=== PATIENT | male | born 1930 | race American Indian/Alaskan Native ===

== ENCOUNTER 2016-12-12 06:22 | Day surgery (SDC) | payer MEDICARE, OTHER ==
[2016-12-07 13:45] VITALS: BMI 24.0
[2016-12-12] MEDS ORDERED: cefTRIAXone IV 1 gm in Dextros 50 ML IVPB ONE (08:00)
[2016-12-12] MEDS ORDERED: Gentamicin 80 mg in 0.9% NS 0 MG/0 ML BAG IVPB ONE (08:00)
[2016-12-12] MEDS ORDERED: Lactated Ringer's 500 ML IV ONE ×2 (08:03→09:30)
[2016-12-12] MEDS ORDERED: Propofol 10 mg/ml Inj (20 ML) ONE (08:04)
[2016-12-12] MEDS ORDERED: Midazolam 2 MG/2 ML VIAL ONE (08:04)
[2016-12-12] MEDS ORDERED: Iohexol 240 200 ML IJ ONE (08:17)
[2016-12-12] MEDS ORDERED: HYDROmorphone 0.5 mg/0.5 ml ISec IVP PRN (08:52)
--- NOTE | 2016-12-12 09:16 | PCM.SURG1 ---
Surgeon's Initial Post Op Note - Surgeon's Notes Surgeon: al enriquez Gas Engine Mechanic: none Type of Anesthesia: IV Sedation Pre-Operative Diagnosis: incontinence Operative Findings: bladder tumor. neurogeninc baldder. bph Post-Operative Diagnosis: same Operation Performed: cgm. cysto. bladder bx's and fulg Specimen/Specimens Removed: urien. bladder bx's Estimated Blood Loss: EBL {In ML}: 0 Blood Products Given: N/A Post-Op Condition: Good Date of Surgery/Procedure: 12/12/16 Time of Surgery/Procedure: 09:00
[2016-12-12 15:37] VITALS: BP 149/56; PULSE 61; RESP 15; TEMP 97.4; O2SAT 98
--- NOTE | 2016-12-13 10:33 | RAD ---
PROCEDURE: HISTORY: COMPARISON: None TECHNIQUE: Total fluoroscopic time utilized during the procedure: 8.7 seconds. Total dose 86.1 mGy cm squared FINDINGS: Submitted images from the current procedure: 6 Please refer to the physician's notes performing the procedure. Findings show a heavily trabeculated bladder - Kong tree morphology IMPRESSION: Less than 1 hour fluoroscopic time utilized during performance of the procedure
--- NOTE | 2016-12-15 06:19 | OP ---
PROCEDURE DATE: 12/12/2016 PREOPERATIVE DIAGNOSIS: Urinary incontinence. POSTOPERATIVE DIAGNOSES: Urinary incontinence. Benign prostatic hypertrophy. Neurogenic bladder. Bladder cancer. PROCEDURE: Attempted cystometrogram. Cystogram. Cystoscopy. Bladder biopsy and fulguration. SURGEON: Dr. Jenny Schulte. DESCRIPTION OF PROCEDURE: The patient was in supine position. Genitalia was prepped and draped in sterile fashion. A 16-Mosotho Hill catheter was inserted per urethra. The residual within bladder was 150 mL. The urine was sent back for urologic examination. The attempted cystometrogram was performed. However, the cystometry unit was malfunctioning. The cystometrogram cannot be performed. The patient then had a cystogram. Iodinated contrast was instilled via the Hill catheter. The cystogram was performed under fluoroscopic control. The findings were trabeculated bladder with a x-mas tree formation. That is there was tenting of the dome of the bladder toward a narrow tip from a wide base. The post-drain films and oblique views were obtained as well. The patient was then placed in lithotomy position. Genitalia were prepped and draped in sterile fashion. Anesthesia was applied by the anesthesiologist. A 22-Mosotho cystoscope sheath was introduced under direct vision. The urethra, prostate and bladder were inspected with 30-degree and 70-degree lenses. FINDINGS: There was no stricture of the anterior urethra, but there was evidence of trilobar prostatic hypertrophy. There was marked bladder trabeculation with cellule formation. There were multiple areas of erythema which was flat and slightly granular. Biopsy of one of these areas was performed with cold-cup biopsy forceps. Fulguration was performed with ball electrodes and electrocautery. This site was located in the left anterior lateral wall. Additionally, there was a papillary lesion which appeared to be a bladder tumor located along a trabeculation band. This area was biopsied and removed with cold-cup biopsy forceps. Fulguration was performed with ball electrode and electrocautery for hemostasis as well as *------* control. The bladder was reinspected with 17-Mosotho confirming the above findings. The prostatic urethra was occlusive and 3 cm in length. There were no stones within the bladder. The ureteral orifices were not identified with certainty. The cystoscope and sheath were removed. Hill catheter was inserted. Bladder drainage was clear. Rectal examination was performed. Prostate was supple and smooth without fixation, induration, or nodularity. The patient tolerated the procedure without complication. Jenny Schulte MD
== END 2016-12-12 15:52 | disposition home or self-care (01) ==
LOC: C.SDS 06:22
PROVIDERS: ATTEND Urology
DX: C67.4 Malignant neoplasm of posterior wall of bladder (principal); N40.1 Benign prostatic hyperplasia with lower urinary tract symptoms; N31.9 Neuromuscular dysfunction of bladder, unspecified; R32 Unspecified urinary incontinence
CPT/HCPCS: 52204; 76000; 82948; 87086; 88104; 88305; J0696; J7120; Q9966

== ENCOUNTER 2017-03-13 06:00 | Day surgery (SDC) | payer MEDICARE, OTHER ==
[2016-12-07 13:45] VITALS: BMI 24.0
[2017-03-13] MEDS ORDERED: Lidocaine 2% Jelly (Uro-Jet) ONE (07:31)
[2017-03-13 07:34] LABS: INR 1.4
[2017-03-13] MEDS ORDERED: Propofol 10 mg/ml Inj (20 ML) ONE (07:54)
[2017-03-13] MEDS ORDERED: Lactated Ringer's 500 ML IV ONE ×2 (08:00)
[2017-03-13] MEDS: cefTRIAXone IV 1 gm in Dextros 50 ML IVPB ONE ×2 (08:01→08:35)
[2017-03-13] MEDS: Iohexol 240 (50 ml) ONE ×2 (08:09→08:45)
[2017-03-13] MEDS ORDERED: ePHEDrine 50 mg/ml Inj ONE (08:44)
[2017-03-13] MEDS ORDERED: HYDROmorphone 0.5 mg/0.5 ml ISec IVP PRN (09:17)
--- NOTE | 2017-03-13 09:20 | PCM.SURG1 ---
Surgeon's Initial Post Op Note - Surgeon's Notes Surgeon: Melvi Schulte Robotype Operator: none Type of Anesthesia: Moderate Sedation{RN} Pre-Operative Diagnosis: hx of bladder tumor, bph, incontinence Operative Findings: same, urethral stricture, abnormal bladder mucosa Post-Operative Diagnosis: same Operation Performed: cystoscopy, urethral dilation, bilat rtg pyelogram. bladder b'sx and fulg. TUIP Specimen/Specimens Removed: urine, bladder bx Estimated Blood Loss: EBL {In ML}: 0 Blood Products Given: N/A Post-Op Condition: Good Date of Surgery/Procedure: 03/13/17 Time of Surgery/Procedure: 09:15
[2017-03-13 10:26] VITALS: O2SAT 99
[2017-03-13 12:21] VITALS: BP 134/70; PULSE 59; RESP 18; TEMP 97.8
--- NOTE | 2017-03-14 15:47 | RAD ---
PROCEDURE: HISTORY: COMPARISON: TECHNIQUE: Total fluoroscopic time utilized during the procedure: 12.4 seconds. Total dose 0.91186 mGy cm squared FINDINGS: Submitted images from the current procedure: 11 Please refer to the physician's notes performing the procedure. IMPRESSION: Less than 1 hour fluoroscopic time utilized during performance of the procedure
--- NOTE | 2017-03-17 03:32 | OP ---
UROLOGY OPERATIVE REPORT PREOPERATIVE DIAGNOSES: History of bladder tumor. Incomplete bladder emptying. Urinary incontinence. POSTOPERATIVE DIAGNOSES: History of bladder tumor. Incomplete bladder emptying. Urinary incontinence. Urethral stricture. Chronic retention. Prostatic enlargement. Bladder tumor. PROCEDURES: Cystoscopy. Urethral dilation. Bilateral retrograde pyelogram. Bladder biopsy and fulguration. Transurethral incision of prostate (TUIP). PROCEDURE FOLLOWS: The patient was placed in the lithotomy position. Genitalia prepped and draped sterilely. Anesthesia was applied by the anesthesiologist. Perioperative antibiotics were administered. Procedure was performed under video endoscopic control as well as under fluoroscopic control. PROCEDURE FOLLOWS. A 22-Albanian cystoscope sheath was introduced under direct vision. There was a bulbous urethral stricture. The stricture was dilated by pass of the cystoscope sheath over a ureteral catheter which was inserted through the cystoscope sheath, through the urethral stricture and into the bladder. Thereafter, the bladder was inspected with 30 degree and 70 degree lenses. FINDINGS: There was prostatic hypertrophy. Prostatic urethra was approximately 3 cm length and occlusive. There was marked bladder trabeculation with cellule formation. There was no bladder stone. There were areas of abnormal bladder mucosa which were reddened and slightly raised and had early papillary formation. The ureteral orifices were identified bilaterally. Occlusive tip retrograde ureteral pyelograms were performed. The retrograde pyelogram demonstrated no evidence of obstruction or filling defect within the ureters or collecting systems. The area of abnormal bladder mucosa was biopsied using cold-cup biopsy forceps. Fulguration was performed with ball electrode and electrocautery. Hemostasis was complete. The cystoscope was removed. A 24-Albanian resectoscope was introduced under direct vision. Incision of the prostate was performed using the Tiny electrode. Incision was performed in the 5 o'clock and 7 o' clock position from the bladder neck to the prostatic urethra, proximal to the verumontanum. Hemostasis was achieved using electrocautery. There was no bleeding noted. The resectoscope was then removed. A Councill tip catheter was inserted over ureteral catheter which was inserted into the bladder as a guide. Bladder drainage was clear. Cystogram was performed. Iodinated contrast dye was instilled via the Hill catheter. The cystogram confirmed the presence of catheter within the bladder. Rectal examination was performed. There was no abnormal pelvic mass fixation or induration. Prostate was benign and enlarged and supple and symmetric. Prostate was approximately 20 to 25 g in size. The patient tolerated the procedure without complication. Jenny Schulte MD cc: Jenny Schulte MD
== END 2017-03-13 12:12 | disposition home or self-care (01) ==
LOC: C.SDS 06:00
PROVIDERS: ATTEND Urology
DX: C67.4 Malignant neoplasm of posterior wall of bladder (principal); N35.9 Urethral stricture, unspecified; N40.1 Benign prostatic hyperplasia with lower urinary tract symptoms; N39.498 Other specified urinary incontinence; R33.8 Other retention of urine; E11.9 Type 2 diabetes mellitus without complications; I48.91 Unspecified atrial fibrillation; Z79.01 Long term (current) use of anticoagulants
CPT/HCPCS: 36415; 52204; 52450; 76000; 82948; 85610; 87086; 88104; 88305; C1758; J0696; J7120; Q9966

== ENCOUNTER 2017-05-25 15:57 | Emergency (ER) | payer MEDICARE, OTHER ==
[2017-05-25 16:09] VITALS: BMI 24.5
--- NOTE | 2017-05-25 17:16 | C.PDOC ---
History Of Present Illness 87 yr old male with PMHx of dementia, HTN and chronic renal disease presents to the ER accompanied by for evaluation of increasing confusion over the last several weeks. states the patient will carry on conversations and there is no one present in the room. reports patent is not as focused as he use to be. Patient denies visual or auditory hallucinations. Denies fever, chills, chest pain, SOB, nausea, vomiting or headache. Time Seen by Provider: 05/25/17 16:40 Chief Complaint (Nursing): Altered Mental Status History Per: Patient, Family () History/Exam Limitations: None Onset/Duration Of Symptoms: Persistent Past Medical History Reviewed: Historical Data, Nursing Documentation, Vital Signs Vital Signs: Last Vital Signs Temp 97.8 F 05/25/17 16:01 Pulse 78 05/25/17 18:15 Resp 16 05/25/17 18:15 BP 176/88 H 05/25/17 18:15 Pulse Ox 98 05/25/17 20:02 - Medical History PMH: Anemia, Arthritis, Cardia Arrhythmia (atrial fib), CHF, HTN, Hypercholesterolemia, Peripheral Edema (sometimes not at present), Chronic Kidney Disease (renal insufficiency), Sleep Apnea (no c pap) Surgical History: CABG ((2)), Coronary Stent (X2) Family History: States: No Known Family Hx - Social History Hx Alcohol Use: No Hx Substance Use: No - Immunization History Hx Tetanus Toxoid Vaccination: No Hx Influenza Vaccination: No Hx Pneumococcal Vaccination: No Review Of Systems Except As Marked, All Systems Reviewed And Found Negative. Constitutional: Negative for: Fever, Chills Cardiovascular: Negative for: Chest Pain Respiratory: Negative for: Shortness of Breath Gastrointestinal: Negative for: Nausea, Vomiting Neurological: Positive for: Confusion. Negative for: Headache Physical Exam - Physical Exam Appears: Non-toxic, No Acute Distress, Other (flat affect) Skin: Warm, Dry Head: Atraumatic, Normacephalic Eye(s): bilateral: Normal Inspection, PERRL, EOMI Oral Mucosa: Moist Throat: Normal, No Erythema, No Exudate, No Drooling Neck: Normal, Normal ROM, Supple Cardiovascular: Rhythm Regular, Rhythm Irregular Respiratory: Normal Breath Sounds, No Rales, No Rhonchi, No Stridor, No Wheezing Gastrointestinal/Abdominal: Normal Exam, Soft, No Tenderness, No Guarding Extremity: Normal ROM, No Swelling Neurological/Psych: Other (Patient is alert and active, knows his address, date and year. ) ED Course And Treatment - Laboratory Results Result Diagrams: 05/25/17 18:15 05/25/17 18:15 ECG: Interpreted By Me, Viewed By Me ECG Rhythm: Atrial Fibrillation Rate From EC (BPM) O2 Sat by Pulse Oximetry: 98 (RA) Pulse Ox Interpretation: Normal - Other Rad CXR X-Ray: Viewed By Me, Read By Radiologist Interpretation: HISTORY: AMS. COMPARISON: Chest x-ray performed 12/07/16. TECHNIQUE: Chest, one view. FINDINGS: LUNGS: No focal consolidation. Please note that chest x-ray has limited sensitivity for the detection of pulmonary masses. PLEURA: No significant pleural effusion identified. No definite pneumothorax . CARDIOVASCULAR: Median sternotomy wires. Heart size appears within normal limits. OSSEOUS STRUCTURES: Degenerative changes. VISUALIZED UPPER ABDOMEN: Elevation of the left hemidiaphragm. OTHER FINDINGS : None. IMPRESSION: No focal consolidation, significant pleural effusion, or definite pneumothorax identified. - CT Scan/US CT - Head Other Rad Studies (CT/US): Read By Radiologist, Radiology Report Reviewed CT/US Interpretation: PROCEDURE: CT HEAD WITHOUT CONTRAST. HISTORY: AMS. COMPARISON: None available. TECHNIQUE: Axial computed tomography images were obtained through the head/brain without intravenous contrast. Radiation dose: Total exam DLP = 862.66 mGy-cm. This CT exam was performed using one or more of the following dose reduction techniques: Automated exposure control, adjustment of the mA and/or kV according to patient size, and/or use of iterative reconstruction technique. FINDINGS: HEMORRHAGE: No intracranial hemorrhage. BRAIN: Diffuse atrophy with prominence of the ventricles and sulci noted. No mass effect or edema. Intracranial atherosclerosis. Scattered white matter hypodensities, which are nonspecific, but often seen with chronic microvascular ischemic disease. Left frontal encephalomalacia. Please note that MRI with diffusion imaging is more sensitive in the detection of acute ischemic event. VENTRICLES: No hydrocephalus. CALVARIUM: Unremarkable. PARANASAL SINUSES: Unremarkable as visualized. No significant inflammatory changes. MASTOID AIR CELLS: Unremarkable as visualized. No inflammatory changes. OTHER FINDINGS: None. IMPRESSION: Encephalomalacia, left frontal lobe. Nonspecific white matter changes. Generalized atrophy. Please note that MRI with diffusion imaging is more sensitive in the detection of acute ischemic event. Medical Decision Making Medical Decision Making: IMPRESSION: Dementia subacute PLAN: * CT - Head * CXR * EKG * CBC * CMP * Urinalysis NOTE: AMS work up. Current mental status is not acute onset. Discussed finding of CT with patient about atrophy brain. Patient is stable to be discharged home. Disposition - Disposition Referrals: [facility] [Outside] Disposition: HOME/ ROUTINE Disposition Time: 19:56 Condition: GOOD Prescriptions: Gabapentin [Neurontin] 300 mg PO BID #20 cap Instructions: Sciatica (ED), Dementia (ED) Forms: Shawarmanji (Kinyarwanda) - Clinical Impression Clinical Impression: Sciatic leg pain, Dementia - Scribe Statement The provider has reviewed the documentation as recorded by the Lali Hernandez Provider Attestation: All medical record entries made by the Sandritaibsixto were at my direction and personally dictated by me. I have reviewed the chart and agree that the record accurately reflects my personal performance of the history, physical exam, medical decision making, and the department course for this patient. I have also personally directed, reviewed, and agree with the discharge instructions and disposition.
--- NOTE | 2017-05-25 18:04 | CT ---
PROCEDURE: CT HEAD WITHOUT CONTRAST. HISTORY: AMS COMPARISON: None available. TECHNIQUE: Axial computed tomography images were obtained through the head/brain without intravenous contrast. Radiation dose: Total exam DLP = 862.66 mGy-cm. This CT exam was performed using one or more of the following dose reduction techniques: Automated exposure control, adjustment of the mA and/or kV according to patient size, and/or use of iterative reconstruction technique. FINDINGS: HEMORRHAGE: No intracranial hemorrhage. BRAIN: Diffuse atrophy with prominence of the ventricles and sulci noted. No mass effect or edema. Intracranial atherosclerosis. Scattered white matter hypodensities, which are nonspecific, but often seen with chronic microvascular ischemic disease. Left frontal encephalomalacia. Please note that MRI with diffusion imaging is more sensitive in the detection of acute ischemic event. VENTRICLES: No hydrocephalus. CALVARIUM: Unremarkable. PARANASAL SINUSES: Unremarkable as visualized. No significant inflammatory changes. MASTOID AIR CELLS: Unremarkable as visualized. No inflammatory changes. OTHER FINDINGS: None. IMPRESSION: Encephalomalacia, left frontal lobe. Nonspecific white matter changes. Generalized atrophy. Please note that MRI with diffusion imaging is more sensitive in the detection of acute ischemic event.
--- NOTE | 2017-05-25 18:05 | RAD ---
HISTORY: AMS COMPARISON: Chest x-ray performed 12/07/16 TECHNIQUE: Chest, one view. FINDINGS: LUNGS: No focal consolidation. Please note that chest x-ray has limited sensitivity for the detection of pulmonary masses. PLEURA: No significant pleural effusion identified. No definite pneumothorax . CARDIOVASCULAR: Median sternotomy wires. Heart size appears within normal limits. OSSEOUS STRUCTURES: Degenerative changes. VISUALIZED UPPER ABDOMEN: Elevation of the left hemidiaphragm. OTHER FINDINGS: None. IMPRESSION: No focal consolidation, significant pleural effusion, or definite pneumothorax identified.
[2017-05-25 18:25] LABS: BASO # 0.1 K/uL (0.0-0.2); BASO % 0.7 % (0.0-2.0); EOS # 0.2 K/uL (0.0-0.7); EOS % 2.1 % (0.0-4.0); LYMPH # 1.6 K/uL (1.0-4.3); LYMPH % 22.6 % (20.0-40.0); MEAN CELL VOLUME 92.5 fL (80.0-94.0); MEAN CORPUSCULAR HEMOGLOBIN 30.1 pg (27.0-31.0); MEAN CORPUSCULAR HGB CONC 32.6 g/dL (33.0-37.0); MEAN PLATELET VOLUME 7.7 fL (7.2-11.7); MONO # 0.8 K/uL (0.0-0.8); MONO % 10.5 % (0.0-10.0); NEUT # 4.6 K/uL (1.8-7.0); NEUT % 64.1 % (50.0-75.0); RBC 4.64 Mil/uL (4.40-5.90); RED CELL DISTRIBUTION WIDTH 13.8 % (11.5-14.5); WHITE BLOOD COUNT 7.2 K/uL (4.8-10.8)
[2017-05-25 18:33] LABS: CALCIUM 8.5 mg/dl (8.6-10.4)
[2017-05-25 19:58] VITALS: PULSE 78
[2017-05-25] MEDS ORDERED: Tramadol 25 mg PO STA (23:36)
[2017-05-26 01:14] VITALS: BP 132/78; RESP 20; TEMP 98.1; O2SAT 97
== END 2017-05-26 01:00 | disposition home or self-care (01) ==
LOC: C.ER 15:57
DX: F03.90 Unspecified dementia, unspecified severity, without behavioral disturbance, psychotic disturbance, mood disturbance, and anxiety (principal); M79.606 Pain in leg, unspecified; E78.00 Pure hypercholesterolemia, unspecified; I10 Essential (primary) hypertension; I48.91 Unspecified atrial fibrillation

== ENCOUNTER 2017-06-06 23:48 | Inpatient (IN) | payer MEDICARE ==
[2017-06-06 23:48] VITALS: BMI 24.5
[2017-06-07] MEDS ORDERED: Sodium Chloride 0.9% 500 ML IV ONE ×2 (00:22→00:24)
[2017-06-07] MEDS ORDERED: Sodium Chloride 0.9% 1,000 ML IV ONE (00:24)
[2017-06-07] MEDS ORDERED: Sodium Chloride 0.9% 1,000 ML ONE (00:30)
--- NOTE | 2017-06-07 00:56 | C.PDOC ---
History Of Present Illness 87 year old male with a Hx of diabetes brought in the ER by family member for elevated blood sugar. Family reports patient fell and landed on his right hip and back area approximately 1 week ago. Denies fever, chills, weakness or numbness. Chief Complaint (Nursing): High Blood Sugar History Per: Family History/Exam Limitations: no limitations Onset/Duration Of Symptoms: Hrs Current Symptoms Are (Timing): Still Present Treatment Prior To Provider Evaluation: None Recent travel outside of the [place]: No Additional History Per: Family Past Medical History Reviewed: Historical Data, Nursing Documentation, Vital Signs Vital Signs: Last Vital Signs Temp 98.2 F 06/10/17 15:00 Pulse 99 H 06/10/17 16:13 Resp 20 06/10/17 15:00 BP 104/54 L 06/10/17 15:00 Pulse Ox 96 06/10/17 16:46 - Medical History PMH: Anemia, Arthritis, Cardia Arrhythmia (atrial fib), CHF, HTN, Hypercholesterolemia, Peripheral Edema (sometimes not at present), Chronic Kidney Disease (renal insufficiency), Sleep Apnea Surgical History: CABG ((2)), Coronary Stent (X2) Family History: States: Unknown Family Hx - Social History Hx Alcohol Use: No Hx Substance Use: No - Immunization History Hx Tetanus Toxoid Vaccination: Yes Hx Influenza Vaccination: Yes Hx Pneumococcal Vaccination: No Review Of Systems Constitutional: Negative for: Fever, Chills Cardiovascular: Negative for: Chest Pain, Palpitations Respiratory: Negative for: Cough, Shortness of Breath Gastrointestinal: Negative for: Nausea, Vomiting, Abdominal Pain Musculoskeletal: Positive for: Back Pain, Leg Pain Neurological: Negative for: Weakness, Numbness Physical Exam - Physical Exam Appears: Non-toxic, No Acute Distress Skin: Warm, Dry Head: Atraumatic, Normacephalic Eye(s): bilateral: Normal Inspection Oral Mucosa: Dry Neck: Normal, Supple Chest: Symmetrical, Other (Abrasion to left area) Cardiovascular: Rhythm Regular Respiratory: Normal Breath Sounds, No Rales, No Rhonchi, No Wheezing Gastrointestinal/Abdominal: Soft, No Tenderness Back: No CVA Tenderness, No Paraspinal Tenderness, Other (Abrasion to left buttock area) Extremity: Tenderness (right hip), Other (limited movement of right lower extremity) Neurological/Psych: Oriented x3, Normal Speech, Normal Motor, Normal Sensation ED Course And Treatment - Laboratory Results Result Diagrams: 06/10/17 06:21 06/10/17 06:21 ECG: Interpreted By Me, Viewed By Me ECG Rhythm: Atrial Fibrillation ECG Interpretation: No Acute Changes, Abnormal Interpretation Of ECG: atrial fibrillation, controlled rate Rate From EC O2 Sat by Pulse Oximetry: 96 (Room air) Pulse Ox Interpretation: Normal Progress Note: CT hip, CT pelvis, EKG, blood work, CXR, and urinalysis ordered. IV fluids and toradol administered. Disposition Discussed With Dr.: Cameron Jones Doctor Will See Patient In The: Hospital Counseled Patient/Family Regarding: Studies Performed - Disposition Disposition: HOSPITALIZED Disposition Time: 03:00 Condition: STABLE - POA Present On Arrival: None - Clinical Impression Clinical Impression: Hyperglycemia, Diabetic ketosis, Dehydration, Renal insufficiency - Scribe Statement The provider has reviewed the documentation as recorded by the Scribe Lauri Reagan All medical record entries made by the Scribe were at my direction and personally dictated by me. I have reviewed the chart and agree that the record accurately reflects my personal performance of the history, physical exam, medical decision making, and the department course for this patient. I have also personally directed, reviewed, and agree with the discharge instructions and disposition.
[2017-06-07 01:00] LABS: BASO # 0.1 K/uL (0.0-0.2); BASO % 0.4 % (0.0-2.0); EOS # 0.1 K/uL (0.0-0.7); EOS % 0.6 % (0.0-4.0); HEMOGLOBIN 14.4 g/dL (12.0-18.0); LYMPH # 1.1 K/uL (1.0-4.3); LYMPH % 8.3 % (20.0-40.0); MEAN CELL VOLUME 93.8 fL (80.0-94.0); MEAN CORPUSCULAR HEMOGLOBIN 30.8 pg (27.0-31.0); MEAN CORPUSCULAR HGB CONC 32.8 g/dL (33.0-37.0); MEAN PLATELET VOLUME 9.1 fL (7.2-11.7); MONO # 1.1 K/uL (0.0-0.8); MONO % 8.5 % (0.0-10.0); NEUT # 10.5 K/uL (1.8-7.0); NEUT % 82.2 % (50.0-75.0); PLATELET COUNT 259 K/uL (130-400); RBC 4.67 Mil/uL (4.40-5.90); RED CELL DISTRIBUTION WIDTH 13.6 % (11.5-14.5); WHITE BLOOD COUNT 12.8 K/uL (4.8-10.8)
[2017-06-07 01:48] LABS: ALB/GLOB RATIO 0.8 (1.0-2.1); ALBUMIN 3.5 g/dL (3.5-5.0); ALT/SGPT 64 U/L (21-72); AST/SGOT 59 U/L (17-59); BLOOD UREA NITROGEN 78 mg/dL (9-20); CALCIUM 9.2 mg/dl (8.6-10.4); GFR AFRICAN-AMERICAN 58; GFR NON-AFRICAN AMERICAN 48
[2017-06-07] MEDS ORDERED: (Novolin R) Insulin Human Regular 100 units/ml vial IV ONE (02:11)
[2017-06-07] MEDS ORDERED: Sodium Chloride 0.45% 500ml 1,000 ML IV ONE (02:14)
[2017-06-07] MEDS ORDERED: (Novolin R) Insulin Human Regular 100 units/ml vial ONE ×2 (02:18→03:06)
--- NOTE | 2017-06-07 02:25 | CT ---
EXAM: CT Pelvis Without Intravenous Contrast CLINICAL HISTORY: 87 years old, male; Pain; Hip pain; Right hip; Additional info: Injury /pain TECHNIQUE: Axial computed tomography images of the pelvis without intravenous contrast. All CT scans at this facility use one or more dose reduction techniques, viz.: automated exposure control; ma/kV adjustment per patient size (including targeted exams where dose is matched to indication; i.e. head); or iterative reconstruction technique. 3-D and MIP reconstruction images are submitted. 1105 images are submitted.Sagittal , axial and coronal MPR reformatted images are submitted in soft tissue and bone windows. COMPARISON: CR - HIP W/WO PELVIS 2-3 VIEWS RT 2015-05-23 12:46 FINDINGS: Bowel: Rectosigmoid distention with stool. No mucosal thickening. Appendix: Normal appendix. Intraperitoneal space: Unremarkable. No free air. No significant fluid collection. Bladder: Bladder distention measuring 14.7 cm. Correlation with patient's voiding status is recommended. Reproductive: Prostate gland is seen. Bones/joints: Degenerative changes are noted within the spine. There is vacuum disc disease at L4-L5 level. There is bulky bridging osteophyte at L3-L4 level. No acute fracture. No dislocation. Soft tissues: Unremarkable. Vasculature: The aorta demonstrates calcified plaque and is mildly ectatic but normal in caliber. No lower abdominal aortic aneurysm. Lymph nodes: Unremarkable. No enlarged lymph nodes. Other findings: There is chronic pelvic deformity. Correlation with patient's ambulatory status is recommended. IMPRESSION: 1. Bladder distention measuring 14.7 cm. Correlation with patient's voiding status is recommended. 2.There is no evidence of acute fracture.
[2017-06-07] MEDS ORDERED: Lidocaine 2% Jelly (Uro-Jet) ONE (02:34)
[2017-06-07 02:35] LABS: BANDS 1 % (0-2); EOSINOPHIL 1 % (0-4); LYMPHOCYTE 7 % (20-40); MONOCYTE 9 % (0-10); NEUTROPHIL 82 % (50-75); PLATELET ESTIMATE NORMAL (NORMAL); TOTAL CELLS COUNTED 100
[2017-06-07 02:50] LABS: ABG ALLEN TEST POS; ARTERIAL BLOOD GAS HCO3 21.3 mmol/L (21-28); ARTERIAL BLOOD GAS HEMOGLOBIN 12.3 g/dL (11.7-17.4); ARTERIAL BLOOD GAS O2 SAT 97.7 % (95-98); ARTERIAL BLOOD GAS PCO2 36 mm/Hg (35-45); ARTERIAL BLOOD GAS PH 7.36 (7.35-7.45); ARTERIAL BLOOD GAS PO2 95 mm/Hg (80-100); ARTERIAL BLOOD GAS TCO2 21.4 mmol/L (22-28)
[2017-06-07 02:51] LABS: URINE BACTERIA RARE (<OCC); URINE BILIRUBIN NEGATIVE (NEGATIVE); URINE BLOOD NEGATIVE (NEGATIVE); URINE CLARITY Clear (Clear); URINE COLOR Yellow (YELLOW); URINE GLUCOSE (UA) 3+ mg/dL (Normal); URINE LEUKOCYTE ESTERASE NEG Leu/uL (Negative); URINE NITRATE NEGATIVE (NEGATIVE); URINE PROTEIN NEGATIVE (NEGATIVE); URINE UROBILINOGEN NORMAL mg/dL (0.2-1.0)
[2017-06-07] MEDS ORDERED: (Novolin R) Insulin Human Regular 100 units/ml vial SC ONE (03:06)
[2017-06-07] MEDS: Sodium Chloride 0.9% 1,000 ML IV SCH ×2 (03:26→16:35)
[2017-06-07] MEDS: (Novolin R) Insulin Human Regular 100 units/ml vial SC SCH ×5 (04:12→22:04)
[2017-06-07 05:07] LABS: BASO % 0.3 % (0.0-2.0); EOS # 0.1 K/uL (0.0-0.7); EOS % 0.7 % (0.0-4.0); HEMOGLOBIN 13.2 g/dL (12.0-18.0); LYMPH # 1.2 K/uL (1.0-4.3); LYMPH % 8.4 % (20.0-40.0); MEAN CELL VOLUME 93.3 fL (80.0-94.0); MEAN CORPUSCULAR HEMOGLOBIN 30.7 pg (27.0-31.0); MEAN PLATELET VOLUME 8.8 fL (7.2-11.7); MONO # 1.4 K/uL (0.0-0.8); MONO % 9.9 % (0.0-10.0); NEUT # 11.5 K/uL (1.8-7.0); NEUT % 80.7 % (50.0-75.0); PLATELET COUNT 236 K/uL (130-400); RBC 4.28 Mil/uL (4.40-5.90); RED CELL DISTRIBUTION WIDTH 14.1 % (11.5-14.5); WHITE BLOOD COUNT 14.3 K/uL (4.8-10.8)
[2017-06-07 05:14] LABS: INR 6.9
[2017-06-07 05:22] LABS: ALB/GLOB RATIO 0.8 (1.0-2.1); ALT/SGPT 55 U/L (21-72); AST/SGOT 49 U/L (17-59); BLOOD UREA NITROGEN 76 mg/dL (9-20); CALCIUM 8.5 mg/dl (8.6-10.4); GFR AFRICAN-AMERICAN 58; GFR NON-AFRICAN AMERICAN 48
[2017-06-07 05:25] LABS: PROTHROMBIN TIME 83.7 SECONDS (9.7-12.2)
[2017-06-07 05:43] LABS: LYMPHOCYTE 7 % (20-40); MONOCYTE 6 % (0-10); NEUTROPHIL 87 % (50-75); PLATELET ESTIMATE NORMAL (NORMAL); TOTAL CELLS COUNTED 100
[2017-06-07] MEDS: (Novolog Mix 70/30) Insulin Aspart/Insulin Aspar 100 units/ml SC SCH ×2 (09:28→18:49)
[2017-06-07] MEDS: Metoprolol Succinate 50 mg XL Tab PO SCH (09:30)
[2017-06-07] MEDS: Multiple Vitamins Tab PO SCH (09:30)
--- NOTE | 2017-06-07 09:37 | RAD ---
PROCEDURE: CHEST RADIOGRAPH, 1 VIEW HISTORY: SOB COMPARISON: Chest radiograph dated 05/25/2017. FINDINGS: LUNGS: Stable chronic prominence of the bilateral interstitial markings. No focal consolidation. PLEURA: No pneumothorax or pleural fluid seen. CARDIOVASCULAR: Prior sternotomy with sternal wires surgical clips redemonstrated. Atherosclerotic aortic calcifications. Cardiomediastinal silhouette unchanged. OSSEOUS STRUCTURES: Unchanged. VISUALIZED UPPER ABDOMEN: Normal. OTHER FINDINGS: None. IMPRESSION: Stable chronic prominence of the bilateral interstitial markings. No focal consolidation or pleural effusion.
[2017-06-07] MEDS ORDERED: Home Med 1 UNIT (Silodosin [Rapaflo] 8 MG) PO SCH (10:00)
[2017-06-07] MEDS: Cefepime IV 1 gm in Dextrose 1 GM/50 ML BAG IVPB SCH (17:49)
--- NOTE | 2017-06-07 19:29 | CP.PCM.HP ---
Past Patient History - Infectious Disease Hx of Infectious Diseases: None - Past Medical History & Family History Past Medical History?: Yes - Past Social History Smoking Status: Never Smoked - CARDIAC Hx Cardia Arrhythmia: Yes (atrial fib) Hx Congestive Heart Failure: Yes Hx Hypercholesterolemia: Yes Hx Hypertension: Yes Hx Peripheral Edema: Yes (sometimes not at present) - PULMONARY Hx Sleep Apnea: Yes - HEENT Hx HEENT Problems: Yes Hx Cataracts: Yes - RENAL Hx Chronic Kidney Disease: Yes (renal insufficiency) - ENDOCRINE/METABOLIC Hx Endocrine Disorders: Yes Hx Diabetes Mellitus Type 2: Yes - HEMATOLOGICAL/ONCOLOGICAL Hx Anemia: Yes - INTEGUMENTARY Hx Dermatological Problems: No - MUSCULOSKELETAL/RHEUMATOLOGICAL Hx Arthritis: Yes Hx Falls: Yes - GASTROINTESTINAL Hx Gastrointestinal Disorders: Yes Hx Constipation: Yes - GENITOURINARY/GYNECOLOGICAL Hx Genitourinary Disorders: Yes Hx Bladder Cancer: Yes Hx Incontinence: Yes Hx Prostate Problems: Yes - PSYCHIATRIC Hx Substance Use: No - SURGICAL HISTORY Hx Coronary Artery Bypass Graft: Yes ((2)) Hx Coronary Stent: Yes (X2) - ANESTHESIA Hx Anesthesia: Yes Hx Anesthesia Reactions: No Hx Malignant Hyperthermia: No Meds Allergies/Adverse Reactions: Allergies Allergy/AdvReac Type Severity Reaction Status Date / Time No Known Allergies Allergy Verified 06/07/17 00:18 Physical Exam - Constitutional Appears: Well - Head Exam Head Exam: ATRAUMATIC, NORMAL INSPECTION, NORMOCEPHALIC - Eye Exam Eye Exam: EOMI, Normal appearance, PERRL Pupil Exam: NORMAL ACCOMODATION, PERRL - ENT Exam ENT Exam: Mucous Membranes Moist, Normal Exam - Neck Exam Neck exam: Positive for: Normal Inspection - Respiratory Exam Respiratory Exam: Decreased Breath Sounds - Cardiovascular Exam Cardiovascular Exam: REGULAR RHYTHM, +S1, +S2 - GI/Abdominal Exam GI & Abdominal Exam: Diminished Bowel Sounds, Soft - Rectal Exam Rectal Exam: Deferred Results - Vital Signs Recent Vital Signs: Last Vital Signs Temp 98.7 F 06/07/17 16:00 Pulse 98 H 06/07/17 16:11 Resp 20 06/07/17 16:00 BP 109/62 06/07/17 16:00 Pulse Ox 97 06/07/17 16:00 - Labs Result Diagrams: 06/07/17 05:04 06/07/17 05:04 Labs: Laboratory Results - last 24 hr 06/07/17 06/07/17 06/07/17 00:21 00:50 00:50 WBC 12.8 H D RBC 4.67 Hgb 14.4 Hct 43.8 MCV 93.8 MCH 30.8 MCHC 32.8 L RDW 13.6 Plt Count 259 MPV 9.1 Neut % (Auto) 82.2 H Lymph % (Auto) 8.3 L [place] % (Auto) 8.5 Eos % (Auto) 0.6 Baso % (Auto) 0.4 Neut # 10.5 H Lymph # 1.1 [place] # 1.1 H Eos # 0.1 Baso # 0.1 Neutrophils % (Manual) 82 H Band Neutrophils % 1 Lymphocytes % (Manual) 7 L Monocytes % (Manual) 9 Eosinophils % (Manual) 1 Platelet Estimate Normal PT INR Puncture Site pCO2 pO2 HCO3 ABG pH ABG Total CO2 ABG O2 Saturation ABG Base Excess ABG Hemoglobin ABG Carboxyhemoglobin POC ABG HHb (Measured) ABG Methemoglobin [place] Test A-a O2 Difference Respiratory Index Hgb O2 Saturation Liter Flow FiO2 Sodium 139 Potassium 5.8 H Chloride 108 H Carbon Dioxide 22 Anion Gap 15 BUN 78 H Creatinine 1.4 Est GFR ( Amer) 58 Est GFR (Non-Af Amer) 48 POC Glucose (mg/dL) Random Glucose 446 H* D Calcium 9.2 Total Bilirubin 0.7 AST 59 D ALT 64 Alkaline Phosphatase 142 H D Total Creatine Kinase 1189 H Total Protein 7.7 Albumin 3.5 Globulin 4.2 H Albumin/Globulin Ratio 0.8 L Urine Color Yellow Urine Clarity Clear Urine pH 5.0 Ur Specific [place] 1.021 Urine Protein Negative Urine Glucose (UA) 3+ H Urine Ketones Negative Urine Blood Negative Urine Nitrate Negative Urine Bilirubin Negative Urine Urobilinogen Normal Ur Leukocyte Esterase Neg Urine WBC (Auto) 2 Urine RBC (Auto) 3 Urine Bacteria Rare Hyaline Casts 6-10 H Serum Ketones Small 06/07/17 06/07/17 06/07/17 02:37 03:00 04:08 WBC RBC Hgb Hct MCV MCH MCHC RDW Plt Count MPV Neut % (Auto) Lymph % (Auto) [place] % (Auto) Eos % (Auto) Baso % (Auto) Neut # Lymph # [place] # Eos # Baso # Neutrophils % (Manual) Band Neutrophils % Lymphocytes % (Manual) Monocytes % (Manual) Eosinophils % (Manual) Platelet Estimate PT INR Puncture Site Rr pCO2 36 pO2 95 HCO3 21.3 ABG pH 7.36 ABG Total CO2 21.4 L ABG O2 Saturation 97.7 ABG Base Excess -4.6 L ABG Hemoglobin 12.3 ABG Carboxyhemoglobin 1.5 POC ABG HHb (Measured) 2.2 ABG Methemoglobin 1.4 [place] Test Pos A-a O2 Difference 10.0 Respiratory Index 0.1 Hgb O2 Saturation 94.9 L Liter Flow 0 FiO2 21.0 Sodium Potassium Chloride Carbon Dioxide Anion Gap BUN Creatinine Est GFR ( Amer) Est GFR (Non-Af Amer) POC Glucose (mg/dL) 331 H 270 H Random Glucose Calcium Total Bilirubin AST ALT Alkaline Phosphatase Total Creatine Kinase Total Protein Albumin Globulin Albumin/Globulin Ratio Urine Color Urine Clarity Urine pH Ur Specific [place] Urine Protein Urine Glucose (UA) Urine Ketones Urine Blood Urine Nitrate Urine Bilirubin Urine Urobilinogen Ur Leukocyte Esterase Urine WBC (Auto) Urine RBC (Auto) Urine Bacteria Hyaline Casts Serum Ketones 06/07/17 06/07/17 06/07/17 05:04 05:04 05:04 WBC 14.3 H RBC 4.28 L Hgb 13.2 Hct 39.9 MCV 93.3 MCH 30.7 MCHC 33.0 RDW 14.1 Plt Count 236 MPV 8.8 Neut % (Auto) 80.7 H Lymph % (Auto) 8.4 L [place] % (Auto) 9.9 Eos % (Auto) 0.7 Baso % (Auto) 0.3 Neut # 11.5 H Lymph # 1.2 [place] # 1.4 H Eos # 0.1 Baso # 0.0 Neutrophils % (Manual) 87 H Band Neutrophils % Lymphocytes % (Manual) 7 L Monocytes % (Manual) 6 Eosinophils % (Manual) Platelet Estimate Normal PT 83.7 H* INR 6.9 Puncture Site pCO2 pO2 HCO3 ABG pH ABG Total CO2 ABG O2 Saturation ABG Base Excess ABG Hemoglobin ABG Carboxyhemoglobin POC ABG HHb (Measured) ABG Methemoglobin [place] Test A-a O2 Difference Respiratory Index Hgb O2 Saturation Liter Flow FiO2 Sodium 140 Potassium 4.6 Chloride 111 H Carbon Dioxide 20 L Anion Gap 14 BUN 76 H Creatinine 1.4 Est GFR ( Amer) 58 Est GFR (Non-Af Amer) 48 POC Glucose (mg/dL) Random Glucose 270 H Calcium 8.5 L Total Bilirubin 0.5 AST 49 ALT 55 Alkaline Phosphatase 110 Total Creatine Kinase Total Protein 6.7 Albumin 3.0 L Globulin 3.7 Albumin/Globulin Ratio 0.8 L Urine Color Urine Clarity Urine pH Ur Specific [place] Urine Protein Urine Glucose (UA) Urine Ketones Urine Blood Urine Nitrate Urine Bilirubin Urine Urobilinogen Ur Leukocyte Esterase Urine WBC (Auto) Urine RBC (Auto) Urine Bacteria Hyaline Casts Serum Ketones Negative 06/07/17 06/07/17 06/07/17 08:15 11:04 16:41 WBC RBC Hgb Hct MCV MCH MCHC RDW Plt Count MPV Neut % (Auto) Lymph % (Auto) [place] % (Auto) Eos % (Auto) Baso % (Auto) Neut # Lymph # [place] # Eos # Baso # Neutrophils % (Manual) Band Neutrophils % Lymphocytes % (Manual) Monocytes % (Manual) Eosinophils % (Manual) Platelet Estimate PT INR Puncture Site pCO2 pO2 HCO3 ABG pH ABG Total CO2 ABG O2 Saturation ABG Base Excess ABG Hemoglobin ABG Carboxyhemoglobin POC ABG HHb (Measured) ABG Methemoglobin [place] Test A-a O2 Difference Respiratory Index Hgb O2 Saturation Liter Flow FiO2 Sodium Potassium Chloride Carbon Dioxide Anion Gap BUN Creatinine Est GFR ( Amer) Est GFR (Non-Af Amer) POC Glucose (mg/dL) 189 H 194 H 136 H Random Glucose Calcium Total Bilirubin AST ALT Alkaline Phosphatase Total Creatine Kinase Total Protein Albumin Globulin Albumin/Globulin Ratio Urine Color Urine Clarity Urine pH Ur Specific [place] Urine Protein Urine Glucose (UA) Urine Ketones Urine Blood Urine Nitrate Urine Bilirubin Urine Urobilinogen Ur Leukocyte Esterase Urine WBC (Auto) Urine RBC (Auto) Urine Bacteria Hyaline Casts Serum Ketones
[2017-06-08] MEDS: (Novolin R) Insulin Human Regular 100 units/ml vial SC SCH ×7 (00:07→21:15)
[2017-06-08] MEDS: Sodium Chloride 0.9% 1,000 ML IV SCH ×2 (02:46→21:41)
--- NOTE | 2017-06-08 03:24 | CP.PCM.PCO ---
Physician Communication Note - Physician Communication Note Physician Communication Note: Runs of Vtach - patient asymptomatic, vitals stable. Will notify Primary -
[2017-06-08] MEDS: Cefepime IV 1 gm in Dextrose 1 GM/50 ML BAG IVPB SCH ×2 (04:13→17:56)
[2017-06-08 06:44] LABS: HEMOGLOBIN 12.2 g/dL (12.0-18.0); MEAN CELL VOLUME 92.7 fL (80.0-94.0); RBC 3.98 Mil/uL (4.40-5.90)
[2017-06-08 06:45] LABS: BASO % 0.2 % (0.0-2.0); EOS # 0.2 K/uL (0.0-0.7); EOS % 1.5 % (0.0-4.0); LYMPH # 1.5 K/uL (1.0-4.3); LYMPH % 9.6 % (20.0-40.0); MEAN CORPUSCULAR HEMOGLOBIN 30.7 pg (27.0-31.0); MEAN CORPUSCULAR HGB CONC 33.1 g/dL (33.0-37.0); MEAN PLATELET VOLUME 8.6 fL (7.2-11.7); MONO % 6.4 % (0.0-10.0); NEUT # 13.1 K/uL (1.8-7.0); NEUT % 82.3 % (50.0-75.0); PLATELET COUNT 231 K/uL (130-400); RED CELL DISTRIBUTION WIDTH 13.9 % (11.5-14.5)
[2017-06-08 06:58] LABS: CALCIUM 8.1 mg/dl (8.6-10.4)
[2017-06-08 08:36] LABS: PROTHROMBIN TIME 99.6 SECONDS (9.7-12.2)
[2017-06-08 08:50] LABS: MAGNESIUM 2.4 mg/dL (1.6-2.3)
[2017-06-08] MEDS: Multiple Vitamins Tab PO SCH (10:53)
[2017-06-08] MEDS: Metoprolol Succinate 50 mg XL Tab PO SCH (10:53)
[2017-06-08] MEDS: (Novolog Mix 70/30) Insulin Aspart/Insulin Aspar 100 units/ml SC SCH ×2 (10:53→17:55)
[2017-06-08 11:19] LABS: ANISOCYTOSIS SLIGHT; EOSINOPHIL 4 % (0-4); LYMPHOCYTE 8 % (20-40); MONOCYTE 7 % (0-10); NEUTROPHIL 81 % (50-75); PLATELET ESTIMATE NORMAL (NORMAL); TOTAL CELLS COUNTED 100
[2017-06-08 11:20] LABS: HYPOCHROMIC SLIGHT; LARGE PLATELETS PRESENT; POLYCHROMIC SLIGHT; TOXIC GRANULATION PRESENT
--- NOTE | 2017-06-08 11:23 | CP.PCM.PN ---
Subjective - Date & Time of Evaluation Date of Evaluation: 06/08/17 Time of Evaluation: 11:23 - Subjective Subjective: PGY2 progress note for Dr. Jones 87 year old male with past medical history of bladder cancer, DM, a fib and dementia presented to hospital for elevated blood sugars in 300s. Pt is A&ox1 so history is obtained through chart. Per ED note, pt experienced fall on right hip at home about [address] of pelvis done in ED showed no fracture. CT did show distended bladder measuring 14.7 cm. After reviewing records, it is noted that pt underwent cystogram with retrograde pyelogram in with bladder biopsy. 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 Overnight, pt had 1 episode of vtach. Currently pt denies having any CP, SOB, abd pain, N/V/D/C. Objective - Vital Signs/Intake and Output Vital Signs (last 24 hours): Temp Pulse Resp BP Pulse Ox 97.8 F 98 H 18 146/77 97 06/08/17 08:35 06/08/17 10:56 06/08/17 10:56 06/08/17 10:56 06/08/17 10:56 Intake and Output: 06/08/17 06/08/17 06:59 18:59 Intake Total 720 Output Total 900 Balance -180 - Medications Medications: Current Medications Cyanocobalamin (Vitamin B12 1000 Mcg Tab) 1,000 mcg PO DAILY [facility] Last Admin: 06/08/17 10:53 Dose: 1,000 mcg Finasteride (Proscar) 5 mg PO DAILY [facility] Last Admin: 06/08/17 10:53 Dose: 5 mg Furosemide (Lasix) 40 mg PO MWF [facility] Last Admin: 06/07/17 09:31 Dose: 40 mg Sodium Chloride (Sodium Chloride 0.9%) 1,000 mls @ 75 mls/hr IV .[id number] [facility] Last Admin: 06/08/17 02:46 Dose: 75 mls/hr Cefepime HCl (Maxipime Iv 1 Gm Premix) 1 gm in 50 mls @ 100 mls/hr IVPB Q12H [facility] Last Admin: 06/08/17 04:13 Dose: 100 mls/hr Insulin Aspart (Novolog Mix 70/30 (70/30 Units/Ml)) 14 units SC BID [facility] Last Admin: 06/08/17 10:53 Dose: 14 units Insulin Human Regular (Novolin R) 0 unit SC Q4 [facility] PRN Reason: Protocol Last Admin: 06/08/17 08:32 Dose: Not Given Isosorbide Mononitrate (Imdur Er) 30 mg PO DAILY [facility] Last Admin: 06/08/17 10:53 Dose: 30 mg Losartan Potassium (Cozaar) 25 mg PO DAILY [facility] Last Admin: 06/08/17 10:53 Dose: 25 mg Metoprolol Succinate (Toprol Xl) 50 mg PO DAILY [facility] Last Admin: 06/08/17 10:53 Dose: 50 mg Multivitamins (Hexavitamin) 1 tab PO DAILY [facility] Last Admin: 06/08/17 10:53 Dose: 1 tab Rosuvastatin Calcium (Crestor) 5 mg PO HS [facility] Last Admin: 06/07/17 21:10 Dose: 5 mg Tamsulosin HCl (Flomax) 0.4 mg PO DAILY [facility] Last Admin: 06/08/17 10:53 Dose: 0.4 mg - Labs Labs: 06/08/17 06:30 06/08/17 06:30 PT 99.6 SECONDS (9.7-12.2) H* D 06/08/17 06:30 INR 8.0 D 06/08/17 06:30 - Constitutional Appears: Non-toxic, No Acute Distress - Head Exam Head Exam: ATRAUMATIC - ENT Exam ENT Exam: Mucous Membranes Moist - Respiratory Exam Respiratory Exam: Clear to Ausculation Bilateral. absent: Accessory Muscle Use , Rales, Rhonchi, Wheezes, Respiratory Distress - Cardiovascular Exam Cardiovascular Exam: REGULAR RHYTHM, +S1, +S2. absent: Gallop, Rubs, Murmur - GI/Abdominal Exam GI & Abdominal Exam: Soft, Normal Bowel Sounds. absent: Distended, Firm, Guarding, Rigid, Tenderness, Organomegaly - Extremities Exam Extremities Exam: absent: Pedal Edema, Tenderness - Neurological Exam Neurological Exam: Alert, Awake. absent: Oriented x3 - Psychiatric Exam Psychiatric exam: Normal Affect, Normal Mood - Skin Skin Exam: Dry, Intact, Normal Color, Warm Assessment and Plan - Assessment and Plan (Free Text) Assessment: Diabetes Pt was admitted with suspicion for DKA. ABG done showed pH of 7.36. Serum and ruine ketones were negative. Pts blood sugar on admission was 331 and bicarb was 22 Will check HgbA1c and lipid panel Endo, Dr. Oquendo is consulted Currently on Novolog 14 units SC BID Continue Crestor and Cozaar CHF echo done today, results pending Currently on Imdur, Toprol XL 50 mg PO QD, and lasixs 40 mg po MWF Currently on NS at 75 cc Cardiology is ocnsulted Bladder cancer CT on admission showed distended bladder Hill in place draining light yellow urine Continue Flomax and finesteride Will consider consulting nephrology, Dr. Locke Urine culture ordered Cardiac arrhythmia Episode of vtach overnight Cardiology consulted echo pending Mg 2.4 Phos 2.8 A fib Pt is on coumadin at home. Pt noted to have INR of 6.9 on admission. Today INR is 8.0 Coumadin will be on hold. Will consider giving pt dose of vitamin K 2 mg for reversal Ulcer stage IV wound care ordered Wound culture ordered Currently on cefepime Prophylaxis Prevalon boots and SCDs Protonix Oral AC on hold All managements and orders per Dr. Jones
--- NOTE | 2017-06-08 12:14 | CP.PCM.PN ---
Subjective - Date & Time of Evaluation Date of Evaluation: 06/08/17 Time of Evaluation: 14:00 - Subjective Subjective: clinically same Objective - Vital Signs/Intake and Output Vital Signs (last 24 hours): Temp Pulse Resp BP Pulse Ox 97.8 F 98 H 18 146/77 97 06/08/17 08:35 06/08/17 10:56 06/08/17 10:56 06/08/17 10:56 06/08/17 10:56 Intake and Output: 06/08/17 06/08/17 06:59 18:59 Intake Total 720 Output Total 900 Balance -180 - Medications Medications: Current Medications Cyanocobalamin (Vitamin B12 1000 Mcg Tab) 1,000 mcg PO DAILY [facility] Last Admin: 06/08/17 10:53 Dose: 1,000 mcg Finasteride (Proscar) 5 mg PO DAILY [facility] Last Admin: 06/08/17 10:53 Dose: 5 mg Furosemide (Lasix) 40 mg PO MWF [facility] Last Admin: 06/07/17 09:31 Dose: 40 mg Sodium Chloride (Sodium Chloride 0.9%) 1,000 mls @ 75 mls/hr IV .[id number] [facility] Last Admin: 06/08/17 02:46 Dose: 75 mls/hr Cefepime HCl (Maxipime Iv 1 Gm Premix) 1 gm in 50 mls @ 100 mls/hr IVPB Q12H [facility] Last Admin: 06/08/17 04:13 Dose: 100 mls/hr Insulin Aspart (Novolog Mix 70/30 (70/30 Units/Ml)) 14 units SC BID [facility] Last Admin: 06/08/17 10:53 Dose: 14 units Insulin Human Regular (Novolin R) 0 unit SC Q4 [facility] PRN Reason: Protocol Last Admin: 06/08/17 08:32 Dose: Not Given Isosorbide Mononitrate (Imdur Er) 30 mg PO DAILY [facility] Last Admin: 06/08/17 10:53 Dose: 30 mg Losartan Potassium (Cozaar) 25 mg PO DAILY [facility] Last Admin: 06/08/17 10:53 Dose: 25 mg Metoprolol Succinate (Toprol Xl) 50 mg PO DAILY [facility] Last Admin: 06/08/17 10:53 Dose: 50 mg Multivitamins (Hexavitamin) 1 tab PO DAILY [facility] Last Admin: 06/08/17 10:53 Dose: 1 tab Pantoprazole Sodium (Protonix Ec Tab) 40 mg PO DAILY [facility] Rosuvastatin Calcium (Crestor) 5 mg PO HS [facility] Last Admin: 06/07/17 21:10 Dose: 5 mg Tamsulosin HCl (Flomax) 0.4 mg PO DAILY [facility] Last Admin: 06/08/17 10:53 Dose: 0.4 mg - Labs Labs: 06/08/17 06:30 06/08/17 06:30 PT 99.6 SECONDS (9.7-12.2) H* D 06/08/17 06:30 INR 8.0 D 06/08/17 06:30 - Constitutional Appears: Well - Head Exam Head Exam: ATRAUMATIC, NORMAL INSPECTION, NORMOCEPHALIC - Eye Exam Eye Exam: EOMI, Normal appearance, PERRL Pupil Exam: NORMAL ACCOMODATION, PERRL - ENT Exam ENT Exam: Mucous Membranes Moist, Normal Exam - Neck Exam Neck Exam: Full ROM, Normal Inspection. absent: Lymphadenopathy - Respiratory Exam Respiratory Exam: Decreased Breath Sounds - Cardiovascular Exam Cardiovascular Exam: REGULAR RHYTHM, +S1, +S2 - GI/Abdominal Exam GI & Abdominal Exam: Soft, Diminished Bowel Sounds - Rectal Exam Rectal Exam: Deferred
--- NOTE | 2017-06-08 12:43 | CARD ---
APPROVED REPORT EKG Measurement Heart [id number] <Conclusion> Atrial fibrillation Nonspecific ST and T wave abnormality Abnormal ECG
--- NOTE | 2017-06-08 12:47 | CP.PCM.CON ---
History of Present Illness - History of Present Illness History of Present Illness: I was asked to evaluate patient by Dr Jones. Surieint is a 87 year old male with PMH HTN, atrial fibrillation, reported CAD who presents with hyperglycemia. The patient wsa brought in by family. he is a poor historian. 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 He has not received coumadin. He has sacral decubitus. reported ventricular tachycardia. Review of Systems - Review of Systems Systems not reviewed;Unavailable: Dementia Past Patient History - Infectious Disease Hx of Infectious Diseases: None - Past Medical History & Family History Past Medical History?: Yes - Past Social History Smoking Status: Never Smoked - CARDIAC Hx Cardia Arrhythmia: Yes (atrial fib) Hx Congestive Heart Failure: Yes Hx Hypercholesterolemia: Yes Hx Hypertension: Yes Hx Peripheral Edema: Yes (sometimes not at present) - PULMONARY Hx Sleep Apnea: Yes - HEENT Hx HEENT Problems: Yes Hx Cataracts: Yes - RENAL Hx Chronic Kidney Disease: Yes (renal insufficiency) - ENDOCRINE/METABOLIC Hx Endocrine Disorders: Yes Hx Diabetes Mellitus Type 2: Yes - HEMATOLOGICAL/ONCOLOGICAL Hx Anemia: Yes - INTEGUMENTARY Hx Dermatological Problems: No - MUSCULOSKELETAL/RHEUMATOLOGICAL Hx Arthritis: Yes Hx Falls: Yes - GASTROINTESTINAL Hx Gastrointestinal Disorders: Yes Hx Constipation: Yes - GENITOURINARY/GYNECOLOGICAL Hx Genitourinary Disorders: Yes Hx Bladder Cancer: Yes Hx Incontinence: Yes Hx Prostate Problems: Yes - PSYCHIATRIC Hx Substance Use: No - SURGICAL HISTORY Hx Coronary Artery Bypass Graft: Yes ((2)) Hx Coronary Stent: Yes (X2) - ANESTHESIA Hx Anesthesia: Yes Hx Anesthesia Reactions: No Hx Malignant Hyperthermia: No Meds Allergies/Adverse Reactions: Allergies Allergy/AdvReac Type Severity Reaction Status Date / Time No Known Allergies Allergy Verified 06/07/17 00:18 - Medications Medications: Current Medications Cyanocobalamin (Vitamin B12 1000 Mcg Tab) 1,000 mcg PO DAILY [facility] Last Admin: 06/08/17 10:53 Dose: 1,000 mcg Finasteride (Proscar) 5 mg PO DAILY [facility] Last Admin: 06/08/17 10:53 Dose: 5 mg Furosemide (Lasix) 40 mg PO MWF [facility] Last Admin: 06/07/17 09:31 Dose: 40 mg Sodium Chloride (Sodium Chloride 0.9%) 1,000 mls @ 75 mls/hr IV .[id number] [facility] Last Admin: 06/08/17 02:46 Dose: 75 mls/hr Cefepime HCl (Maxipime Iv 1 Gm Premix) 1 gm in 50 mls @ 100 mls/hr IVPB Q12H [facility] Last Admin: 06/08/17 04:13 Dose: 100 mls/hr Insulin Aspart (Novolog Mix 70/30 (70/30 Units/Ml)) 14 units SC BID [facility] Last Admin: 06/08/17 10:53 Dose: 14 units Insulin Human Regular (Novolin R) 0 unit SC Q4 [facility] PRN Reason: Protocol Last Admin: 06/08/17 12:27 Dose: 4 unit Isosorbide Mononitrate (Imdur Er) 30 mg PO DAILY [facility] Last Admin: 06/08/17 10:53 Dose: 30 mg Losartan Potassium (Cozaar) 25 mg PO DAILY [facility] Last Admin: 06/08/17 10:53 Dose: 25 mg Metoprolol Succinate (Toprol Xl) 50 mg PO DAILY [facility] Last Admin: 06/08/17 10:53 Dose: 50 mg Multivitamins (Hexavitamin) 1 tab PO DAILY [facility] Last Admin: 06/08/17 10:53 Dose: 1 tab Pantoprazole Sodium (Protonix Ec Tab) 40 mg PO DAILY [facility] Rosuvastatin Calcium (Crestor) 5 mg PO HS [facility] Last Admin: 06/07/17 21:10 Dose: 5 mg Tamsulosin HCl (Flomax) 0.4 mg PO DAILY [facility] Last Admin: 06/08/17 10:53 Dose: 0.4 mg Physical Exam - Constitutional Appears: Non-toxic - Head Exam Head Exam: NORMAL INSPECTION - Eye Exam Eye Exam: Normal appearance - ENT Exam ENT Exam: Mucous Membranes Dry - Neck Exam Neck exam: Positive for: Full Rom. Negative for: Lymphadenopathy - Respiratory Exam Respiratory Exam: NORMAL BREATHING PATTERN - Cardiovascular Exam Cardiovascular Exam: Irregular Rhythm - GI/Abdominal Exam GI & Abdominal Exam: Normal Bowel Sounds - Rectal Exam Rectal Exam: Deferred - Extremities Exam Extremities exam: Positive for: pedal pulses present. Negative for: pedal edema - Back Exam Back exam: absent: tenderness - Neurological Exam Neurological exam: Alert - Psychiatric Exam Psychiatric exam: Normal Mood - Skin Additional comments: decubitus ulcer, clear borders Results - Vital Signs Recent Vital Signs: Last Vital Signs Temp 97.8 F 06/08/17 08:35 Pulse 98 H 06/08/17 10:56 Resp 18 06/08/17 10:56 BP 146/77 06/08/17 10:56 Pulse Ox 97 06/08/17 10:56 - Labs Result Diagrams: 06/08/17 06:30 06/08/17 06:30 Labs: Laboratory Results - last 24 hr 06/07/17 06/07/17 06/07/17 07:53 16:41 20:56 WBC RBC Hgb Hct MCV MCH MCHC RDW Plt Count MPV Neut % (Auto) Lymph % (Auto) [place] % (Auto) Eos % (Auto) Baso % (Auto) Neut # Lymph # [place] # Eos # Baso # Neutrophils % (Manual) Lymphocytes % (Manual) Monocytes % (Manual) Eosinophils % (Manual) Toxic Granulation Platelet Estimate Large Platelets Polychromasia Hypochromasia (manual) Anisocytosis (manual) Macrocytosis (manual) PT INR Sodium Potassium Chloride Carbon Dioxide Anion Gap BUN Creatinine Est GFR ( Amer) Est GFR (Non-Af Amer) POC Glucose (mg/dL) 136 H 199 H Random Glucose Calcium Phosphorus Magnesium Myoglobin 1130 H 06/08/17 06/08/17 06/08/17 02:07 04:12 06:22 WBC RBC Hgb Hct MCV MCH MCHC RDW Plt Count MPV Neut % (Auto) Lymph % (Auto) [place] % (Auto) Eos % (Auto) Baso % (Auto) Neut # Lymph # [place] # Eos # Baso # Neutrophils % (Manual) Lymphocytes % (Manual) Monocytes % (Manual) Eosinophils % (Manual) Toxic Granulation Platelet Estimate Large Platelets Polychromasia Hypochromasia (manual) Anisocytosis (manual) Macrocytosis (manual) PT INR Sodium Potassium Chloride Carbon Dioxide Anion Gap BUN Creatinine Est GFR ( Amer) Est GFR (Non-Af Amer) POC Glucose (mg/dL) 232 H 227 H 236 H Random Glucose Calcium Phosphorus Magnesium Myoglobin 06/08/17 06/08/17 06/08/17 06:30 06:30 06:30 WBC 16.0 H RBC 3.98 L Hgb 12.2 Hct 36.9 MCV 92.7 MCH 30.7 MCHC 33.1 RDW 13.9 Plt Count 231 MPV 8.6 Neut % (Auto) 82.3 H Lymph % (Auto) 9.6 L [place] % (Auto) 6.4 Eos % (Auto) 1.5 Baso % (Auto) 0.2 Neut # 13.1 H Lymph # 1.5 [place] # 1.0 H Eos # 0.2 Baso # 0.0 Neutrophils % (Manual) 81 H Lymphocytes % (Manual) 8 L Monocytes % (Manual) 7 Eosinophils % (Manual) 4 Toxic Granulation Present Platelet Estimate Normal Large Platelets Present Polychromasia Slight Hypochromasia (manual) Slight Anisocytosis (manual) Slight Macrocytosis (manual) Slight PT 99.6 H* D INR 8.0 D Sodium 141 Potassium 4.3 Chloride 114 H Carbon Dioxide 22 Anion Gap 9 L BUN 58 H Creatinine 1.4 Est GFR ( Amer) 58 Est GFR (Non-Af Amer) 48 POC Glucose (mg/dL) Random Glucose 263 H Calcium 8.1 L Phosphorus 2.8 Magnesium 2.4 H Myoglobin 06/08/17 11:41 WBC RBC Hgb Hct MCV MCH MCHC RDW Plt Count MPV Neut % (Auto) Lymph % (Auto) [place] % (Auto) Eos % (Auto) Baso % (Auto) Neut # Lymph # [place] # Eos # Baso # Neutrophils % (Manual) Lymphocytes % (Manual) Monocytes % (Manual) Eosinophils % (Manual) Toxic Granulation Platelet Estimate Large Platelets Polychromasia Hypochromasia (manual) Anisocytosis (manual) Macrocytosis (manual) PT INR Sodium Potassium Chloride Carbon Dioxide Anion Gap BUN Creatinine Est GFR ( Amer) Est GFR (Non-Af Amer) POC Glucose (mg/dL) 247 H Random Glucose Calcium Phosphorus Magnesium Myoglobin - EKG Data EKG Interpreted by: Myself Assessment & Plan (1) Atrial fibrillation Assessment and Plan: patient has chronic atrial fibrillation. aberrancy noted on monitor. I reviewed the echocardiogram. Systolic function appears preserved. mild valvular calcification noted. mitrla regurgitation noted. recommend continued medical therapy. blood pressure control. hold anticoagulation given coagulopathy Status: Acute
--- NOTE | 2017-06-08 13:28 | PCM.URO ---
Urology Progress Note - Objective Lab Studies: Reviewed (bladder cancer will check records and make recommendations thanks for the gu consult) Lab Results Last 24 Hours: Laboratory Results - last 24 hr 06/07/17 06/07/17 06/07/17 07:53 16:41 20:56 WBC RBC Hgb Hct MCV MCH MCHC RDW Plt Count MPV Neut % (Auto) Lymph % (Auto) [place] % (Auto) Eos % (Auto) Baso % (Auto) Neut # Lymph # [place] # Eos # Baso # Neutrophils % (Manual) Lymphocytes % (Manual) Monocytes % (Manual) Eosinophils % (Manual) Toxic Granulation Platelet Estimate Large Platelets Polychromasia Hypochromasia (manual) Anisocytosis (manual) Macrocytosis (manual) PT INR Sodium Potassium Chloride Carbon Dioxide Anion Gap BUN Creatinine Est GFR ( Amer) Est GFR (Non-Af Amer) POC Glucose (mg/dL) 136 H 199 H Random Glucose Hemoglobin A1c Calcium Phosphorus Magnesium Myoglobin 1130 H Triglycerides Cholesterol HDL Cholesterol 06/08/17 06/08/17 06/08/17 02:07 04:12 06:22 WBC RBC Hgb Hct MCV MCH MCHC RDW Plt Count MPV Neut % (Auto) Lymph % (Auto) [place] % (Auto) Eos % (Auto) Baso % (Auto) Neut # Lymph # [place] # Eos # Baso # Neutrophils % (Manual) Lymphocytes % (Manual) Monocytes % (Manual) Eosinophils % (Manual) Toxic Granulation Platelet Estimate Large Platelets Polychromasia Hypochromasia (manual) Anisocytosis (manual) Macrocytosis (manual) PT INR Sodium Potassium Chloride Carbon Dioxide Anion Gap BUN Creatinine Est GFR ( Amer) Est GFR (Non-Af Amer) POC Glucose (mg/dL) 232 H 227 H 236 H Random Glucose Hemoglobin A1c Calcium Phosphorus Magnesium Myoglobin Triglycerides Cholesterol HDL Cholesterol 06/08/17 06/08/17 06/08/17 06:30 06:30 06:30 WBC 16.0 H RBC 3.98 L Hgb 12.2 Hct 36.9 MCV 92.7 MCH 30.7 MCHC 33.1 RDW 13.9 Plt Count 231 MPV 8.6 Neut % (Auto) 82.3 H Lymph % (Auto) 9.6 L [place] % (Auto) 6.4 Eos % (Auto) 1.5 Baso % (Auto) 0.2 Neut # 13.1 H Lymph # 1.5 [place] # 1.0 H Eos # 0.2 Baso # 0.0 Neutrophils % (Manual) 81 H Lymphocytes % (Manual) 8 L Monocytes % (Manual) 7 Eosinophils % (Manual) 4 Toxic Granulation Present Platelet Estimate Normal Large Platelets Present Polychromasia Slight Hypochromasia (manual) Slight Anisocytosis (manual) Slight Macrocytosis (manual) Slight PT 99.6 H* D INR 8.0 D Sodium 141 Potassium 4.3 Chloride 114 H Carbon Dioxide 22 Anion Gap 9 L BUN 58 H Creatinine 1.4 Est GFR ( Amer) 58 Est GFR (Non-Af Amer) 48 POC Glucose (mg/dL) Random Glucose 263 H Hemoglobin A1c Calcium 8.1 L Phosphorus 2.8 Magnesium 2.4 H Myoglobin Triglycerides 54 Cholesterol 110 HDL Cholesterol 19 L 06/08/17 06/08/17 11:41 13:04 WBC RBC Hgb Hct MCV MCH MCHC RDW Plt Count MPV Neut % (Auto) Lymph % (Auto) [place] % (Auto) Eos % (Auto) Baso % (Auto) Neut # Lymph # [place] # Eos # Baso # Neutrophils % (Manual) Lymphocytes % (Manual) Monocytes % (Manual) Eosinophils % (Manual) Toxic Granulation Platelet Estimate Large Platelets Polychromasia Hypochromasia (manual) Anisocytosis (manual) Macrocytosis (manual) PT INR Sodium Potassium Chloride Carbon Dioxide Anion Gap BUN Creatinine Est GFR ( Amer) Est GFR (Non-Af Amer) POC Glucose (mg/dL) 247 H Random Glucose Hemoglobin A1c 9.9 H Calcium Phosphorus Magnesium Myoglobin Triglycerides Cholesterol HDL Cholesterol Intake & Output: Intake & Output 06/07/17 06/08/17 06/08/17 18:59 06:59 18:59 Intake Total 720 Output Total 900 Balance -180 Weight 154 lb 0.6 oz Intake: Intake, IV Amount 600 Left Forearm 600 Oral 120 Output: Urine 900 Urethral (Hill) 900 Other: # Bowel Movements 0 Vital Signs: Vital Signs - 24 hr 06/07/17 06/07/17 06/07/17 14:00 16:00 16:11 Temperature 98.7 F Pulse Rate 84 98 H Pulse Rate [ 85 Apical] Respiratory 20 Rate Blood Pressure 109/62 O2 Sat by Pulse 97 Oximetry 06/07/17 06/08/17 06/08/17 23:35 00:15 03:12 Temperature 98.1 F Pulse Rate 102 H 98 H 87 Pulse Rate [ Apical] Respiratory 20 Rate Blood Pressure 108/65 O2 Sat by Pulse 100 Oximetry 06/08/17 06/08/17 06/08/17 03:18 04:00 04:21 Temperature 98.7 F 98.8 F Pulse Rate 101 H 88 88 Pulse Rate [ Apical] Respiratory 20 20 Rate Blood Pressure 114/75 O2 Sat by Pulse 94 L 98 Oximetry 06/08/17 06/08/17 06/08/17 08:35 09:06 10:56 Temperature 97.8 F Pulse Rate 81 81 98 H Pulse Rate [ Apical] Respiratory 20 18 Rate Blood Pressure 100/54 L 146/77 O2 Sat by Pulse 98 97 Oximetry
[2017-06-09] MEDS: Cefepime IV 1 gm in Dextrose 1 GM/50 ML BAG IVPB SCH ×2 (04:00→17:50)
--- NOTE | 2017-06-09 05:08 | CON ---
DATE: ENDOCRINOLOGY CONSULTATION LOCATION: Room 656. HISTORY OF PRESENT ILLNESS: This is an 87-year-old male with known history of type 2 insulin-requiring diabetes, presenting here with generalized body weakness and dehydration, and is now being referred for diabetic evaluation because of supervening hyperglycemic acceleration and metabolic acidosis. PAST MEDICAL HISTORY: As mentioned above. History of type 2 insulin-requiring diabetes, currently on a combination of Novolin 70/30 given as 8 units twice a day with Amaryl given as 4 mg b.i.d.; history of hypertension, cardiovascular disease and dyslipidemia; history of coronary artery disease with underlying cardiac tachyarrhythmias, currently on oral anticoagulation therapy; history of diabetic retinopathy, polyneuropathy and nephropathy with peripheral vasculopathy. FAMILY HISTORY: Positive for diabetes and hypertension. SOCIAL HISTORY: Patient has a supportive family. No known substance use. REVIEW OF SYSTEMS: Has been noted by the family to have increasing generalized body weakness with progressive bouts of dizziness, lightheadedness and increasing hypersomnolence and lethargy. No chest pains or palpitations, but has had a progressive shortness of breath especially in exertion. His oral intake has been variable with nausea, dyspepsia and vague upper abdominal pains, has been noted to have also increasing bouts of polyuria and urinary incontinence. He also has habitual constipation. PHYSICAL EXAMINATION: GENERAL: This is an average built male, in no apparent distress. VITAL SIGNS: Blood pressure of 160/90, pulse of 100 beats per minute and regular; temperature 99; respirations 20. Height is 5 feet 8 inches, weight is 154 pounds. HEENT: Head is normocephalic. Eyes anicteric with pink conjunctivae. Funduscopy not possible at this time. Ears, nose, and throat otherwise normal. NECK: Supple. Thyroid gland is normal in size. No carotid bruits or any cervical adenopathy. CARDIOPULMONARY: Adynamic precordium. S1 and S2 is rapid and regular. LUNGS: Shows scattered rhonchi. ABDOMEN: Flat, soft with positive bowel sounds. EXTREMITIES: No peripheral edema. Pulses are +2 bilaterally. LABORATORY DATA: Chemistries today showed BUN of 58, sodium 141, potassium 4.3, chloride 114, CO2 22, glucose 263 and creatinine 1.4. His glucose levels have ranged from 236 to 247 mm/dL. His A1c is 9.9%. ASSESSMENT: This is an 87-year-old male with uncontrolled and decompensated type 2 insulin-requiring diabetes who is presenting here with hyperglycemic state and ketosis with dehydration and prerenal azotemia as noted. He is also has diabetic microvascular complications of retinopathy, polyneuropathy, and nephropathy with diabetic macrovascular complications of coronary artery disease and peripheral arterial disease and vasculopathy. PLAN OF MANAGEMENT: As discussed with the staff, we will modify his current remixed insulin regimen and increase and titrate his Novolin 70/30 to 24 units a.c. breakfast and 18 units a.c. dinner to start today. We will modify the coverage scale to obviate hypoglycemia and detailed orders have been given. We will obtain serial chemistry and supplement accordingly as needed. We will follow and advise accordingly. Sharon Oquendo MD
[2017-06-09] MEDS: (Novolin R) Insulin Human Regular 100 units/ml vial SC SCH ×4 (07:31→21:27)
[2017-06-09] MEDS: (Novolog Mix 70/30) Insulin Aspart/Insulin Aspar 100 units/ml SC SCH ×2 (07:43→18:14)
[2017-06-09 07:56] LABS: BASO % 0.2 % (0.0-2.0); EOS # 0.4 K/uL (0.0-0.7); EOS % 2.9 % (0.0-4.0); HEMOGLOBIN 11.5 g/dL (12.0-18.0); LYMPH # 1.2 K/uL (1.0-4.3); LYMPH % 9.1 % (20.0-40.0); MEAN CELL VOLUME 92.6 fL (80.0-94.0); MEAN CORPUSCULAR HEMOGLOBIN 31.7 pg (27.0-31.0); MEAN CORPUSCULAR HGB CONC 34.2 g/dL (33.0-37.0); MEAN PLATELET VOLUME 8.9 fL (7.2-11.7); MONO # 0.8 K/uL (0.0-0.8); MONO % 6.3 % (0.0-10.0); NEUT # 10.7 K/uL (1.8-7.0); NEUT % 81.5 % (50.0-75.0); PLATELET COUNT 193 K/uL (130-400); RBC 3.64 Mil/uL (4.40-5.90); RED CELL DISTRIBUTION WIDTH 13.8 % (11.5-14.5); WHITE BLOOD COUNT 13.2 K/uL (4.8-10.8)
--- NOTE | 2017-06-09 08:14 | CP.PCM.PN ---
Subjective - Date & Time of Evaluation Date of Evaluation: 06/09/17 Time of Evaluation: 08:00 - Subjective Subjective: no new complaints. comfortable Objective - Vital Signs/Intake and Output Vital Signs (last 24 hours): Temp Pulse Resp BP Pulse Ox 98.1 F 83 20 111/64 96 06/08/17 23:30 06/08/17 23:30 06/08/17 23:30 06/08/17 23:30 06/08/17 23:30 Intake and Output: 06/09/17 06/09/17 06:59 18:59 Intake Total 1470 Output Total 900 Balance 570 - Medications Medications: Current Medications Cyanocobalamin (Vitamin B12 1000 Mcg Tab) 1,000 mcg PO DAILY [facility] Last Admin: 06/08/17 10:53 Dose: 1,000 mcg Finasteride (Proscar) 5 mg PO DAILY [facility] Last Admin: 06/08/17 10:53 Dose: 5 mg Furosemide (Lasix) 40 mg PO MWF [facility] Last Admin: 06/07/17 09:31 Dose: 40 mg Glimepiride (Amaryl) 4 mg PO ACBD [facility] Last Admin: 06/09/17 07:43 Dose: 4 mg Sodium Chloride (Sodium Chloride 0.9%) 1,000 mls @ 75 mls/hr IV .[id number] [facility] Last Admin: 06/08/17 21:41 Dose: 75 mls/hr Cefepime HCl (Maxipime Iv 1 Gm Premix) 1 gm in 50 mls @ 100 mls/hr IVPB Q12H [facility] Last Admin: 06/09/17 04:00 Dose: 100 mls/hr Insulin Aspart (Novolog Mix 70/30 (70/30 Units/Ml)) 18 units SC ACD [facility] Last Admin: 06/08/17 17:55 Dose: 18 units Insulin Aspart (Novolog Mix 70/30 (70/30 Units/Ml)) 24 units SC ACB [facility] Last Admin: 06/09/17 07:43 Dose: 24 units Insulin Human Regular (Novolin R) 0 unit SC ACHS [facility] PRN Reason: Protocol Last Admin: 06/09/17 07:31 Dose: Not Given Isosorbide Mononitrate (Imdur Er) 30 mg PO DAILY [facility] Last Admin: 06/08/17 10:53 Dose: 30 mg Losartan Potassium (Cozaar) 25 mg PO DAILY [facility] Last Admin: 06/08/17 10:53 Dose: 25 mg Metoprolol Succinate (Toprol Xl) 50 mg PO DAILY [facility] Last Admin: 06/08/17 10:53 Dose: 50 mg Multivitamins (Hexavitamin) 1 tab PO DAILY [facility] Last Admin: 06/08/17 10:53 Dose: 1 tab Pantoprazole Sodium (Protonix Ec Tab) 40 mg PO DAILY [facility] Rosuvastatin Calcium (Crestor) 5 mg PO HS [facility] Last Admin: 06/08/17 21:40 Dose: 5 mg Tamsulosin HCl (Flomax) 0.4 mg PO DAILY [facility] Last Admin: 06/08/17 10:53 Dose: 0.4 mg - Labs Labs: 06/09/17 07:24 06/08/17 06:30 PT 99.6 SECONDS (9.7-12.2) H* D 06/08/17 06:30 INR 8.0 D 06/08/17 06:30 - Constitutional Appears: Non-toxic - Head Exam Head Exam: NORMAL INSPECTION - Eye Exam Eye Exam: Normal appearance - ENT Exam ENT Exam: Mucous Membranes Moist - Neck Exam Neck Exam: Full ROM - Respiratory Exam Respiratory Exam: NORMAL BREATHING PATTERN - Cardiovascular Exam Cardiovascular Exam: Irregular Rhythm - GI/Abdominal Exam GI & Abdominal Exam: Normal Bowel Sounds - Rectal Exam Rectal Exam: Deferred - Extremities Exam Extremities Exam: absent: Pedal Edema - Back Exam Back Exam: NORMAL INSPECTION - Neurological Exam Neurological Exam: Alert - Psychiatric Exam Psychiatric exam: Normal Affect - Skin Skin Exam: Normal Color Assessment and Plan (1) Atrial fibrillation Assessment & Plan: rate controlled. normal LV function. follow up coags Status: Acute
[2017-06-09 08:17] LABS: ALB/GLOB RATIO 0.8 (1.0-2.1); ALBUMIN 2.3 g/dL (3.5-5.0); ALT/SGPT 95 U/L (21-72); AST/SGOT 117 U/L (17-59); BLOOD UREA NITROGEN 36 mg/dL (9-20); CALCIUM 8.1 mg/dl (8.6-10.4); GFR AFRICAN-AMERICAN > 60; GFR NON-AFRICAN AMERICAN > 60; HDL CHOLESTEROL 15 mg/dL (30-70); MAGNESIUM 2.1 mg/dL (1.6-2.3)
[2017-06-09 08:24] LABS: LDL CHOLESTEROL 55 mg/dL (0-129)
[2017-06-09] MEDS: Pantoprazole 40 mg EC Tab PO SCH (09:27)
[2017-06-09] MEDS: Multiple Vitamins Tab PO SCH (09:27)
[2017-06-09] MEDS: Metoprolol Succinate 50 mg XL Tab PO SCH (09:29)
[2017-06-09] MEDS: Sodium Chloride 0.9% 1,000 ML IV SCH (09:31)
--- NOTE | 2017-06-09 09:51 | CARD ---
APPROVED REPORT EXAM: Two-dimensional and M-mode echocardiogram with Doppler and color Doppler. Other Information Quality : GoodRhythm : INDICATION Cardiac Disease: CAD Congestive Heart Failure V-TACH Surgery/Intervention CABG: RISK FACTORS Hypertension Hyperlipidemia Diabetes 2D DIMENSIONS IVSd1.3 (0.7-1.1cm)LVDd2.5 (3.9-5.9cm) PWd1.3 (0.7-1.1cm)LVDs1.7 (2.5-4.0cm) FS (%) 30.5 %LVEF (%)60.3 (>50%) M-Mode DIMENSIONS Left Atrium (MM)3.81 (2.5-4.0cm)Aortic Root3.70 (2.2-3.7cm) Aortic Cusp Exc.2.04 (1.5-2.0cm) Mitral Valve MV E Hgwwrtmq80.7cm/sE/A ratio0.0 TDI E/Lateral E'0.0E/Medial E'0.0 Tricuspid Valve TR Peak [id number]/sTR Peak Gr.[id number] LEFT VENTRICLE The left ventricle is normal size. There is mild concentric left ventricular hypertrophy. Left ventricle systolic function is normal. The Ejection Fraction is 60-65%. There is mild hypokinesis in the basal inferoseptal wall. The left ventricular diastolic function is normal. No left ventricle thrombus noted on this study. RIGHT VENTRICLE The right ventricle is normal size. The right ventricular systolic function is normal. ATRIA The left atrium size is normal. The right atrium size is normal. AORTIC VALVE The aortic valve is mildly to moderately sclerotic. The aortic valve is trileaflet. No aortic regurgitation is present. There is no aortic valvular stenosis. There is no aortic valvular vegetation. MITRAL VALVE Mitral annular calcification is mild to moderate. There is no evidence of mitral valve prolapse. There is no mitral valve stenosis. Mitral regurgitation is mild to moderate. TRICUSPID VALVE The tricuspid valve is normal in structure. There is mild to moderate tricuspid regurgitation. Right ventricular systolic pressure is estimated at 30-40 mmHg. There is no pulmonary hypertension. There is no tricuspid valve prolapse or vegetation. PULMONIC VALVE The pulmonic valve is not well visualized. There is no pulmonic valvular regurgitation. GREAT VESSELS The aortic root is mildly enlarged. The ascending aorta is normal in size. The IVC is normal in size and collapses >50% with inspiration. PERICARDIAL EFFUSION There is no pericardial effusion. There is no pleural effusion. <Conclusion> There is mild concentric left ventricular hypertrophy. Left ventricle systolic function is normal. The Ejection Fraction is 60-65%. There is mild hypokinesis in the basal inferoseptal wall. The left ventricular diastolic function is normal. The right ventricle is normal size. The right ventricular systolic function is normal. The left and right atrium size is normal. Mitral regurgitation is mild to moderate. There is mild to moderate tricuspid regurgitation.
[2017-06-09 12:55] LABS: INR 3.5; PROTHROMBIN TIME 42.4 SECONDS (9.7-12.2)
[2017-06-09 13:06] LABS: ANISOCYTOSIS SLIGHT; BANDS 1 % (0-2); EOSINOPHIL 1 % (0-4); LARGE PLATELETS PRESENT; LYMPHOCYTE 6 % (20-40); MONOCYTE 3 % (0-10); MYELOCYTE 1 % (0-0); NEUTROPHIL 88 % (50-75); PLATELET ESTIMATE NORMAL (NORMAL); TOTAL CELLS COUNTED 100
[2017-06-09 13:07] LABS: TOXIC GRANULATION PRESENT
[2017-06-09 13:16] LABS: HEPATITIS B SURFACE AG Negative (NEGATIVE)
[2017-06-09 13:22] LABS: HEPATITIS A IGM NEGATIVE (NEGATIVE); HEPATITIS B CORE AB NEGATIVE (NEGATIVE)
[2017-06-09 13:34] LABS: HEPATITIS C ANTIBODY NEGATIVE (NEGATIVE)
--- NOTE | 2017-06-09 16:53 | CP.PCM.PN ---
Subjective - Date & Time of Evaluation Date of Evaluation: 06/09/17 Time of Evaluation: 16:51 - Subjective Subjective: PGY2 progress note for Dr. Jones Pt seen and examined at bedside. No acute events overnight. Pt is resting comfortably turned to right side to off-load left side. Pt is answering questions but ROS difficult to obtain due to dementia. Objective - Vital Signs/Intake and Output Vital Signs (last 24 hours): Temp Pulse Resp BP Pulse Ox 99.1 F 87 20 96/61 L 98 06/09/17 08:22 06/09/17 08:22 06/09/17 08:22 06/09/17 09:28 06/09/17 08:22 Intake and Output: 06/09/17 06/09/17 06:59 18:59 Intake Total 1470 Output Total 900 Balance 570 - Medications Medications: Current Medications Cyanocobalamin (Vitamin B12 1000 Mcg Tab) 1,000 mcg PO DAILY [facility] Last Admin: 06/09/17 09:27 Dose: 1,000 mcg Finasteride (Proscar) 5 mg PO DAILY [facility] Last Admin: 06/09/17 09:30 Dose: 5 mg Furosemide (Lasix) 40 mg PO MWF [facility] Last Admin: 06/09/17 09:28 Dose: Not Given Glimepiride (Amaryl) 4 mg PO ACBD [facility] Last Admin: 06/09/17 08:14 Dose: Not Given Sodium Chloride (Sodium Chloride 0.9%) 1,000 mls @ 75 mls/hr IV .[id number] [facility] Last Admin: 06/09/17 09:31 Dose: 75 mls/hr Cefepime HCl (Maxipime Iv 1 Gm Premix) 1 gm in 50 mls @ 100 mls/hr IVPB Q12H [facility] Last Admin: 06/09/17 04:00 Dose: 100 mls/hr Insulin Aspart (Novolog Mix 70/30 (70/30 Units/Ml)) 18 units SC ACD [facility] Last Admin: 06/08/17 17:55 Dose: 18 units Insulin Aspart (Novolog Mix 70/30 (70/30 Units/Ml)) 24 units SC ACB [facility] Last Admin: 06/09/17 07:43 Dose: 24 units Insulin Human Regular (Novolin R) 0 unit SC ACHS [facility] PRN Reason: Protocol Last Admin: 06/09/17 11:20 Dose: Not Given Isosorbide Mononitrate (Imdur Er) 30 mg PO DAILY [facility] Last Admin: 06/09/17 09:27 Dose: 30 mg Losartan Potassium (Cozaar) 25 mg PO DAILY [facility] Last Admin: 06/09/17 09:28 Dose: Not Given Metoprolol Succinate (Toprol Xl) 50 mg PO DAILY [facility] Last Admin: 06/09/17 09:29 Dose: Not Given Multivitamins (Hexavitamin) 1 tab PO DAILY [facility] Last Admin: 06/09/17 09:27 Dose: 1 tab Pantoprazole Sodium (Protonix Ec Tab) 40 mg PO DAILY [facility] Last Admin: 06/09/17 09:27 Dose: 40 mg Rosuvastatin Calcium (Crestor) 5 mg PO HS [facility] Last Admin: 06/08/17 21:40 Dose: 5 mg Tamsulosin HCl (Flomax) 0.4 mg PO DAILY [facility] Last Admin: 06/09/17 09:27 Dose: 0.4 mg - Labs Labs: 06/09/17 07:24 06/09/17 07:24 PT 42.4 SECONDS (9.7-12.2) H* D 06/09/17 12:22 INR 3.5 D 06/09/17 12:22 - Constitutional Appears: Non-toxic, No Acute Distress - Head Exam Head Exam: ATRAUMATIC - ENT Exam ENT Exam: Mucous Membranes Moist - Respiratory Exam Respiratory Exam: Clear to Ausculation Bilateral. absent: Rales, Rhonchi, Wheezes - Cardiovascular Exam Cardiovascular Exam: REGULAR RHYTHM, +S1, +S2. absent: Gallop, Rubs, Murmur - GI/Abdominal Exam GI & Abdominal Exam: Soft, Normal Bowel Sounds. absent: Distended, Firm, Guarding, Rigid, Tenderness, Organomegaly - Extremities Exam Extremities Exam: Pedal Edema, Tenderness (B.L) - Neurological Exam Neurological Exam: Awake. absent: Alert, Oriented x3 - Psychiatric Exam Psychiatric exam: absent: Normal Affect, Normal Mood - Skin Skin Exam: Dry, Intact, Normal Color, Warm Assessment and Plan - Assessment and Plan (Free Text) Assessment: Diabetes Hgb A1c is 9.9 Lipid panel is normal Endo, dr. wiseman is consulted. Pt placed on Novolin 70/30 24 units at breakfast and 18 units at dinner Continue Crestor and Cozaar CHF echo done today. Per cardio, preserved LV function. Cardio recommends continuing medical treatment Currently on Imdur, Toprol XL 50 mg PO QD, and lasixs 40 mg po MWF Currently on NS at 75 cc. will check a pro BNP Bladder cancer CT on admission showed distended bladder Hill in place draining light yellow urine Continue Flomax and finesteride Urology is consulted. Recs pending will repeat urinalysis and urine culture Cardiac arrhythmia Likely due to aberrancy Cardiology consulted Mg 2.4 Phos 2.8 A fib Pt given vitamin K yesterday due supratherapeutic INR of 8 INR today is 3.5 Will restart coumadin tomorrow evening Ulcer stage IV wound care ordered Wound culture ordered Currently on cefepime Prophylaxis Prevalon boots and SCDs Protonix Oral AC on hold All managements and orders per Dr. Jones
[2017-06-09 20:42] LABS: SQUAMOUS EPITHIAL < 1 /hpf (0-5); URINE BACTERIA FEW (<OCC); URINE BILIRUBIN NEGATIVE (NEGATIVE); URINE BLOOD 2+ (NEGATIVE); URINE CLARITY Clear (Clear); URINE COLOR Yellow (YELLOW); URINE GLUCOSE (UA) 1+ mg/dL (Normal); URINE LEUKOCYTE ESTERASE TRACE Leu/uL (Negative); URINE NITRATE NEGATIVE (NEGATIVE); URINE PROTEIN 1+ mg/dL (NEGATIVE); URINE UROBILINOGEN NORMAL mg/dL (0.2-1.0)
--- NOTE | 2017-06-09 21:59 | CP.PCM.PN ---
Subjective - Date & Time of Evaluation Date of Evaluation: 06/09/17 Time of Evaluation: 10:00 - Subjective Subjective: clinically same Objective - Vital Signs/Intake and Output Vital Signs (last 24 hours): Temp Pulse Resp BP Pulse Ox 97.3 F L 98 H 20 116/51 L 98 06/09/17 17:06 06/09/17 17:06 06/09/17 17:06 06/09/17 17:06 06/09/17 17:06 - Medications Medications: Current Medications Cyanocobalamin (Vitamin B12 1000 Mcg Tab) 1,000 mcg PO DAILY [facility] Last Admin: 06/09/17 09:27 Dose: 1,000 mcg Finasteride (Proscar) 5 mg PO DAILY [facility] Last Admin: 06/09/17 09:30 Dose: 5 mg Furosemide (Lasix) 40 mg PO MWF [facility] Last Admin: 06/09/17 09:28 Dose: Not Given Glimepiride (Amaryl) 4 mg PO ACBD [facility] Last Admin: 06/09/17 17:50 Dose: 4 mg Sodium Chloride (Sodium Chloride 0.9%) 1,000 mls @ 75 mls/hr IV .[id number] [facility] Last Admin: 06/09/17 09:31 Dose: 75 mls/hr Cefepime HCl (Maxipime Iv 1 Gm Premix) 1 gm in 50 mls @ 100 mls/hr IVPB Q12H [facility] Last Admin: 06/09/17 17:50 Dose: 100 mls/hr Insulin Aspart (Novolog Mix 70/30 (70/30 Units/Ml)) 18 units SC ACD [facility] Last Admin: 06/09/17 18:14 Dose: Not Given Insulin Aspart (Novolog Mix 70/30 (70/30 Units/Ml)) 24 units SC ACB [facility] Last Admin: 06/09/17 07:43 Dose: 24 units Insulin Human Regular (Novolin R) 0 unit SC ACHS [facility] PRN Reason: Protocol Last Admin: 06/09/17 21:27 Dose: Not Given Isosorbide Mononitrate (Imdur Er) 30 mg PO DAILY [facility] Last Admin: 06/09/17 09:27 Dose: 30 mg Losartan Potassium (Cozaar) 25 mg PO DAILY [facility] Last Admin: 06/09/17 09:28 Dose: Not Given Metoprolol Succinate (Toprol Xl) 50 mg PO DAILY [facility] Last Admin: 06/09/17 09:29 Dose: Not Given Multivitamins (Hexavitamin) 1 tab PO DAILY [facility] Last Admin: 06/09/17 09:27 Dose: 1 tab Pantoprazole Sodium (Protonix Ec Tab) 40 mg PO DAILY [facility] Last Admin: 06/09/17 09:27 Dose: 40 mg Rosuvastatin Calcium (Crestor) 5 mg PO HS [facility] Last Admin: 06/09/17 21:48 Dose: 5 mg Tamsulosin HCl (Flomax) 0.4 mg PO DAILY [facility] Last Admin: 06/09/17 09:27 Dose: 0.4 mg Warfarin Sodium (Coumadin) 2 mg PO 1800 [facility] Stop: 06/10/17 18:01 - Labs Labs: 06/09/17 07:24 06/09/17 07:24 PT 42.4 SECONDS (9.7-12.2) H* D 06/09/17 12:22 INR 3.5 D 06/09/17 12:22
--- NOTE | 2017-06-10 00:21 | PN ---
DATE: ENDOCRINOLOGY FOLLOWUP NOTE LOCATION: Room #656. SUBJECTIVE: This is an 87-year-old male with recent uncontrolled type-2 insulin-requiring diabetes, now being followed closely for metabolic management. His glycemic levels are fluctuating, but much improved at this time, and the latest glucose levels have ranged from 134 to 138 mg/dL today as noted. It was 227 at bedtime last night. The latest chemistry shows a BUN of 36, sodium 140, potassium 4.0, chloride 116, CO2 21, glucose 146, and creatinine 1.1. His TSH level is 0.81 with a normal lipid panel as noted. ASSESSMENT AND PLAN: So at this time, we will continue the same pre-mixed insulin regimen to allow for dose equilibration and keep him on Novolin 70/30 given as 24 units before breakfast and 18 units before dinner as ordered. We will continue the low-dose correction scale using regular insulin as ordered. We will obtain serial chemistries and supplement accordingly as needed. We will follow with you. Sharon Oquendo MD
[2017-06-10] MEDS: Cefepime IV 1 gm in Dextrose 1 GM/50 ML BAG IVPB SCH ×2 (03:27→17:58)
[2017-06-10 06:28] LABS: BASO # 0.1 K/uL (0.0-0.2); BASO % 0.6 % (0.0-2.0); EOS # 0.4 K/uL (0.0-0.7); EOS % 3.8 % (0.0-4.0); HEMOGLOBIN 11.1 g/dL (12.0-18.0); LYMPH # 0.8 K/uL (1.0-4.3); MEAN CELL VOLUME 92.5 fL (80.0-94.0); MEAN CORPUSCULAR HEMOGLOBIN 31.3 pg (27.0-31.0); MEAN CORPUSCULAR HGB CONC 33.8 g/dL (33.0-37.0); MEAN PLATELET VOLUME 8.8 fL (7.2-11.7); MONO # 0.6 K/uL (0.0-0.8); MONO % 5.2 % (0.0-10.0); NEUT # 8.9 K/uL (1.8-7.0); NEUT % 83.4 % (50.0-75.0); PLATELET COUNT 197 K/uL (130-400); RBC 3.55 Mil/uL (4.40-5.90); RED CELL DISTRIBUTION WIDTH 13.9 % (11.5-14.5); WHITE BLOOD COUNT 10.7 K/uL (4.8-10.8)
[2017-06-10 06:34] LABS: INR 3.8
[2017-06-10 06:49] LABS: ALB/GLOB RATIO 0.7 (1.0-2.1); ALBUMIN 2.3 g/dL (3.5-5.0); ALT/SGPT 114 U/L (21-72); AST/SGOT 114 U/L (17-59); BLOOD UREA NITROGEN 27 mg/dL (9-20); CALCIUM 7.9 mg/dl (8.6-10.4); GFR AFRICAN-AMERICAN > 60; GFR NON-AFRICAN AMERICAN > 60
[2017-06-10 06:51] LABS: B-TYPE NATRIURETIC PEPTIDE 2020 pg/mL (0-900)
[2017-06-10] MEDS: (Novolin R) Insulin Human Regular 100 units/ml vial SC SCH ×4 (07:33→21:24)
[2017-06-10] MEDS: (Novolog Mix 70/30) Insulin Aspart/Insulin Aspar 100 units/ml SC SCH (07:38)
[2017-06-10 09:18] LABS: BANDS 2 % (0-2); EOSINOPHIL 1 % (0-4); LYMPHOCYTE 7 % (20-40); MONOCYTE 5 % (0-10); NEUTROPHIL 85 % (50-75); TOTAL CELLS COUNTED 100
[2017-06-10 09:19] LABS: ANISOCYTOSIS SLIGHT; PLATELET ESTIMATE NORMAL (NORMAL); TOXIC GRANULATION PRESENT
[2017-06-10 09:20] LABS: HYPOCHROMIC SLIGHT; LARGE PLATELETS PRESENT; POLYCHROMIC SLIGHT
[2017-06-10] MEDS: Multiple Vitamins Tab PO SCH (09:38)
[2017-06-10] MEDS: Metoprolol Succinate 50 mg XL Tab PO SCH (09:39)
[2017-06-10] MEDS: Pantoprazole 40 mg EC Tab PO SCH (09:39)
--- NOTE | 2017-06-10 13:24 | PN ---
DATE: ENDOCRINOLOGY FOLLOWUP NOTE LOCATION: Room 656 This is an 87-year-old male with recent uncontrolled type 2 insulin requiring diabetes, now being followed closely for metabolic management. His glycemic levels are fluctuating, but much improved at this time and the latest glucose levels have ranged from 173 to 221 and 244 mg/dL. His latest chemistry showed a BUN of 27, sodium 139, potassium 4.1, chloride 113, CO2 18, glucose 234 and creatinine His proBNP is 2020. So at this time, we will modify once again his premixed insulin regimen with Novolin 70/30, given at 30 units a.c. breakfast and 24 units a.c. dinner as ordered. We will titrate incrementally as indicated to optimize metabolic control. We will obtain serum chemistries and supplement accordingly as needed. We will continue also the IV hydration to optimize his lost fluids and electrolytes as needed. We will follow. Sharon Oquendo MD
[2017-06-10] MEDS ORDERED: (Novolog Mix 70/30) Insulin Aspart/Insulin Aspar 100 units/ml SC SCH (16:30)
[2017-06-11] MEDS: Cefepime IV 1 gm in Dextrose 1 GM/50 ML BAG IVPB SCH ×2 (03:25→18:01)
[2017-06-11] MEDS: (Novolin R) Insulin Human Regular 100 units/ml vial SC SCH ×4 (07:20→22:35)
[2017-06-11 07:57] LABS: INR 4.4
[2017-06-11 07:59] LABS: BASO % 0.1 % (0.0-2.0); EOS # 0.3 K/uL (0.0-0.7); EOS % 2.9 % (0.0-4.0); HEMOGLOBIN 11.1 g/dL (12.0-18.0); LYMPH # 1.2 K/uL (1.0-4.3); LYMPH % 13.3 % (20.0-40.0); MEAN CORPUSCULAR HGB CONC 33.7 g/dL (33.0-37.0); MEAN PLATELET VOLUME 8.8 fL (7.2-11.7); MONO # 0.8 K/uL (0.0-0.8); MONO % 9.4 % (0.0-10.0); NEUT # 6.5 K/uL (1.8-7.0); NEUT % 74.3 % (50.0-75.0); RBC 3.57 Mil/uL (4.40-5.90); RED CELL DISTRIBUTION WIDTH 13.7 % (11.5-14.5); WHITE BLOOD COUNT 8.8 K/uL (4.8-10.8)
[2017-06-11] MEDS: (Novolog Mix 70/30) Insulin Aspart/Insulin Aspar 100 units/ml SC SCH (08:09)
[2017-06-11 08:26] LABS: ALB/GLOB RATIO 0.7 (1.0-2.1); ALBUMIN 2.4 g/dL (3.5-5.0); ALT/SGPT 205 U/L (21-72); AST/SGOT 278 U/L (17-59); BILIRUBIN,DIRECT 0.3 mg/dL (0.0-0.4); BLOOD UREA NITROGEN 22 mg/dL (9-20); CALCIUM 7.8 mg/dl (8.6-10.4); GFR AFRICAN-AMERICAN > 60; GFR NON-AFRICAN AMERICAN 57
[2017-06-11 08:28] LABS: PROTHROMBIN TIME 51.9 SECONDS (9.7-12.2)
[2017-06-11] MEDS: Multiple Vitamins Tab PO SCH (09:59)
[2017-06-11] MEDS: Pantoprazole 40 mg EC Tab PO SCH (09:59)
[2017-06-11] MEDS: Metoprolol Succinate 50 mg XL Tab PO SCH (09:59)
--- NOTE | 2017-06-11 12:38 | PCM.RRT ---
BUSINESS WRITER Nurses Assessment - Situation Date: 06/11/17 Time BUSINESS WRITER was called: 12:35 BUSINESS WRITER Responder Arrival Time:: 12:28 BUSINESS WRITER Location:: Med/Surg Room Number: 656A BUSINESS WRITER Reason for Call: Hypotension BUSINESS WRITER Called By: RN - IV IV Inserted during BUSINESS WRITER?: Yes IV Fluids Initiated During BUSINESS WRITER?: 500cc bolus NS. IV infiltrated, new line put in right New IV Insertion Tolerance: Excellent (2) - Respiratory BUSINESS WRITER Delivery Method: Nasal Cannula @L/min Oxygen Flow Rate: 2 Received Nebulizer Treatments: No Was the Patient Ventilated with Bag/Mask 100% O2?: No Secretions Suctioned?: No Was the Patient Intubated?: No Was the Patient Placed on a Ventilator?: No - Medication Medications Administered During BUSINESS WRITER: NS 500cc bolus - Diagnostic Test Ordered EKG: No Chest X-Ray: Yes CT Scan: No CPR started during BUSINESS WRITER?: No - Beecher Coma Scale Coma Scale Eye Opening: Spontaneous Coma Scale Motor: Obeys Commands Movement Coma Scale Verbal: Oriented Coma Scale Total: 15 - Sepsis Screen Part 1 Sepsis Screen Part 1: Hypotensive - Time BUSINESS WRITER Ended Time BUSINESS WRITER Ended: 12:58 - Recommendations 5) BUSINESS WRITER Level of Care Recommendations: Remain in current setting Notifications: Attending Physician I.Reason for BUSINESS WRITER - A) Acute Change in Patient: (Select all that apply): Acute change in SBP below (<80) Subjective: BUSINESS WRITER called at 1232 for hypotension. RN reports BP 65/36. NS bolus 500c ordered. Pt received 3 blood pressure meds: Toprol XL, Losartan, and Imdur ALL given at 10AM. Pt placed in Trendelenburg. IV was found infiltrated so new IV started. BP done manually at bedside: 88/58 on repeat. Pt with baseline dementia. He denies pain, dizzyness, SOB. After fluid bolus completed, manual BP 110/78. - Neurological Status (Select all that apply): Alert, Responsive, Verbal, Confused. absent: Oriented , Disoriented - Respiratory Oxygen Delivery Method: Nasal Cannula @L/min (2) - Constitutional Appears: Confused, Chronically Ill - Head Head Exam: ATRAUMATIC, NORMAL INSPECTION - Eyes Eye Exam: EOMI, Normal appearance. absent: Scleral icterus - Respiratory Exam Respiratory Exam: Clear to Ausculation Bilateral, NORMAL BREATHING PATTERN. absent: Rales - Cardiovascular Exam Cardiovascular Exam: REGULAR RHYTHM, +S1, +S2. absent: Tachycardia - GI/Abdominal Exam GI & Abdominal Exam: Soft, Normal Bowel Sounds. absent: Tenderness - Neurological Exam Neurological Exam: Alert, Awake. absent: Oriented x3 - Extremities Exam Extremities Exam: Normal Inspection Plan - Assessment of Findings&Treatment Plan Hypotensive episode Etiology: ALL BP meds scheduled at once Will space out BP meds tomorrow Toprol XL 10AM, Losartan 2pm, Imdur 6pm NS 500cc bolus given Dr. Jones attending made aware
--- NOTE | 2017-06-11 14:25 | CP.PCM.PN ---
Subjective - Date & Time of Evaluation Date of Evaluation: 06/11/17 Time of Evaluation: 14:10 - Subjective Subjective: events noted. patient had an episode of hypotnesion. is at the bedside Objective - Vital Signs/Intake and Output Vital Signs (last 24 hours): Temp Pulse Resp BP Pulse Ox 98.3 F 92 H 18 124/72 98 06/11/17 09:08 06/11/17 07:56 06/11/17 07:56 06/11/17 07:56 06/11/17 07:56 Intake and Output: 06/11/17 06/11/17 06:59 18:59 Output Total 950 Balance -950 - Medications Medications: Current Medications Acetaminophen (Tylenol 325mg Tab) 650 mg PO Q8 PRN PRN Reason: Pain, Mild (1-3) Last Admin: 06/11/17 08:08 Dose: 650 mg Cyanocobalamin (Vitamin B12 1000 Mcg Tab) 1,000 mcg PO DAILY [facility] Last Admin: 06/11/17 09:59 Dose: 1,000 mcg Finasteride (Proscar) 5 mg PO DAILY [facility] Last Admin: 06/11/17 09:59 Dose: 5 mg Furosemide (Lasix) 40 mg PO MWF [facility] Last Admin: 06/09/17 09:28 Dose: Not Given Glimepiride (Amaryl) 4 mg PO ACBD [facility] Last Admin: 06/11/17 08:08 Dose: 4 mg Cefepime HCl (Maxipime Iv 1 Gm Premix) 1 gm in 50 mls @ 100 mls/hr IVPB Q12H [facility] Last Admin: 06/11/17 03:25 Dose: 100 mls/hr Insulin Aspart (Novolog Mix 70/30 (70/30 Units/Ml)) 30 units SC ACB [facility] Last Admin: 06/11/17 08:09 Dose: 30 units Insulin Aspart (Novolog Mix 70/30 (70/30 Units/Ml)) 28 units SC ACD [facility] Insulin Human Regular (Novolin R) 0 unit SC ACHS [facility] PRN Reason: Protocol Last Admin: 06/11/17 12:02 Dose: Not Given Isosorbide Mononitrate (Imdur Er) 30 mg PO DAILY [facility] Last Admin: 06/11/17 09:59 Dose: 30 mg Losartan Potassium (Cozaar) 25 mg PO DAILY [facility] Last Admin: 06/11/17 09:59 Dose: 25 mg Metoprolol Succinate (Toprol Xl) 50 mg PO DAILY [facility] Last Admin: 06/11/17 09:59 Dose: 50 mg Multivitamins (Hexavitamin) 1 tab PO DAILY [facility] Last Admin: 06/11/17 09:59 Dose: 1 tab Pantoprazole Sodium (Protonix Ec Tab) 40 mg PO DAILY [facility] Last Admin: 06/11/17 09:59 Dose: 40 mg Tamsulosin HCl (Flomax) 0.4 mg PO DAILY [facility] Last Admin: 06/11/17 09:59 Dose: 0.4 mg Warfarin Sodium (Coumadin) 2 mg PO 1800 [facility] - Labs Labs: 06/11/17 07:45 06/11/17 07:45 PT 51.9 SECONDS (9.7-12.2) H* D 06/11/17 07:45 INR 4.4 06/11/17 07:45 - Constitutional Appears: Non-toxic - Head Exam Head Exam: NORMAL INSPECTION - Eye Exam Eye Exam: Normal appearance - ENT Exam ENT Exam: Mucous Membranes Moist - Neck Exam Neck Exam: Full ROM - Respiratory Exam Respiratory Exam: Decreased Breath Sounds - Cardiovascular Exam Cardiovascular Exam: Irregular Rhythm - GI/Abdominal Exam GI & Abdominal Exam: Normal Bowel Sounds - Rectal Exam Rectal Exam: Deferred - Extremities Exam Extremities Exam: absent: Pedal Edema - Back Exam Back Exam: NORMAL INSPECTION - Neurological Exam Neurological Exam: Alert - Psychiatric Exam Psychiatric exam: Normal Affect - Skin Skin Exam: Normal Color Assessment and Plan (1) Atrial fibrillation Assessment & Plan: rate controlled. Status: Acute (2) Hypotension Assessment & Plan: likley due to medications and dehydration. will monitor Status: Acute
[2017-06-11] MEDS ORDERED: (Novolog Mix 70/30) Insulin Aspart/Insulin Aspar 100 units/ml SC SCH (16:30)
--- NOTE | 2017-06-11 16:53 | RAD ---
Chest x-ray single frontal view History: Shortness of breath. Hypertension. Comparison: 06/07/2017 Findings: Mild venous congestion. Right hilar prominence. Status post median sternotomy. Coronary calcifications. Cardiomegaly. Degenerative changes in the spine and shoulders. Impression: Mild venous congestion. Right hilar prominence. Status post median sternotomy. Coronary calcifications. Cardiomegaly.
--- NOTE | 2017-06-11 18:01 | CP.PCM.PN ---
Subjective - Date & Time of Evaluation Date of Evaluation: 06/11/17 Time of Evaluation: 11:20 - Subjective Subjective: clinically same Objective - Vital Signs/Intake and Output Vital Signs (last 24 hours): Temp Pulse Resp BP Pulse Ox 97.1 F L 92 H 20 109/63 100 06/11/17 15:00 06/11/17 15:00 06/11/17 15:00 06/11/17 15:00 06/11/17 15:00 Intake and Output: 06/11/17 06/11/17 06:59 18:59 Output Total 950 Balance -950 - Medications Medications: Current Medications Acetaminophen (Tylenol 325mg Tab) 650 mg PO Q8 PRN PRN Reason: Pain, Mild (1-3) Last Admin: 06/11/17 08:08 Dose: 650 mg Cyanocobalamin (Vitamin B12 1000 Mcg Tab) 1,000 mcg PO DAILY [facility] Last Admin: 06/11/17 09:59 Dose: 1,000 mcg Finasteride (Proscar) 5 mg PO DAILY [facility] Last Admin: 06/11/17 09:59 Dose: 5 mg Furosemide (Lasix) 40 mg PO MWF [facility] Last Admin: 06/09/17 09:28 Dose: Not Given Glimepiride (Amaryl) 4 mg PO ACBD [facility] Last Admin: 06/11/17 08:08 Dose: 4 mg Cefepime HCl (Maxipime Iv 1 Gm Premix) 1 gm in 50 mls @ 100 mls/hr IVPB Q12H [facility] Last Admin: 06/11/17 03:25 Dose: 100 mls/hr Insulin Aspart (Novolog Mix 70/30 (70/30 Units/Ml)) 30 units SC ACB [facility] Last Admin: 06/11/17 08:09 Dose: 30 units Insulin Aspart (Novolog Mix 70/30 (70/30 Units/Ml)) 28 units SC ACD [facility] Insulin Human Regular (Novolin R) 0 unit SC ACHS [facility] PRN Reason: Protocol Last Admin: 06/11/17 17:10 Dose: Not Given Isosorbide Mononitrate (Imdur Er) 30 mg PO Q24H [facility] Losartan Potassium (Cozaar) 25 mg PO Q24H [facility] Metoprolol Succinate (Toprol Xl) 50 mg PO Q24H [facility] Multivitamins (Hexavitamin) 1 tab PO DAILY [facility] Last Admin: 06/11/17 09:59 Dose: 1 tab Pantoprazole Sodium (Protonix Ec Tab) 40 mg PO DAILY [facility] Last Admin: 06/11/17 09:59 Dose: 40 mg Tamsulosin HCl (Flomax) 0.4 mg PO DAILY [facility] Last Admin: 06/11/17 09:59 Dose: 0.4 mg Warfarin Sodium (Coumadin) 2 mg PO 1800 [facility] - Labs Labs: 06/11/17 07:45 06/11/17 07:45 PT 51.9 SECONDS (9.7-12.2) H* D 06/11/17 07:45 INR 4.4 06/11/17 07:45 - Constitutional Appears: Well - Head Exam Head Exam: ATRAUMATIC, NORMAL INSPECTION, NORMOCEPHALIC - Eye Exam Eye Exam: EOMI, Normal appearance, PERRL Pupil Exam: NORMAL ACCOMODATION, PERRL - ENT Exam ENT Exam: Mucous Membranes Moist, Normal Exam - Neck Exam Neck Exam: Full ROM, Normal Inspection. absent: Lymphadenopathy - Respiratory Exam Respiratory Exam: Decreased Breath Sounds - Cardiovascular Exam Cardiovascular Exam: REGULAR RHYTHM, +S1, +S2 - GI/Abdominal Exam GI & Abdominal Exam: Soft, Diminished Bowel Sounds - Rectal Exam Rectal Exam: Deferred
--- NOTE | 2017-06-11 20:17 | PN ---
DATE: LOCATION: Room 656. SUBJECTIVE: This is an 87-year-old male with recent uncontrolled type 2 insulin-requiring diabetes, now being followed closely for metabolic management. His glycemic levels are fluctuating, but improved and the latest glucose levels have ranged from 130 to 241 and 274 mg/dL. The latest chemistry showed a BUN of 22, sodium 134, potassium 4.1, chloride 108, CO2 of 21, glucose 124, and creatinine 1.2. So, at this time we will continue the same premixed insulin regimen as given with NovoLog 70/30 given as 24 units before breakfast and 18 units before dinner as ordered. We will continue the low-dose correction scale using regular insulin as given. We will titrate incrementally as indicated to optimize metabolic control. We will follow and advise accordingly. Sharon Oquendo MD
[2017-06-11] MEDS ORDERED: Dextrose 50% VIAL Inj (50 ml) IV ONE ×2 (21:40→22:36)
[2017-06-12] MEDS: Cefepime IV 1 gm in Dextrose 1 GM/50 ML BAG IVPB SCH ×2 (04:19→17:49)
[2017-06-12] MEDS: (Novolin R) Insulin Human Regular 100 units/ml vial SC SCH ×3 (07:09→17:19)
[2017-06-12] MEDS: (Novolog Mix 70/30) Insulin Aspart/Insulin Aspar 100 units/ml SC SCH (07:10)
[2017-06-12 07:54] LABS: PROTHROMBIN TIME 47.4 SECONDS (9.7-12.2)
[2017-06-12 07:59] LABS: BASO % 0.1 % (0.0-2.0); EOS # 0.1 K/uL (0.0-0.7); EOS % 1.5 % (0.0-4.0); HEMOGLOBIN 10.4 g/dL (12.0-18.0); LYMPH % 13.5 % (20.0-40.0); MEAN CELL VOLUME 92.2 fL (80.0-94.0); MEAN CORPUSCULAR HGB CONC 33.6 g/dL (33.0-37.0); MEAN PLATELET VOLUME 8.8 fL (7.2-11.7); MONO # 0.4 K/uL (0.0-0.8); MONO % 5.7 % (0.0-10.0); NEUT # 5.8 K/uL (1.8-7.0); NEUT % 79.2 % (50.0-75.0); NRBC % 0.1 % (0.0-2.0); RBC 3.34 Mil/uL (4.40-5.90); RED CELL DISTRIBUTION WIDTH 13.7 % (11.5-14.5); WHITE BLOOD COUNT 7.3 K/uL (4.8-10.8)
--- NOTE | 2017-06-12 08:17 | CP.PCM.PN ---
Subjective - Date & Time of Evaluation Date of Evaluation: 06/12/17 Time of Evaluation: 08:10 - Subjective Subjective: patient appears comfortable. Objective - Vital Signs/Intake and Output Vital Signs (last 24 hours): Temp Pulse Resp BP Pulse Ox 97.9 F 84 20 91/42 L 99 06/12/17 04:00 06/12/17 04:00 06/12/17 04:00 06/12/17 04:00 06/12/17 04:00 Intake and Output: 06/12/17 06/12/17 06:59 18:59 Intake Total 790 Output Total 1030 Balance -240 - Medications Medications: Current Medications Acetaminophen (Tylenol 325mg Tab) 650 mg PO Q8 PRN PRN Reason: Pain, Mild (1-3) Last Admin: 06/11/17 08:08 Dose: 650 mg Cyanocobalamin (Vitamin B12 1000 Mcg Tab) 1,000 mcg PO DAILY [facility] Last Admin: 06/11/17 09:59 Dose: 1,000 mcg Finasteride (Proscar) 5 mg PO DAILY [facility] Last Admin: 06/11/17 09:59 Dose: 5 mg Furosemide (Lasix) 40 mg PO MWF [facility] Last Admin: 06/09/17 09:28 Dose: Not Given Glimepiride (Amaryl) 4 mg PO ACBD [facility] Last Admin: 06/12/17 07:10 Dose: Not Given Cefepime HCl (Maxipime Iv 1 Gm Premix) 1 gm in 50 mls @ 100 mls/hr IVPB Q12H [facility] Last Admin: 06/12/17 04:19 Dose: 100 mls/hr Dextrose (Dextrose 5% In Water 1000 Ml) 1,000 mls @ 50 mls/hr IV .Q20H [facility] PRN Reason: Protocol Stop: 06/12/17 18:49 Insulin Aspart (Novolog Mix 70/30 (70/30 Units/Ml)) 30 units SC ACB [facility] Last Admin: 06/12/17 07:10 Dose: Not Given Insulin Aspart (Novolog Mix 70/30 (70/30 Units/Ml)) 28 units SC ACD [facility] Last Admin: 06/11/17 18:05 Dose: 28 units Insulin Human Regular (Novolin R) 0 unit SC ACHS [facility] PRN Reason: Protocol Last Admin: 06/12/17 07:09 Dose: Not Given Isosorbide Mononitrate (Imdur Er) 30 mg PO Q24H [facility] Losartan Potassium (Cozaar) 25 mg PO Q24H [facility] Metoprolol Succinate (Toprol Xl) 50 mg PO Q24H [facility] Multivitamins (Hexavitamin) 1 tab PO DAILY [facility] Last Admin: 06/11/17 09:59 Dose: 1 tab Pantoprazole Sodium (Protonix Ec Tab) 40 mg PO DAILY [facility] Last Admin: 06/11/17 09:59 Dose: 40 mg Tamsulosin HCl (Flomax) 0.4 mg PO DAILY [facility] Last Admin: 06/11/17 09:59 Dose: 0.4 mg Warfarin Sodium (Coumadin) 2 mg PO 1800 [facility] - Labs Labs: 06/12/17 07:35 06/11/17 07:45 PT 47.4 SECONDS (9.7-12.2) H* 06/12/17 07:35 INR 4.0 06/12/17 07:35 - Constitutional Appears: Non-toxic - Head Exam Head Exam: NORMAL INSPECTION - Eye Exam Eye Exam: Normal appearance - ENT Exam ENT Exam: Mucous Membranes Moist - Neck Exam Neck Exam: Full ROM - Respiratory Exam Respiratory Exam: NORMAL BREATHING PATTERN - Cardiovascular Exam Cardiovascular Exam: REGULAR RHYTHM - GI/Abdominal Exam GI & Abdominal Exam: Normal Bowel Sounds - Rectal Exam Rectal Exam: Deferred - Extremities Exam Extremities Exam: absent: Pedal Edema - Back Exam Back Exam: NORMAL INSPECTION - Neurological Exam Neurological Exam: Motor Sensory Deficit - Psychiatric Exam Psychiatric exam: Normal Affect - Skin Skin Exam: Normal Color Assessment and Plan (1) Atrial fibrillation Assessment & Plan: rate controlled. INR elevated Status: Acute (2) Hypotension Assessment & Plan: likely medication related. will follow Status: Acute
[2017-06-12 09:15] LABS: ALB/GLOB RATIO 0.8 (1.0-2.1); ALBUMIN 2.2 g/dL (3.5-5.0); ALT/SGPT 746 U/L (21-72); BLOOD UREA NITROGEN 24 mg/dL (9-20); CALCIUM 7.1 mg/dl (8.6-10.4); GFR AFRICAN-AMERICAN > 60; GFR NON-AFRICAN AMERICAN 57
[2017-06-12 09:30] LABS: AST/SGOT 1345 U/L (17-59)
[2017-06-12] MEDS ORDERED: Metoprolol Succinate 50 mg XL Tab PO SCH (10:00)
[2017-06-12] MEDS: Pantoprazole 40 mg EC Tab PO SCH (10:11)
[2017-06-12] MEDS: Multiple Vitamins Tab PO SCH ×2 (10:11→10:32)
--- NOTE | 2017-06-12 11:04 | CP.PCM.PN ---
Subjective - Date & Time of Evaluation Date of Evaluation: 06/12/17 Time of Evaluation: 11:10 - Subjective Subjective: PGY 2 Medicine Note- Dr. Jones's service Patient seen and examined in no apparent acute distress. Per nursing, patient had one vomiting spell as well as darkened urine. Patient's was available bedside. She states that her was coughing quite a bit the day prior while she was feeding him. Patient states that he vomited once today while he was eating. Patient is unsure of his bowel movements at the moment. Patient denies subjective fevers or chills, abdominal pain, chest pain, palpitations or shortness of breath at this time. Objective - Vital Signs/Intake and Output Vital Signs (last 24 hours): Temp Pulse Resp BP Pulse Ox 98.9 F 88 20 100/50 L 99 06/12/17 07:00 06/12/17 07:00 06/12/17 07:00 06/12/17 08:41 06/12/17 07:00 Intake and Output: 06/12/17 06/12/17 06:59 18:59 Intake Total 790 Output Total 1030 Balance -240 - Medications Medications: Current Medications Acetaminophen (Tylenol 325mg Tab) 650 mg PO Q8 PRN PRN Reason: Pain, Mild (1-3) Last Admin: 06/11/17 08:08 Dose: 650 mg Cyanocobalamin (Vitamin B12 1000 Mcg Tab) 1,000 mcg PO DAILY [facility] Last Admin: 06/12/17 10:33 Dose: Not Given Finasteride (Proscar) 5 mg PO DAILY [facility] Last Admin: 06/12/17 10:33 Dose: Not Given Furosemide (Lasix) 40 mg PO MWF [facility] Last Admin: 06/12/17 08:41 Dose: Not Given Glimepiride (Amaryl) 4 mg PO ACBD [facility] Last Admin: 06/12/17 07:10 Dose: Not Given Cefepime HCl (Maxipime Iv 1 Gm Premix) 1 gm in 50 mls @ 100 mls/hr IVPB Q12H [facility] Last Admin: 06/12/17 04:19 Dose: 100 mls/hr Dextrose (Dextrose 5% In Water 1000 Ml) 1,000 mls @ 50 mls/hr IV .Q20H [facility] PRN Reason: Protocol Stop: 06/12/17 18:49 Insulin Aspart (Novolog Mix 70/30 (70/30 Units/Ml)) 30 units SC ACB [facility] Last Admin: 06/12/17 07:10 Dose: Not Given Insulin Aspart (Novolog Mix 70/30 (70/30 Units/Ml)) 28 units SC ACD [facility] Last Admin: 06/11/17 18:05 Dose: 28 units Insulin Human Regular (Novolin R) 0 unit SC ACHS [facility] PRN Reason: Protocol Last Admin: 06/12/17 07:09 Dose: Not Given Isosorbide Mononitrate (Imdur Er) 30 mg PO Q24H [facility] Losartan Potassium (Cozaar) 25 mg PO Q24H [facility] Metoprolol Succinate (Toprol Xl) 50 mg PO Q24H [facility] Multivitamins (Hexavitamin) 1 tab PO DAILY [facility] Last Admin: 06/12/17 10:32 Dose: Not Given Ondansetron HCl (Zofran Inj) 4 mg IVP Q6 PRN PRN Reason: Nausea/Vomiting Last Admin: 06/12/17 10:30 Dose: 4 mg Pantoprazole Sodium (Protonix Ec Tab) 40 mg PO DAILY [facility] Last Admin: 06/12/17 10:11 Dose: 40 mg Tamsulosin HCl (Flomax) 0.4 mg PO DAILY [facility] Last Admin: 06/12/17 10:33 Dose: Not Given Warfarin Sodium (Coumadin) 2 mg PO 1800 [facility] - Labs Labs: 06/12/17 07:35 06/12/17 07:35 PT 47.4 SECONDS (9.7-12.2) H* 06/12/17 07:35 INR 4.0 06/12/17 07:35 - Constitutional Appears: Non-toxic, No Acute Distress - Head Exam Head Exam: ATRAUMATIC, NORMAL INSPECTION - Eye Exam Eye Exam: EOMI, Normal appearance - ENT Exam ENT Exam: Mucous Membranes Moist - Neck Exam Neck Exam: Full ROM - Respiratory Exam Respiratory Exam: NORMAL BREATHING PATTERN - Cardiovascular Exam Cardiovascular Exam: +S1, +S2 - GI/Abdominal Exam GI & Abdominal Exam: Soft, Normal Bowel Sounds. absent: Tenderness - Extremities Exam Extremities Exam: Full ROM - Back Exam Back Exam: Full ROM - Neurological Exam Neurological Exam: Alert, Awake, Oriented x3 - Psychiatric Exam Psychiatric exam: Normal Affect, Normal Mood - Skin Skin Exam: Dry, Normal Color, Warm Assessment and Plan - Assessment and Plan (Free Text) Assessment: Rule out Aspiration Pneumonia Patient had coughing fits per on 06/11/17 06/12/16 CXR had no active disease Continue to monitor Afebrile, no leukocytosis Transaminitis Discontinue Tylenol at this time Review medications. Hold any other hepato-toxic meds at this time Diabetes Hgb A1c is 9.9 Lipid panel is normal Dr. Jere Figueroa consulted. Pt placed on Novolin 70/30 24 units at breakfast and 18 units at dinner. Hold if blood sugars are low. Continue Crestor and Cozaar CHF Per Cardio, preserved LV function. Cardio recommends continuing medical treatment. Echo results Currently on Imdur, Toprol XL 50 mg PO QD, and lasixs 40 mg po MWF Currently on D5 at 50 cc/hr Pro BNP [address] on admission showed distended bladder Hill in place draining light yellow urine Continue Flomax and finesteride Urology is consulted. Recs pending Repeat urinalysis and urine culture - Negative Cardiac arrhythmia Likely due to aberrancy Cardiology consulted Mg 2.4 Phos 2.8 A fib Pt given vitamin K yesterday due supratherapeutic INR of 8 INR today is 3.5 Will restart coumadin tomorrow evening Ulcer stage IV Wound care on board Wound culture ordered Currently on cefepime Prophylaxis Prevalon boots and SCDs Protonix Oral AC on hold Discussed with attending. All managements and orders per Dr. Jones
[2017-06-12 11:36] LABS: SQUAMOUS EPITHIAL 3 /hpf (0-5); URINE BILIRUBIN NEGATIVE (NEGATIVE); URINE BLOOD 3+ (NEGATIVE); URINE CLARITY Turbid (Clear); URINE COLOR Amber (YELLOW); URINE GLUCOSE (UA) NORMAL (Normal); URINE LEUKOCYTE ESTERASE 2+ Leu/uL (Negative); URINE NITRATE NEGATIVE (NEGATIVE); URINE PROTEIN 2+ mg/dL (NEGATIVE)
--- NOTE | 2017-06-12 14:07 | RAD ---
HISTORY: rule out pneumonia COMPARISON: Comparison 06/11/2017. FINDINGS: LUNGS: No active pulmonary disease. PLEURA: No significant pleural effusion identified, no pneumothorax apparent. CARDIOVASCULAR: Heart size within range of normal. . Coronary artery calcifications are present. OSSEOUS STRUCTURES: No significant abnormalities. VISUALIZED UPPER ABDOMEN: Normal. OTHER FINDINGS: None. IMPRESSION: No active disease.
[2017-06-12] MEDS ORDERED: (Novolog Mix 70/30) Insulin Aspart/Insulin Aspar 100 units/ml SC SCH (16:30)
[2017-06-12] MEDS ORDERED: Dextrose 50% SYRINGE Inj (50 ml) ONE (16:38)
[2017-06-12] MEDS ORDERED: Dextrose 50% SYRINGE Inj (50 ml) IV STA (16:49)
[2017-06-12] MEDS: Dextrose 5%/0.45% NS 1,000 ML IV SCH (17:49)
--- NOTE | 2017-06-12 19:51 | CP.PCM.PN ---
Subjective - Date & Time of Evaluation Date of Evaluation: 06/12/17 Time of Evaluation: 10:00 - Subjective Subjective: clinically same Objective - Vital Signs/Intake and Output Vital Signs (last 24 hours): Temp Pulse Resp BP Pulse Ox 98 F 105 H 20 99/59 L 98 06/12/17 16:00 06/12/17 16:00 06/12/17 16:00 06/12/17 16:00 06/12/17 16:00 - Medications Medications: Current Medications Cyanocobalamin (Vitamin B12 1000 Mcg Tab) 1,000 mcg PO DAILY [facility] Last Admin: 06/12/17 10:33 Dose: Not Given Finasteride (Proscar) 5 mg PO DAILY [facility] Last Admin: 06/12/17 10:33 Dose: Not Given Furosemide (Lasix) 40 mg PO MWF [facility] Last Admin: 06/12/17 08:41 Dose: Not Given Glimepiride (Amaryl) 4 mg PO ACBD [facility] Last Admin: 06/12/17 17:19 Dose: Not Given Dextrose/Sodium Chloride (Dextrose 5%/0.45% Ns 1000 Ml) 1,000 mls @ 100 mls/hr IV .Q10H [facility] Last Admin: 06/12/17 17:49 Dose: 100 mls/hr Insulin Aspart (Novolog Mix 70/30 (70/30 Units/Ml)) 20 units SC ACD [facility] Last Admin: 06/12/17 17:20 Dose: Not Given Insulin Aspart (Novolog Mix 70/30 (70/30 Units/Ml)) 24 units SC ACB [facility] Insulin Human Regular (Novolin R) 0 unit SC ACHS [facility] PRN Reason: Protocol Last Admin: 06/12/17 17:19 Dose: Not Given Isosorbide Mononitrate (Imdur Er) 30 mg PO Q24H [facility] Losartan Potassium (Cozaar) 25 mg PO Q24H [facility] Metoprolol Succinate (Toprol Xl) 50 mg PO Q24H [facility] Multivitamins (Hexavitamin) 1 tab PO DAILY [facility] Last Admin: 06/12/17 10:32 Dose: Not Given Ondansetron HCl (Zofran Inj) 4 mg IVP Q6 PRN PRN Reason: Nausea/Vomiting Last Admin: 06/12/17 10:30 Dose: 4 mg Pantoprazole Sodium (Protonix Ec Tab) 40 mg PO DAILY [facility] Last Admin: 06/12/17 10:11 Dose: 40 mg Tamsulosin HCl (Flomax) 0.4 mg PO DAILY [facility] Last Admin: 06/12/17 10:33 Dose: Not Given Warfarin Sodium (Coumadin) 2 mg PO 1800 [facility] - Labs Labs: 06/12/17 07:35 06/12/17 07:35 PT 47.4 SECONDS (9.7-12.2) H* 06/12/17 07:35 INR 4.0 06/12/17 07:35 - Constitutional Appears: Well - Head Exam Head Exam: ATRAUMATIC, NORMAL INSPECTION, NORMOCEPHALIC - Eye Exam Eye Exam: EOMI, Normal appearance, PERRL Pupil Exam: NORMAL ACCOMODATION, PERRL - ENT Exam ENT Exam: Mucous Membranes Moist, Normal Exam - Neck Exam Neck Exam: Full ROM, Normal Inspection. absent: Lymphadenopathy - Respiratory Exam Respiratory Exam: Decreased Breath Sounds - Cardiovascular Exam Cardiovascular Exam: REGULAR RHYTHM, +S1, +S2 - GI/Abdominal Exam GI & Abdominal Exam: Soft, Diminished Bowel Sounds - Rectal Exam Rectal Exam: Deferred
[2017-06-13] MEDS: (Novolin R) Insulin Human Regular 100 units/ml vial SC SCH ×5 (00:25→21:19)
[2017-06-13] MEDS ORDERED: Dextrose 50% SYRINGE Inj (50 ml) IV ONE (02:55)
[2017-06-13] MEDS: Dextrose 5%/0.45% NS 1,000 ML IV SCH (06:43)
[2017-06-13 07:02] LABS: BASO % 0.3 % (0.0-2.0); EOS # 0.2 K/uL (0.0-0.7); HEMOGLOBIN 10.4 g/dL (12.0-18.0); LYMPH # 1.2 K/uL (1.0-4.3); LYMPH % 15.1 % (20.0-40.0); MEAN CELL VOLUME 91.2 fL (80.0-94.0); MEAN CORPUSCULAR HGB CONC 33.9 g/dL (33.0-37.0); MEAN PLATELET VOLUME 8.6 fL (7.2-11.7); MONO # 0.5 K/uL (0.0-0.8); MONO % 6.8 % (0.0-10.0); NEUT # 5.8 K/uL (1.8-7.0); NEUT % 75.8 % (50.0-75.0); RBC 3.34 Mil/uL (4.40-5.90); WHITE BLOOD COUNT 7.7 K/uL (4.8-10.8)
[2017-06-13 07:04] LABS: ALB/GLOB RATIO 0.7 (1.0-2.1); ALT/SGPT 598 U/L (21-72); BLOOD UREA NITROGEN 21 mg/dL (9-20); GFR AFRICAN-AMERICAN > 60; GFR NON-AFRICAN AMERICAN 52
[2017-06-13 07:13] LABS: INR 3.6
[2017-06-13] MEDS ORDERED: (Novolog Mix 70/30) Insulin Aspart/Insulin Aspar 100 units/ml SC SCH ×3 (07:30→16:30)
[2017-06-13] MEDS ORDERED: Glucagon Recombinant 1 mg Inj IM PRN (07:40)
[2017-06-13] MEDS ORDERED: Dextrose 50% SYRINGE Inj (50 ml) IV PRN (07:40)
[2017-06-13 07:57] LABS: AST/SGOT 942 U/L (17-59)
--- NOTE | 2017-06-13 08:22 | CP.PCM.PN ---
Subjective - Date & Time of Evaluation Date of Evaluation: 06/13/17 Time of Evaluation: 07:35 - Subjective Subjective: PGY 2 Medicine Note- Dr. Jones's service Patient seen and examined in no apparent acute distress. Per nurse, patient had an elevated temperature. Patient tolerating a diet. Patient denied specific complaints. He denies chest pain, abdominal pain, nausea, vomiting, diarrhea or constipation at this time. Objective - Vital Signs/Intake and Output Vital Signs (last 24 hours): Temp Pulse Resp BP Pulse Ox 101.6 F H 100 H 18 124/63 98 06/13/17 07:30 06/13/17 07:30 06/13/17 07:30 06/13/17 07:30 06/13/17 07:30 Intake and Output: 06/13/17 06/13/17 06:59 18:59 Intake Total 890 Output Total 1000 600 Balance -110 -600 - Medications Medications: Current Medications Cyanocobalamin (Vitamin B12 1000 Mcg Tab) 1,000 mcg PO DAILY [facility] Last Admin: 06/12/17 10:33 Dose: Not Given Dextrose (Dextrose 50% Inj) 0 ml IV STAT PRN; Protocol PRN Reason: Hypoglycemia Protocol Dextrose (Glutose 15) 15 gm PO ONCE PRN; Protocol PRN Reason: Hypoglycemia Protocol Finasteride (Proscar) 5 mg PO DAILY [facility] Last Admin: 06/12/17 10:33 Dose: Not Given Furosemide (Lasix) 40 mg PO MWF [facility] Last Admin: 06/12/17 08:41 Dose: Not Given Glimepiride (Amaryl) 4 mg PO ACBD [facility] Last Admin: 06/13/17 07:40 Dose: Not Given Glucagon (Glucagen Diagnostic Kit) 1 mg IM STAT PRN; Protocol PRN Reason: Hypoglycemia Protocol Dextrose/Sodium Chloride (Dextrose 5%/0.45% Ns 1000 Ml) 1,000 mls @ 100 mls/hr IV .Q10H [facility] Last Admin: 06/13/17 06:43 Dose: 100 mls/hr Dextrose (Dextrose 5% In Water 1000 Ml) 1,000 mls @ 0 mls/hr IV .Q0M PRN; Protocol; Per Protocol PRN Reason: Hypoglycemia Protocol Ibuprofen (Motrin Tab) 400 mg PO Q6H PRN PRN Reason: Fever >100.4 F Last Admin: 06/13/17 08:00 Dose: 400 mg Insulin Aspart (Novolog Mix 70/30 (70/30 Units/Ml)) 16 units SC ACB [facility] Last Admin: 06/13/17 07:38 Dose: Not Given Insulin Aspart (Novolog Mix 70/30 (70/30 Units/Ml)) 14 units SC ACD [facility] Insulin Human Regular (Novolin R) 0 unit SC ACHS [facility] PRN Reason: Protocol Last Admin: 06/13/17 07:38 Dose: Not Given Isosorbide Mononitrate (Imdur Er) 30 mg PO Q24H [facility] Losartan Potassium (Cozaar) 25 mg PO Q24H [facility] Metoprolol Succinate (Toprol Xl) 50 mg PO Q24H [facility] Multivitamins (Hexavitamin) 1 tab PO DAILY [facility] Last Admin: 06/12/17 10:32 Dose: Not Given Ondansetron HCl (Zofran Inj) 4 mg IVP Q6 PRN PRN Reason: Nausea/Vomiting Last Admin: 06/12/17 10:30 Dose: 4 mg Pantoprazole Sodium (Protonix Ec Tab) 40 mg PO DAILY [facility] Last Admin: 06/12/17 10:11 Dose: 40 mg Tamsulosin HCl (Flomax) 0.4 mg PO DAILY [facility] Last Admin: 06/12/17 10:33 Dose: Not Given Warfarin Sodium (Coumadin) 2 mg PO 1800 [facility] - Labs Labs: 06/13/17 06:40 06/13/17 06:40 PT 42.0 SECONDS (9.7-12.2) H* D 06/13/17 06:40 INR 3.6 06/13/17 06:40 - Constitutional Appears: Non-toxic, No Acute Distress - Head Exam Head Exam: ATRAUMATIC, NORMAL INSPECTION - Eye Exam Eye Exam: EOMI, Normal appearance - ENT Exam ENT Exam: Mucous Membranes Moist - Neck Exam Neck Exam: Full ROM - Respiratory Exam Respiratory Exam: NORMAL BREATHING PATTERN. absent: Wheezes - Cardiovascular Exam Cardiovascular Exam: +S1, +S2 - GI/Abdominal Exam GI & Abdominal Exam: Soft, Normal Bowel Sounds. absent: Guarding, Tenderness - Extremities Exam Extremities Exam: Normal Capillary Refill - Neurological Exam Neurological Exam: Alert, Awake - Psychiatric Exam Psychiatric exam: Flat Affect - Skin Skin Exam: Dry, Warm Assessment and Plan - Assessment and Plan (Free Text) Assessment: Fever 101.6 high- Responded to Motrin. Now WNL F/U UA, UC, CXR, Blood Cultures F/U AM labs Motrin for Fever Do not give Tylenol due to elevated LFTs Transaminitis Discontinue Tylenol at this time Review medications. Hold any other hepato-toxic meds at this time Diabetes Hgb A1c is 9.9 Lipid panel is normal Dr. Jere Figueroa consulted. Pt placed on Novolin 70/30 24 units at breakfast and 18 units at dinner. Hold if blood sugars are low. Continue Crestor and Cozaar CHF Per Cardio, preserved LV function. Cardio recommends continuing medical treatment. Echo results Currently on Imdur, Toprol XL 50 mg PO QD, and lasixs 40 mg po MWF Currently on D5 at 50 cc/hr Pro BNP [address] on admission showed distended bladder Hill in place draining light yellow urine Continue Flomax and finesteride Urology is consulted. Recs pending Repeat urinalysis and urine culture - Negative Cardiac arrhythmia Likely due to aberrancy Cardiology consulted Mg 2.4 Phos 2.8 A fib INR today is 3.6. Goal range 2-3. Hold Coumadin and reasses levels tomorrow. Ulcer stage IV Wound care on board Wound culture ordered Currently on cefepime Prophylaxis Prevalon boots and SCDs Protonix Oral AC on hold Discussed with attending. All managements and orders per Dr. Jones
[2017-06-13] MEDS: Multiple Vitamins Tab PO SCH (09:11)
[2017-06-13] MEDS: Pantoprazole 40 mg EC Tab PO SCH (09:11)
--- NOTE | 2017-06-13 09:21 | PN ---
DATE: ENDOCRINOLOGY FOLLOWUP NOTE LOCATION: Room 656. This is an 87-year-old male with recent uncontrolled type 2 insulin-requiring diabetes, now being followed closely for metabolic management. His glycemic levels are fluctuating, but improved, and the latest glucose levels have ranged from 71 to 174 mg/dL. The levels actually dipped at dinner time down to 38 mg/dL because of reported intractable vomiting episodes pretty much all day with very nil and suboptimal meal portions as noted. His latest chemistry showed BUN of 24, sodium 130, potassium 3.8, chloride 105, CO2 of 20, glucose 103, and creatinine 1.2. The bedtime glucose now is 74 mg/dL as ordered. At this time, we will lower for now his premixed insulin regimen with Novolin 70/30 given as 16 units subcu, a.c. breakfast as ordered. We will also lower the premixed insulin regimen given at dinner time with Novolin 70/30 given as 14 units a.c. dinner as ordered. We will titrate incrementally as indicated to optimize metabolic control. We will continue the low-dose correction scale using regular insulin as ordered. We will obtain serial chemistries and supplement accordingly as needed. We will follow and advise accordingly. Sharon Oquendo MD
--- NOTE | 2017-06-13 13:20 | RAD ---
HISTORY: rule out obstruction COMPARISON: No prior. FINDINGS: BOWEL: Moderate gas distention throughout the colon without gross obstruction suggested. Mild stool retention. Small bowel not distended No free air. BONES: [place] lumbar spondylosis. L4-5 and L5-S1 facet hypertrophic arthrosis. Bilateral hip arthrosis OTHER FINDINGS: Calcific atherosclerosis IMPRESSION: Nonspecific bowel gas pattern. No bowel obstruction suggested Calcific atherosclerosis. Bilateral hip arthrosis
[2017-06-13] MEDS: Piperacillin/Tazobact 3.375 GM in Sodium Chloride 100 ML IVPB SCH ×2 (14:08→21:18)
[2017-06-13] MEDS: Azithromycin 500 MG in Sodium Chloride 0.9% 250 ML IVPB SCH (14:40)
--- NOTE | 2017-06-13 17:12 | CP.PCM.PN ---
Subjective - Date & Time of Evaluation Date of Evaluation: 06/13/17 Time of Evaluation: 12:00 - Subjective Subjective: clinically same Objective - Vital Signs/Intake and Output Vital Signs (last 24 hours): Temp Pulse Resp BP Pulse Ox 97.7 F 85 18 91/55 L 95 06/13/17 15:00 06/13/17 15:00 06/13/17 15:00 06/13/17 15:00 06/13/17 15:00 Intake and Output: 06/13/17 06/13/17 06:59 18:59 Intake Total 890 Output Total 1000 1050 Balance -110 -1050 - Medications Medications: Current Medications Cyanocobalamin (Vitamin B12 1000 Mcg Tab) 1,000 mcg PO DAILY [facility] Last Admin: 06/13/17 09:11 Dose: 1,000 mcg Dextrose (Dextrose 50% Inj) 0 ml IV STAT PRN; Protocol PRN Reason: Hypoglycemia Protocol Dextrose (Glutose 15) 15 gm PO ONCE PRN; Protocol PRN Reason: Hypoglycemia Protocol Finasteride (Proscar) 5 mg PO DAILY [facility] Last Admin: 06/13/17 09:11 Dose: 5 mg Furosemide (Lasix) 40 mg PO MWF [facility] Last Admin: 06/12/17 08:41 Dose: Not Given Glimepiride (Amaryl) 4 mg PO ACBD [facility] Last Admin: 06/13/17 07:40 Dose: Not Given Glucagon (Glucagen Diagnostic Kit) 1 mg IM STAT PRN; Protocol PRN Reason: Hypoglycemia Protocol Dextrose/Sodium Chloride (Dextrose 5%/0.45% Ns 1000 Ml) 1,000 mls @ 100 mls/hr IV .Q10H [facility] Last Admin: 06/13/17 06:43 Dose: 100 mls/hr Dextrose (Dextrose 5% In Water 1000 Ml) 1,000 mls @ 0 mls/hr IV .Q0M PRN; Protocol; Per Protocol PRN Reason: Hypoglycemia Protocol Piperacillin Sod/Tazobactam (Sod 3.375 gm/ Sodium Chloride) 100 mls @ 200 mls/ hr IVPB Q8H [facility] Last Admin: 06/13/17 14:08 Dose: 200 mls/hr Azithromycin 500 mg/ Sodium (Chloride) 250 mls @ 167 mls/hr IVPB Q24H [facility] Last Admin: 06/13/17 14:40 Dose: 167 mls/hr Ibuprofen (Motrin Tab) 400 mg PO Q6H PRN PRN Reason: Fever >100.4 F Last Admin: 06/13/17 08:00 Dose: 400 mg Insulin Aspart (Novolog Mix 70/30 (70/30 Units/Ml)) 30 units SC ACB [facility] Insulin Aspart (Novolog Mix 70/30 (70/30 Units/Ml)) 24 units SC ACD [facility] Insulin Human Regular (Novolin R) 0 unit SC ACHS [facility] PRN Reason: Protocol Last Admin: 06/13/17 12:50 Dose: 4 unit Isosorbide Mononitrate (Imdur Er) 30 mg PO Q24H [facility] Losartan Potassium (Cozaar) 25 mg PO Q24H [facility] Metoprolol Succinate (Toprol Xl) 50 mg PO Q24H [facility] Multivitamins (Hexavitamin) 1 tab PO DAILY [facility] Last Admin: 06/13/17 09:11 Dose: 1 tab Ondansetron HCl (Zofran Inj) 4 mg IVP Q6 PRN PRN Reason: Nausea/Vomiting Last Admin: 06/12/17 10:30 Dose: 4 mg Pantoprazole Sodium (Protonix Ec Tab) 40 mg PO DAILY [facility] Last Admin: 06/13/17 09:11 Dose: 40 mg Tamsulosin HCl (Flomax) 0.4 mg PO DAILY [facility] Last Admin: 06/13/17 09:11 Dose: 0.4 mg Warfarin Sodium (Coumadin) 2 mg PO 1800 [facility] - Labs Labs: 06/13/17 06:40 06/13/17 06:40 PT 42.0 SECONDS (9.7-12.2) H* D 06/13/17 06:40 INR 3.6 06/13/17 06:40 - Constitutional Appears: Well - Head Exam Head Exam: ATRAUMATIC, NORMAL INSPECTION, NORMOCEPHALIC - Eye Exam Eye Exam: EOMI, Normal appearance, PERRL Pupil Exam: NORMAL ACCOMODATION, PERRL - ENT Exam ENT Exam: Mucous Membranes Moist, Normal Exam - Neck Exam Neck Exam: Full ROM, Normal Inspection. absent: Lymphadenopathy - Respiratory Exam Respiratory Exam: Decreased Breath Sounds - Cardiovascular Exam Cardiovascular Exam: REGULAR RHYTHM, +S1, +S2 - GI/Abdominal Exam GI & Abdominal Exam: Soft, Diminished Bowel Sounds - Rectal Exam Rectal Exam: Deferred
[2017-06-13] MEDS: (Novolog Mix 70/30) Insulin Aspart/Insulin Aspar 100 units/ml SC SCH (18:21)
--- NOTE | 2017-06-13 21:13 | CP.PCM.PN ---
Objective - Vital Signs/Intake and Output Vital Signs (last 24 hours): Temp Pulse Resp BP Pulse Ox 97.7 F 83 18 91/55 L 95 06/13/17 15:00 06/13/17 16:00 06/13/17 15:00 06/13/17 15:00 06/13/17 15:00 Intake and Output: 06/13/17 06/14/17 18:59 06:59 Output Total 1600 Balance -1600 - Medications Medications: Current Medications Cyanocobalamin (Vitamin B12 1000 Mcg Tab) 1,000 mcg PO DAILY [facility] Last Admin: 06/13/17 09:11 Dose: 1,000 mcg Dextrose (Dextrose 50% Inj) 0 ml IV STAT PRN; Protocol PRN Reason: Hypoglycemia Protocol Dextrose (Glutose 15) 15 gm PO ONCE PRN; Protocol PRN Reason: Hypoglycemia Protocol Finasteride (Proscar) 5 mg PO DAILY [facility] Last Admin: 06/13/17 09:11 Dose: 5 mg Furosemide (Lasix) 40 mg PO MWF [facility] Last Admin: 06/12/17 08:41 Dose: Not Given Glimepiride (Amaryl) 4 mg PO ACBD [facility] Last Admin: 06/13/17 18:21 Dose: 4 mg Glucagon (Glucagen Diagnostic Kit) 1 mg IM STAT PRN; Protocol PRN Reason: Hypoglycemia Protocol Dextrose/Sodium Chloride (Dextrose 5%/0.45% Ns 1000 Ml) 1,000 mls @ 100 mls/hr IV .Q10H [facility] Last Admin: 06/13/17 06:43 Dose: 100 mls/hr Dextrose (Dextrose 5% In Water 1000 Ml) 1,000 mls @ 0 mls/hr IV .Q0M PRN; Protocol; Per Protocol PRN Reason: Hypoglycemia Protocol Piperacillin Sod/Tazobactam (Sod 3.375 gm/ Sodium Chloride) 100 mls @ 200 mls/ hr IVPB Q8H [facility] Last Admin: 06/13/17 14:08 Dose: 200 mls/hr Azithromycin 500 mg/ Sodium (Chloride) 250 mls @ 167 mls/hr IVPB Q24H [facility] Last Admin: 06/13/17 14:40 Dose: 167 mls/hr Ibuprofen (Motrin Tab) 400 mg PO Q6H PRN PRN Reason: Fever >100.4 F Last Admin: 06/13/17 08:00 Dose: 400 mg Insulin Aspart (Novolog Mix 70/30 (70/30 Units/Ml)) 30 units SC ACB [facility] Insulin Aspart (Novolog Mix 70/30 (70/30 Units/Ml)) 24 units SC ACD [facility] Last Admin: 06/13/17 18:21 Dose: 24 units Insulin Human Regular (Novolin R) 0 unit SC ACHS [facility] PRN Reason: Protocol Last Admin: 06/13/17 18:22 Dose: 4 unit Isosorbide Mononitrate (Imdur Er) 30 mg PO Q24H [facility] Losartan Potassium (Cozaar) 25 mg PO Q24H [facility] Metoprolol Succinate (Toprol Xl) 50 mg PO Q24H [facility] Multivitamins (Hexavitamin) 1 tab PO DAILY [facility] Last Admin: 06/13/17 09:11 Dose: 1 tab Ondansetron HCl (Zofran Inj) 4 mg IVP Q6 PRN PRN Reason: Nausea/Vomiting Last Admin: 06/12/17 10:30 Dose: 4 mg Pantoprazole Sodium (Protonix Ec Tab) 40 mg PO DAILY [facility] Last Admin: 06/13/17 09:11 Dose: 40 mg Tamsulosin HCl (Flomax) 0.4 mg PO DAILY [facility] Last Admin: 06/13/17 09:11 Dose: 0.4 mg Warfarin Sodium (Coumadin) 2 mg PO 1800 [facility] - Labs Labs: 06/13/17 06:40 06/13/17 06:40 PT 42.0 SECONDS (9.7-12.2) H* D 06/13/17 06:40 INR 3.6 06/13/17 06:40
--- NOTE | 2017-06-14 00:06 | PN ---
DATE: ENDOCRINOLOGY FOLLOWUP NOTE LOCATION: Room 656. SUBJECTIVE: This is an 87-year-old male with recent uncontrolled type-2 insulin-requiring diabetes, now being followed closely for metabolic management. His glycemic levels are fluctuating now as noted overnight as his oral intake has improved accordingly as per the nursing staff today. No further vomiting and dyspepsia noted, otherwise. His glucose levels have ranged from 224 to 335 and 387 mg/dL. OBJECTIVE: His latest chemistry showed BUN of 21, sodium 127, potassium 4.1, chloride 102, CO2 of 20, glucose 210, and creatinine 1.3. ASSESSMENT AND PLAN: So at this time, we will modify once again his premixed insulin regimen to optimize metabolic control. We will increase the NovoLog 70/30 to 30 units before breakfast and 24 units before dinner to start today. We will titrate incrementally as indicated to optimize metabolic control. We will obtain serial chemistries and supplement accordingly as needed. We will follow. Sharon Oquendo MD
[2017-06-14] MEDS: Piperacillin/Tazobact 3.375 GM in Sodium Chloride 100 ML IVPB SCH (05:09)
[2017-06-14] MEDS ORDERED: (Novolog Mix 70/30) Insulin Aspart/Insulin Aspar 100 units/ml SC SCH (07:30)
[2017-06-14] MEDS: (Novolin R) Insulin Human Regular 100 units/ml vial SC SCH ×4 (07:30→22:00)
[2017-06-14 07:55] LABS: GFR AFRICAN-AMERICAN > 60; GFR NON-AFRICAN AMERICAN 52
[2017-06-14 07:58] LABS: ALB/GLOB RATIO 0.7 (1.0-2.1); ALBUMIN 2.1 g/dL (3.5-5.0); ALT/SGPT 724 U/L (21-72); BLOOD UREA NITROGEN 22 mg/dL (9-20); CALCIUM 7.2 mg/dl (8.6-10.4)
[2017-06-14 08:11] LABS: BASO % 0.3 % (0.0-2.0); EOS # 0.4 K/uL (0.0-0.7); EOS % 6.2 % (0.0-4.0); HEMOGLOBIN 10.6 g/dL (12.0-18.0); LYMPH # 1.1 K/uL (1.0-4.3); LYMPH % 18.1 % (20.0-40.0); MEAN CORPUSCULAR HEMOGLOBIN 31.6 pg (27.0-31.0); MEAN CORPUSCULAR HGB CONC 34.7 g/dL (33.0-37.0); MEAN PLATELET VOLUME 8.2 fL (7.2-11.7); MONO # 0.5 K/uL (0.0-0.8); MONO % 7.5 % (0.0-10.0); NEUT # 4.1 K/uL (1.8-7.0); NEUT % 67.9 % (50.0-75.0); RBC 3.36 Mil/uL (4.40-5.90); RED CELL DISTRIBUTION WIDTH 13.7 % (11.5-14.5); WHITE BLOOD COUNT 6.1 K/uL (4.8-10.8)
[2017-06-14 08:14] LABS: AST/SGOT 971 U/L (17-59)
[2017-06-14 08:31] LABS: INR 3.4
[2017-06-14 08:33] LABS: PROTHROMBIN TIME 40.4 SECONDS (9.7-12.2)
[2017-06-14] MEDS: Multiple Vitamins Tab PO SCH (09:48)
[2017-06-14] MEDS: Pantoprazole 40 mg EC Tab PO SCH (09:48)
[2017-06-14] MEDS: Dextrose 5%/0.45% NS 1,000 ML IV SCH ×2 (09:49→22:57)
--- NOTE | 2017-06-14 13:39 | PN ---
DATE: ENDOCRINOLOGY FOLLOWUP NOTE LOCATION: Room 656. SUBJECTIVE: This is an 87-year-old male with recent uncontrolled type 2 insulin-requiring diabetes, now being followed closely for metabolic management. His glycemic levels are fluctuating depending on the variability of his oral intake as noted by the nursing staff. His glucose levels are ranging from 311 to 331 mg/dL overnight as noted. The latest chemistry showed a BUN of 21, sodium 127, potassium 4.1, chloride 102, CO2 of 20, glucose 210 and creatinine 1.3. So at this time we will modify once again his premixed insulin regimen and increase the NovoLog 70/30 to 30 units before breakfast and 24 units before dinner to start today. We will titrate incrementally as indicated to optimize metabolic control. We will also continue the low-dose correction scale using NovoLog insulin as given. We will continue also the oral hypoglycemic therapy with Amaryl given as 4 mg b.i.d. before meals as ordered. We will titrate incrementally as indicated to optimize metabolic control. We will follow. Sharon Oquendo MD
[2017-06-14] MEDS ORDERED: Piperacill/Tazo 3.375gm in Dex 3.375 GM/50 ML BAG IVPB SCH (14:00)
[2017-06-14] MEDS: Azithromycin 500 MG in Sodium Chloride 0.9% 250 ML IVPB SCH (14:11)
--- NOTE | 2017-06-14 14:43 | CP.PCM.PN ---
Subjective - Date & Time of Evaluation Date of Evaluation: 06/14/17 Time of Evaluation: 14:29 - Subjective Subjective: PGY [address] Jones Pt seen and examined at bedside. No acute events overnight. Pt is awake and answering questions. Denies having any CP, SOB, abd pain, N/V/D/C, F/C. patient states he does not have an appetite today. Objective - Vital Signs/Intake and Output Vital Signs (last 24 hours): Temp Pulse Resp BP Pulse Ox 98.0 F 99 H 18 124/74 100 06/14/17 08:11 06/14/17 12:03 06/14/17 08:11 06/14/17 09:48 06/14/17 08:11 Intake and Output: 06/14/17 06/14/17 06:59 18:59 Intake Total 1090 Output Total 1150 Balance -60 - Medications Medications: Current Medications Cyanocobalamin (Vitamin B12 1000 Mcg Tab) 1,000 mcg PO DAILY [facility] Last Admin: 06/14/17 09:48 Dose: 1,000 mcg Dextrose (Dextrose 50% Inj) 0 ml IV STAT PRN; Protocol PRN Reason: Hypoglycemia Protocol Dextrose (Glutose 15) 15 gm PO ONCE PRN; Protocol PRN Reason: Hypoglycemia Protocol Finasteride (Proscar) 5 mg PO DAILY [facility] Last Admin: 06/14/17 10:44 Dose: 5 mg Furosemide (Lasix) 40 mg PO MWF [facility] Last Admin: 06/14/17 09:48 Dose: 40 mg Glimepiride (Amaryl) 4 mg PO ACBD [facility] Last Admin: 06/14/17 07:43 Dose: 4 mg Glucagon (Glucagen Diagnostic Kit) 1 mg IM STAT PRN; Protocol PRN Reason: Hypoglycemia Protocol Dextrose/Sodium Chloride (Dextrose 5%/0.45% Ns 1000 Ml) 1,000 mls @ 100 mls/hr IV .Q10H [facility] Last Admin: 06/14/17 09:49 Dose: 100 mls/hr Dextrose (Dextrose 5% In Water 1000 Ml) 1,000 mls @ 0 mls/hr IV .Q0M PRN; Protocol; Per Protocol PRN Reason: Hypoglycemia Protocol Azithromycin 500 mg/ Sodium (Chloride) 250 mls @ 167 mls/hr IVPB Q24H [facility] Last Admin: 06/14/17 14:11 Dose: 167 mls/hr Piperacillin Sod/Tazobactam Sod (Zosyn 3.375 Gm Iv Premix) 3.375 gm in 50 mls @ 200 mls/hr IVPB Q8H [facility] Last Admin: 06/14/17 13:14 Dose: 200 mls/hr Ibuprofen (Motrin Tab) 400 mg PO Q6H PRN PRN Reason: Fever >100.4 F Last Admin: 06/13/17 08:00 Dose: 400 mg Insulin Aspart (Novolog Mix 70/30 (70/30 Units/Ml)) 30 units SC ACB [facility] Last Admin: 06/14/17 07:42 Dose: 30 units Insulin Aspart (Novolog Mix 70/30 (70/30 Units/Ml)) 24 units SC ACD [facility] Last Admin: 06/13/17 18:21 Dose: 24 units Insulin Human Regular (Novolin R) 0 unit SC ACHS [facility] PRN Reason: Protocol Last Admin: 06/14/17 11:36 Dose: Not Given Isosorbide Mononitrate (Imdur Er) 30 mg PO Q24H [facility] Losartan Potassium (Cozaar) 25 mg PO Q24H [facility] Metoprolol Succinate (Toprol Xl) 50 mg PO Q24H [facility] Multivitamins (Hexavitamin) 1 tab PO DAILY [facility] Last Admin: 06/14/17 09:48 Dose: 1 tab Ondansetron HCl (Zofran Inj) 4 mg IVP Q6 PRN PRN Reason: Nausea/Vomiting Last Admin: 06/12/17 10:30 Dose: 4 mg Pantoprazole Sodium (Protonix Ec Tab) 40 mg PO DAILY [facility] Last Admin: 06/14/17 09:48 Dose: 40 mg Tamsulosin HCl (Flomax) 0.4 mg PO DAILY [facility] Last Admin: 06/14/17 09:48 Dose: 0.4 mg Warfarin Sodium (Coumadin) 2 mg PO 1800 [facility] - Labs Labs: 06/14/17 07:24 06/14/17 07:24 PT 40.4 SECONDS (9.7-12.2) H* 06/14/17 08:06 INR 3.4 06/14/17 08:06 - Constitutional Appears: Non-toxic, No Acute Distress - Head Exam Head Exam: ATRAUMATIC - ENT Exam ENT Exam: Mucous Membranes Moist - Respiratory Exam Respiratory Exam: Clear to Ausculation Bilateral. absent: Accessory Muscle Use , Rhonchi, Wheezes, Respiratory Distress - Cardiovascular Exam Cardiovascular Exam: REGULAR RHYTHM, +S1, +S2 - GI/Abdominal Exam GI & Abdominal Exam: Soft, Normal Bowel Sounds. absent: Distended, Firm, Guarding, Rigid, Tenderness, Organomegaly - Extremities Exam Extremities Exam: absent: Pedal Edema, Tenderness - Neurological Exam Neurological Exam: Alert, Awake. absent: Oriented x3 - Psychiatric Exam Psychiatric exam: Normal Affect, Normal Mood - Skin Skin Exam: absent: Intact, Normal Color, Warm Additional comments: Ulcer present on left buttock Assessment and Plan - Assessment and Plan (Free Text) Assessment: Fever Resolved. Patient afebrile overnight Repeat blood and urine cultures pending. Motrin for Fever Do not give Tylenol due to elevated LFTs Transaminitis Will hold tylenol and protonix and crestor Hepatitis panel is negative GI, Dr. Wilson is consulted Review medications. Hold any other hepato-toxic meds at this time Will reach out to ID about switching pt to different Abx to prevent hepatotoxicity Diabetes Hgb A1c is 9.9 Lipid panel is normal Endo, Dr. Oquendo consulted. Pt placed on Novolin 70/30 30 units at breakfast and 24 units at dinner. Hold if blood sugars are low. continue Cozaar. Crestor on hold CHF Per Cardio, preserved LV function. Cardio recommends continuing medical treatment. Echo shows LV EF of 60%, mild hypokenesis in basal inferoseptal wall, mild MR and TR Currently on Imdur, Toprol XL 50 mg PO QD, and lasixs 40 mg po MWF Currently on D5 at 50 cc/hr Pro BNP [address] on admission showed distended bladder Hill in place draining light yellow urine Continue Flomax and finesteride Urology is consulted. Recs pending Repeat urinalysis negative Urine culture pending Cardiac arrhythmia resolved A fib INR today is 3.6. Goal range 2-3. Hold Coumadin and reasses levels tomorrow. Ulcer stage IV Wound care on board Wound culture ordered Continue Abx Prophylaxis Prevalon boots and SCDs Protonix Oral AC on hold Discussed with attending. All managements and orders per Dr. Jones
--- NOTE | 2017-06-14 15:49 | CP.PCM.CON ---
<Nieves Boyce - Last Filed: 06/14/17 15:59> History of Present Illness - History of Present Illness History of Present Illness: GI Fellow PGY4 Consult Note This is a 87 year old male with past medical history of bladder cancer, DM, A fib on coumadin and dementia presented to hospital for elevated blood sugars in 300s. Pt underwent cystogram with retrograde pyelogram in 02/2017 with bladder biopsy. 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 GI consulted for elevated LFTs over the past few days. Pt denies any hx of liver disease including hepatitis. Per pt's at bedside pt was a heavy drinker when he was younger and last drink was 50yrs ago. No prior EGD or colonoscopy. Pt denies any abdominal pain, tolerating diet with no nausea or vomiting. Pt does confirm low BP a few days ago which is unusual for him as he takes medication for HTN. Pt had a car lot attendant called on 06/11/17 for hypotension and was treated with fluids and decreasing cardiac meds. ROS: A 12pt ROS was negative except as above. PmHx: As stated in HPI PsHx: CABG, cystogram and bladder biopsy FHx: denies any of liver disease SHx: prior alcohol use, no tobacco or drugs Past Patient History - Infectious Disease Hx of Infectious Diseases: None - Past Medical History & Family History Past Medical History?: Yes - Past Social History Smoking Status: Never Smoked - CARDIAC Hx Cardia Arrhythmia: Yes (atrial fib) Hx Congestive Heart Failure: Yes Hx Hypercholesterolemia: Yes Hx Hypertension: Yes Hx Peripheral Edema: Yes (sometimes not at present) - PULMONARY Hx Sleep Apnea: Yes - HEENT Hx HEENT Problems: Yes Hx Cataracts: Yes - RENAL Hx Chronic Kidney Disease: Yes (renal insufficiency) - ENDOCRINE/METABOLIC Hx Diabetes Mellitus Type 2: Yes - HEMATOLOGICAL/ONCOLOGICAL Hx Anemia: Yes - INTEGUMENTARY Hx Dermatological Problems: No - MUSCULOSKELETAL/RHEUMATOLOGICAL Hx Arthritis: Yes - GASTROINTESTINAL Hx Gastrointestinal Disorders: Yes Hx Constipation: Yes - GENITOURINARY/GYNECOLOGICAL Hx Genitourinary Disorders: Yes Hx Bladder Cancer: Yes Hx Incontinence: Yes Hx Prostate Problems: Yes - PSYCHIATRIC Hx Substance Use: No - SURGICAL HISTORY Hx Coronary Artery Bypass Graft: Yes ((2)) Hx Coronary Stent: Yes (X2) - ANESTHESIA Hx Anesthesia: Yes Hx Anesthesia Reactions: No Hx Malignant Hyperthermia: No Meds Allergies/Adverse Reactions: Allergies Allergy/AdvReac Type Severity Reaction Status Date / Time No Known Allergies Allergy Verified 06/07/17 00:18 - Medications Medications: Current Medications Cyanocobalamin (Vitamin B12 1000 Mcg Tab) 1,000 mcg PO DAILY [facility] Last Admin: 06/14/17 09:48 Dose: 1,000 mcg Dextrose (Dextrose 50% Inj) 0 ml IV STAT PRN; Protocol PRN Reason: Hypoglycemia Protocol Dextrose (Glutose 15) 15 gm PO ONCE PRN; Protocol PRN Reason: Hypoglycemia Protocol Finasteride (Proscar) 5 mg PO DAILY [facility] Last Admin: 06/14/17 10:44 Dose: 5 mg Furosemide (Lasix) 40 mg PO MWF [facility] Last Admin: 06/14/17 09:48 Dose: 40 mg Glimepiride (Amaryl) 4 mg PO ACBD [facility] Last Admin: 06/14/17 07:43 Dose: 4 mg Glucagon (Glucagen Diagnostic Kit) 1 mg IM STAT PRN; Protocol PRN Reason: Hypoglycemia Protocol Dextrose/Sodium Chloride (Dextrose 5%/0.45% Ns 1000 Ml) 1,000 mls @ 100 mls/hr IV .Q10H [facility] Last Admin: 06/14/17 09:49 Dose: 100 mls/hr Dextrose (Dextrose 5% In Water 1000 Ml) 1,000 mls @ 0 mls/hr IV .Q0M PRN; Protocol; Per Protocol PRN Reason: Hypoglycemia Protocol Azithromycin 500 mg/ Sodium (Chloride) 250 mls @ 167 mls/hr IVPB Q24H [facility] Last Admin: 06/14/17 14:11 Dose: 167 mls/hr Piperacillin Sod/Tazobactam Sod (Zosyn 3.375 Gm Iv Premix) 3.375 gm in 50 mls @ 200 mls/hr IVPB Q8H [facility] Last Admin: 06/14/17 13:14 Dose: 200 mls/hr Ibuprofen (Motrin Tab) 400 mg PO Q6H PRN PRN Reason: Fever >100.4 F Last Admin: 06/13/17 08:00 Dose: 400 mg Insulin Aspart (Novolog Mix 70/30 (70/30 Units/Ml)) 30 units SC ACB [facility] Last Admin: 06/14/17 07:42 Dose: 30 units Insulin Aspart (Novolog Mix 70/30 (70/30 Units/Ml)) 24 units SC ACD [facility] Last Admin: 06/13/17 18:21 Dose: 24 units Insulin Human Regular (Novolin R) 0 unit SC ACHS JOSE PRN Reason: Protocol Last Admin: 06/14/17 11:36 Dose: Not Given Isosorbide Mononitrate (Imdur Er) 30 mg PO Q24H [facility] Losartan Potassium (Cozaar) 25 mg PO Q24H [facility] Metoprolol Succinate (Toprol Xl) 50 mg PO Q24H [facility] Multivitamins (Hexavitamin) 1 tab PO DAILY [facility] Last Admin: 06/14/17 09:48 Dose: 1 tab Ondansetron HCl (Zofran Inj) 4 mg IVP Q6 PRN PRN Reason: Nausea/Vomiting Last Admin: 06/12/17 10:30 Dose: 4 mg Pantoprazole Sodium (Protonix Ec Tab) 40 mg PO DAILY [facility] Last Admin: 06/14/17 09:48 Dose: 40 mg Tamsulosin HCl (Flomax) 0.4 mg PO DAILY [facility] Last Admin: 06/14/17 09:48 Dose: 0.4 mg Warfarin Sodium (Coumadin) 2 mg PO 1800 [facility] Physical Exam - Constitutional Appears: Non-toxic, No Acute Distress - Head Exam Head Exam: ATRAUMATIC, NORMAL INSPECTION, NORMOCEPHALIC - Eye Exam Eye Exam: EOMI, Normal appearance - ENT Exam ENT Exam: Mucous Membranes Moist - Respiratory Exam Respiratory Exam: Decreased Breath Sounds, NORMAL BREATHING PATTERN - Cardiovascular Exam Cardiovascular Exam: Irregular Rhythm - GI/Abdominal Exam GI & Abdominal Exam: Distended, Normal Bowel Sounds, Soft. absent: Guarding, Organomegaly, Rebound, Tenderness - Rectal Exam Rectal Exam: Deferred - Extremities Exam Extremities exam: Positive for: normal inspection - Neurological Exam Neurological exam: Alert - Psychiatric Exam Psychiatric exam: Normal Affect, Normal Mood - Skin Skin Exam: Dry, Intact, Normal Color, Warm Results - Vital Signs Recent Vital Signs: Last Vital Signs Temp 98.0 F 06/14/17 08:11 Pulse 99 H 06/14/17 12:03 Resp 18 06/14/17 08:11 BP 124/74 06/14/17 09:48 Pulse Ox 100 06/14/17 08:11 - Labs Result Diagrams: 06/14/17 07:24 06/14/17 07:24 Labs: Laboratory Results - last 24 hr 06/13/17 06/13/17 06/14/17 16:08 21:06 02:04 WBC RBC Hgb Hct MCV MCH MCHC RDW Plt Count MPV Neut % (Auto) Lymph % (Auto) [place] % (Auto) Eos % (Auto) Baso % (Auto) Neut # (Auto) Lymph # (Auto) [place] # (Auto) Eos # (Auto) Baso # (Auto) PT INR Sodium Potassium Chloride Carbon Dioxide Anion Gap BUN Creatinine Est GFR ( Amer) Est GFR (Non-Af Amer) POC Glucose (mg/dL) 331 H 311 H 201 H Random Glucose Calcium Phosphorus Magnesium Total Bilirubin AST ALT Alkaline Phosphatase Total Protein Albumin Globulin Albumin/Globulin Ratio 06/14/17 06/14/17 06/14/17 06:20 07:24 07:24 WBC 6.1 RBC 3.36 L Hgb 10.6 L Hct 30.6 L MCV 91.0 MCH 31.6 H MCHC 34.7 RDW 13.7 Plt Count 217 MPV 8.2 Neut % (Auto) 67.9 Lymph % (Auto) 18.1 L [place] % (Auto) 7.5 Eos % (Auto) 6.2 H Baso % (Auto) 0.3 Neut # (Auto) 4.1 Lymph # (Auto) 1.1 [place] # (Auto) 0.5 Eos # (Auto) 0.4 Baso # (Auto) 0.0 PT INR Sodium 130 L Potassium 4.0 Chloride 102 Carbon Dioxide 23 Anion Gap 9 L BUN 22 H Creatinine 1.3 Est GFR ( Amer) > 60 Est GFR (Non-Af Amer) 52 POC Glucose (mg/dL) 147 H Random Glucose 141 H Calcium 7.2 L Phosphorus 2.3 L Magnesium 2.0 Total Bilirubin 0.8 AST 971 H ALT 724 H D Alkaline Phosphatase 229 H Total Protein 4.9 L Albumin 2.1 L Globulin 2.9 Albumin/Globulin Ratio 0.7 L 06/14/17 06/14/17 08:06 11:01 WBC RBC Hgb Hct MCV MCH MCHC RDW Plt Count MPV Neut % (Auto) Lymph % (Auto) [place] % (Auto) Eos % (Auto) Baso % (Auto) Neut # (Auto) Lymph # (Auto) [place] # (Auto) Eos # (Auto) Baso # (Auto) PT 40.4 H* INR 3.4 Sodium Potassium Chloride Carbon Dioxide Anion Gap BUN Creatinine Est GFR ( Amer) Est GFR (Non-Af Amer) POC Glucose (mg/dL) 127 H Random Glucose Calcium Phosphorus Magnesium Total Bilirubin AST ALT Alkaline Phosphatase Total Protein Albumin Globulin Albumin/Globulin Ratio Assessment & Plan - Assessment and Plan (Free Text) Assessment: This is a 87yM initially admitted s/p fall and elevated BG. 1. Elevated LFTs likely secondary to shock liver/ischemic hepatopathy 2. Afib on OAC 3. Hx of CAD 4. Sacral Ulcers Plan: -Continue supportive care and avoid hepatotoxic agents/medications -Pt with elevated LFTs following sudden drop in BP on 06/11/17 leading to ischemic hepatopathy and pt also has atherosclerotic disease leading to further hypoperfusion, continue to monitor and trend -Will order abdominal US to evaluate portal vein and liver parenchyma -Hepatitis panel negative, will order autoimmune work up for completion, prior hx of alcohol abuse -Will continue to follow closely <Kwame Wilson - Last Filed: 06/14/17 20:48> Meds - Medications Medications: Current Medications Cyanocobalamin (Vitamin B12 1000 Mcg Tab) 1,000 mcg PO DAILY [facility] Last Admin: 06/14/17 09:48 Dose: 1,000 mcg Dextrose (Dextrose 50% Inj) 0 ml IV STAT PRN; Protocol PRN Reason: Hypoglycemia Protocol Dextrose (Glutose 15) 15 gm PO ONCE PRN; Protocol PRN Reason: Hypoglycemia Protocol Finasteride (Proscar) 5 mg PO DAILY [facility] Last Admin: 06/14/17 10:44 Dose: 5 mg Furosemide (Lasix) 40 mg PO MWF [facility] Last Admin: 06/14/17 09:48 Dose: 40 mg Glimepiride (Amaryl) 4 mg PO ACBD [facility] Last Admin: 06/14/17 18:29 Dose: 4 mg Glucagon (Glucagen Diagnostic Kit) 1 mg IM STAT PRN; Protocol PRN Reason: Hypoglycemia Protocol Dextrose/Sodium Chloride (Dextrose 5%/0.45% Ns 1000 Ml) 1,000 mls @ 100 mls/hr IV .Q10H [facility] Last Admin: 06/14/17 09:49 Dose: 100 mls/hr Dextrose (Dextrose 5% In Water 1000 Ml) 1,000 mls @ 0 mls/hr IV .Q0M PRN; Protocol; Per Protocol PRN Reason: Hypoglycemia Protocol Cefepime HCl (Maxipime Iv 1 Gm Premix) 1 gm in 50 mls @ 100 mls/hr IVPB Q12H [facility] Ibuprofen (Motrin Tab) 400 mg PO Q6H PRN PRN Reason: Fever >100.4 F Last Admin: 06/13/17 08:00 Dose: 400 mg Insulin Aspart (Novolog Mix 70/30 (70/30 Units/Ml)) 30 units SC ACB [facility] Last Admin: 06/14/17 07:42 Dose: 30 units Insulin Aspart (Novolog Mix 70/30 (70/30 Units/Ml)) 24 units SC ACD [facility] Last Admin: 06/14/17 16:46 Dose: Not Given Insulin Human Regular (Novolin R) 0 unit SC ACHS [facility] PRN Reason: Protocol Last Admin: 06/14/17 16:46 Dose: Not Given Isosorbide Mononitrate (Imdur Er) 30 mg PO Q24H [facility] Losartan Potassium (Cozaar) 25 mg PO Q24H [facility] Metoprolol Succinate (Toprol Xl) 50 mg PO Q24H [facility] Multivitamins (Hexavitamin) 1 tab PO DAILY [facility] Last Admin: 06/14/17 09:48 Dose: 1 tab Ondansetron HCl (Zofran Inj) 4 mg IVP Q6 PRN PRN Reason: Nausea/Vomiting Last Admin: 06/12/17 10:30 Dose: 4 mg Pantoprazole Sodium (Protonix Ec Tab) 40 mg PO DAILY [facility] Last Admin: 06/14/17 09:48 Dose: 40 mg Tamsulosin HCl (Flomax) 0.4 mg PO DAILY [facility] Last Admin: 06/14/17 09:48 Dose: 0.4 mg Warfarin Sodium (Coumadin) 2 mg PO 1800 [facility] Results - Vital Signs Recent Vital Signs: Last Vital Signs Temp 99.8 F H 06/14/17 15:00 Pulse 75 06/14/17 15:00 Resp 20 06/14/17 15:00 BP 97/62 L 06/14/17 15:00 Pulse Ox 98 06/14/17 15:00 - Labs Result Diagrams: 06/14/17 07:24 06/14/17 07:24 Labs: Laboratory Results - last 24 hr 06/13/17 06/14/17 06/14/17 21:06 02:04 06:20 WBC RBC Hgb Hct MCV MCH MCHC RDW Plt Count MPV Neut % (Auto) Lymph % (Auto) [place] % (Auto) Eos % (Auto) Baso % (Auto) Neut # (Auto) Lymph # (Auto) [place] # (Auto) Eos # (Auto) Baso # (Auto) PT INR Sodium Potassium Chloride Carbon Dioxide Anion Gap BUN Creatinine Est GFR ( Amer) Est GFR (Non-Af Amer) POC Glucose (mg/dL) 311 H 201 H 147 H Random Glucose Calcium Phosphorus Magnesium Total Bilirubin AST ALT Alkaline Phosphatase Total Protein Albumin Globulin Albumin/Globulin Ratio 06/14/17 06/14/17 06/14/17 07:24 07:24 08:06 WBC 6.1 RBC 3.36 L Hgb 10.6 L Hct 30.6 L MCV 91.0 MCH 31.6 H MCHC 34.7 RDW 13.7 Plt Count 217 MPV 8.2 Neut % (Auto) 67.9 Lymph % (Auto) 18.1 L [place] % (Auto) 7.5 Eos % (Auto) 6.2 H Baso % (Auto) 0.3 Neut # (Auto) 4.1 Lymph # (Auto) 1.1 [place] # (Auto) 0.5 Eos # (Auto) 0.4 Baso # (Auto) 0.0 PT 40.4 H* INR 3.4 Sodium 130 L Potassium 4.0 Chloride 102 Carbon Dioxide 23 Anion Gap 9 L BUN 22 H Creatinine 1.3 Est GFR ( Amer) > 60 Est GFR (Non-Af Amer) 52 POC Glucose (mg/dL) Random Glucose 141 H Calcium 7.2 L Phosphorus 2.3 L Magnesium 2.0 Total Bilirubin 0.8 AST 971 H ALT 724 H D Alkaline Phosphatase 229 H Total Protein 4.9 L Albumin 2.1 L Globulin 2.9 Albumin/Globulin Ratio 0.7 L 06/14/17 06/14/17 11:01 16:22 WBC RBC Hgb Hct MCV MCH MCHC RDW Plt Count MPV Neut % (Auto) Lymph % (Auto) [place] % (Auto) Eos % (Auto) Baso % (Auto) Neut # (Auto) Lymph # (Auto) [place] # (Auto) Eos # (Auto) Baso # (Auto) PT INR Sodium Potassium Chloride Carbon Dioxide Anion Gap BUN Creatinine Est GFR ( Amer) Est GFR (Non-Af Amer) POC Glucose (mg/dL) 127 H 80 Random Glucose Calcium Phosphorus Magnesium Total Bilirubin AST ALT Alkaline Phosphatase Total Protein Albumin Globulin Albumin/Globulin Ratio Attending/Attestation - Attestation I have personally seen and examined this patient.: Yes I have fully participated in the care of the patient.: Yes I have reviewed all pertinent clinical information: Yes Notes (Text): 06/14/17 20:45 87 year old male with h/o CAD s/p CABG, bladder cancer, DM, Afib, Dementia, we are consulted for elevated LFTs. 1. Elevated lfts 2. Shock liver Plan: -likely shock liver due to hypotension -eval for chronic liver disease (viral/autoimmune) -supportive measures, maintain bp in normal range, gentle hydration -recommend eval of liver parenchyma and vasculature with US abdomen -trend daily lfts
[2017-06-14] MEDS: (Novolog Mix 70/30) Insulin Aspart/Insulin Aspar 100 units/ml SC SCH (16:46)
--- NOTE | 2017-06-14 18:39 | CP.PCM.PN ---
Subjective - Date & Time of Evaluation Date of Evaluation: 06/14/17 Time of Evaluation: 11:40 - Subjective Subjective: clinically same Objective - Vital Signs/Intake and Output Vital Signs (last 24 hours): Temp Pulse Resp BP Pulse Ox 99.8 F H 75 20 97/62 L 98 06/14/17 15:00 06/14/17 15:00 06/14/17 15:00 06/14/17 15:00 06/14/17 15:00 Intake and Output: 06/14/17 06/14/17 06:59 18:59 Intake Total 1090 Output Total 1150 775 Balance -60 -775 - Medications Medications: Current Medications Cyanocobalamin (Vitamin B12 1000 Mcg Tab) 1,000 mcg PO DAILY [facility] Last Admin: 06/14/17 09:48 Dose: 1,000 mcg Dextrose (Dextrose 50% Inj) 0 ml IV STAT PRN; Protocol PRN Reason: Hypoglycemia Protocol Dextrose (Glutose 15) 15 gm PO ONCE PRN; Protocol PRN Reason: Hypoglycemia Protocol Finasteride (Proscar) 5 mg PO DAILY [facility] Last Admin: 06/14/17 10:44 Dose: 5 mg Furosemide (Lasix) 40 mg PO MWF [facility] Last Admin: 06/14/17 09:48 Dose: 40 mg Glimepiride (Amaryl) 4 mg PO ACBD [facility] Last Admin: 06/14/17 18:29 Dose: 4 mg Glucagon (Glucagen Diagnostic Kit) 1 mg IM STAT PRN; Protocol PRN Reason: Hypoglycemia Protocol Dextrose/Sodium Chloride (Dextrose 5%/0.45% Ns 1000 Ml) 1,000 mls @ 100 mls/hr IV .Q10H [facility] Last Admin: 06/14/17 09:49 Dose: 100 mls/hr Dextrose (Dextrose 5% In Water 1000 Ml) 1,000 mls @ 0 mls/hr IV .Q0M PRN; Protocol; Per Protocol PRN Reason: Hypoglycemia Protocol Azithromycin 500 mg/ Sodium (Chloride) 250 mls @ 167 mls/hr IVPB Q24H [facility] Last Admin: 06/14/17 14:11 Dose: 167 mls/hr Piperacillin Sod/Tazobactam Sod (Zosyn 3.375 Gm Iv Premix) 3.375 gm in 50 mls @ 200 mls/hr IVPB Q8H [facility] Last Admin: 06/14/17 13:14 Dose: 200 mls/hr Ibuprofen (Motrin Tab) 400 mg PO Q6H PRN PRN Reason: Fever >100.4 F Last Admin: 06/13/17 08:00 Dose: 400 mg Insulin Aspart (Novolog Mix 70/30 (70/30 Units/Ml)) 30 units SC ACB [facility] Last Admin: 06/14/17 07:42 Dose: 30 units Insulin Aspart (Novolog Mix 70/30 (70/30 Units/Ml)) 24 units SC ACD [facility] Last Admin: 06/14/17 16:46 Dose: Not Given Insulin Human Regular (Novolin R) 0 unit SC ACHS JOSE PRN Reason: Protocol Last Admin: 06/14/17 16:46 Dose: Not Given Isosorbide Mononitrate (Imdur Er) 30 mg PO Q24H [facility] Losartan Potassium (Cozaar) 25 mg PO Q24H [facility] Metoprolol Succinate (Toprol Xl) 50 mg PO Q24H [facility] Multivitamins (Hexavitamin) 1 tab PO DAILY [facility] Last Admin: 06/14/17 09:48 Dose: 1 tab Ondansetron HCl (Zofran Inj) 4 mg IVP Q6 PRN PRN Reason: Nausea/Vomiting Last Admin: 06/12/17 10:30 Dose: 4 mg Pantoprazole Sodium (Protonix Ec Tab) 40 mg PO DAILY [facility] Last Admin: 06/14/17 09:48 Dose: 40 mg Tamsulosin HCl (Flomax) 0.4 mg PO DAILY [facility] Last Admin: 06/14/17 09:48 Dose: 0.4 mg Warfarin Sodium (Coumadin) 2 mg PO 1800 [facility] - Labs Labs: 06/14/17 07:24 06/14/17 07:24 PT 40.4 SECONDS (9.7-12.2) H* 06/14/17 08:06 INR 3.4 06/14/17 08:06 - Constitutional Appears: Well - Head Exam Head Exam: ATRAUMATIC, NORMAL INSPECTION, NORMOCEPHALIC - Eye Exam Eye Exam: EOMI, Normal appearance, PERRL Pupil Exam: NORMAL ACCOMODATION, PERRL - ENT Exam ENT Exam: Mucous Membranes Moist, Normal Exam - Neck Exam Neck Exam: Full ROM, Normal Inspection. absent: Lymphadenopathy - Respiratory Exam Respiratory Exam: Decreased Breath Sounds - Cardiovascular Exam Cardiovascular Exam: REGULAR RHYTHM, +S1, +S2 - GI/Abdominal Exam GI & Abdominal Exam: Soft, Diminished Bowel Sounds - Rectal Exam Rectal Exam: Deferred
--- NOTE | 2017-06-14 19:20 | CP.PCM.CON ---
History of Present Illness - History of Present Illness History of Present Illness: 87 year old male with a Hx of diabetes brought in the ER by family member for elevated blood sugar. Family reports patient fell and landed on his right hip and back area approximately 1 week ago. Denies fever, chills, weakness or numbness. was being treated for UTI, skin wounds Recenly LFT's elevated antibiotics on hold pt afeb no cough or sob - Medical History PMH: Anemia, Arthritis, Cardia Arrhythmia (atrial fib), CHF, HTN, Hypercholesterolemia, Peripheral Edema (sometimes not at present), Chronic Kidney Disease (renal insufficiency), Sleep Apnea Surgical History: CABG ((2)), Coronary Stent (X2) Family History: States: Unknown Family Hx Review of Systems - Review of Systems Systems not reviewed;Unavailable: Altered Mental Status - Constitutional Constitutional: As Per HPI - EENT Eyes: absent: As Per HPI, Blind Spots, Blurred Vision, Change in Vision, Decreased Night Vision, Diplopia, Discharge, Dry Eye, Exophthalmos, Floaters, Irritation, Itchy Eyes, Loss of Peripheral Vision, Pain, Photophobia, Requires Corrective Lenses, Sees Flashes, Spots in Vision, Tunnel Vision, Other Visual Disturbances, Loss of Vision, Other Ears: absent: As Per HPI, Decreased Hearing, Ear Discharge, Ear Pain, Tinnitus, Abnormal Hearing, Disequilibrium, Dizziness, Other Nose/Mouth/Throat: absent: As Per HPI, Epistaxis, Nasal Congestion, Nasal Discharge, Nasal Obstruction, Nasal Trauma, Nose Pain, Post Nasal Drip, Sinus Pain, Sinus Pressure, Bleeding Gums, Change in Voice, Dental Pain, Dry Mouth, Dysphagia, Halitosis, Hoarsness, Lip Swelling, Mouth Lesions, Mouth Pain, Odynophagia, Sore Throat, Throat Swelling, Tongue Swelling, Facial Pain, Neck Pain, Neck Mass, Other - Cardiovascular Cardiovascular: absent: As Per HPI, Acrocyanosis, Chest Pain, Chest Pain at Rest , Chest Pain with Activity, Claudication, Diaphoresis, Dyspnea, Dyspnea on Exertion, Edema, Irregular Heart Rhythm, Pain Radiating to Arm/Neck/Jaw, Leg Edema, Leg Ulcers, Lightheadedness, Orthopnea, Palpitations, Paroxysmal Nocturnal Dyspnea, Pedal Edema, Radiating Pain, Rapid Heart Rate, Slow Heart Rate, Syncope, Other - Respiratory Respiratory: absent: As Per HPI, Cough, Dyspnea, Hemoptysis, Dyspnea on Exertion , Wheezing, Snoring, Stridor, Pain on Inspiration, Chest Congestion, Excessive Mucous Production, Change in Mucous Color, Pain with Coughing, Other - Gastrointestinal Gastrointestinal: absent: As Per HPI, Abdominal Pain, Belching, Bloating, Change in Bowel Habits, Change in Stool Character, Coffee Ground Emesis, Constipation, Cramping, Diarrhea, Dyspepsia, Dysphagia, Early Satiety, Excessive Flatus, Fecal Incontinence, Heartburn, Hematemesis, Hematochezia, Loose Stools, Melena, Nausea, Odynophagia, Temesmus, Vomiting, Other - Genitourinary Genitourinary: absent: As Per HPI, Change in Urinary Stream, Difficulty Urinating, Dysuria, Flank Pain, Hematuria, Pyuria, Nocturia, Urinary Incontinence, Urinary Frequency, Urinary Hesitance, Urinary Urgency, Voiding Freq/Small Amts, Freq UTI, Hx Renal/Bladder Calculi, Hx /Renal Surgery, Bladder Distension, Other - Musculoskeletal Musculoskeletal: absent: As Per HPI, Abnormal Gait, Arthralgias, Atrophy, Back Pain, Deformity, Joint Swelling, Limited Range of Motion, Loss of Height, Muscle Cramps, Muscle Weakness, Myalgias, Neck Pain, Numbness, Radiating Pain into Limb, Stiffness, Tingling, Other - Integumentary Integumentary: absent: As Per HPI, Acne, Alopecia, Bleeding Lesions, Change in Hair, Change in Nails, Change in Pigmentation, Changing Lesions, Dry Skin, Erythema, Furuncle, Hirsutism, Lesions, New Lesions, Non-Healing Lesions, Photosensitivity, Pruritus, Rash, Skin Pain, Skin Ulcer, Sores, Striae, Swelling , Unusual Bruising, Wounds, Jaundice, Other - Neurological Neurological: absent: As Per HPI, Abnormal Gait, Abnormal Hearing, Abnormal Movements, Abnormal Speech, Behavioral Changes, Burning Sensations, Confusion, Convulsions, Disequilibrium, Dizziness, Numbness, Focal Weakness, Frequent Falls , Headaches, Lack of Coordination, Loss of Vision, Memory Loss, Paresthesias, Radicular Pain, Restless Legs, Sensory Deficit, Syncope, Tingling, Tremor, Vertigo, Weakness, Other Visual Disturbances, Other - Psychiatric Psychiatric: absent: As Per HPI, Abnormal Sleep Pattern, Anhedonia, Anxiety, Auditory Hallucinations, Behavioral Changes, Change in Appetite, Change in Libido, Confusion, Depression, Difficulty Concentrating, Hallucinations, Homicidal Ideation, Hopelessness, Irritability, Memory Loss, Mood Swings, Panic Attacks, Paranoia, Suicidal Ideation, Visual Hallucinations, Tactile Hallucinations, Other - Endocrine Endocrine: absent: As Per HPI, Change in Body Appearance, Change in Libido, Cold Intolorance, Deepening of Voice, Excessive Sweating, Fatigue, Flushing, Heat Intolorance, Increase in Ring/Shoe/Hat Size, Palpitations, Polydipsia, Polyphagia, Polyuria, Other - Hematologic/Lymphatic Hematologic: absent: As Per HPI, Easy Bleeding, Easy Bruising, Lymphadenopathy, Other Past Patient History - Infectious Disease Hx of Infectious Diseases: None - Past Medical History & Family History Past Medical History?: Yes - Past Social History Smoking Status: Never Smoked - CARDIAC Hx Cardia Arrhythmia: Yes (atrial fib) Hx Congestive Heart Failure: Yes Hx Hypercholesterolemia: Yes Hx Hypertension: Yes Hx Peripheral Edema: Yes (sometimes not at present) - PULMONARY Hx Sleep Apnea: Yes - HEENT Hx HEENT Problems: Yes Hx Cataracts: Yes - RENAL Hx Chronic Kidney Disease: Yes (renal insufficiency) - ENDOCRINE/METABOLIC Hx Diabetes Mellitus Type 2: Yes - HEMATOLOGICAL/ONCOLOGICAL Hx Anemia: Yes - INTEGUMENTARY Hx Dermatological Problems: No - MUSCULOSKELETAL/RHEUMATOLOGICAL Hx Arthritis: Yes - GASTROINTESTINAL Hx Gastrointestinal Disorders: Yes Hx Constipation: Yes - GENITOURINARY/GYNECOLOGICAL Hx Genitourinary Disorders: Yes Hx Bladder Cancer: Yes Hx Incontinence: Yes Hx Prostate Problems: Yes - PSYCHIATRIC Hx Substance Use: No - SURGICAL HISTORY Hx Coronary Artery Bypass Graft: Yes ((2)) Hx Coronary Stent: Yes (X2) - ANESTHESIA Hx Anesthesia: Yes Hx Anesthesia Reactions: No Hx Malignant Hyperthermia: No Meds Allergies/Adverse Reactions: Allergies Allergy/AdvReac Type Severity Reaction Status Date / Time No Known Allergies Allergy Verified 06/07/17 00:18 - Medications Medications: Current Medications Cyanocobalamin (Vitamin B12 1000 Mcg Tab) 1,000 mcg PO DAILY [facility] Last Admin: 06/14/17 09:48 Dose: 1,000 mcg Dextrose (Dextrose 50% Inj) 0 ml IV STAT PRN; Protocol PRN Reason: Hypoglycemia Protocol Dextrose (Glutose 15) 15 gm PO ONCE PRN; Protocol PRN Reason: Hypoglycemia Protocol Finasteride (Proscar) 5 mg PO DAILY [facility] Last Admin: 06/14/17 10:44 Dose: 5 mg Furosemide (Lasix) 40 mg PO MWF [facility] Last Admin: 06/14/17 09:48 Dose: 40 mg Glimepiride (Amaryl) 4 mg PO ACBD [facility] Last Admin: 06/14/17 18:29 Dose: 4 mg Glucagon (Glucagen Diagnostic Kit) 1 mg IM STAT PRN; Protocol PRN Reason: Hypoglycemia Protocol Dextrose/Sodium Chloride (Dextrose 5%/0.45% Ns 1000 Ml) 1,000 mls @ 100 mls/hr IV .Q10H [facility] Last Admin: 06/14/17 09:49 Dose: 100 mls/hr Dextrose (Dextrose 5% In Water 1000 Ml) 1,000 mls @ 0 mls/hr IV .Q0M PRN; Protocol; Per Protocol PRN Reason: Hypoglycemia Protocol Azithromycin 500 mg/ Sodium (Chloride) 250 mls @ 167 mls/hr IVPB Q24H [facility] Last Admin: 06/14/17 14:11 Dose: 167 mls/hr Piperacillin Sod/Tazobactam Sod (Zosyn 3.375 Gm Iv Premix) 3.375 gm in 50 mls @ 200 mls/hr IVPB Q8H [facility] Last Admin: 06/14/17 13:14 Dose: 200 mls/hr Ibuprofen (Motrin Tab) 400 mg PO Q6H PRN PRN Reason: Fever >100.4 F Last Admin: 06/13/17 08:00 Dose: 400 mg Insulin Aspart (Novolog Mix 70/30 (70/30 Units/Ml)) 30 units SC ACB [facility] Last Admin: 06/14/17 07:42 Dose: 30 units Insulin Aspart (Novolog Mix 70/30 (70/30 Units/Ml)) 24 units SC ACD [facility] Last Admin: 06/14/17 16:46 Dose: Not Given Insulin Human Regular (Novolin R) 0 unit SC ACHS [facility] PRN Reason: Protocol Last Admin: 06/14/17 16:46 Dose: Not Given Isosorbide Mononitrate (Imdur Er) 30 mg PO Q24H [facility] Losartan Potassium (Cozaar) 25 mg PO Q24H [facility] Metoprolol Succinate (Toprol Xl) 50 mg PO Q24H [facility] Multivitamins (Hexavitamin) 1 tab PO DAILY [facility] Last Admin: 06/14/17 09:48 Dose: 1 tab Ondansetron HCl (Zofran Inj) 4 mg IVP Q6 PRN PRN Reason: Nausea/Vomiting Last Admin: 06/12/17 10:30 Dose: 4 mg Pantoprazole Sodium (Protonix Ec Tab) 40 mg PO DAILY [facility] Last Admin: 06/14/17 09:48 Dose: 40 mg Tamsulosin HCl (Flomax) 0.4 mg PO DAILY [facility] Last Admin: 06/14/17 09:48 Dose: 0.4 mg Warfarin Sodium (Coumadin) 2 mg PO 1800 [facility] Physical Exam - Constitutional Appears: Confused, Chronically Ill - Head Exam Head Exam: NORMOCEPHALIC - Eye Exam Eye Exam: PERRL. absent: Scleral icterus - ENT Exam ENT Exam: Mucous Membranes Dry, Normal External Ear Exam - Neck Exam Neck exam: Negative for: Lymphadenopathy - Respiratory Exam Respiratory Exam: Decreased Breath Sounds, Rhonchi - Cardiovascular Exam Cardiovascular Exam: REGULAR RHYTHM, +S1, +S2 - GI/Abdominal Exam GI & Abdominal Exam: Diminished Bowel Sounds, Soft. absent: Tenderness - Rectal Exam Rectal Exam: Deferred - Exam Exam: NORMAL INSPECTION - Extremities Exam Extremities exam: Positive for: pedal pulses present. Negative for: calf tenderness, pedal edema, tenderness - Back Exam Back exam: absent: CVA tenderness (L), CVA tenderness (R) - Neurological Exam Neurological exam: Alert, Altered, CN II-XII Intact - Psychiatric Exam Psychiatric exam: Depressed - Skin Skin Exam: Dry, Intact Results - Vital Signs Recent Vital Signs: Last Vital Signs Temp 99.8 F H 06/14/17 15:00 Pulse 75 06/14/17 15:00 Resp 20 06/14/17 15:00 BP 97/62 L 06/14/17 15:00 Pulse Ox 98 06/14/17 15:00 - Labs Result Diagrams: 06/14/17 07:24 06/14/17 07:24 Labs: Laboratory Results - last 24 hr 06/13/17 06/14/17 06/14/17 21:06 02:04 06:20 WBC RBC Hgb Hct MCV MCH MCHC RDW Plt Count MPV Neut % (Auto) Lymph % (Auto) [place] % (Auto) Eos % (Auto) Baso % (Auto) Neut # (Auto) Lymph # (Auto) [place] # (Auto) Eos # (Auto) Baso # (Auto) PT INR Sodium Potassium Chloride Carbon Dioxide Anion Gap BUN Creatinine Est GFR ( Amer) Est GFR (Non-Af Amer) POC Glucose (mg/dL) 311 H 201 H 147 H Random Glucose Calcium Phosphorus Magnesium Total Bilirubin AST ALT Alkaline Phosphatase Total Protein Albumin Globulin Albumin/Globulin Ratio 06/14/17 06/14/17 06/14/17 07:24 07:24 08:06 WBC 6.1 RBC 3.36 L Hgb 10.6 L Hct 30.6 L MCV 91.0 MCH 31.6 H MCHC 34.7 RDW 13.7 Plt Count 217 MPV 8.2 Neut % (Auto) 67.9 Lymph % (Auto) 18.1 L [place] % (Auto) 7.5 Eos % (Auto) 6.2 H Baso % (Auto) 0.3 Neut # (Auto) 4.1 Lymph # (Auto) 1.1 [place] # (Auto) 0.5 Eos # (Auto) 0.4 Baso # (Auto) 0.0 PT 40.4 H* INR 3.4 Sodium 130 L Potassium 4.0 Chloride 102 Carbon Dioxide 23 Anion Gap 9 L BUN 22 H Creatinine 1.3 Est GFR ( Amer) > 60 Est GFR (Non-Af Amer) 52 POC Glucose (mg/dL) Random Glucose 141 H Calcium 7.2 L Phosphorus 2.3 L Magnesium 2.0 Total Bilirubin 0.8 AST 971 H ALT 724 H D Alkaline Phosphatase 229 H Total Protein 4.9 L Albumin 2.1 L Globulin 2.9 Albumin/Globulin Ratio 0.7 L 06/14/17 06/14/17 11:01 16:22 WBC RBC Hgb Hct MCV MCH MCHC RDW Plt Count MPV Neut % (Auto) Lymph % (Auto) [place] % (Auto) Eos % (Auto) Baso % (Auto) Neut # (Auto) Lymph # (Auto) [place] # (Auto) Eos # (Auto) Baso # (Auto) PT INR Sodium Potassium Chloride Carbon Dioxide Anion Gap BUN Creatinine Est GFR ( Amer) Est GFR (Non-Af Amer) POC Glucose (mg/dL) 127 H 80 Random Glucose Calcium Phosphorus Magnesium Total Bilirubin AST ALT Alkaline Phosphatase Total Protein Albumin Globulin Albumin/Globulin Ratio Assessment & Plan (1) Atrial fibrillation Status: Acute (2) Dehydration Status: Acute (3) Diabetic ketosis Status: Acute (4) Hyperglycemia Status: Acute (5) Hypotension Status: Acute (6) Renal insufficiency Status: Acute (7) Dementia Status: Acute (8) Sciatic leg pain Status: Acute - Assessment and Plan (Free Text) Assessment: hold iv antibiotics reculture GI eval LFT's
--- NOTE | 2017-06-14 19:52 | US ---
EXAM: US Abdomen Complete CLINICAL HISTORY: 87 years old, male; Signs and symptoms; Other: Portal vein patency; Additional info: Portal vein patency? TECHNIQUE: Real-time ultrasound of the abdomen (complete) with image documentation. COMPARISON: No relevant prior studies available. FINDINGS: Limitations: Body habitus. Overlying bowel gas. Patient compliance as per technologist. Liver: Fatty infiltration. No mass. No intrahepatic ductal dilatation. Gallbladder: No gallstones. No wall thickening. No pericholecystic fluid. No sonographic Valentine's sign. Common bile duct: No dilatation. No stones. Pancreas: Obscured by overlying bowel gas. Kidneys: Apparent increase in echogenicity. No hydronephrosis. Spleen: Not visualized. Aorta: Unremarkable as visualized. Inferior vena cava: Unremarkable. Free fluid: No significant free fluid. IMPRESSION: 1. Apparent echogenic kidneys may suggest medical renal disease. 2. Hepatic steatosis.
[2017-06-14] MEDS: Cefepime IV 1 gm in Dextrose 1 GM/50 ML BAG IVPB SCH (21:36)
[2017-06-15 06:38] LABS: BASO % 0.2 % (0.0-2.0); EOS # 0.2 K/uL (0.0-0.7); EOS % 3.7 % (0.0-4.0); HEMOGLOBIN 10.4 g/dL (12.0-18.0); LYMPH # 1.4 K/uL (1.0-4.3); LYMPH % 20.6 % (20.0-40.0); MEAN CELL VOLUME 90.3 fL (80.0-94.0); MEAN CORPUSCULAR HEMOGLOBIN 30.6 pg (27.0-31.0); MEAN PLATELET VOLUME 8.2 fL (7.2-11.7); MONO # 0.4 K/uL (0.0-0.8); MONO % 5.7 % (0.0-10.0); NEUT # 4.6 K/uL (1.8-7.0); NEUT % 69.8 % (50.0-75.0); RBC 3.4 Mil/uL (4.40-5.90); RED CELL DISTRIBUTION WIDTH 13.9 % (11.5-14.5); WHITE BLOOD COUNT 6.6 K/uL (4.8-10.8)
[2017-06-15 06:41] LABS: INR 3.5
[2017-06-15 06:50] LABS: ALB/GLOB RATIO 0.7 (1.0-2.1); ALT/SGPT 516 U/L (21-72); AST/SGOT 504 U/L (17-59); BILIRUBIN,DIRECT 0.5 mg/dL (0.0-0.4); BLOOD UREA NITROGEN 18 mg/dL (9-20); GFR AFRICAN-AMERICAN > 60; GFR NON-AFRICAN AMERICAN 52; MAGNESIUM 1.8 mg/dL (1.6-2.3)
[2017-06-15 07:15] LABS: HEPATITIS B SURFACE AG Negative (NEGATIVE)
[2017-06-15 07:21] LABS: HEPATITIS A IGM NEGATIVE (NEGATIVE); HEPATITIS B CORE AB NEGATIVE (NEGATIVE)
[2017-06-15 07:25] LABS: PROTHROMBIN TIME 40.8 SECONDS (9.7-12.2)
[2017-06-15] MEDS ORDERED: (Novolog Mix 70/30) Insulin Aspart/Insulin Aspar 100 units/ml SC SCH ×2 (07:30→16:30)
[2017-06-15 07:32] LABS: HEPATITIS C ANTIBODY NEGATIVE (NEGATIVE)
[2017-06-15] MEDS: (Novolin R) Insulin Human Regular 100 units/ml vial SC SCH ×4 (08:07→21:43)
[2017-06-15] MEDS: Cefepime IV 1 gm in Dextrose 1 GM/50 ML BAG IVPB SCH ×2 (08:33→20:41)
[2017-06-15] MEDS: Dextrose 5%/0.45% NS 1,000 ML IV SCH ×2 (08:34→15:45)
--- NOTE | 2017-06-15 08:50 | CP.PCM.PN ---
<Nieves Boyce - Last Filed: 06/15/17 08:46> Subjective - Date & Time of Evaluation Date of Evaluation: 06/15/17 Time of Evaluation: 06:20 - Subjective Subjective: GI Fellow PGY4 Progress Note Pt seen and evaluated at bedside, pt tolerating diet with no abdominal pain. pt more confused this am. No acute issues overnight. ROS: A 12pt ROS was negative except as above. Objective - Vital Signs/Intake and Output Vital Signs (last 24 hours): Temp Pulse Resp BP Pulse Ox 98.5 F 86 18 111/63 99 06/15/17 07:42 06/15/17 07:42 06/15/17 07:42 06/15/17 07:42 06/15/17 07:42 Intake and Output: 06/15/17 06/15/17 06:59 18:59 Intake Total 250 Output Total 2501 Balance -2251 - Medications Medications: Current Medications Cyanocobalamin (Vitamin B12 1000 Mcg Tab) 1,000 mcg PO DAILY [facility] Last Admin: 06/14/17 09:48 Dose: 1,000 mcg Dextrose (Dextrose 50% Inj) 0 ml IV STAT PRN; Protocol PRN Reason: Hypoglycemia Protocol Dextrose (Glutose 15) 15 gm PO ONCE PRN; Protocol PRN Reason: Hypoglycemia Protocol Finasteride (Proscar) 5 mg PO DAILY [facility] Last Admin: 06/14/17 10:44 Dose: 5 mg Furosemide (Lasix) 40 mg PO MWF [facility] Last Admin: 06/14/17 09:48 Dose: 40 mg Glimepiride (Amaryl) 4 mg PO ACBD [facility] Last Admin: 06/15/17 08:30 Dose: 4 mg Glucagon (Glucagen Diagnostic Kit) 1 mg IM STAT PRN; Protocol PRN Reason: Hypoglycemia Protocol Dextrose/Sodium Chloride (Dextrose 5%/0.45% Ns 1000 Ml) 1,000 mls @ 100 mls/hr IV .Q10H [facility] Last Admin: 06/15/17 08:34 Dose: 100 mls/hr Dextrose (Dextrose 5% In Water 1000 Ml) 1,000 mls @ 0 mls/hr IV .Q0M PRN; Protocol; Per Protocol PRN Reason: Hypoglycemia Protocol Cefepime HCl (Maxipime Iv 1 Gm Premix) 1 gm in 50 mls @ 100 mls/hr IVPB Q12H [facility] Last Admin: 06/15/17 08:33 Dose: 100 mls/hr Ibuprofen (Motrin Tab) 400 mg PO Q6H PRN PRN Reason: Fever >100.4 F Last Admin: 06/13/17 08:00 Dose: 400 mg Insulin Aspart (Novolog Mix 70/30 (70/30 Units/Ml)) 24 units SC ACB [facility] Last Admin: 06/15/17 08:30 Dose: 24 units Insulin Aspart (Novolog Mix 70/30 (70/30 Units/Ml)) 16 units SC ACD [facility] Insulin Human Regular (Novolin R) 0 unit SC ACHS [facility] PRN Reason: Protocol Last Admin: 06/15/17 08:07 Dose: Not Given Isosorbide Mononitrate (Imdur Er) 30 mg PO Q24H [facility] Losartan Potassium (Cozaar) 25 mg PO Q24H [facility] Metoprolol Succinate (Toprol Xl) 50 mg PO Q24H [facility] Multivitamins (Hexavitamin) 1 tab PO DAILY [facility] Last Admin: 06/14/17 09:48 Dose: 1 tab Ondansetron HCl (Zofran Inj) 4 mg IVP Q6 PRN PRN Reason: Nausea/Vomiting Last Admin: 06/12/17 10:30 Dose: 4 mg Pantoprazole Sodium (Protonix Ec Tab) 40 mg PO DAILY [facility] Last Admin: 06/14/17 09:48 Dose: 40 mg Tamsulosin HCl (Flomax) 0.4 mg PO DAILY [facility] Last Admin: 06/14/17 09:48 Dose: 0.4 mg Warfarin Sodium (Coumadin) 2 mg PO 1800 [facility] - Labs Labs: 06/15/17 06:24 06/15/17 06:24 PT 40.8 SECONDS (9.7-12.2) H* 06/15/17 06:24 INR 3.5 06/15/17 06:24 APTT 47 SECONDS (21-34) H 06/15/17 06:24 - Constitutional Appears: Non-toxic, No Acute Distress - Head Exam Head Exam: ATRAUMATIC, NORMAL INSPECTION, NORMOCEPHALIC - Eye Exam Eye Exam: EOMI, Normal appearance Pupil Exam: PERRL - ENT Exam ENT Exam: Mucous Membranes Dry, Normal Exam - Neck Exam Neck Exam: Full ROM, Normal Inspection - Respiratory Exam Respiratory Exam: Decreased Breath Sounds - Cardiovascular Exam Cardiovascular Exam: Irregular Rhythm - GI/Abdominal Exam GI & Abdominal Exam: Soft, Normal Bowel Sounds. absent: Distended, Guarding, Tenderness, Organomegaly - Extremities Exam Extremities Exam: Normal Inspection - Neurological Exam Neurological Exam: Alert, Awake - Psychiatric Exam Psychiatric exam: Normal Affect, Normal Mood - Skin Skin Exam: Dry, Intact, Normal Color, Warm Assessment and Plan - Assessment and Plan (Free Text) Assessment: This is a 87yM initially admitted s/p fall and elevated BG. 1. Elevated LFTs likely secondary to shock liver/ischemic hepatopathy 2. Afib on OAC 3. Hx of CAD 4. Sacral Ulcers Plan: -Continue supportive care and avoid hepatotoxic agents/medications -Pt with elevated LFTs following sudden drop in BP on 06/11/17 leading to ischemic hepatopathy and pt also has atherosclerotic disease leading to further hypoperfusion -LFTs trending down, continue to monitor and trend -Abdominal US with fatty infiltrate and patent portal and hepatic vein -Hepatitis panel negative, autoimmune work up pending -Will continue to follow closely <Bhanu Joyner - Last Filed: 06/15/17 18:22> Objective - Vital Signs/Intake and Output Vital Signs (last 24 hours): Temp Pulse Resp BP Pulse Ox 98.1 F 86 20 115/70 100 06/15/17 15:09 06/15/17 15:09 06/15/17 15:09 06/15/17 15:09 06/15/17 15:09 Intake and Output: 06/15/17 06/15/17 06:59 18:59 Intake Total 250 1230 Output Total 2501 950 Balance -2251 280 - Medications Medications: Current Medications Cyanocobalamin (Vitamin B12 1000 Mcg Tab) 1,000 mcg PO DAILY [facility] Last Admin: 06/15/17 09:35 Dose: 1,000 mcg Dextrose (Dextrose 50% Inj) 0 ml IV STAT PRN; Protocol PRN Reason: Hypoglycemia Protocol Dextrose (Glutose 15) 15 gm PO ONCE PRN; Protocol PRN Reason: Hypoglycemia Protocol Finasteride (Proscar) 5 mg PO DAILY [facility] Last Admin: 06/15/17 09:43 Dose: 5 mg Furosemide (Lasix) 40 mg PO MWF [facility] Last Admin: 06/14/17 09:48 Dose: 40 mg Glimepiride (Amaryl) 4 mg PO ACBD [facility] Last Admin: 06/15/17 16:30 Dose: Not Given Glucagon (Glucagen Diagnostic Kit) 1 mg IM STAT PRN; Protocol PRN Reason: Hypoglycemia Protocol Dextrose/Sodium Chloride (Dextrose 5%/0.45% Ns 1000 Ml) 1,000 mls @ 100 mls/hr IV .Q10H [facility] Last Admin: 06/15/17 15:45 Dose: Not Given Dextrose (Dextrose 5% In Water 1000 Ml) 1,000 mls @ 0 mls/hr IV .Q0M PRN; Protocol; Per Protocol PRN Reason: Hypoglycemia Protocol Cefepime HCl (Maxipime Iv 1 Gm Premix) 1 gm in 50 mls @ 100 mls/hr IVPB Q12H [facility] Last Admin: 06/15/17 08:33 Dose: 100 mls/hr Ibuprofen (Motrin Tab) 400 mg PO Q6H PRN PRN Reason: Fever >100.4 F Last Admin: 06/13/17 08:00 Dose: 400 mg Insulin Aspart (Novolog Mix 70/30 (70/30 Units/Ml)) 16 units SC ACD [facility] Last Admin: 06/15/17 16:30 Dose: Not Given Insulin Aspart (Novolog Mix 70/30 (70/30 Units/Ml)) 26 units SC ACB [facility] Insulin Human Regular (Novolin R) 0 unit SC ACHS [facility] PRN Reason: Protocol Last Admin: 06/15/17 17:13 Dose: Not Given Isosorbide Mononitrate (Imdur Er) 30 mg PO Q24H [facility] Losartan Potassium (Cozaar) 25 mg PO Q24H [facility] Metoprolol Succinate (Toprol Xl) 50 mg PO Q24H [facility] Multivitamins (Hexavitamin) 1 tab PO DAILY [facility] Last Admin: 06/15/17 09:35 Dose: 1 tab Ondansetron HCl (Zofran Inj) 4 mg IVP Q6 PRN PRN Reason: Nausea/Vomiting Last Admin: 06/12/17 10:30 Dose: 4 mg Pantoprazole Sodium (Protonix Ec Tab) 40 mg PO DAILY [facility] Last Admin: 06/14/17 09:48 Dose: 40 mg Tamsulosin HCl (Flomax) 0.4 mg PO DAILY [facility] Last Admin: 06/15/17 09:35 Dose: 0.4 mg Warfarin Sodium (Coumadin) 2 mg PO 1800 [facility] - Labs Labs: 06/15/17 06:24 06/15/17 06:24 PT 40.8 SECONDS (9.7-12.2) H* 06/15/17 06:24 INR 3.5 06/15/17 06:24 APTT 47 SECONDS (21-34) H 06/15/17 06:24 Attending/Attestation - Attestation I have personally seen and examined this patient.: Yes I have fully participated in the care of the patient.: Yes I have reviewed all pertinent clinical information, including history, physical exam and plan: Yes Notes (Text): 06/15/17 18:19 I have seen and examined patient with GI fellow. No acute events overnight, he is seen resting comfortably in bed. He denies abdominal pain, nausea, vomiting , fever/chills. Tolerating PO diet without difficulty. Review of vitals from today are normal. CAD DM Atrial fibrillation s/p fall, hypotension secondary to polypharmacy Transaminitis likely related to ischemia given clinical scenario. Abdominal US reviewed by me showing patent vasculature, no hepatic lesions - Diet as tolerated - LFTs trending down, continue to monitor and avoid hepatotoxic therapies - Awaiting autoimmune panel - Follow up cardiology recommendations - Will continue to monitor patient clinical course
[2017-06-15] MEDS: Multiple Vitamins Tab PO SCH (09:35)
--- NOTE | 2017-06-15 18:43 | CP.PCM.PN ---
Subjective - Date & Time of Evaluation Date of Evaluation: 06/15/17 Time of Evaluation: 18:43 Objective - Vital Signs/Intake and Output Vital Signs (last 24 hours): Temp Pulse Resp BP Pulse Ox 98.1 F 86 20 115/70 100 06/15/17 15:09 06/15/17 15:09 06/15/17 15:09 06/15/17 15:09 06/15/17 15:09 Intake and Output: 06/15/17 06/15/17 06:59 18:59 Intake Total 250 1230 Output Total 2501 950 Balance -2251 280 - Medications Medications: Current Medications Cyanocobalamin (Vitamin B12 1000 Mcg Tab) 1,000 mcg PO DAILY [facility] Last Admin: 06/15/17 09:35 Dose: 1,000 mcg Dextrose (Dextrose 50% Inj) 0 ml IV STAT PRN; Protocol PRN Reason: Hypoglycemia Protocol Dextrose (Glutose 15) 15 gm PO ONCE PRN; Protocol PRN Reason: Hypoglycemia Protocol Finasteride (Proscar) 5 mg PO DAILY [facility] Last Admin: 06/15/17 09:43 Dose: 5 mg Furosemide (Lasix) 40 mg PO MWF [facility] Last Admin: 06/14/17 09:48 Dose: 40 mg Glimepiride (Amaryl) 4 mg PO ACBD [facility] Last Admin: 06/15/17 16:30 Dose: Not Given Glucagon (Glucagen Diagnostic Kit) 1 mg IM STAT PRN; Protocol PRN Reason: Hypoglycemia Protocol Dextrose/Sodium Chloride (Dextrose 5%/0.45% Ns 1000 Ml) 1,000 mls @ 100 mls/hr IV .Q10H [facility] Last Admin: 06/15/17 15:45 Dose: Not Given Dextrose (Dextrose 5% In Water 1000 Ml) 1,000 mls @ 0 mls/hr IV .Q0M PRN; Protocol; Per Protocol PRN Reason: Hypoglycemia Protocol Cefepime HCl (Maxipime Iv 1 Gm Premix) 1 gm in 50 mls @ 100 mls/hr IVPB Q12H [facility] Last Admin: 06/15/17 08:33 Dose: 100 mls/hr Ibuprofen (Motrin Tab) 400 mg PO Q6H PRN PRN Reason: Fever >100.4 F Last Admin: 06/13/17 08:00 Dose: 400 mg Insulin Aspart (Novolog Mix 70/30 (70/30 Units/Ml)) 16 units SC ACD [facility] Last Admin: 06/15/17 16:30 Dose: Not Given Insulin Aspart (Novolog Mix 70/30 (70/30 Units/Ml)) 26 units SC ACB [facility] Insulin Human Regular (Novolin R) 0 unit SC ACHS [facility] PRN Reason: Protocol Last Admin: 06/15/17 17:13 Dose: Not Given Isosorbide Mononitrate (Imdur Er) 30 mg PO Q24H [facility] Losartan Potassium (Cozaar) 25 mg PO Q24H [facility] Metoprolol Succinate (Toprol Xl) 50 mg PO Q24H [facility] Multivitamins (Hexavitamin) 1 tab PO DAILY [facility] Last Admin: 06/15/17 09:35 Dose: 1 tab Ondansetron HCl (Zofran Inj) 4 mg IVP Q6 PRN PRN Reason: Nausea/Vomiting Last Admin: 06/12/17 10:30 Dose: 4 mg Pantoprazole Sodium (Protonix Ec Tab) 40 mg PO DAILY [facility] Last Admin: 06/14/17 09:48 Dose: 40 mg Tamsulosin HCl (Flomax) 0.4 mg PO DAILY [facility] Last Admin: 06/15/17 09:35 Dose: 0.4 mg Warfarin Sodium (Coumadin) 2 mg PO 1800 [facility] - Labs Labs: 06/15/17 06:24 06/15/17 06:24 PT 40.8 SECONDS (9.7-12.2) H* 06/15/17 06:24 INR 3.5 06/15/17 06:24 APTT 47 SECONDS (21-34) H 06/15/17 06:24
--- NOTE | 2017-06-15 19:22 | PN ---
DATE: ENDOCRINOLOGY FOLLOWUP NOTE LOCATION: Room 656. SUBJECTIVE: This is an 87-year-old male with recent uncontrolled type 2 insulin-requiring diabetes, now being followed closely for metabolic management. His oral intake has improved, but still remains variable at this time as noted. His glucose levels have ranged from 281 to 294 mg/dL. It was 77 at bedtime last night. The latest chemistry showed a BUN of 18, sodium 125, potassium 3.7, chloride 97, CO2 of 23, glucose 267, and creatinine 1.3. So, at this time, we will modify his current premixed insulin regimen and lower the NovoLog 70/30 to 16 units a.c. dinner and increase the NovoLog 70/30 to 26 units a.c. breakfast as ordered. We will continue the low-dose correction scale using regular insulin given four times daily before meals as ordered. We will titrate incrementally as indicated to optimize metabolic control. We will follow and advise accordingly. Sharon Oquendo MD
[2017-06-16 06:30] LABS: BASO % 0.1 % (0.0-2.0); EOS # 0.1 K/uL (0.0-0.7); EOS % 1.5 % (0.0-4.0); HEMOGLOBIN 10.2 g/dL (12.0-18.0); LYMPH # 1.2 K/uL (1.0-4.3); LYMPH % 14.9 % (20.0-40.0); MEAN CELL VOLUME 90.6 fL (80.0-94.0); MEAN CORPUSCULAR HEMOGLOBIN 31.3 pg (27.0-31.0); MEAN CORPUSCULAR HGB CONC 34.6 g/dL (33.0-37.0); MEAN PLATELET VOLUME 7.8 fL (7.2-11.7); MONO # 0.5 K/uL (0.0-0.8); MONO % 5.8 % (0.0-10.0); NEUT # 6.1 K/uL (1.8-7.0); NEUT % 77.7 % (50.0-75.0); RBC 3.26 Mil/uL (4.40-5.90); RED CELL DISTRIBUTION WIDTH 13.7 % (11.5-14.5); WHITE BLOOD COUNT 7.9 K/uL (4.8-10.8)
[2017-06-16 06:40] LABS: INR 2.2; PROTHROMBIN TIME 25.2 SECONDS (9.7-12.2)
[2017-06-16 06:47] LABS: ALB/GLOB RATIO 0.7 (1.0-2.1); ALBUMIN 2.1 g/dL (3.5-5.0); ALT/SGPT 424 U/L (21-72); AST/SGOT 329 U/L (17-59); BILIRUBIN,DIRECT 0.5 mg/dL (0.0-0.4); BLOOD UREA NITROGEN 16 mg/dL (9-20); CALCIUM 7.2 mg/dl (8.6-10.4); GFR AFRICAN-AMERICAN > 60; GFR NON-AFRICAN AMERICAN > 60
[2017-06-16] MEDS ORDERED: (Novolog Mix 70/30) Insulin Aspart/Insulin Aspar 100 units/ml SC SCH ×2 (07:30→16:30)
[2017-06-16] MEDS: (Novolin R) Insulin Human Regular 100 units/ml vial SC SCH ×4 (08:54→22:03)
--- NOTE | 2017-06-16 08:57 | CP.PCM.PN ---
<Nieves Boyce - Last Filed: 06/16/17 08:57> Subjective - Date & Time of Evaluation Date of Evaluation: 06/16/17 Time of Evaluation: 06:30 - Subjective Subjective: GI Fellow PGY4 Progress Note Pt seen and evaluated at bedside, pt tolerating diet with no abdominal pain. No acute issues overnight. ROS: A 12pt ROS was negative except as above. Objective - Vital Signs/Intake and Output Vital Signs (last 24 hours): Temp Pulse Resp BP Pulse Ox 97.5 F L 97 H 20 120/62 100 06/16/17 08:12 06/16/17 08:12 06/16/17 08:12 06/16/17 08:12 06/16/17 08:12 Intake and Output: 06/16/17 06/16/17 06:59 18:59 Intake Total 850 Output Total 1900 Balance -1050 - Medications Medications: Current Medications Cyanocobalamin (Vitamin B12 1000 Mcg Tab) 1,000 mcg PO DAILY [facility] Last Admin: 06/15/17 09:35 Dose: 1,000 mcg Dextrose (Dextrose 50% Inj) 0 ml IV STAT PRN; Protocol PRN Reason: Hypoglycemia Protocol Dextrose (Glutose 15) 15 gm PO ONCE PRN; Protocol PRN Reason: Hypoglycemia Protocol Finasteride (Proscar) 5 mg PO DAILY [facility] Last Admin: 06/15/17 09:43 Dose: 5 mg Furosemide (Lasix) 40 mg PO MWF [facility] Last Admin: 06/14/17 09:48 Dose: 40 mg Glimepiride (Amaryl) 4 mg PO ACBD [facility] Last Admin: 06/15/17 16:30 Dose: Not Given Glucagon (Glucagen Diagnostic Kit) 1 mg IM STAT PRN; Protocol PRN Reason: Hypoglycemia Protocol Cefepime HCl (Maxipime Iv 1 Gm Premix) 1 gm in 50 mls @ 100 mls/hr IVPB Q12H [facility] Last Admin: 06/15/17 20:41 Dose: 100 mls/hr Ibuprofen (Motrin Tab) 400 mg PO Q6H PRN PRN Reason: Fever >100.4 F Last Admin: 06/13/17 08:00 Dose: 400 mg Insulin Aspart (Novolog Mix 70/30 (70/30 Units/Ml)) 16 units SC ACD [facility] Last Admin: 06/15/17 16:30 Dose: Not Given Insulin Aspart (Novolog Mix 70/30 (70/30 Units/Ml)) 26 units SC ACB [facility] Insulin Human Regular (Novolin R) 0 unit SC ACHS [facility] PRN Reason: Protocol Last Admin: 06/16/17 08:54 Dose: Not Given Isosorbide Mononitrate (Imdur Er) 30 mg PO Q24H [facility] Losartan Potassium (Cozaar) 25 mg PO Q24H [facility] Metoprolol Succinate (Toprol Xl) 50 mg PO Q24H [facility] Multivitamins (Hexavitamin) 1 tab PO DAILY [facility] Last Admin: 06/15/17 09:35 Dose: 1 tab Ondansetron HCl (Zofran Inj) 4 mg IVP Q6 PRN PRN Reason: Nausea/Vomiting Last Admin: 06/12/17 10:30 Dose: 4 mg Pantoprazole Sodium (Protonix Ec Tab) 40 mg PO DAILY [facility] Last Admin: 06/14/17 09:48 Dose: 40 mg Tamsulosin HCl (Flomax) 0.4 mg PO DAILY [facility] Last Admin: 06/15/17 09:35 Dose: 0.4 mg Warfarin Sodium (Coumadin) 2 mg PO 1800 [facility] - Labs Labs: 06/16/17 06:23 06/16/17 06:23 PT 25.2 SECONDS (9.7-12.2) H D 06/16/17 06:23 INR 2.2 D 06/16/17 06:23 APTT 39 SECONDS (21-34) H D 06/16/17 06:23 - Constitutional Appears: Non-toxic, No Acute Distress - Head Exam Head Exam: NORMAL INSPECTION, NORMOCEPHALIC - Eye Exam Eye Exam: EOMI, Normal appearance Pupil Exam: PERRL - ENT Exam ENT Exam: Mucous Membranes Dry - Neck Exam Neck Exam: Full ROM - Respiratory Exam Respiratory Exam: Decreased Breath Sounds, NORMAL BREATHING PATTERN - Cardiovascular Exam Cardiovascular Exam: Irregular Rhythm - GI/Abdominal Exam GI & Abdominal Exam: Soft, Normal Bowel Sounds. absent: Distended, Tenderness - Extremities Exam Extremities Exam: Normal Inspection - Neurological Exam Neurological Exam: Alert, Awake - Psychiatric Exam Psychiatric exam: Normal Affect, Normal Mood - Skin Skin Exam: Dry, Intact, Normal Color, Warm Assessment and Plan - Assessment and Plan (Free Text) Assessment: This is a 87yM initially admitted s/p fall and elevated BG. 1. Elevated LFTs likely secondary to shock liver/ischemic hepatopathy 2. Afib on OAC 3. Hx of CAD 4. Sacral Ulcers Plan: -Continue supportive care and avoid hepatotoxic agents/medications -Pt with elevated LFTs following sudden drop in BP on 06/11/17 leading to ischemic hepatopathy and pt also has atherosclerotic disease leading to further hypoperfusion -LFTs trending down, continue to monitor and trend -Abdominal US with fatty infiltrate and patent portal and hepatic vein -Hepatitis panel negative, autoimmune work up pending -Please call with nay questions or concerns <Kwame Wilson - Last Filed: 06/17/17 08:51> Objective - Vital Signs/Intake and Output Vital Signs (last 24 hours): Temp Pulse Resp BP Pulse Ox 98.0 F 92 H 18 116/66 100 06/17/17 08:06 06/17/17 08:06 06/17/17 08:06 06/17/17 08:06 06/17/17 08:06 Intake and Output: 06/17/17 06/17/17 06:59 18:59 Intake Total 1500 Output Total 1000 Balance 500 - Medications Medications: Current Medications Cyanocobalamin (Vitamin B12 1000 Mcg Tab) 1,000 mcg PO DAILY [facility] Last Admin: 06/16/17 10:32 Dose: 1,000 mcg Dextrose (Dextrose 50% Inj) 0 ml IV STAT PRN; Protocol PRN Reason: Hypoglycemia Protocol Dextrose (Glutose 15) 15 gm PO ONCE PRN; Protocol PRN Reason: Hypoglycemia Protocol Finasteride (Proscar) 5 mg PO DAILY [facility] Last Admin: 06/16/17 10:29 Dose: 5 mg Furosemide (Lasix) 40 mg PO MWF [facility] Last Admin: 06/16/17 10:31 Dose: 40 mg Glimepiride (Amaryl) 4 mg PO ACBD [facility] Last Admin: 06/17/17 08:15 Dose: 4 mg Glucagon (Glucagen Diagnostic Kit) 1 mg IM STAT PRN; Protocol PRN Reason: Hypoglycemia Protocol Cefepime HCl (Maxipime Iv 1 Gm Premix) 1 gm in 50 mls @ 100 mls/hr IVPB Q12H [facility] Last Admin: 06/17/17 08:18 Dose: 100 mls/hr Ibuprofen (Motrin Tab) 400 mg PO Q6H PRN PRN Reason: Fever >100.4 F Last Admin: 06/13/17 08:00 Dose: 400 mg Insulin Aspart (Novolog Mix 70/30 (70/30 Units/Ml)) 24 units SC ACD [facility] Last Admin: 06/16/17 17:56 Dose: Not Given Insulin Aspart (Novolog Mix 70/30 (70/30 Units/Ml)) 34 units SC ACB [facility] Last Admin: 06/17/17 08:14 Dose: 34 units Insulin Human Regular (Novolin R) 0 unit SC ACHS [facility] PRN Reason: Protocol Last Admin: 06/17/17 08:46 Dose: Not Given Isosorbide Mononitrate (Imdur Er) 30 mg PO Q24H [facility] Losartan Potassium (Cozaar) 25 mg PO Q24H [facility] Metoprolol Succinate (Toprol Xl) 50 mg PO Q24H [facility] Multivitamins (Hexavitamin) 1 tab PO DAILY [facility] Last Admin: 06/16/17 10:31 Dose: 1 tab Ondansetron HCl (Zofran Inj) 4 mg IVP Q6 PRN PRN Reason: Nausea/Vomiting Last Admin: 06/12/17 10:30 Dose: 4 mg Pantoprazole Sodium (Protonix Ec Tab) 40 mg PO DAILY [facility] Last Admin: 06/14/17 09:48 Dose: 40 mg Tamsulosin HCl (Flomax) 0.4 mg PO DAILY [facility] Last Admin: 06/16/17 10:31 Dose: 0.4 mg Warfarin Sodium (Coumadin) 2 mg PO 1800 [facility] - Labs Labs: 06/16/17 06:23 06/16/17 06:23 PT 21.9 SECONDS (9.7-12.2) H 06/17/17 07:54 INR 1.9 06/17/17 07:54 APTT 32 SECONDS (21-34) D 06/17/17 07:54 Attending/Attestation - Attestation I have personally seen and examined this patient.: Yes I have fully participated in the care of the patient.: Yes I have reviewed all pertinent clinical information, including history, physical exam and plan: Yes Notes (Text): 06/16/17 16:00 87 year old male with h/o CAD s/p CABG, bladder cancer, DM, Afib, Dementia, we are consulted for elevated LFTs. 1. Elevated lfts 2. Shock liver 3. Fatty liver Plan: -likely shock liver due to hypotension -US showed fatty liver also -lfts improving -continue supportive measures -will sign off
[2017-06-16] MEDS: Cefepime IV 1 gm in Dextrose 1 GM/50 ML BAG IVPB SCH ×2 (10:00→21:00)
[2017-06-16] MEDS: Multiple Vitamins Tab PO SCH (10:31)
[2017-06-16] MEDS ORDERED: Potassium Chloride 20 mEq/15 ml LIQ UD PO ONE (12:45)
--- NOTE | 2017-06-16 15:37 | CP.PCM.PN ---
Subjective - Date & Time of Evaluation Date of Evaluation: 06/16/17 Time of Evaluation: 15:37 Objective - Vital Signs/Intake and Output Vital Signs (last 24 hours): Temp Pulse Resp BP Pulse Ox 97.5 F L 97 H 20 131/74 100 06/16/17 08:12 06/16/17 08:12 06/16/17 08:12 06/16/17 10:31 06/16/17 08:12 Intake and Output: 06/16/17 06/16/17 06:59 18:59 Intake Total 850 1000 Output Total 1900 725 Balance -1050 275 - Medications Medications: Current Medications Cyanocobalamin (Vitamin B12 1000 Mcg Tab) 1,000 mcg PO DAILY [facility] Last Admin: 06/16/17 10:32 Dose: 1,000 mcg Dextrose (Dextrose 50% Inj) 0 ml IV STAT PRN; Protocol PRN Reason: Hypoglycemia Protocol Dextrose (Glutose 15) 15 gm PO ONCE PRN; Protocol PRN Reason: Hypoglycemia Protocol Finasteride (Proscar) 5 mg PO DAILY [facility] Last Admin: 06/16/17 10:29 Dose: 5 mg Furosemide (Lasix) 40 mg PO MWF [facility] Last Admin: 06/16/17 10:31 Dose: 40 mg Glimepiride (Amaryl) 4 mg PO ACBD [facility] Last Admin: 06/16/17 08:30 Dose: 4 mg Glucagon (Glucagen Diagnostic Kit) 1 mg IM STAT PRN; Protocol PRN Reason: Hypoglycemia Protocol Cefepime HCl (Maxipime Iv 1 Gm Premix) 1 gm in 50 mls @ 100 mls/hr IVPB Q12H [facility] Last Admin: 06/16/17 10:00 Dose: 100 mls/hr Ibuprofen (Motrin Tab) 400 mg PO Q6H PRN PRN Reason: Fever >100.4 F Last Admin: 06/13/17 08:00 Dose: 400 mg Insulin Aspart (Novolog Mix 70/30 (70/30 Units/Ml)) 24 units SC ACD [facility] Insulin Aspart (Novolog Mix 70/30 (70/30 Units/Ml)) 34 units SC ACB [facility] Insulin Human Regular (Novolin R) 0 unit SC ACHS [facility] PRN Reason: Protocol Last Admin: 06/16/17 13:27 Dose: Not Given Isosorbide Mononitrate (Imdur Er) 30 mg PO Q24H [facility] Losartan Potassium (Cozaar) 25 mg PO Q24H [facility] Metoprolol Succinate (Toprol Xl) 50 mg PO Q24H [facility] Multivitamins (Hexavitamin) 1 tab PO DAILY [facility] Last Admin: 06/16/17 10:31 Dose: 1 tab Ondansetron HCl (Zofran Inj) 4 mg IVP Q6 PRN PRN Reason: Nausea/Vomiting Last Admin: 06/12/17 10:30 Dose: 4 mg Pantoprazole Sodium (Protonix Ec Tab) 40 mg PO DAILY [facility] Last Admin: 06/14/17 09:48 Dose: 40 mg Tamsulosin HCl (Flomax) 0.4 mg PO DAILY [facility] Last Admin: 06/16/17 10:31 Dose: 0.4 mg Warfarin Sodium (Coumadin) 2 mg PO 1800 [facility] - Labs Labs: 06/16/17 06:23 06/16/17 06:23 PT 25.2 SECONDS (9.7-12.2) H D 06/16/17 06:23 INR 2.2 D 06/16/17 06:23 APTT 39 SECONDS (21-34) H D 06/16/17 06:23
--- NOTE | 2017-06-16 18:58 | CP.PCM.PN ---
Subjective - Date & Time of Evaluation Date of Evaluation: 06/16/17 Time of Evaluation: 08:00 - Subjective Subjective: afebrile cultures neg thus far iv rx in progress Objective - Vital Signs/Intake and Output Vital Signs (last 24 hours): Temp Pulse Resp BP Pulse Ox 98.2 F 90 20 115/72 100 06/16/17 15:00 06/16/17 15:00 06/16/17 15:00 06/16/17 15:00 06/16/17 15:00 Intake and Output: 06/16/17 06/16/17 06:59 18:59 Intake Total 850 1000 Output Total 1900 725 Balance -1050 275 - Medications Medications: Current Medications Cyanocobalamin (Vitamin B12 1000 Mcg Tab) 1,000 mcg PO DAILY [facility] Last Admin: 06/16/17 10:32 Dose: 1,000 mcg Dextrose (Dextrose 50% Inj) 0 ml IV STAT PRN; Protocol PRN Reason: Hypoglycemia Protocol Dextrose (Glutose 15) 15 gm PO ONCE PRN; Protocol PRN Reason: Hypoglycemia Protocol Finasteride (Proscar) 5 mg PO DAILY [facility] Last Admin: 06/16/17 10:29 Dose: 5 mg Furosemide (Lasix) 40 mg PO MWF [facility] Last Admin: 06/16/17 10:31 Dose: 40 mg Glimepiride (Amaryl) 4 mg PO ACBD [facility] Last Admin: 06/16/17 17:56 Dose: Not Given Glucagon (Glucagen Diagnostic Kit) 1 mg IM STAT PRN; Protocol PRN Reason: Hypoglycemia Protocol Cefepime HCl (Maxipime Iv 1 Gm Premix) 1 gm in 50 mls @ 100 mls/hr IVPB Q12H [facility] Last Admin: 06/16/17 10:00 Dose: 100 mls/hr Ibuprofen (Motrin Tab) 400 mg PO Q6H PRN PRN Reason: Fever >100.4 F Last Admin: 06/13/17 08:00 Dose: 400 mg Insulin Aspart (Novolog Mix 70/30 (70/30 Units/Ml)) 24 units SC ACD [facility] Last Admin: 06/16/17 17:56 Dose: Not Given Insulin Aspart (Novolog Mix 70/30 (70/30 Units/Ml)) 34 units SC ACB [facility] Insulin Human Regular (Novolin R) 0 unit SC ACHS [facility] PRN Reason: Protocol Last Admin: 06/16/17 16:33 Dose: Not Given Isosorbide Mononitrate (Imdur Er) 30 mg PO Q24H [facility] Losartan Potassium (Cozaar) 25 mg PO Q24H [facility] Metoprolol Succinate (Toprol Xl) 50 mg PO Q24H [facility] Multivitamins (Hexavitamin) 1 tab PO DAILY [facility] Last Admin: 06/16/17 10:31 Dose: 1 tab Ondansetron HCl (Zofran Inj) 4 mg IVP Q6 PRN PRN Reason: Nausea/Vomiting Last Admin: 06/12/17 10:30 Dose: 4 mg Pantoprazole Sodium (Protonix Ec Tab) 40 mg PO DAILY [facility] Last Admin: 06/14/17 09:48 Dose: 40 mg Tamsulosin HCl (Flomax) 0.4 mg PO DAILY [facility] Last Admin: 06/16/17 10:31 Dose: 0.4 mg Warfarin Sodium (Coumadin) 2 mg PO 1800 [facility] - Labs Labs: 06/16/17 06:23 06/16/17 06:23 PT 25.2 SECONDS (9.7-12.2) H D 06/16/17 06:23 INR 2.2 D 06/16/17 06:23 APTT 39 SECONDS (21-34) H D 06/16/17 06:23 - Constitutional Appears: Non-toxic, Confused, Chronically Ill - Head Exam Head Exam: NORMOCEPHALIC - Eye Exam Eye Exam: PERRL - ENT Exam ENT Exam: Mucous Membranes Dry - Neck Exam Neck Exam: absent: Lymphadenopathy - Respiratory Exam Respiratory Exam: Decreased Breath Sounds - Cardiovascular Exam Cardiovascular Exam: REGULAR RHYTHM - GI/Abdominal Exam GI & Abdominal Exam: Distended, Soft Assessment and Plan (1) Atrial fibrillation Status: Acute (2) Dehydration Status: Acute (3) Diabetic ketosis Status: Acute (4) Hyperglycemia Status: Acute (5) Hypotension Status: Acute (6) Renal insufficiency Status: Acute (7) Dementia Status: Acute (8) Sciatic leg pain Status: Acute
--- NOTE | 2017-06-16 23:13 | PCM.URO ---
Urology Progress Note - General General: No Complaints, Tolerating Diet - Subjective Abdominal Pain: No Flank Pain: No Nausea: No Vomiting: No Hematuria: No Dsypnea: No Chest Pain: No Fever & Chills: No Other: poor historian, with OMS - Objective Lab Results Last 24 Hours: Laboratory Results - last 24 hr 06/15/17 06/16/17 06/16/17 06:24 02:02 06:17 WBC RBC Hgb Hct MCV MCH MCHC RDW Plt Count MPV Neut % (Auto) Lymph % (Auto) Cobb % (Auto) Eos % (Auto) Baso % (Auto) Neut # (Auto) Lymph # (Auto) Cobb # (Auto) Eos # (Auto) Baso # (Auto) PT INR APTT Sodium Potassium Chloride Carbon Dioxide Anion Gap BUN Creatinine Est GFR ( Amer) Est GFR (Non-Af Amer) POC Glucose (mg/dL) 305 H 289 H Random Glucose Calcium Total Bilirubin Direct Bilirubin AST ALT Alkaline Phosphatase Total Protein Albumin Globulin Albumin/Globulin Ratio Anti-Mitochondrial Ab Negative Anti-Smooth Muscle Ab Negative 06/16/17 06/16/17 06/16/17 06:23 06:23 06:23 WBC 7.9 RBC 3.26 L Hgb 10.2 L Hct 29.6 L MCV 90.6 MCH 31.3 H MCHC 34.6 RDW 13.7 Plt Count 231 MPV 7.8 Neut % (Auto) 77.7 H Lymph % (Auto) 14.9 L Cobb % (Auto) 5.8 Eos % (Auto) 1.5 Baso % (Auto) 0.1 Neut # (Auto) 6.1 Lymph # (Auto) 1.2 Cobb # (Auto) 0.5 Eos # (Auto) 0.1 Baso # (Auto) 0.0 PT 25.2 H D INR 2.2 D APTT 39 H D Sodium 129 L Potassium 3.5 L Chloride 98 Carbon Dioxide 24 Anion Gap 10 BUN 16 Creatinine 1.1 Est GFR ( Amer) > 60 Est GFR (Non-Af Amer) > 60 POC Glucose (mg/dL) Random Glucose 302 H Calcium 7.2 L Total Bilirubin 0.8 Direct Bilirubin 0.5 H AST 329 H D ALT 424 H Alkaline Phosphatase 240 H Total Protein 4.9 L Albumin 2.1 L Globulin 2.8 Albumin/Globulin Ratio 0.7 L Anti-Mitochondrial Ab Anti-Smooth Muscle Ab 06/16/17 06/16/17 06/16/17 11:15 16:05 21:54 WBC RBC Hgb Hct MCV MCH MCHC RDW Plt Count MPV Neut % (Auto) Lymph % (Auto) Cobb % (Auto) Eos % (Auto) Baso % (Auto) Neut # (Auto) Lymph # (Auto) Cobb # (Auto) Eos # (Auto) Baso # (Auto) PT INR APTT Sodium Potassium Chloride Carbon Dioxide Anion Gap BUN Creatinine Est GFR ( Amer) Est GFR (Non-Af Amer) POC Glucose (mg/dL) 336 H 289 H 240 H Random Glucose Calcium Total Bilirubin Direct Bilirubin AST ALT Alkaline Phosphatase Total Protein Albumin Globulin Albumin/Globulin Ratio Anti-Mitochondrial Ab Anti-Smooth Muscle Ab Intake & Output: Intake & Output 06/16/17 06/16/17 06/17/17 06:59 18:59 06:59 Intake Total 850 1000 800 Output Total 4454 164 1273 Balance -1050 275 -200 Weight 159 lb Intake: Intake, IV Amount 850 700 800 Left Forearm 850 700 800 Oral 300 Output: Urine 2933 138 4440 Urethral (Hill) 3960 112 1018 Other: # Bowel Movements 1 1 Vital Signs: Vital Signs - 24 hr 06/15/17 06/16/17 06/16/17 23:20 08:12 10:31 Temperature 98.8 F 97.5 F L Pulse Rate 86 97 H Respiratory 20 20 Rate Blood Pressure 111/66 120/62 131/74 O2 Sat by Pulse 98 100 Oximetry 06/16/17 15:00 Temperature 98.2 F Pulse Rate 90 Respiratory 20 Rate Blood Pressure 115/72 O2 Sat by Pulse 100 Oximetry - Physical Exam Abdominal Exam: Soft, Non-Tender, Non-Distended Back: No CVA Tenderness Genitalia: Without Inflammation - Male Phallus: Normal Testes: Normal: Bilateral - Plan Additional Information: Oriented x1, to person only. Imp: Hx of bladder carcinoma. But other medical problems have priority at present - Date & Time of Note Date: 06/16/17 Time: 07:45
[2017-06-17] MEDS ORDERED: (Novolog Mix 70/30) Insulin Aspart/Insulin Aspar 100 units/ml SC SCH ×2 (07:30→16:30)
[2017-06-17] MEDS: Cefepime IV 1 gm in Dextrose 1 GM/50 ML BAG IVPB SCH ×2 (08:18→20:19)
[2017-06-17 08:19] LABS: INR 1.9; PROTHROMBIN TIME 21.9 SECONDS (9.7-12.2)
[2017-06-17] MEDS: (Novolin R) Insulin Human Regular 100 units/ml vial SC SCH ×4 (08:46→21:16)
[2017-06-17] MEDS: Multiple Vitamins Tab PO SCH (10:00)
[2017-06-17] MEDS ORDERED: Dextrose 50% VIAL Inj (50 ml) IV ONE ×2 (17:02→17:04)
--- NOTE | 2017-06-17 17:46 | CP.PCM.PN ---
Subjective - Date & Time of Evaluation Date of Evaluation: 06/17/17 Time of Evaluation: 17:46 Objective - Vital Signs/Intake and Output Vital Signs (last 24 hours): Temp Pulse Resp BP Pulse Ox 98.1 F 89 18 123/74 100 06/17/17 16:00 06/17/17 16:00 06/17/17 16:00 06/17/17 16:00 06/17/17 16:00 Intake and Output: 06/17/17 06/17/17 06:59 18:59 Intake Total 1500 360 Output Total 1000 825 Balance 500 -465 - Medications Medications: Current Medications Cyanocobalamin (Vitamin B12 1000 Mcg Tab) 1,000 mcg PO DAILY [facility] Last Admin: 06/17/17 10:00 Dose: 1,000 mcg Dextrose (Dextrose 50% Inj) 0 ml IV STAT PRN; Protocol PRN Reason: Hypoglycemia Protocol Last Admin: 06/17/17 17:06 Dose: 50 ml Dextrose (Glutose 15) 15 gm PO ONCE PRN; Protocol PRN Reason: Hypoglycemia Protocol Finasteride (Proscar) 5 mg PO DAILY [facility] Last Admin: 06/17/17 10:08 Dose: 5 mg Furosemide (Lasix) 40 mg PO MWF [facility] Last Admin: 06/16/17 10:31 Dose: 40 mg Glimepiride (Amaryl) 4 mg PO ACBD [facility] Last Admin: 06/17/17 17:11 Dose: Not Given Glucagon (Glucagen Diagnostic Kit) 1 mg IM STAT PRN; Protocol PRN Reason: Hypoglycemia Protocol Cefepime HCl (Maxipime Iv 1 Gm Premix) 1 gm in 50 mls @ 100 mls/hr IVPB Q12H [facility] Last Admin: 06/17/17 08:18 Dose: 100 mls/hr Ibuprofen (Motrin Tab) 400 mg PO Q6H PRN PRN Reason: Fever >100.4 F Last Admin: 06/13/17 08:00 Dose: 400 mg Insulin Aspart (Novolog Mix 70/30 (70/30 Units/Ml)) 40 units SC ACB [facility] Insulin Aspart (Novolog Mix 70/30 (70/30 Units/Ml)) 30 units SC ACD [facility] Last Admin: 06/17/17 17:09 Dose: Not Given Insulin Human Regular (Novolin R) 0 unit SC ACHS [facility] PRN Reason: Protocol Last Admin: 06/17/17 17:10 Dose: Not Given Isosorbide Mononitrate (Imdur Er) 30 mg PO Q24H [facility] Losartan Potassium (Cozaar) 25 mg PO Q24H [facility] Metoprolol Succinate (Toprol Xl) 50 mg PO Q24H [facility] Multivitamins (Hexavitamin) 1 tab PO DAILY [facility] Last Admin: 06/17/17 10:00 Dose: 1 tab Ondansetron HCl (Zofran Inj) 4 mg IVP Q6 PRN PRN Reason: Nausea/Vomiting Last Admin: 06/12/17 10:30 Dose: 4 mg Pantoprazole Sodium (Protonix Ec Tab) 40 mg PO DAILY [facility] Last Admin: 06/14/17 09:48 Dose: 40 mg Tamsulosin HCl (Flomax) 0.4 mg PO DAILY [facility] Last Admin: 06/17/17 10:00 Dose: 0.4 mg Warfarin Sodium (Coumadin) 2 mg PO 1800 [facility] - Labs Labs: 06/16/17 06:23 06/16/17 06:23 PT 21.9 SECONDS (9.7-12.2) H 06/17/17 07:54 INR 1.9 06/17/17 07:54 APTT 32 SECONDS (21-34) D 06/17/17 07:54
[2017-06-17] MEDS: Dextrose 5%/0.45% NS 1,000 ML IV SCH (22:02)
[2017-06-18] MEDS ORDERED: (Novolog Mix 70/30) Insulin Aspart/Insulin Aspar 100 units/ml SC SCH ×4 (07:30→16:30)
[2017-06-18] MEDS: (Novolin R) Insulin Human Regular 100 units/ml vial SC SCH ×4 (07:36→22:42)
[2017-06-18 08:21] LABS: ALB/GLOB RATIO 0.7 (1.0-2.1); ALBUMIN 2.2 g/dL (3.5-5.0); ALT/SGPT 289 U/L (21-72); AST/SGOT 175 U/L (17-59); BLOOD UREA NITROGEN 15 mg/dL (9-20); CALCIUM 7.7 mg/dl (8.6-10.4); GFR AFRICAN-AMERICAN > 60; GFR NON-AFRICAN AMERICAN > 60
[2017-06-18] MEDS: Cefepime IV 1 gm in Dextrose 1 GM/50 ML BAG IVPB SCH ×2 (08:25→20:46)
[2017-06-18] MEDS: Multiple Vitamins Tab PO SCH (11:00)
--- NOTE | 2017-06-18 14:21 | CP.PCM.PN ---
Subjective - Date & Time of Evaluation Date of Evaluation: 06/18/17 Time of Evaluation: 14:21 Objective - Vital Signs/Intake and Output Vital Signs (last 24 hours): Temp Pulse Resp BP Pulse Ox 98.8 F 111 H 20 106/61 97 06/17/17 23:35 06/17/17 23:35 06/17/17 23:35 06/17/17 23:35 06/17/17 23:35 Intake and Output: 06/18/17 06/18/17 06:59 18:59 Output Total 800 Balance -800 - Medications Medications: Current Medications Cyanocobalamin (Vitamin B12 1000 Mcg Tab) 1,000 mcg PO DAILY [facility] Last Admin: 06/18/17 11:00 Dose: 1,000 mcg Dextrose (Dextrose 50% Inj) 0 ml IV STAT PRN; Protocol PRN Reason: Hypoglycemia Protocol Last Admin: 06/17/17 17:06 Dose: 50 ml Dextrose (Glutose 15) 15 gm PO ONCE PRN; Protocol PRN Reason: Hypoglycemia Protocol Finasteride (Proscar) 5 mg PO DAILY [facility] Last Admin: 06/18/17 11:00 Dose: 5 mg Furosemide (Lasix) 40 mg PO MWF [facility] Last Admin: 06/16/17 10:31 Dose: 40 mg Glimepiride (Amaryl) 4 mg PO ACBD [facility] Last Admin: 06/18/17 08:25 Dose: 4 mg Glucagon (Glucagen Diagnostic Kit) 1 mg IM STAT PRN; Protocol PRN Reason: Hypoglycemia Protocol Cefepime HCl (Maxipime Iv 1 Gm Premix) 1 gm in 50 mls @ 100 mls/hr IVPB Q12H [facility] Last Admin: 06/18/17 08:25 Dose: 100 mls/hr Dextrose/Sodium Chloride (Dextrose 5%/0.45% Ns 1000 Ml) 1,000 mls @ 50 mls/hr IV .Q20H [facility] Last Admin: 06/17/17 22:02 Dose: 50 mls/hr Ibuprofen (Motrin Tab) 400 mg PO Q6H PRN PRN Reason: Fever >100.4 F Last Admin: 06/13/17 08:00 Dose: 400 mg Insulin Aspart (Novolog Mix 70/30 (70/30 Units/Ml)) 34 units SC ACB [facility] Insulin Aspart (Novolog Mix 70/30 (70/30 Units/Ml)) 24 units SC ACD [facility] Insulin Human Regular (Novolin R) 0 unit SC ACHS [facility] PRN Reason: Protocol Last Admin: 06/18/17 12:40 Dose: 5 unit Isosorbide Mononitrate (Imdur Er) 30 mg PO Q24H [facility] Losartan Potassium (Cozaar) 25 mg PO Q24H [facility] Metoprolol Succinate (Toprol Xl) 50 mg PO Q24H [facility] Multivitamins (Hexavitamin) 1 tab PO DAILY [facility] Last Admin: 06/18/17 11:00 Dose: 1 tab Ondansetron HCl (Zofran Inj) 4 mg IVP Q6 PRN PRN Reason: Nausea/Vomiting Last Admin: 06/12/17 10:30 Dose: 4 mg Pantoprazole Sodium (Protonix Ec Tab) 40 mg PO DAILY [facility] Last Admin: 06/14/17 09:48 Dose: 40 mg Tamsulosin HCl (Flomax) 0.4 mg PO DAILY [facility] Last Admin: 06/18/17 11:00 Dose: 0.4 mg Warfarin Sodium (Coumadin) 2 mg PO 1800 [facility] - Labs Labs: 06/16/17 06:23 06/18/17 07:23 PT 21.9 SECONDS (9.7-12.2) H 06/17/17 07:54 INR 1.9 06/17/17 07:54 APTT 32 SECONDS (21-34) D 06/17/17 07:54
--- NOTE | 2017-06-18 16:36 | CP.PCM.PN ---
Subjective - Date & Time of Evaluation Date of Evaluation: 06/18/17 Time of Evaluation: 07:00 - Subjective Subjective: afebrile alert family at bedside lft's elevated no fever Objective - Vital Signs/Intake and Output Vital Signs (last 24 hours): Temp Pulse Resp BP Pulse Ox 98.8 F 111 H 20 106/61 97 06/17/17 23:35 06/17/17 23:35 06/17/17 23:35 06/17/17 23:35 06/17/17 23:35 Intake and Output: 06/18/17 06/18/17 06:59 18:59 Intake Total 650 Output Total 800 750 Balance -800 -100 - Medications Medications: Current Medications Cyanocobalamin (Vitamin B12 1000 Mcg Tab) 1,000 mcg PO DAILY [facility] Last Admin: 06/18/17 11:00 Dose: 1,000 mcg Dextrose (Dextrose 50% Inj) 0 ml IV STAT PRN; Protocol PRN Reason: Hypoglycemia Protocol Last Admin: 06/17/17 17:06 Dose: 50 ml Dextrose (Glutose 15) 15 gm PO ONCE PRN; Protocol PRN Reason: Hypoglycemia Protocol Finasteride (Proscar) 5 mg PO DAILY [facility] Last Admin: 06/18/17 11:00 Dose: 5 mg Furosemide (Lasix) 40 mg PO MWF [facility] Last Admin: 06/16/17 10:31 Dose: 40 mg Glimepiride (Amaryl) 4 mg PO ACBD [facility] Last Admin: 06/18/17 08:25 Dose: 4 mg Glucagon (Glucagen Diagnostic Kit) 1 mg IM STAT PRN; Protocol PRN Reason: Hypoglycemia Protocol Cefepime HCl (Maxipime Iv 1 Gm Premix) 1 gm in 50 mls @ 100 mls/hr IVPB Q12H [facility] Last Admin: 06/18/17 08:25 Dose: 100 mls/hr Dextrose/Sodium Chloride (Dextrose 5%/0.45% Ns 1000 Ml) 1,000 mls @ 50 mls/hr IV .Q20H [facility] Last Admin: 06/17/17 22:02 Dose: 50 mls/hr Ibuprofen (Motrin Tab) 400 mg PO Q6H PRN PRN Reason: Fever >100.4 F Last Admin: 06/13/17 08:00 Dose: 400 mg Insulin Aspart (Novolog Mix 70/30 (70/30 Units/Ml)) 34 units SC ACB [facility] Insulin Aspart (Novolog Mix 70/30 (70/30 Units/Ml)) 24 units SC ACD [facility] Insulin Human Regular (Novolin R) 0 unit SC ACHS [facility] PRN Reason: Protocol Last Admin: 06/18/17 12:40 Dose: 5 unit Isosorbide Mononitrate (Imdur Er) 30 mg PO Q24H [facility] Losartan Potassium (Cozaar) 25 mg PO Q24H [facility] Metoprolol Succinate (Toprol Xl) 50 mg PO Q24H [facility] Multivitamins (Hexavitamin) 1 tab PO DAILY [facility] Last Admin: 06/18/17 11:00 Dose: 1 tab Ondansetron HCl (Zofran Inj) 4 mg IVP Q6 PRN PRN Reason: Nausea/Vomiting Last Admin: 06/12/17 10:30 Dose: 4 mg Pantoprazole Sodium (Protonix Ec Tab) 40 mg PO DAILY [facility] Last Admin: 06/14/17 09:48 Dose: 40 mg Tamsulosin HCl (Flomax) 0.4 mg PO DAILY [facility] Last Admin: 06/18/17 11:00 Dose: 0.4 mg Warfarin Sodium (Coumadin) 2 mg PO 1800 [facility] - Labs Labs: 06/16/17 06:23 06/18/17 07:23 PT 21.9 SECONDS (9.7-12.2) H 06/17/17 07:54 INR 1.9 06/17/17 07:54 APTT 32 SECONDS (21-34) D 06/17/17 07:54 - Constitutional Appears: Non-toxic, Chronically Ill - Head Exam Head Exam: NORMOCEPHALIC - ENT Exam ENT Exam: Mucous Membranes Dry - Neck Exam Neck Exam: absent: Lymphadenopathy - Respiratory Exam Respiratory Exam: Decreased Breath Sounds - Cardiovascular Exam Cardiovascular Exam: REGULAR RHYTHM, +S1, +S2 - GI/Abdominal Exam GI & Abdominal Exam: Distended, Soft. absent: Tenderness - Rectal Exam Rectal Exam: Deferred - Exam Exam: NORMAL INSPECTION - Extremities Exam Extremities Exam: absent: Pedal Edema - Back Exam Back Exam: absent: CVA tenderness (L), CVA tenderness (R) Assessment and Plan (1) Atrial fibrillation Status: Acute (2) Dehydration Status: Acute (3) Diabetic ketosis Status: Acute (4) Hyperglycemia Status: Acute (5) Hypotension Status: Acute (6) Renal insufficiency Status: Acute (7) Dementia Status: Acute (8) Sciatic leg pain Status: Acute
[2017-06-18] MEDS: Dextrose 5%/0.45% NS 1,000 ML IV SCH (17:45)
--- NOTE | 2017-06-18 20:33 | PN ---
DATE: ENDOCRINOLOGY FOLLOWUP NOTE LOCATION: Room 656. SUBJECTIVE: This is an 87-year-old male with recent uncontrolled type 2 insulin-requiring diabetes, now being followed closely for metabolic management. His glycemic levels are fluctuating with the variability of his oral intake as per the nursing staff. His glucose levels today have ranged from 166 to 187 and 356 mg/dL. His latest chemistry showed a BUN of 15, sodium 131, potassium 3.7, chloride 97, CO2 of 30, glucose 174, and creatinine 1.0. So at this time, we will modify once again his premixed insulin regimen and increase the NovoLog 70/30 to 34 units a.c. breakfast and 24 units a.c. dinner to start today. We will continue the low-dose correction scale using regular insulin as given. We will also continue the Amaryl given as 4 mg b.i.d. before meals as ordered. We will titrate incrementally as indicated to optimize metabolic control. We will follow with you. Sharon Oquendo MD
[2017-06-19] MEDS ORDERED: (Novolog Mix 70/30) Insulin Aspart/Insulin Aspar 100 units/ml SC SCH ×2 (07:30→16:30)
[2017-06-19] MEDS: (Novolin R) Insulin Human Regular 100 units/ml vial SC SCH ×3 (08:51→17:29)
[2017-06-19] MEDS: Cefepime IV 1 gm in Dextrose 1 GM/50 ML BAG IVPB SCH (08:53)
--- NOTE | 2017-06-19 10:16 | PN ---
DATE: 06/16/2017 ENDOCRINOLOGY FOLLOWUP NOTE LOCATION: Room 656. SUBJECTIVE: This is an 87-year-old male with recent uncontrolled type 2 insulin-requiring diabetes, now being followed closely for metabolic management. His glycemic levels are fluctuating as noted and the glucose levels today have ranged from 289 to 336 mg/dL. His liver transaminases are improving and declining as noted with AST of 329, ALT of 424, and alkaline phosphatase of 240. The latest chemistry showed a BUN of 16, sodium 129, potassium 3.5, chloride 98, CO2 of 24, glucose 302, and creatinine 1.1. So at this time, we will modify once again his premixed insulin regimen and increase the NovoLog 70/30 to 34 units a.c. breakfast and 24 units a.c. dinner to start today. We will continue the low-dose correction scale using NovoLog insulin as given. We will also continue the Amaryl given as 4 mg b.i.d. before meals as ordered. We will obtain serum chemistries and supplement accordingly as needed. We will follow with you. Sharon Oquendo MD
--- NOTE | 2017-06-19 10:18 | PN ---
DATE: 06/17/2017 ENDOCRINOLOGY FOLLOWUP NOTE LOCATION: Room 656. SUBJECTIVE: This is an 87-year-old male with recent uncontrolled type 2 insulin-requiring diabetes, now being followed closely for metabolic management. His glycemic levels are fluctuating but much improved at this time, the glucose values are ranging form 240 to 259 mg/dL. His latest chemistries shows a BUN of 16, sodium 129, potassium 3.5, chloride 98, CO2 24, glucose 302, and creatinine 1.1. So at this time, we will modify once again the premixed insulin regimen with NovoLog 70/30 given as 40 units a.c. breakfast and 30 units a.c. dinner to start today. We will titrate incrementally as indicated to optimize metabolic control. We will obtain serial chemistries and supplement accordingly as needed. We will also continue the same low-dose correction scale using NovoLog insulin as given. We will titrate incrementally as indicated to optimize metabolic control. We will follow with you. Sharon Oquendo MD
[2017-06-19] MEDS: Multiple Vitamins Tab PO SCH ×2 (10:41→12:32)
--- NOTE | 2017-06-19 15:46 | CP.PCM.PN ---
Subjective - Date & Time of Evaluation Date of Evaluation: 06/19/17 Time of Evaluation: 15:46 - Subjective Subjective: PT SEEN WITH DR. ESPARZA DURING ROUNDS. CLEARED BY CONSULTS AND CLEARED BY DR. ESPARZA FOR D/C TO [facility]. DISCUSSED WITH DR. HERBERT AND HIS RECOMMENDATIONS ARE NOTED BELOW. PT TO BE D/C WITH [facility] IN PL[facility]. PT TO BE FOLLOWED BY DR. David ESPARZA WHILE AT [facility]. SW TO ARRANGE TRANSPORTATION TO [facility]. DISCUSSED PLAN WITH AT BEDSIDE AND SHE IS IN AGREEMENT. NO FURTHER ORDERS. -PLACE UNDER THE SERVICE OF DR. David ESPARZA WHILE AT [facility]----CALL UPON ARRIVAL TO [facility] FOR ADMITTING ORDERS AND WITH BED ASSIGNMENT. -FOLLOW UP WITH DR. MANE (GI) OUTPATIENT WITHIN 10-14 DAYS. -FOLLOW UP WITH DR. LEGGETT (ENDOCRINOLOGY) OUTPATIENT WITHIN 10-14 DAYS. -PER DR. HERBERT (ID), CONTINUE THE FOLLOWING: CEFEPIME 1 GM IV Q 12 HOURS ( START MORNING OF 06/20/17 AND LAST DOSE TO BE GIVEN ON 06/21/17 DURING THE EVENING; NEEDS ONLY 2 MORE FULL DAYS OF ANTIBIOTIC) FOR A TOTAL OF 14 DAYS WORTH OF CEFEPIME. -PER DR. HERBERT (ID): REPEAT URINALYSIS AND URINE CULTURE ON 06/22/17; WEEKLY SERUM LFT (NOTIFY DR. David ESPARZA OF RESULTS); CONSULT AT [facility] (DR. David ESPARZA AWARE). -[facility] CARE PER FACILITY PROTOCOL. -PHYSICAL THERAPY TOLERATED. -FOR FURTHER ORDERS AND CONCERNS, CONTACT DR. David ESPARZA. Objective - Vital Signs/Intake and Output Vital Signs (last 24 hours): Temp Pulse Resp BP Pulse Ox 98.8 F 66 18 100/59 L 100 06/19/17 08:15 06/19/17 08:15 06/19/17 08:15 06/19/17 12:30 06/19/17 08:15 Intake and Output: 06/19/17 06/19/17 06:59 18:59 Intake Total 1170 Output Total 950 Balance 220 - Medications Medications: Current Medications Cyanocobalamin (Vitamin B12 1000 Mcg Tab) 1,000 mcg PO DAILY [facility] Last Admin: 06/19/17 12:32 Dose: 1,000 mcg Dextrose (Dextrose 50% Inj) 0 ml IV STAT PRN; Protocol PRN Reason: Hypoglycemia Protocol Last Admin: 06/17/17 17:06 Dose: 50 ml Dextrose (Glutose 15) 15 gm PO ONCE PRN; Protocol PRN Reason: Hypoglycemia Protocol Finasteride (Proscar) 5 mg PO DAILY [facility] Last Admin: 06/19/17 10:42 Dose: Not Given Furosemide (Lasix) 40 mg PO MWF [facility] Last Admin: 06/19/17 12:30 Dose: 40 mg Glimepiride (Amaryl) 4 mg PO ACBD [facility] Last Admin: 06/19/17 08:30 Dose: Not Given Glucagon (Glucagen Diagnostic Kit) 1 mg IM STAT PRN; Protocol PRN Reason: Hypoglycemia Protocol Cefepime HCl (Maxipime Iv 1 Gm Premix) 1 gm in 50 mls @ 100 mls/hr IVPB Q12H [facility] Last Admin: 06/19/17 08:53 Dose: 100 mls/hr Dextrose/Sodium Chloride (Dextrose 5%/0.45% Ns 1000 Ml) 1,000 mls @ 50 mls/hr IV .Q20H [facility] Last Admin: 06/18/17 17:45 Dose: Not Given Ibuprofen (Motrin Tab) 400 mg PO Q6H PRN PRN Reason: Fever >100.4 F Last Admin: 06/13/17 08:00 Dose: 400 mg Insulin Aspart (Novolog Mix 70/30 (70/30 Units/Ml)) 36 units SC ACB [facility] Insulin Aspart (Novolog Mix 70/30 (70/30 Units/Ml)) 26 units SC ACD [facility] Insulin Human Regular (Novolin R) 0 unit SC ACHS [facility] PRN Reason: Protocol Last Admin: 06/19/17 11:53 Dose: Not Given Isosorbide Mononitrate (Imdur Er) 30 mg PO Q24H [facility] Losartan Potassium (Cozaar) 25 mg PO Q24H [facility] Metoprolol Succinate (Toprol Xl) 50 mg PO Q24H [facility] Multivitamins (Hexavitamin) 1 tab PO DAILY [facility] Last Admin: 06/19/17 12:32 Dose: 1 tab Ondansetron HCl (Zofran Inj) 4 mg IVP Q6 PRN PRN Reason: Nausea/Vomiting Last Admin: 06/12/17 10:30 Dose: 4 mg Pantoprazole Sodium (Protonix Ec Tab) 40 mg PO DAILY [facility] Last Admin: 06/14/17 09:48 Dose: 40 mg Tamsulosin HCl (Flomax) 0.4 mg PO DAILY [facility] Last Admin: 06/19/17 12:33 Dose: 0.4 mg Warfarin Sodium (Coumadin) 2 mg PO 1800 [facility] - Labs Labs: 06/16/17 06:23 06/18/17 07:23 PT 21.9 SECONDS (9.7-12.2) H 06/17/17 07:54 INR 1.9 06/17/17 07:54 APTT 32 SECONDS (21-34) D 06/17/17 07:54
[2017-06-19 18:04] VITALS: BP 108/68; PULSE 105; RESP 20; TEMP 98.1; O2SAT 99
--- NOTE | 2017-06-19 19:58 | PN ---
DATE: ENDOCRINOLOGY FOLLOWUP NOTE LOCATION: Room 659. SUBJECTIVE: This is an 87-year-old male with recent uncontrolled type 2 insulin-requiring diabetes, now being followed closely for metabolic management. His glycemic levels are fluctuating but improved, and the glucose values have ranged from 148 to 232 mg/dL. His latest chemistry showed a BUN of 15, sodium 131, potassium 3.7, chloride 97, CO2 of 38, glucose 174, and creatinine 1.0. So, at this time, we will modify once again his premixed insulin regimen and increase the NovoLog 70/30 to 36 units a.c. breakfast and 26 units a.c. dinner to start today. We will titrate incrementally as indicated to optimize metabolic control. We will also continue the Amaryl given as 4 mg b.i.d. as noted. We will obtain serial chemistries and supplement accordingly as needed. We will follow. Sharon Oquendo MD
[2017-06-20] MEDS ORDERED: (Novolog Mix 70/30) Insulin Aspart/Insulin Aspar 100 units/ml SC SCH (07:30)
== END 2017-06-19 18:20 | DRG 637 ==
LOC: C.ER 23:48 → C.9E 06-07 03:01 → C.6T 06-07 07:58
PROVIDERS: ADMIT Internal Medicine Nephrology; ATTEND Internal Medicine Nephrology
DX: E11.10 Type 2 diabetes mellitus with ketoacidosis without coma (principal); L89.154 Pressure ulcer of sacral region, stage 4; K72.00 Acute and subacute hepatic failure without coma; I47.2 Ventricular tachycardia; I13.0 Hypertensive heart and chronic kidney disease with heart failure and stage 1 through stage 4 chronic kidney disease, or unspecified chronic kidney disease; I48.2 Chronic atrial fibrillation; D68.9 Coagulation defect, unspecified; E86.0 Dehydration; I50.9 Heart failure, unspecified; C67.9 Malignant neoplasm of bladder, unspecified; F03.90 Unspecified dementia, unspecified severity, without behavioral disturbance, psychotic disturbance, mood disturbance, and anxiety; E78.00 Pure hypercholesterolemia, unspecified; E78.5 Hyperlipidemia, unspecified; I25.10 Atherosclerotic heart disease of native coronary artery without angina pectoris; E11.22 Type 2 diabetes mellitus with diabetic chronic kidney disease; E11.319 Type 2 diabetes mellitus with unspecified diabetic retinopathy without macular edema; E11.42 Type 2 diabetes mellitus with diabetic polyneuropathy; E11.51 Type 2 diabetes mellitus with diabetic peripheral angiopathy without gangrene; M54.30 Sciatica, unspecified side; N18.9 Chronic kidney disease, unspecified; K76.0 Fatty (change of) liver, not elsewhere classified; R74.0 Nonspecific elevation of levels of transaminase and lactic acid dehydrogenase [LDH]; Z79.01 Long term (current) use of anticoagulants; Z79.4 Long term (current) use of insulin; Z95.1 Presence of aortocoronary bypass graft; Z95.5 Presence of coronary angioplasty implant and graft

== ENCOUNTER 2017-07-07 12:48 | Inpatient (IN) | payer MEDICARE, OTHER ==
[2017-07-07 12:49] VITALS: BMI 24.5
[2017-07-07 14:54] LABS: BASO # 0.1 K/uL (0.0-0.2); BASO % 0.5 % (0.0-2.0); EOS # 0.2 K/uL (0.0-0.7); EOS % 1.7 % (0.0-4.0); LYMPH % 9.1 % (20.0-40.0); MEAN CELL VOLUME 90.5 fL (80.0-94.0); MEAN CORPUSCULAR HEMOGLOBIN 30.3 pg (27.0-31.0); MEAN CORPUSCULAR HGB CONC 33.4 g/dL (33.0-37.0); MONO # 0.8 K/uL (0.0-0.8); NEUT # 8.8 K/uL (1.8-7.0); NEUT % 81.7 % (50.0-75.0); PLATELET COUNT 303 K/uL (130-400); RBC 2.69 Mil/uL (4.40-5.90); RED CELL DISTRIBUTION WIDTH 14.4 % (11.5-14.5); WHITE BLOOD COUNT 10.8 K/uL (4.8-10.8)
[2017-07-07 15:04] LABS: HEMOGLOBIN 8.1 g/dL (12.0-18.0)
[2017-07-07 15:07] LABS: ALB/GLOB RATIO 0.8 (1.0-2.1); ALBUMIN 2.5 g/dL (3.5-5.0); ALT/SGPT 41 U/L (21-72); AST/SGOT 32 U/L (17-59); BLOOD UREA NITROGEN 26 mg/dL (9-20); CALCIUM 7.9 mg/dl (8.6-10.4); GFR AFRICAN-AMERICAN > 60; GFR NON-AFRICAN AMERICAN 57
[2017-07-07] MEDS ORDERED: Sodium Chloride 0.9% 250 ML IV ONE (15:08)
[2017-07-07] MEDS ORDERED: Piperacillin/Tazobact 3.375 gm 100 ML IV STA (15:12)
[2017-07-07] MEDS ORDERED: Vancomycin 1 GM 1 GM/250 ML BAG IV SCH (15:15)
--- NOTE | 2017-07-07 15:17 | C.PDOC ---
History Of Present Illness 87yo male, with history of diabetes, hypertension, decubital ulcers, presents today with complaints of worsening pain and worsening ulcers on his sacrum and bilateral feet. Patient presents from detention, report reviewed which indicates concern for worsening decubiti. Patient denies any fevers or chills. No other complaints. Time Seen by Provider: 07/07/17 13:30 Chief Complaint (Nursing): Lower Extremity Problem/Injury History Per: Patient History/Exam Limitations: no limitations Onset/Duration Of Symptoms: Days Current Symptoms Are (Timing): Still Present Additional History Per: Alf Past Medical History Reviewed: Historical Data, Nursing Documentation, Vital Signs Vital Signs: Last Vital Signs Temp 98.1 F 07/07/17 13:01 Pulse 104 H 07/07/17 13:01 Resp 18 07/07/17 13:01 BP 93/49 L 07/07/17 13:01 Pulse Ox 97 07/07/17 16:27 - Medical History PMH: Anemia, Arthritis, Benign Prostatic Hyperplasia, Cardia Arrhythmia (atrial fib), CHF, Dementia, HTN, Hypercholesterolemia, Peripheral Edema (sometimes not at present), Chronic Kidney Disease (renal insufficiency), Sleep Apnea Surgical History: CABG ((2)), Coronary Stent (X2) Family History: States: Unknown Family Hx - Social History Hx Alcohol Use: No Hx Substance Use: No - Immunization History Hx Tetanus Toxoid Vaccination: Yes Hx Influenza Vaccination: Yes Hx Pneumococcal Vaccination: No Review Of Systems Except As Marked, All Systems Reviewed And Found Negative. Constitutional: Negative for: Fever, Chills Skin: Positive for: Other (decubital ulcer to sacrum, legs) Physical Exam - Physical Exam Appears: Non-toxic Skin: Other (large unstagable decubital ulcer noted to sacrum, unstagable 5-6cm in size decubital ulcer to left hip. wound noted to bilateral heels.) Head: Normacephalic Eye(s): bilateral: Normal Inspection Neck: Supple Chest: Symmetrical Cardiovascular: Rhythm Regular Respiratory: Normal Breath Sounds, No Wheezing Extremity: Normal ROM Neurological/Psych: Oriented x3, Normal Speech, Normal Cognition ED Course And Treatment - Laboratory Results Result Diagrams: 07/07/17 14:51 07/07/17 14:51 ECG: Interpreted By Me, Viewed By Me ECG Rhythm: Atrial Fibrillation ECG Interpretation: No Acute Changes Rate From EC O2 Sat by Pulse Oximetry: 97 (RA) Pulse Ox Interpretation: Normal Medical Decision Making Medical Decision Making: Plan: -- EKG -- Blood culture -- labs -- IV antibiotics Time: 1516 Labs reviewed and case discussed with Dr. Arenas, patient does not meet sepsis criteria. Case discussed with Dr. David Jones and patient to be admitted to Telemetry for gangrene ulcer and decubitus ulcer. Disposition - Disposition Disposition: HOSPITALIZED Disposition Time: 14:30 Condition: STABLE - POA Present On Arrival: None - Clinical Impression Clinical Impression: Decubitus ulcer with gangrene - PA / TOP TILE DECORATOR / Resident Statement MD/DO has reviewed & agrees with the documentation as recorded. - Scribe Statement The provider has reviewed the documentation as recorded by the Scribe (Kourtney Moreno) Provider Attestation: All medical record entries made by the Scribe were at my direction and personally dictated by me. I have reviewed the chart and agree that the record accurately reflects my personal performance of the history, physical exam, medical decision making, and the department course for this patient. I have also personally directed, reviewed, and agree with the discharge instructions and disposition.
[2017-07-07 15:24] LABS: LYMPHOCYTE 7 % (20-40); MONOCYTE 5 % (0-10); NEUTROPHIL 88 % (50-75); PLATELET ESTIMATE NORMAL (NORMAL); TOTAL CELLS COUNTED 100
[2017-07-07 15:25] LABS: HYPOCHROMIC SLIGHT; POLYCHROMIC SLIGHT
[2017-07-07] MEDS ORDERED: Sodium Chloride 0.9% 1,000 ML ONE (16:15)
[2017-07-07] MEDS ORDERED: Vancomycin 1 gm/NS 200 ml 1 GM/200 ML BAG IVPB STA (16:34)
--- NOTE | 2017-07-07 18:57 | CP.PCM.HP ---
Past Patient History - Infectious Disease Hx of Infectious Diseases: None - Past Medical History & Family History Past Medical History?: Yes - Past Social History Smoking Status: Never Smoked - CARDIAC Hx Cardia Arrhythmia: Yes (atrial fib) Hx Congestive Heart Failure: Yes Hx Hypercholesterolemia: Yes Hx Hypertension: Yes Hx Peripheral Edema: Yes (sometimes not at present) - PULMONARY Hx Sleep Apnea: Yes - NEUROLOGICAL Hx Dementia: Yes - HEENT Hx HEENT Problems: Yes Hx Cataracts: Yes - RENAL Hx Chronic Kidney Disease: Yes (renal insufficiency) - ENDOCRINE/METABOLIC Hx Diabetes Mellitus Type 2: Yes - HEMATOLOGICAL/ONCOLOGICAL Hx Anemia: Yes - INTEGUMENTARY Hx Dermatological Problems: No - MUSCULOSKELETAL/RHEUMATOLOGICAL Hx Arthritis: Yes - GASTROINTESTINAL Hx Gastrointestinal Disorders: Yes Hx Constipation: Yes - GENITOURINARY/GYNECOLOGICAL Hx Genitourinary Disorders: Yes Hx Bladder Cancer: Yes Hx Incontinence: Yes Hx Prostate Problems: Yes - PSYCHIATRIC Hx Substance Use: No - SURGICAL HISTORY Hx Coronary Artery Bypass Graft: Yes ((2)) Hx Coronary Stent: Yes (X2) - ANESTHESIA Hx Anesthesia: Yes Hx Anesthesia Reactions: No Hx Malignant Hyperthermia: No Meds Allergies/Adverse Reactions: Allergies Allergy/AdvReac Type Severity Reaction Status Date / Time No Known Allergies Allergy Verified 07/07/17 14:02 Physical Exam - Constitutional Appears: Well - Head Exam Head Exam: ATRAUMATIC, NORMAL INSPECTION, NORMOCEPHALIC - Eye Exam Eye Exam: EOMI, Normal appearance, PERRL Pupil Exam: NORMAL ACCOMODATION, PERRL - ENT Exam ENT Exam: Mucous Membranes Moist, Normal Exam - Neck Exam Neck exam: Positive for: Normal Inspection - Respiratory Exam Respiratory Exam: Decreased Breath Sounds - Cardiovascular Exam Cardiovascular Exam: REGULAR RHYTHM, +S1, +S2 - GI/Abdominal Exam GI & Abdominal Exam: Diminished Bowel Sounds, Soft - Rectal Exam Rectal Exam: Deferred Results - Vital Signs Recent Vital Signs: Last Vital Signs Temp 98.1 F 07/07/17 13:01 Pulse 104 H 07/07/17 13:01 Resp 18 07/07/17 13:01 BP 93/49 L 07/07/17 13:01 Pulse Ox 97 07/07/17 17:00 - Labs Result Diagrams: 07/07/17 14:51 07/07/17 14:51 Labs: Laboratory Results - last 24 hr 07/07/17 07/07/17 07/07/17 13:07 14:51 14:51 WBC 10.8 RBC 2.69 L Hgb 8.1 L D Hct 24.3 L MCV 90.5 MCH 30.3 MCHC 33.4 RDW 14.4 Plt Count 303 MPV 7.0 L Neut % (Auto) 81.7 H Lymph % (Auto) 9.1 L Oliver % (Auto) 7.0 Eos % (Auto) 1.7 Baso % (Auto) 0.5 Neut # (Auto) 8.8 H Lymph # (Auto) 1.0 Oliver # (Auto) 0.8 Eos # (Auto) 0.2 Baso # (Auto) 0.1 Neutrophils % (Manual) 88 H Lymphocytes % (Manual) 7 L Monocytes % (Manual) 5 Platelet Estimate Normal Polychromasia Slight Hypochromasia (manual) Slight Sodium 130 L Potassium 4.0 Chloride 96 L Carbon Dioxide 26 Anion Gap 13 BUN 26 H Creatinine 1.2 Est GFR ( Amer) > 60 Est GFR (Non-Af Amer) 57 POC Glucose (mg/dL) 305 H Random Glucose 313 H Calcium 7.9 L Total Bilirubin 0.7 AST 32 ALT 41 Alkaline Phosphatase 119 Total Protein 5.7 L Albumin 2.5 L Globulin 3.2 Albumin/Globulin Ratio 0.8 L
[2017-07-07] MEDS: HYDROmorphone 1 mg/ml ISec IVP PRN (22:58)
[2017-07-07] MEDS ORDERED: HYDROmorphone 1 mg/ml ISec ONE (22:58)
[2017-07-08] MEDS ORDERED: Piperacillin/Tazobact 3.375 gm 100 ML IVPB ONE (00:21)
[2017-07-08] MEDS: Piperacillin/Tazobact 3.375 GM in Sodium Chloride 0.9% 100 ML IVPB SCH ×3 (00:29→18:29)
[2017-07-08] MEDS ORDERED: (Novolog) Insulin Aspart, Recombinant 100 u/ml 10 ml vial ONE ×2 (08:48→12:20)
[2017-07-08] MEDS: (Novolog) Insulin Aspart, Recombinant 100 u/ml 10 ml vial SC SCH ×4 (08:49→22:24)
--- NOTE | 2017-07-08 09:20 | CP.PCM.CON ---
History of Present Illness - History of Present Illness History of Present Illness: Vascular Surgery- Dr. Tsai 87M pmhx significant for bladder Ca, DM, A-fib on Coumadin, dementia presents to [facility] ED w/ worsening pain bilateral lower extremities. Vacular surgery was consulted for assessment of PVD. Patient is a pleasantly demented individual. Air boots currently on w/ dressing C/D/I around b/L lower extremities. Denies F/ C CP/SOB N/V/D changes in vision PMH: bladder ca, DM, AFIB, dementia, CAD PSH: CABG, cystogram ALL: NKDA SocialHx: denies tobacco, etoh, recreational drug use Review of Systems - Review of Systems All systems: reviewed and no additional remarkable complaints except - Constitutional Constitutional: As Per HPI Past Patient History - Infectious Disease Hx of Infectious Diseases: None - Past Medical History & Family History Past Medical History?: Yes - Past Social History Smoking Status: Never Smoked - CARDIAC Hx Cardia Arrhythmia: Yes (atrial fib) Hx Congestive Heart Failure: Yes Hx Hypercholesterolemia: Yes Hx Hypertension: Yes Hx Peripheral Edema: Yes (sometimes not at present) - PULMONARY Hx Sleep Apnea: Yes - NEUROLOGICAL Hx Dementia: Yes - HEENT Hx HEENT Problems: Yes Hx Cataracts: Yes - RENAL Hx Chronic Kidney Disease: Yes (renal insufficiency) - ENDOCRINE/METABOLIC Hx Diabetes Mellitus Type 2: Yes - HEMATOLOGICAL/ONCOLOGICAL Hx Anemia: Yes - INTEGUMENTARY Hx Dermatological Problems: No - MUSCULOSKELETAL/RHEUMATOLOGICAL Hx Arthritis: Yes - GASTROINTESTINAL Hx Gastrointestinal Disorders: Yes Hx Constipation: Yes - GENITOURINARY/GYNECOLOGICAL Hx Genitourinary Disorders: Yes Hx Bladder Cancer: Yes Hx Incontinence: Yes Hx Prostate Problems: Yes - PSYCHIATRIC Hx Substance Use: No - SURGICAL HISTORY Hx Coronary Artery Bypass Graft: Yes ((2)) Hx Coronary Stent: Yes (X2) - ANESTHESIA Hx Anesthesia: Yes Hx Anesthesia Reactions: No Hx Malignant Hyperthermia: No Meds Allergies/Adverse Reactions: Allergies Allergy/AdvReac Type Severity Reaction Status Date / Time No Known Allergies Allergy Verified 07/07/17 14:02 - Medications Medications: Current Medications Finasteride (Proscar) 5 mg PO DAILY [facility] Furosemide (Lasix) 40 mg PO MWF [facility] Home Med (Cyanocobalamin [Vitamin B12]) 500 mcg PO DAILY [facility] Home Med (Silodosin [Rapaflo]) 8 mg PO DAILY [facility] Hydromorphone HCl (Dilaudid) 1 mg IVP Q6H PRN PRN Reason: Pain, moderate (4-7) Last Admin: 07/07/17 22:58 Dose: 1 mg Piperacillin Sod/Tazobactam (Sod 3.375 gm/ Sodium Chloride) 100 mls @ 100 mls/ hr IVPB Q8H [facility] Last Admin: 07/08/17 08:17 Dose: 100 mls/hr Vancomycin HCl 1 gm/ Sodium (Chloride) 250 mls @ 166.7 mls/hr IVPB Q24H [facility] Vancomycin/Sodium Chloride (Vancomycin 1 Gm/Ns 200 Ml) 1 gm in 200 mls @ 133 mls/hr IVPB Q24H [facility] Stop: 07/13/17 18:01 Insulin Aspart (Novolog) 0 unit SC ACHS [facility] PRN Reason: Protocol Last Admin: 07/08/17 08:49 Dose: 2 unit Isosorbide Mononitrate (Imdur Er) 30 mg PO DAILY [facility] Multivitamins (Hexavitamin) 1 tab PO DAILY [facility] Pantoprazole Sodium (Protonix Ec Tab) 40 mg PO DAILY [facility] Physical Exam - Constitutional Appears: Non-toxic, No Acute Distress - Head Exam Head Exam: ATRAUMATIC - Eye Exam Eye Exam: EOMI. absent: Scleral icterus - ENT Exam ENT Exam: Mucous Membranes Moist - Respiratory Exam Respiratory Exam: NORMAL BREATHING PATTERN. absent: Accessory Muscle Use, Respiratory Distress - Cardiovascular Exam Cardiovascular Exam: +S1, +S2. absent: Bradycardia, Tachycardia - GI/Abdominal Exam GI & Abdominal Exam: Soft. absent: Firm, Guarding, Rigid, Tenderness - Extremities Exam Additional comments: [place] Left popliteal non-palpable R popliteal, b/l DP & PT so skin breakdown, discoloration and hyperpigmentation Left medial malleolus and right lateral maleolus. - Back Exam Back exam: absent: CVA tenderness (L), CVA tenderness (R) Results - Vital Signs Recent Vital Signs: Last Vital Signs Temp 97.8 F 07/08/17 08:43 Pulse 87 07/08/17 08:43 Resp 18 07/08/17 08:43 BP 115/61 07/08/17 08:43 Pulse Ox 100 07/08/17 08:43 - Labs Result Diagrams: 07/07/17 14:51 07/07/17 14:51 Labs: Laboratory Results - last 24 hr 07/07/17 07/07/17 07/07/17 13:07 14:51 14:51 WBC 10.8 RBC 2.69 L Hgb 8.1 L D Hct 24.3 L MCV 90.5 MCH 30.3 MCHC 33.4 RDW 14.4 Plt Count 303 MPV 7.0 L Neut % (Auto) 81.7 H Lymph % (Auto) 9.1 L Hand % (Auto) 7.0 Eos % (Auto) 1.7 Baso % (Auto) 0.5 Neut # (Auto) 8.8 H Lymph # (Auto) 1.0 Hand # (Auto) 0.8 Eos # (Auto) 0.2 Baso # (Auto) 0.1 Neutrophils % (Manual) 88 H Lymphocytes % (Manual) 7 L Monocytes % (Manual) 5 Platelet Estimate Normal Polychromasia Slight Hypochromasia (manual) Slight Sodium 130 L Potassium 4.0 Chloride 96 L Carbon Dioxide 26 Anion Gap 13 BUN 26 H Creatinine 1.2 Est GFR ( Amer) > 60 Est GFR (Non-Af Amer) 57 POC Glucose (mg/dL) 305 H Random Glucose 313 H Calcium 7.9 L Total Bilirubin 0.7 AST 32 ALT 41 Alkaline Phosphatase 119 Total Protein 5.7 L Albumin 2.5 L Globulin 3.2 Albumin/Globulin Ratio 0.8 L 07/08/17 08:42 WBC RBC Hgb Hct MCV MCH MCHC RDW Plt Count MPV Neut % (Auto) Lymph % (Auto) Hand % (Auto) Eos % (Auto) Baso % (Auto) Neut # (Auto) Lymph # (Auto) Hand # (Auto) Eos # (Auto) Baso # (Auto) Neutrophils % (Manual) Lymphocytes % (Manual) Monocytes % (Manual) Platelet Estimate Polychromasia Hypochromasia (manual) Sodium Potassium Chloride Carbon Dioxide Anion Gap BUN Creatinine Est GFR ( Amer) Est GFR (Non-Af Amer) POC Glucose (mg/dL) 248 H Random Glucose Calcium Total Bilirubin AST ALT Alkaline Phosphatase Total Protein Albumin Globulin Albumin/Globulin Ratio Assessment & Plan - Assessment and Plan (Free Text) Assessment: 87M assessment for peripheral vascular disease Plan: - f/u PVR and dopplers - depending on results plan for CTA - local wound care - multipodus boots - await further testing and imaging prior to further intervention - further recs per Dr. Tsai surgical attending PGY1
[2017-07-08] MEDS ORDERED: Home Med 1 UNIT (Silodosin [Rapaflo] 8 MG) PO SCH (10:00)
[2017-07-08] MEDS ORDERED: CYANOCOBALAMIN 500 MCG PO SCH (10:00)
[2017-07-08] MEDS: Multiple Vitamins Tab PO SCH (10:09)
[2017-07-08] MEDS: Pantoprazole 40 mg EC Tab PO SCH (10:09)
[2017-07-08] MEDS: Enoxaparin 80 mg Syringe SC SCH ×2 (10:09→19:36)
[2017-07-08] MEDS ORDERED: Enoxaparin 80 mg Syringe ONE (10:10)
--- NOTE | 2017-07-08 13:53 | CP.PCM.CON ---
History of Present Illness - History of Present Illness History of Present Illness: INFECTIOUS DISEASE CONSULT; HPI; 87yo male, with history of diabetes, hypertension,bl[place] Ca,Dementia, decubital ulcers, admitted with complaints of worsening pain and worsening ulcers on his sacrum and bilateral feet. Patient presents from [facility], report reviewed which indicates concern for worsening decubiti. Patient denies any fevers or chills. No other complaints. PMH: bladder ca, DM, AFIB, dementia, CAD,arthritis,dementia, HTN. PSH: CABG,coronary stent, cystogram ALL: NKDA SocialHx: denies tobacco, etoh, recreational drug use - Social History Hx Alcohol Use: No Hx Substance Use: No - Immunization History Hx Tetanus Toxoid Vaccination: Yes Hx Influenza Vaccination: Yes Hx Pneumococcal Vaccination: No Review Of Systems Except As Marked, All Systems Reviewed And Found Negative. Constitutional: Negative for: Fever, Chills Skin: Positive for: Other (decubital ulcer to sacrum, legs) Past Patient History - Infectious Disease Hx of Infectious Diseases: None - Past Medical History & Family History Past Medical History?: Yes - Past Social History Smoking Status: Never Smoked - CARDIAC Hx Cardia Arrhythmia: Yes (atrial fib) Hx Congestive Heart Failure: Yes Hx Hypercholesterolemia: Yes Hx Hypertension: Yes Hx Peripheral Edema: Yes (sometimes not at present) - PULMONARY Hx Sleep Apnea: Yes - NEUROLOGICAL Hx Dementia: Yes - HEENT Hx HEENT Problems: Yes Hx Cataracts: Yes - RENAL Hx Chronic Kidney Disease: Yes (renal insufficiency) - ENDOCRINE/METABOLIC Hx Diabetes Mellitus Type 2: Yes - HEMATOLOGICAL/ONCOLOGICAL Hx Anemia: Yes - INTEGUMENTARY Hx Dermatological Problems: No - MUSCULOSKELETAL/RHEUMATOLOGICAL Hx Arthritis: Yes - GASTROINTESTINAL Hx Gastrointestinal Disorders: Yes Hx Constipation: Yes - GENITOURINARY/GYNECOLOGICAL Hx Genitourinary Disorders: Yes Hx Bladder Cancer: Yes Hx Incontinence: Yes Hx Prostate Problems: Yes - PSYCHIATRIC Hx Substance Use: No - SURGICAL HISTORY Hx Coronary Artery Bypass Graft: Yes ((2)) Hx Coronary Stent: Yes (X2) - ANESTHESIA Hx Anesthesia: Yes Hx Anesthesia Reactions: No Hx Malignant Hyperthermia: No Meds Allergies/Adverse Reactions: Allergies Allergy/AdvReac Type Severity Reaction Status Date / Time No Known Allergies Allergy Verified 07/07/17 14:02 - Medications Medications: Current Medications Cyanocobalamin (Vitamin B12 1000 Mcg Tab) 1,000 mcg PO DAILY [facility] Enoxaparin Sodium (Lovenox) 70 mg SC BID [facility] Last Admin: 07/08/17 10:09 Dose: 70 mg Finasteride (Proscar) 5 mg PO DAILY [facility] Last Admin: 07/08/17 10:09 Dose: 5 mg Furosemide (Lasix) 40 mg PO MWF [facility] Home Med (Silodosin [Rapaflo]) 8 mg PO DAILY [facility] Hydromorphone HCl (Dilaudid) 1 mg IVP Q6H PRN PRN Reason: Pain, moderate (4-7) Last Admin: 07/07/17 22:58 Dose: 1 mg Piperacillin Sod/Tazobactam (Sod 3.375 gm/ Sodium Chloride) 100 mls @ 100 mls/ hr IVPB Q8H [facility] Last Admin: 07/08/17 08:17 Dose: 100 mls/hr Vancomycin HCl 1 gm/ Sodium (Chloride) 250 mls @ 166.7 mls/hr IVPB Q24H [facility] Vancomycin/Sodium Chloride (Vancomycin 1 Gm/Ns 200 Ml) 1 gm in 200 mls @ 133 mls/hr IVPB Q24H [facility] Stop: 07/13/17 18:01 Insulin Aspart (Novolog) 0 unit SC ACHS [facility] PRN Reason: Protocol Last Admin: 07/08/17 12:20 Dose: 1 unit Isosorbide Mononitrate (Imdur Er) 30 mg PO DAILY [facility] Last Admin: 07/08/17 10:09 Dose: 30 mg Multivitamins (Hexavitamin) 1 tab PO DAILY [facility] Last Admin: 07/08/17 10:09 Dose: 1 tab Pantoprazole Sodium (Protonix Ec Tab) 40 mg PO DAILY [facility] Last Admin: 07/08/17 10:09 Dose: 40 mg Physical Exam - Constitutional Appears: No Acute Distress - Head Exam Head Exam: NORMAL INSPECTION - Eye Exam Eye Exam: EOMI, PERRL - ENT Exam ENT Exam: Normal Oropharynx - Neck Exam Neck exam: Positive for: Normal Inspection - Respiratory Exam Respiratory Exam: Decreased Breath Sounds - Cardiovascular Exam Cardiovascular Exam: Irregular Rhythm, +S1, +S2 - GI/Abdominal Exam GI & Abdominal Exam: Normal Bowel Sounds, Soft - Extremities Exam Extremities exam: Positive for: pedal edema. Negative for: calf tenderness Additional comments: large unstagable decubital ulcer noted to sacrum, unstagable 5-6cm in size decubital ulcer to left hip. wound noted to bilateral heels. B/L MEDIAL MALLEOLUS DISCOLARATION+VE PEDAL PULSES WEAK Results - Vital Signs Recent Vital Signs: Last Vital Signs Temp 97.9 F 07/08/17 12:21 Pulse 97 H 07/08/17 12:21 Resp 18 07/08/17 12:21 BP 97/56 L 07/08/17 12:21 Pulse Ox 100 07/08/17 12:21 - Labs Result Diagrams: 07/08/17 14:31 07/07/17 14:51 Labs: Laboratory Results - last 24 hr 07/07/17 07/07/17 07/07/17 13:07 14:51 14:51 WBC 10.8 RBC 2.69 L Hgb 8.1 L D Hct 24.3 L MCV 90.5 MCH 30.3 MCHC 33.4 RDW 14.4 Plt Count 303 MPV 7.0 L Neut % (Auto) 81.7 H Lymph % (Auto) 9.1 L Brooks % (Auto) 7.0 Eos % (Auto) 1.7 Baso % (Auto) 0.5 Neut # (Auto) 8.8 H Lymph # (Auto) 1.0 Brooks # (Auto) 0.8 Eos # (Auto) 0.2 Baso # (Auto) 0.1 Neutrophils % (Manual) 88 H Lymphocytes % (Manual) 7 L Monocytes % (Manual) 5 Platelet Estimate Normal Polychromasia Slight Hypochromasia (manual) Slight Sodium 130 L Potassium 4.0 Chloride 96 L Carbon Dioxide 26 Anion Gap 13 BUN 26 H Creatinine 1.2 Est GFR ( Amer) > 60 Est GFR (Non-Af Amer) 57 POC Glucose (mg/dL) 305 H Random Glucose 313 H Calcium 7.9 L Total Bilirubin 0.7 AST 32 ALT 41 Alkaline Phosphatase 119 Total Protein 5.7 L Albumin 2.5 L Globulin 3.2 Albumin/Globulin Ratio 0.8 L 07/08/17 07/08/17 08:42 12:05 WBC RBC Hgb Hct MCV MCH MCHC RDW Plt Count MPV Neut % (Auto) Lymph % (Auto) Brooks % (Auto) Eos % (Auto) Baso % (Auto) Neut # (Auto) Lymph # (Auto) Brooks # (Auto) Eos # (Auto) Baso # (Auto) Neutrophils % (Manual) Lymphocytes % (Manual) Monocytes % (Manual) Platelet Estimate Polychromasia Hypochromasia (manual) Sodium Potassium Chloride Carbon Dioxide Anion Gap BUN Creatinine Est GFR ( Amer) Est GFR (Non-Af Amer) POC Glucose (mg/dL) 248 H 189 H Random Glucose Calcium Total Bilirubin AST ALT Alkaline Phosphatase Total Protein Albumin Globulin Albumin/Globulin Ratio Assessment & Plan (1) Decubitus ulcer with gangrene Assessment and Plan: PANCULTURES ESR CRP WOUND CULTURES CONTINUE IV ABX ORDERED. DC IV ZOSYN 3.375MG IV Q 8HRLY 07/07/17. START IV PRIMAXIN 500MG IVPB Q 8HRLY 07/08/17 INCREASE IV VANCOMYCIN 1GM IV Q 12HRLY 07/07/17 F/U VANCO TROUGH PRIOR TO 4TH DOSE AND KEEP BETWEEN 10-20MG/L. LWC, PER CONSULTANTS . WILL FOLLOW WITH YOU AND MAKE RECOMMENDATION NECESSARY. Status: Acute (2) Diabetes Status: Acute (3) Atrial fibrillation Status: Acute (4) Dementia Status: Acute (5) PVD (peripheral vascular disease) Assessment and Plan: PT FOR VASCULAR EVALUATION Status: Acute
[2017-07-08 14:36] LABS: BASO # 0.1 K/uL (0.0-0.2); BASO % 0.7 % (0.0-2.0); EOS # 0.3 K/uL (0.0-0.7); EOS % 2.8 % (0.0-4.0); HEMOGLOBIN 8.5 g/dL (12.0-18.0); LYMPH # 1.1 K/uL (1.0-4.3); LYMPH % 10.2 % (20.0-40.0); MEAN CELL VOLUME 91.3 fL (80.0-94.0); MEAN CORPUSCULAR HEMOGLOBIN 31.1 pg (27.0-31.0); MEAN CORPUSCULAR HGB CONC 34.1 g/dL (33.0-37.0); MEAN PLATELET VOLUME 7.4 fL (7.2-11.7); MONO # 0.7 K/uL (0.0-0.8); MONO % 6.6 % (0.0-10.0); NEUT # 8.4 K/uL (1.8-7.0); NEUT % 79.7 % (50.0-75.0); RBC 2.74 Mil/uL (4.40-5.90); RED CELL DISTRIBUTION WIDTH 14.4 % (11.5-14.5); WHITE BLOOD COUNT 10.6 K/uL (4.8-10.8)
[2017-07-08] MEDS ORDERED: Iodixanol 320 mg/ml 150 ml Bottle IV ONE (15:39)
[2017-07-08] MEDS: HYDROmorphone 1 mg/ml ISec IVP PRN (15:51)
[2017-07-08] MEDS ORDERED: HYDROmorphone 0.5 mg/0.5 ml ISec ONE (15:55)
[2017-07-08] MEDS: Vancomycin 1 gm/NS 200 ml 1 GM/200 ML BAG IVPB SCH (16:53)
--- NOTE | 2017-07-08 16:55 | CP.PCM.PN ---
Subjective - Date & Time of Evaluation Date of Evaluation: 07/08/17 Time of Evaluation: 14:00 - Subjective Subjective: clinically same Objective - Vital Signs/Intake and Output Vital Signs (last 24 hours): Temp Pulse Resp BP Pulse Ox 97.9 F 93 H 18 106/48 L 100 07/08/17 12:21 07/08/17 15:50 07/08/17 15:50 07/08/17 15:50 07/08/17 15:50 - Medications Medications: Current Medications Cyanocobalamin (Vitamin B12 1000 Mcg Tab) 1,000 mcg PO DAILY [facility] Last Admin: 07/08/17 14:02 Dose: Not Given Enoxaparin Sodium (Lovenox) 70 mg SC BID [facility] Last Admin: 07/08/17 10:09 Dose: 70 mg Finasteride (Proscar) 5 mg PO DAILY [facility] Last Admin: 07/08/17 10:09 Dose: 5 mg Furosemide (Lasix) 40 mg PO MWF [facility] Home Med (Silodosin [Rapaflo]) 8 mg PO DAILY [facility] Hydromorphone HCl (Dilaudid) 1 mg IVP Q6H PRN PRN Reason: Pain, moderate (4-7) Last Admin: 07/08/17 15:51 Dose: 0.5 mg Piperacillin Sod/Tazobactam (Sod 3.375 gm/ Sodium Chloride) 100 mls @ 100 mls/ hr IVPB Q8H [facility] Last Admin: 07/08/17 08:17 Dose: 100 mls/hr Vancomycin HCl 1 gm/ Sodium (Chloride) 250 mls @ 166.7 mls/hr IVPB Q24H [facility] Vancomycin/Sodium Chloride (Vancomycin 1 Gm/Ns 200 Ml) 1 gm in 200 mls @ 166.6 mls/hr IVPB Q12H [facility] Stop: 07/13/17 15:01 Last Admin: 07/08/17 16:53 Dose: 166.6 mls/hr Insulin Aspart (Novolog) 0 unit SC ACHS [facility] PRN Reason: Protocol Last Admin: 07/08/17 12:20 Dose: 1 unit Isosorbide Mononitrate (Imdur Er) 30 mg PO DAILY [facility] Last Admin: 07/08/17 10:09 Dose: 30 mg Multivitamins (Hexavitamin) 1 tab PO DAILY [facility] Last Admin: 07/08/17 10:09 Dose: 1 tab Pantoprazole Sodium (Protonix Ec Tab) 40 mg PO DAILY [facility] Last Admin: 07/08/17 10:09 Dose: 40 mg - Labs Labs: 07/08/17 14:31 07/07/17 14:51 - Constitutional Appears: Well - Head Exam Head Exam: ATRAUMATIC, NORMAL INSPECTION, NORMOCEPHALIC - Eye Exam Eye Exam: EOMI, Normal appearance, PERRL Pupil Exam: NORMAL ACCOMODATION, PERRL - ENT Exam ENT Exam: Mucous Membranes Moist, Normal Exam - Neck Exam Neck Exam: Full ROM, Normal Inspection. absent: Lymphadenopathy - Respiratory Exam Respiratory Exam: Decreased Breath Sounds - Cardiovascular Exam Cardiovascular Exam: REGULAR RHYTHM, +S1, +S2 - GI/Abdominal Exam GI & Abdominal Exam: Soft, Diminished Bowel Sounds - Rectal Exam Rectal Exam: Deferred
[2017-07-08] MEDS ORDERED: Vancomycin 1 gm/NS 200 ml 1 GM/200 ML BAG IVPB SCH (18:00)
[2017-07-08] MEDS ORDERED: Sodium Chloride 0.9% 500 ML IV ONE (18:51)
--- NOTE | 2017-07-08 19:05 | CT ---
EXAM: CT Angiography Abdomen and Pelvis With Runoff to the Lower Extremities With Intravenous Contrast EXAM DATE/TIME: Exam ordered 07/08/2017 2:10 PM CLINICAL HISTORY: 87 years old, male; Condition or disease; Peripheral vascular disease; Additional info: Pvd TECHNIQUE: Axial computed tomographic angiography images of the abdomen, pelvis and lower extremities with intravenous contrast using CT angiography protocol. All CT scans at this facility use one or more dose reduction techniques, viz.: automated exposure control; ma/kV adjustment per patient size (including targeted exams where dose is matched to indication; i.e. head); or iterative reconstruction technique. 3D and MIP reconstructed images were created and reviewed. Coronal and sagittal reformatted images were created and reviewed. CONTRAST: 150 mL of visipaque 320 administered intravenously. COMPARISON: US - ABDOMEN COMPLETE DUPLEX 2017-06-14 17:40 FINDINGS: Lower thorax: No acute findings. VASCULATURE: There is moderately advanced arterial sclerosis diffusely. Aorta: No acute findings. No abdominal aortic aneurysm. No dissection. Celiac trunk and mesenteric arteries: No acute findings. No occlusion or significant stenosis. Renal arteries: There are 2 renal arteries in the right kidney. No occlusion or significant stenosis. 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 .No occlusion or significant stenosis. Right femoral/popliteal arteries: There is occlusion of the right superficial femoral artery just beyond the origin. There is reconstitution mid thigh via collaterals. There is long segment stenosis of the distal superficial femoral artery with occlusion of the right popliteal above the knee. Right calf/foot arteries: There is a threadlike reconstitution of the tibioperoneal trunk. The posterior tibial artery reconstitutes below the tibioperoneal trunk as a threadlike vessel and crosses the ankle..There is reconstitution of the anterior tibial artery in the lower leg. 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 .No occlusion or significant stenosis. Left femoral/popliteal arteries: There is occlusion of the left superficial femoral artery just beyond its origin. There is reconstitution of the mid superficial femoral artery via collaterals. There is a long segment high-grade stenosis of the distal superficial femoral artery and popliteal artery. The popliteal artery occludes. Left calf/foot arteries: There is occlusion of the trifurcation vessels. Multiple collaterals are noted within the lower leg. There appears to be reconstitution of the left anterior tibial artery and posterior tibial artery above the ankle. There is intermittent reconstitution of the peroneal artery which terminates above the ankle. ABDOMEN: Liver: There is a 1.9 cm nodular area of enhancement noted in the anterior superior segment of the right lobe the liver . Gallbladder and bile ducts: Unremarkable. No calcified stones. No ductal dilation. Pancreas: Unremarkable. No ductal dilation. No mass. Spleen: Unremarkable. No splenomegaly. Adrenals: Unremarkable. No mass. Kidneys and ureters: Unremarkable. No hydronephrosis. No solid mass. Stomach and bowel: There is a large amount of stool in the colon. No mucosal thickening. Appendix: No findings to suggest acute appendicitis. PELVIS: Bladder: There is a Hill catheter present within the bladder. There is noted within the bladder. Reproductive: Unremarkable as visualized. ABDOMEN, PELVIS and LOWER EXTREMITIES: Intraperitoneal space: Unremarkable. No significant fluid collection. No free air. Bones/joints: No acute fracture. No dislocation. Degenerative changes noted of the lumbar spine. Soft tissues: There is edema of the lower legs bilaterally. There is a soft tissue ulcer with gas overlying the left greater trochanter. The ulcer/abscess measures 8 x 3.9 by 7 cm. Lymph nodes: Unremarkable. No enlarged lymph nodes. IMPRESSION: 1. Occlusion of the right superficial femoral artery just beyond its origin with reconstitution mid thigh. 2. Occlusion of the right popliteal artery 3. Threadlike reconstitution of the tibioperoneal trunk. The posterior tibial artery continues as a threadlike vessel cross the ankle. The anterior tibial artery reconstitutes just above the ankle by collaterals 4. Occlusion of the left superficial femoral artery just beyond its origin with reconstitution mid thigh 5. Occlusion of the left popliteal artery and trifurcation vessels 6. Reconstitution of left anterior tibial and posterior tibial artery just above the ankle. 7. Soft tissue ulcer/abscess overlying the left greater trochanter 8. 1.9 cm nodular area of enhancement in the anterosuperior segment right lobe liver. This could be a pseudo-lesion related to the early arterial phase of the contrast injection. Vascular neoplasm is another possibility.
[2017-07-08] MEDS: Dextrose 5%/0.45% NS 1,000 ML IV SCH (20:19)
[2017-07-09] MEDS: Vancomycin 1 gm/NS 200 ml 1 GM/200 ML BAG IVPB SCH ×2 (04:40→14:42)
[2017-07-09] MEDS: (Novolog) Insulin Aspart, Recombinant 100 u/ml 10 ml vial SC SCH ×5 (08:21→21:29)
[2017-07-09] MEDS: HYDROmorphone 0.5 mg/0.5 ml ISec IVP PRN (11:15)
[2017-07-09] MEDS: Multiple Vitamins Tab PO SCH ×2 (11:20→13:18)
[2017-07-09] MEDS: Enoxaparin 80 mg Syringe SC SCH ×2 (11:20→18:02)
[2017-07-09] MEDS: Pantoprazole 40 mg EC Tab PO SCH ×2 (11:21→13:18)
--- NOTE | 2017-07-09 12:39 | CP.PCM.PN ---
Subjective - Date & Time of Evaluation Date of Evaluation: 07/09/17 Time of Evaluation: 07:00 - Subjective Subjective: Vascular surgery progress note for Dr. Tracy Sesay, PGY-1 Pt S & E at bedside. Pt reports no pain of bilateral LE, some pain in sacral area. No acute events overnight. Objective - Vital Signs/Intake and Output Vital Signs (last 24 hours): Temp Pulse Resp BP Pulse Ox 97.3 F L 99 H 20 113/51 L 99 07/08/17 23:00 07/09/17 08:00 07/08/17 23:00 07/08/17 23:00 07/08/17 23:00 Intake and Output: 07/09/17 07/09/17 06:59 18:59 Intake Total 900 Output Total 350 Balance 550 - Medications Medications: Current Medications Cyanocobalamin (Vitamin B12 1000 Mcg Tab) 1,000 mcg PO DAILY [facility] Last Admin: 07/09/17 11:21 Dose: Not Given Enoxaparin Sodium (Lovenox) 70 mg SC BID [facility] Last Admin: 07/09/17 11:20 Dose: Not Given Finasteride (Proscar) 5 mg PO DAILY [facility] Last Admin: 07/09/17 11:21 Dose: Not Given Furosemide (Lasix) 40 mg PO MWF [facility] Home Med (Silodosin [Rapaflo]) 8 mg PO DAILY [facility] Hydromorphone HCl (Dilaudid) 1 mg IVP Q6H PRN PRN Reason: Pain, moderate (4-7) Last Admin: 07/09/17 11:15 Dose: 1 mg Vancomycin/Sodium Chloride (Vancomycin 1 Gm/Ns 200 Ml) 1 gm in 200 mls @ 166.6 mls/hr IVPB Q12H [facility] Stop: 07/13/17 15:01 Last Admin: 07/09/17 04:40 Dose: 166.6 mls/hr Dextrose/Sodium Chloride (Dextrose 5%/0.45% Ns 1000 Ml) 1,000 mls @ 60 mls/hr IV .[id number] [facility] Last Admin: 07/08/17 20:19 Dose: 60 mls/hr Imipenem/Cilastatin Sodium 500 (mg/ Sodium Chloride) 100 mls @ 100 mls/hr IVPB Q8H [facility] Last Admin: 07/09/17 05:34 Dose: 100 mls/hr Insulin Aspart (Novolog) 0 unit SC ACHS [facility] PRN Reason: Protocol Last Admin: 07/09/17 08:30 Dose: Not Given Isosorbide Mononitrate (Imdur Er) 30 mg PO DAILY [facility] Last Admin: 07/08/17 10:09 Dose: 30 mg Multivitamins (Hexavitamin) 1 tab PO DAILY [facility] Last Admin: 07/09/17 11:20 Dose: Not Given Pantoprazole Sodium (Protonix Ec Tab) 40 mg PO DAILY [facility] Last Admin: 07/09/17 11:21 Dose: Not Given - Labs Labs: 07/08/17 14:31 07/07/17 14:51 - Constitutional Appears: Non-toxic, No Acute Distress, Cachectic - Head Exam Head Exam: ATRAUMATIC, NORMAL INSPECTION, NORMOCEPHALIC - Eye Exam Eye Exam: EOMI, Normal appearance - ENT Exam ENT Exam: Mucous Membranes Moist, Normal Exam - Neck Exam Neck Exam: Full ROM, Normal Inspection - Respiratory Exam Respiratory Exam: NORMAL BREATHING PATTERN - Cardiovascular Exam Cardiovascular Exam: REGULAR RHYTHM, +S1, +S2 - GI/Abdominal Exam GI & Abdominal Exam: Soft. absent: Tenderness - Extremities Exam Extremities Exam: absent: Normal Inspection (bilateral feet w/dressings in place - clean/dry/intact. ) - Neurological Exam Neurological Exam: Alert, Awake, CN II-XII Intact - Psychiatric Exam Psychiatric exam: Normal Affect, Normal Mood - Skin Skin Exam: Dry, Normal Color, Warm. absent: Intact Assessment and Plan - Assessment and Plan (Free Text) Assessment: 87M w/non healing wounds of feet Plan: CTA w/occlusion of bilatral SFA and popliteals PVR and dopplers report pending Local wound care Multipodus boots Further recs pending imaging results/attending evamador Will DW attending Shama, PGY-1
[2017-07-09] MEDS: Megestrol Acetate 40 mg/ml Cup PO SCH (14:51)
--- NOTE | 2017-07-09 14:57 | CP.PCM.PN ---
Subjective - Date & Time of Evaluation Date of Evaluation: 07/09/17 Time of Evaluation: 14:57 - Subjective Subjective: cta reviewed not a candidate for surgery amputation likely safest course Objective - Vital Signs/Intake and Output Vital Signs (last 24 hours): Temp Pulse Resp BP Pulse Ox 97.3 F L 99 H 20 113/51 L 99 07/08/17 23:00 07/09/17 08:00 07/08/17 23:00 07/08/17 23:00 07/08/17 23:00 Intake and Output: 07/09/17 07/09/17 06:59 18:59 Intake Total 900 Output Total 350 Balance 550 - Medications Medications: Current Medications Alprazolam (Xanax) 0.25 mg PO HS PRN PRN Reason: Agitation Stop: 07/16/17 14:35 Cyanocobalamin (Vitamin B12 1000 Mcg Tab) 1,000 mcg PO DAILY [facility] Last Admin: 07/09/17 13:19 Dose: 1,000 mcg Enoxaparin Sodium (Lovenox) 70 mg SC BID [facility] Last Admin: 07/09/17 11:20 Dose: Not Given Finasteride (Proscar) 5 mg PO DAILY [facility] Last Admin: 07/09/17 13:19 Dose: 5 mg Furosemide (Lasix) 40 mg PO MWF [facility] Home Med (Silodosin [Rapaflo]) 8 mg PO DAILY [facility] Hydromorphone HCl (Dilaudid) 1 mg IVP Q6H PRN PRN Reason: Pain, moderate (4-7) Last Admin: 07/09/17 11:15 Dose: 1 mg Vancomycin/Sodium Chloride (Vancomycin 1 Gm/Ns 200 Ml) 1 gm in 200 mls @ 166.6 mls/hr IVPB Q12H [facility] Stop: 07/13/17 15:01 Last Admin: 07/09/17 14:42 Dose: 166.6 mls/hr Dextrose/Sodium Chloride (Dextrose 5%/0.45% Ns 1000 Ml) 1,000 mls @ 60 mls/hr IV .[id number] [facility] Last Admin: 07/08/17 20:19 Dose: 60 mls/hr Imipenem/Cilastatin Sodium 500 (mg/ Sodium Chloride) 100 mls @ 100 mls/hr IVPB Q8H [facility] Last Admin: 07/09/17 13:40 Dose: 100 mls/hr Insulin Aspart (Novolog) 0 unit SC ACHS [facility] PRN Reason: Protocol Last Admin: 07/09/17 13:09 Dose: 4 unit Isosorbide Mononitrate (Imdur Er) 30 mg PO DAILY [facility] Last Admin: 07/08/17 10:09 Dose: 30 mg Megestrol Acetate (Megace) 400 mg PO DAILY [facility] Last Admin: 07/09/17 14:51 Dose: 400 mg Multivitamins (Hexavitamin) 1 tab PO DAILY [facility] Last Admin: 07/09/17 13:18 Dose: 1 tab Pantoprazole Sodium (Protonix Ec Tab) 40 mg PO DAILY [facility] Last Admin: 07/09/17 13:18 Dose: 40 mg - Labs Labs: 07/08/17 14:31 07/07/17 14:51
--- NOTE | 2017-07-09 16:26 | CP.PCM.PN ---
Subjective - Date & Time of Evaluation Date of Evaluation: 07/09/17 Time of Evaluation: 15:00 - Subjective Subjective: clinically same Objective - Vital Signs/Intake and Output Vital Signs (last 24 hours): Temp Pulse Resp BP Pulse Ox 97.3 F L 99 H 20 113/51 L 99 07/08/17 23:00 07/09/17 08:00 07/08/17 23:00 07/08/17 23:00 07/08/17 23:00 Intake and Output: 07/09/17 07/09/17 06:59 18:59 Intake Total 900 Output Total 350 Balance 550 - Medications Medications: Current Medications Alprazolam (Xanax) 0.25 mg PO HS PRN PRN Reason: Agitation Stop: 07/16/17 14:35 Cyanocobalamin (Vitamin B12 1000 Mcg Tab) 1,000 mcg PO DAILY [facility] Last Admin: 07/09/17 13:19 Dose: 1,000 mcg Enoxaparin Sodium (Lovenox) 70 mg SC BID [facility] Last Admin: 07/09/17 11:20 Dose: Not Given Finasteride (Proscar) 5 mg PO DAILY [facility] Last Admin: 07/09/17 13:19 Dose: 5 mg Furosemide (Lasix) 40 mg PO MWF [facility] Home Med (Silodosin [Rapaflo]) 8 mg PO DAILY [facility] Hydromorphone HCl (Dilaudid) 1 mg IVP Q6H PRN PRN Reason: Pain, moderate (4-7) Last Admin: 07/09/17 11:15 Dose: 1 mg Vancomycin/Sodium Chloride (Vancomycin 1 Gm/Ns 200 Ml) 1 gm in 200 mls @ 166.6 mls/hr IVPB Q12H [facility] Stop: 07/13/17 15:01 Last Admin: 07/09/17 14:42 Dose: 166.6 mls/hr Dextrose/Sodium Chloride (Dextrose 5%/0.45% Ns 1000 Ml) 1,000 mls @ 60 mls/hr IV .[id number] [facility] Last Admin: 07/08/17 20:19 Dose: 60 mls/hr Imipenem/Cilastatin Sodium 500 (mg/ Sodium Chloride) 100 mls @ 100 mls/hr IVPB Q8H [facility] Last Admin: 07/09/17 13:40 Dose: 100 mls/hr Insulin Aspart (Novolog) 0 unit SC ACHS [facility] PRN Reason: Protocol Last Admin: 07/09/17 13:09 Dose: 4 unit Isosorbide Mononitrate (Imdur Er) 30 mg PO DAILY [facility] Last Admin: 07/08/17 10:09 Dose: 30 mg Megestrol Acetate (Megace) 400 mg PO DAILY [facility] Last Admin: 07/09/17 14:51 Dose: 400 mg Multivitamins (Hexavitamin) 1 tab PO DAILY [facility] Last Admin: 07/09/17 13:18 Dose: 1 tab Pantoprazole Sodium (Protonix Ec Tab) 40 mg PO DAILY [facility] Last Admin: 07/09/17 13:18 Dose: 40 mg - Labs Labs: 07/08/17 14:31 07/07/17 14:51
[2017-07-09] MEDS: Dextrose 5%/0.45% NS 1,000 ML IV SCH (21:28)
--- NOTE | 2017-07-09 23:54 | CARD ---
APPROVED REPORT EKG Measurement Heart [id number] <Conclusion> atrial fibrillation Nonspecific T wave abnormality Abnormal ECG
[2017-07-10] MEDS: Vancomycin 1 gm/NS 200 ml 1 GM/200 ML BAG IVPB SCH ×2 (02:04→15:42)
[2017-07-10] MEDS: HYDROmorphone 0.5 mg/0.5 ml ISec IVP PRN (03:21)
[2017-07-10] MEDS: Dextrose 5%/0.45% NS 1,000 ML IV SCH ×2 (06:03→21:34)
[2017-07-10] MEDS: (Novolog) Insulin Aspart, Recombinant 100 u/ml 10 ml vial SC SCH ×4 (08:45→21:33)
[2017-07-10] MEDS: Pantoprazole 40 mg EC Tab PO SCH (09:26)
[2017-07-10] MEDS: Megestrol Acetate 40 mg/ml Cup PO SCH (09:26)
[2017-07-10] MEDS: Multiple Vitamins Tab PO SCH (09:26)
[2017-07-10] MEDS: Enoxaparin 120 mg Syringe SC SCH ×2 (09:27→22:20)
--- NOTE | 2017-07-10 11:59 | VASCLAB ---
PROCEDURE: Lower Extremity Venous Duplex Exam. HISTORY: gangrene, ulcer lower extremity pain PRIORS: None. TECHNIQUE: Bilateral common femoral, femoral, popliteal and posterior tibial, peroneal and great saphenous veins were evaluated. Flow was assessed with color Doppler, compressibility, assessment of phasic flow and augmentation response. Report prepared by MEDINA Chu, RVT FINDINGS: RIGHT: 1. Common Femoral Vein: 1.1. Compressibility - Fully compressible: Thrombus - None : Flow - Phasic: Augmentation -Normal: Reflux - None. 2. Femoral Vein: 2.1. Compressibility - Fully compressible: Thrombus - None : Flow - Phasic: Augmentation -Normal: Reflux - None. 3. Popliteal Vein: 3.1. Compressibility - Fully compressible: Thrombus - None : Flow - Phasic: Augmentation -Normal: Reflux - None. 4. Posterior Tibial Vein: 4.1. Compressibility - Fully compressible: Thrombus - None: Flow - Phasic: Augmentation -Normal: Reflux - None. 5. Peroneal Vein: 5.1. Compressibility - Fully compressible: Thrombus - None: Flow - Phasic: Augmentation -Normal: Reflux - None. 6. Great Saphenous Vein: 6.1. Compressibility - Fully compressible: Thrombus - None: Flow - Phasic: Augmentation - Normal: Reflux - None. LEFT: 1. Common Femoral Vein: 1.1. Compressibility - Incompressible: Thrombus - Acute: Flow - Absent : Augmentation -None: Reflux - None. 2. Femoral Vein: 2.1. Compressibility - Fully compressible: Thrombus - None: Flow - Phasic: Augmentation -Normal: Reflux - None. 3. Popliteal Vein: 3.1. Compressibility - Incompressible: Thrombus - Acute : Flow - Absent : Augmentation -None: Reflux - None.Other Findings Right: None significant. Left: None significant. IMPRESSION: Right: No evidence of deep or superficial vein thrombosis of the right lower extremity. Normal valve function noted of the right side. Left: Acute Thrombus of the left common femoral and left popliteal vein. An incidental finding of absent of flow in the bilateral superficial femoral artery. This was technically difficult study due to patient limited mobility and pain. Left posterior tibial and peroneal veins were not visualized. Above finding were provided to CROW Cardona at 950am on 07-08-2017.
--- NOTE | 2017-07-10 18:59 | CP.PCM.PN ---
Subjective - Date & Time of Evaluation Date of Evaluation: 07/10/17 Time of Evaluation: 06:50 - Subjective Subjective: Vascular Surgery- Dr. Tsai Patient seen and examined at bedside this AM. No acute events overnight. Pleasantly demented. deneis F/C CP/SOB. b/l LE in air boots. Objective - Vital Signs/Intake and Output Vital Signs (last 24 hours): Temp Pulse Resp BP Pulse Ox 98.3 F 61 20 113/61 98 07/10/17 15:46 07/10/17 15:46 07/10/17 15:46 07/10/17 17:48 07/10/17 15:46 Intake and Output: 07/10/17 07/10/17 06:59 18:59 Intake Total 520 760 Output Total 800 1000 Balance -280 -240 - Medications Medications: Current Medications Alprazolam (Xanax) 0.25 mg PO HS PRN PRN Reason: Agitation Stop: 07/16/17 14:35 Last Admin: 07/09/17 21:28 Dose: 0.25 mg Cyanocobalamin (Vitamin B12 1000 Mcg Tab) 1,000 mcg PO DAILY [facility] Last Admin: 07/10/17 09:26 Dose: 1,000 mcg Enoxaparin Sodium (Lovenox) 110 mg SC Q12 [facility] Last Admin: 07/10/17 09:27 Dose: 110 mg Finasteride (Proscar) 5 mg PO DAILY [facility] Last Admin: 07/10/17 09:26 Dose: 5 mg Furosemide (Lasix) 40 mg PO MWF [facility] Last Admin: 07/10/17 09:26 Dose: 40 mg Hydromorphone HCl (Dilaudid) 1 mg IVP Q6H PRN PRN Reason: Pain, moderate (4-7) Last Admin: 07/10/17 03:21 Dose: 1 mg Dextrose/Sodium Chloride (Dextrose 5%/0.45% Ns 1000 Ml) 1,000 mls @ 60 mls/hr IV .[id number] [facility] Last Admin: 07/10/17 06:03 Dose: Not Given Imipenem/Cilastatin Sodium 500 (mg/ Sodium Chloride) 100 mls @ 100 mls/hr IVPB Q8H [facility] Last Admin: 07/10/17 13:13 Dose: 100 mls/hr Vancomycin/Sodium Chloride (Vancomycin 1 Gm/Ns 200 Ml) 1 gm in 200 mls @ 166.6 mls/hr IVPB DAILY [facility] Stop: 07/16/17 10:01 Insulin Aspart (Novolog) 0 unit SC ACHS [facility] PRN Reason: Protocol Last Admin: 07/10/17 17:47 Dose: 2 unit Isosorbide Mononitrate (Imdur Er) 30 mg PO DAILY [facility] Last Admin: 07/08/17 10:09 Dose: 30 mg Megestrol Acetate (Megace) 400 mg PO DAILY [facility] Last Admin: 07/10/17 09:26 Dose: 400 mg Metoprolol Tartrate (Lopressor) 25 mg PO BID [facility] Last Admin: 07/10/17 17:48 Dose: 25 mg Multivitamins (Hexavitamin) 1 tab PO DAILY [facility] Last Admin: 07/10/17 09:26 Dose: 1 tab Pantoprazole Sodium (Protonix Ec Tab) 40 mg PO DAILY [facility] Last Admin: 07/10/17 09:26 Dose: 40 mg Tamsulosin HCl (Flomax) 0.4 mg PO DAILY [facility] Last Admin: 07/10/17 15:23 Dose: 0.4 mg - Labs Labs: 07/08/17 14:31 07/07/17 14:51 - Constitutional Appears: Non-toxic, No Acute Distress - Head Exam Head Exam: ATRAUMATIC - Eye Exam Eye Exam: EOMI. absent: Scleral icterus - ENT Exam ENT Exam: Mucous Membranes Moist - Respiratory Exam Respiratory Exam: NORMAL BREATHING PATTERN. absent: Accessory Muscle Use, Respiratory Distress - Cardiovascular Exam Cardiovascular Exam: +S1, +S2. absent: Bradycardia, Tachycardia - GI/Abdominal Exam GI & Abdominal Exam: Soft. absent: Distended, Firm, Guarding, Rigid, Tenderness - Extremities Exam Extremities Exam: Calf Tenderness, Pedal Edema Additional comments: b/l LE stage 1 - Neurological Exam Neurological Exam: Alert, Awake, Oriented x3 - Skin Skin Exam: Warm Assessment and Plan - Assessment and Plan (Free Text) Assessment: 87M w/ extensive b/l peripheral arterial disease Plan: not a candidate for surgery bypass recommend amputation medical management per primary discussed w/ Dr. Tsai surgical attending PGY1
[2017-07-10 19:12] LABS: BLOOD UREA NITROGEN 10 mg/dL (9-20); CALCIUM 7.7 mg/dl (8.6-10.4); GFR AFRICAN-AMERICAN > 60; GFR NON-AFRICAN AMERICAN > 60; HDL CHOLESTEROL 24 mg/dL (30-70)
--- NOTE | 2017-07-10 19:14 | CP.PCM.PN ---
Subjective - Date & Time of Evaluation Date of Evaluation: 07/10/17 Time of Evaluation: 13:40 - Subjective Subjective: clinically same Objective - Vital Signs/Intake and Output Vital Signs (last 24 hours): Temp Pulse Resp BP Pulse Ox 98.3 F 61 20 113/61 98 07/10/17 15:46 07/10/17 15:46 07/10/17 15:46 07/10/17 17:48 07/10/17 15:46 Intake and Output: 07/10/17 07/11/17 18:59 06:59 Intake Total 760 Output Total 1000 Balance -240 - Medications Medications: Current Medications Alprazolam (Xanax) 0.25 mg PO HS PRN PRN Reason: Agitation Stop: 07/16/17 14:35 Last Admin: 07/09/17 21:28 Dose: 0.25 mg Cyanocobalamin (Vitamin B12 1000 Mcg Tab) 1,000 mcg PO DAILY [facility] Last Admin: 07/10/17 09:26 Dose: 1,000 mcg Enoxaparin Sodium (Lovenox) 110 mg SC Q12 [facility] Last Admin: 07/10/17 09:27 Dose: 110 mg Finasteride (Proscar) 5 mg PO DAILY [facility] Last Admin: 07/10/17 09:26 Dose: 5 mg Furosemide (Lasix) 40 mg PO MWF [facility] Last Admin: 07/10/17 09:26 Dose: 40 mg Hydromorphone HCl (Dilaudid) 1 mg IVP Q6H PRN PRN Reason: Pain, moderate (4-7) Last Admin: 07/10/17 03:21 Dose: 1 mg Dextrose/Sodium Chloride (Dextrose 5%/0.45% Ns 1000 Ml) 1,000 mls @ 60 mls/hr IV .[id number] [facility] Last Admin: 07/10/17 06:03 Dose: Not Given Imipenem/Cilastatin Sodium 500 (mg/ Sodium Chloride) 100 mls @ 100 mls/hr IVPB Q8H [facility] Last Admin: 07/10/17 13:13 Dose: 100 mls/hr Vancomycin/Sodium Chloride (Vancomycin 1 Gm/Ns 200 Ml) 1 gm in 200 mls @ 166.6 mls/hr IVPB DAILY [facility] Stop: 07/16/17 10:01 Insulin Aspart (Novolog) 0 unit SC ACHS [facility] PRN Reason: Protocol Last Admin: 07/10/17 17:47 Dose: 2 unit Isosorbide Mononitrate (Imdur Er) 30 mg PO DAILY [facility] Last Admin: 07/08/17 10:09 Dose: 30 mg Megestrol Acetate (Megace) 400 mg PO DAILY [facility] Last Admin: 07/10/17 09:26 Dose: 400 mg Metoprolol Tartrate (Lopressor) 25 mg PO BID [facility] Last Admin: 07/10/17 17:48 Dose: 25 mg Multivitamins (Hexavitamin) 1 tab PO DAILY [facility] Last Admin: 07/10/17 09:26 Dose: 1 tab Pantoprazole Sodium (Protonix Ec Tab) 40 mg PO DAILY [facility] Last Admin: 07/10/17 09:26 Dose: 40 mg Tamsulosin HCl (Flomax) 0.4 mg PO DAILY [facility] Last Admin: 07/10/17 15:23 Dose: 0.4 mg - Labs Labs: 07/08/17 14:31 07/07/17 14:51 - Constitutional Appears: Well - Head Exam Head Exam: ATRAUMATIC, NORMAL INSPECTION, NORMOCEPHALIC - Eye Exam Eye Exam: EOMI, Normal appearance, PERRL Pupil Exam: NORMAL ACCOMODATION, PERRL - ENT Exam ENT Exam: Mucous Membranes Moist, Normal Exam - Neck Exam Neck Exam: Full ROM, Normal Inspection. absent: Lymphadenopathy - Respiratory Exam Respiratory Exam: Decreased Breath Sounds - Cardiovascular Exam Cardiovascular Exam: REGULAR RHYTHM, +S1, +S2 - GI/Abdominal Exam GI & Abdominal Exam: Soft, Diminished Bowel Sounds - Rectal Exam Rectal Exam: Deferred
[2017-07-10 19:20] LABS: LDL CHOLESTEROL 105 mg/dL (0-129)
--- NOTE | 2017-07-10 23:26 | CP.PCM.PN ---
Subjective - Date & Time of Evaluation Date of Evaluation: 07/10/17 Time of Evaluation: 23:26 - Subjective Subjective: Patient seen and examined at bedside this AM WITH WOUND CARE NURSE AZAR. PT. large unstagable decubital ulcer noted to sacrum, Unstagable 5-6cm in size decubital ulcer to left hip -DEEP INTO TISSUE SPACE. BILATERAL HEEL ULCERS WITH B/L MEDIAL MALLEOLUS DISCOLARATION+VE/ AND DRY GANGRENE LATERAL ASPECT OF FEET PEDAL PULSES WEAK. PATIENT SEEN BY VASCULAR SURGERY. NOT A CANDIDATE FOR EXTENSIVE SURGERY EXCEPT FOR BKA pER VASCULAR SURGEON. lABS REVIEWED vANCO TROUGH 24.4 07/10/17. HOLD vANCO FOR TODAY. RESTART vANCO 1 G EVERY 24 HOURLY IN A.M.07/11/17 CONTINUE iv pRIMAXIN 500 MG EVERY 8 HOURLY.. Objective - Vital Signs/Intake and Output Vital Signs (last 24 hours): Temp Pulse Resp BP Pulse Ox 98.3 F 90 20 92/61 L 99 07/10/17 22:19 07/10/17 22:19 07/10/17 22:19 07/10/17 22:19 07/10/17 22:19 Intake and Output: 07/10/17 07/11/17 18:59 06:59 Intake Total 760 Output Total 1000 Balance -240 - Medications Medications: Current Medications Alprazolam (Xanax) 0.25 mg PO HS PRN PRN Reason: Agitation Stop: 07/16/17 14:35 Last Admin: 07/10/17 21:31 Dose: 0.25 mg Cyanocobalamin (Vitamin B12 1000 Mcg Tab) 1,000 mcg PO DAILY [facility] Last Admin: 07/10/17 09:26 Dose: 1,000 mcg Enoxaparin Sodium (Lovenox) 110 mg SC Q12 [facility] Last Admin: 07/10/17 22:20 Dose: 110 mg Finasteride (Proscar) 5 mg PO DAILY [facility] Last Admin: 07/10/17 09:26 Dose: 5 mg Furosemide (Lasix) 40 mg PO MWF [facility] Last Admin: 07/10/17 09:26 Dose: 40 mg Hydromorphone HCl (Dilaudid) 1 mg IVP Q6H PRN PRN Reason: Pain, moderate (4-7) Last Admin: 07/10/17 03:21 Dose: 1 mg Dextrose/Sodium Chloride (Dextrose 5%/0.45% Ns 1000 Ml) 1,000 mls @ 60 mls/hr IV .[id number] [facility] Last Admin: 07/10/17 21:34 Dose: 60 mls/hr Imipenem/Cilastatin Sodium 500 (mg/ Sodium Chloride) 100 mls @ 100 mls/hr IVPB Q8H [facility] Last Admin: 07/10/17 21:31 Dose: 100 mls/hr Vancomycin/Sodium Chloride (Vancomycin 1 Gm/Ns 200 Ml) 1 gm in 200 mls @ 166.6 mls/hr IVPB DAILY [facility] Stop: 07/16/17 10:01 Insulin Aspart (Novolog) 0 unit SC ACHS [facility] PRN Reason: Protocol Last Admin: 07/10/17 21:33 Dose: Not Given Isosorbide Mononitrate (Imdur Er) 30 mg PO DAILY [facility] Last Admin: 07/08/17 10:09 Dose: 30 mg Megestrol Acetate (Megace) 400 mg PO DAILY [facility] Last Admin: 07/10/17 09:26 Dose: 400 mg Metoprolol Tartrate (Lopressor) 25 mg PO BID [facility] Last Admin: 07/10/17 17:48 Dose: 25 mg Multivitamins (Hexavitamin) 1 tab PO DAILY [facility] Last Admin: 07/10/17 09:26 Dose: 1 tab Pantoprazole Sodium (Protonix Ec Tab) 40 mg PO DAILY [facility] Last Admin: 07/10/17 09:26 Dose: 40 mg Tamsulosin HCl (Flomax) 0.4 mg PO DAILY [facility] Last Admin: 07/10/17 15:23 Dose: 0.4 mg - Labs Labs: 07/08/17 14:31 07/10/17 18:57 - Constitutional Appears: No Acute Distress, Chronically Ill - Head Exam Head Exam: NORMAL INSPECTION - Eye Exam Eye Exam: PERRL - ENT Exam ENT Exam: Normal Oropharynx - Respiratory Exam Respiratory Exam: Clear to Ausculation Bilateral - Cardiovascular Exam Cardiovascular Exam: REGULAR RHYTHM, +S1, +S2 - GI/Abdominal Exam GI & Abdominal Exam: Soft, Normal Bowel Sounds - Extremities Exam Extremities Exam: Pedal Edema. absent: Calf Tenderness, Normal Capillary Refill Additional comments: large unstagable decubital ulcer noted to sacrum, Unstagable 5-6cm in size decubital ulcer to left hip -DEEP INTO TISSUE SPACE. BILATERAL HEEL ULCERS WITH B/L MEDIAL MALLEOLUS DISCOLARATION+VE/ AND DRY GANGRENE LATERAL ASPECT OF FEET PEDAL PULSES WEAK. DELAYED CAPILLARY REFILL. - Neurological Exam Neurological Exam: Awake, Oriented x3 - Psychiatric Exam Psychiatric exam: Normal Affect - Skin Skin Exam: Normal Color, Warm Assessment and Plan (1) Decubitus ulcer with gangrene Assessment & Plan: ON IV PRIMAXIN 500MG IVPB Q 8HRLY 07/08/17 HOLD IV VANCOMYCIN DOSE TODAY. 07/07/17 RESTART iv VANCOMYCIN 1350MG IVPB IN A.M. F/U VANCO TROUGH PRIOR TO 4TH DOSE OF ABOVE AND KEEP BETWEEN 10-20MG/L. LWC. wILL DISCUSS WITH pmd. Status: Acute (2) Diabetes Status: Acute (3) Atrial fibrillation Status: Acute (4) Dementia Status: Acute (5) PVD (peripheral vascular disease) Status: Acute
--- NOTE | 2017-07-11 05:06 | CON ---
DATE: REFERRING PHYSICIAN: Mary Jones MD SUBJECTIVE: An 87-year-old gentleman was brought in from a rehab with multiple decubitus ulcer, gangrenous changes in both the feet. The patient is known to me over the past many years, carries a diagnosis of hypertension, CAD, diabetes, and PAD. He also has history of sleep apnea. PERSONAL HISTORY: Does not smoke, does not drink. ALLERGIES: DENIED. FAMILY HISTORY: He is , lives with his , positive for hypertension. REVIEW OF SYSTEMS: Generalized weakness is noted. No fever, no chills, poor appetite. No visual disturbances, no cough, no hemoptysis, no hematemesis, no melena. Multiple joint arthritis as well as decubitus ulcers developed in the left hip and sacrum, also has gangrenous changes in both the feet. No history of depression. No history of TIAs or CVAs. Frequency is noted of urination. No hematuria. No chest pains. Occasional shortness of breath. He is essentially back to ____. 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 PHYSICAL EXAMINATION: GENERAL: Shows an elderly gentleman. He is chronically sick looking but in no distress. VITAL SIGNS: He is 6 feet, weighs 240 pounds. His blood pressure is 110/70, heart rate of 102, atrial fibrillation on the monitor, respiratory rate of 20, afebrile, temperature is 98.1. HEENT: Head is normocephalic. Eyes, no pallor, no icterus. Mouth, absence of few teeth. No exudate. NECK: Supple. LUNGS: Clear bilaterally HEART: PMI is not localized. S1, S2 are distant and tachycardic. No definite gallops or murmurs could be appreciated. ABDOMEN: Soft and nontender. EXTREMITIES: Gangrenous changes in both feet. Left hip decubiti, has a dressing on. NEUROLOGIC: Awake, alert, oriented x3. No focal sign. LABORATORY DATA: Hemoglobin is 8.5, his BUN is 26, creatinine is 1.2. EKG shows atrial fibrillation. Telemetry shows rapid ventricular rate. MEDICATIONS: Medications were noted, which include Imdur. RECOMMENDATIONS: To add beta-blockers to control the heart rate. There is no evidence of heart failure. We will recheck chem-7 and thyroid profile. The patient has been seen and followed by Dr. Tsai for vascular. The patient is already on Lovenox. We will recheck the renal functions. I thank you kindly and we will follow. Cam Telles MD
[2017-07-11 07:44] LABS: BASO % 0.4 % (0.0-2.0); EOS # 0.2 K/uL (0.0-0.7); EOS % 1.4 % (0.0-4.0); HEMOGLOBIN 8.3 g/dL (12.0-18.0); LYMPH # 1.5 K/uL (1.0-4.3); LYMPH % 13.8 % (20.0-40.0); MEAN CELL VOLUME 89.6 fL (80.0-94.0); MEAN CORPUSCULAR HEMOGLOBIN 30.2 pg (27.0-31.0); MEAN CORPUSCULAR HGB CONC 33.6 g/dL (33.0-37.0); MEAN PLATELET VOLUME 7.5 fL (7.2-11.7); MONO # 0.7 K/uL (0.0-0.8); MONO % 6.7 % (0.0-10.0); NEUT # 8.6 K/uL (1.8-7.0); NEUT % 77.7 % (50.0-75.0); RBC 2.77 Mil/uL (4.40-5.90); RED CELL DISTRIBUTION WIDTH 14.1 % (11.5-14.5); WHITE BLOOD COUNT 11.1 K/uL (4.8-10.8)
[2017-07-11] MEDS: (Novolog) Insulin Aspart, Recombinant 100 u/ml 10 ml vial SC SCH ×4 (08:48→21:24)
[2017-07-11] MEDS: Enoxaparin 120 mg Syringe SC SCH ×2 (08:59→21:59)
[2017-07-11] MEDS: Multiple Vitamins Tab PO SCH (08:59)
[2017-07-11] MEDS: Megestrol Acetate 40 mg/ml Cup PO SCH (08:59)
[2017-07-11] MEDS: Pantoprazole 40 mg EC Tab PO SCH (08:59)
[2017-07-11] MEDS ORDERED: Vancomycin 1 gm/NS 200 ml 1 GM/200 ML BAG IVPB SCH (10:00)
--- NOTE | 2017-07-11 10:23 | CP.PCM.PN ---
Subjective - Date & Time of Evaluation Date of Evaluation: 07/11/17 Time of Evaluation: 06:40 - Subjective Subjective: Vascular surgery progress note for Dr. Tracy Sesay, PGY-1 Pt S & E at bedside. Pt resting comfortably in bed, no complaints. Denies LE pain. Objective - Vital Signs/Intake and Output Vital Signs (last 24 hours): Temp Pulse Resp BP Pulse Ox 98.2 F 108 H 20 115/64 97 07/11/17 08:25 07/11/17 08:25 07/11/17 08:25 07/11/17 08:59 07/11/17 08:25 Intake and Output: 07/11/17 07/11/17 06:59 18:59 Intake Total 520 Output Total 1500 Balance -980 - Medications Medications: Current Medications Alprazolam (Xanax) 0.25 mg PO HS PRN PRN Reason: Agitation Stop: 07/16/17 14:35 Last Admin: 07/10/17 21:31 Dose: 0.25 mg Cyanocobalamin (Vitamin B12 1000 Mcg Tab) 1,000 mcg PO DAILY [facility] Last Admin: 07/11/17 08:59 Dose: 1,000 mcg Enoxaparin Sodium (Lovenox) 110 mg SC Q12 [facility] Last Admin: 07/11/17 08:59 Dose: 110 mg Finasteride (Proscar) 5 mg PO DAILY [facility] Last Admin: 07/11/17 08:59 Dose: 5 mg Furosemide (Lasix) 40 mg PO MWF [facility] Last Admin: 07/10/17 09:26 Dose: 40 mg Hydromorphone HCl (Dilaudid) 1 mg IVP Q6H PRN PRN Reason: Pain, moderate (4-7) Last Admin: 07/10/17 03:21 Dose: 1 mg Dextrose/Sodium Chloride (Dextrose 5%/0.45% Ns 1000 Ml) 1,000 mls @ 60 mls/hr IV .[id number] [facility] Last Admin: 07/10/17 21:34 Dose: 60 mls/hr Imipenem/Cilastatin Sodium 500 (mg/ Sodium Chloride) 100 mls @ 100 mls/hr IVPB Q8H [facility] Last Admin: 07/11/17 05:37 Dose: 100 mls/hr Vancomycin HCl 1.35 gm/ Sodium (Chloride) 500 mls @ 222 mls/hr IVPB Q24H [facility] Insulin Aspart (Novolog) 0 unit SC ACHS [facility] PRN Reason: Protocol Last Admin: 07/11/17 08:48 Dose: 2 unit Isosorbide Mononitrate (Imdur Er) 30 mg PO DAILY [facility] Last Admin: 07/08/17 10:09 Dose: 30 mg Megestrol Acetate (Megace) 400 mg PO DAILY [facility] Last Admin: 07/11/17 08:59 Dose: 400 mg Metoprolol Tartrate (Lopressor) 25 mg PO BID [facility] Last Admin: 07/11/17 08:59 Dose: 25 mg Multivitamins (Hexavitamin) 1 tab PO DAILY [facility] Last Admin: 07/11/17 08:59 Dose: 1 tab Pantoprazole Sodium (Protonix Ec Tab) 40 mg PO DAILY [facility] Last Admin: 07/11/17 08:59 Dose: 40 mg Tamsulosin HCl (Flomax) 0.4 mg PO DAILY [facility] Last Admin: 07/11/17 08:59 Dose: 0.4 mg - Labs Labs: 07/11/17 07:05 07/10/17 18:57 - Constitutional Appears: Non-toxic, No Acute Distress - Head Exam Head Exam: ATRAUMATIC, NORMAL INSPECTION, NORMOCEPHALIC - Eye Exam Eye Exam: EOMI, Normal appearance - ENT Exam ENT Exam: Mucous Membranes Moist, Normal Exam - Neck Exam Neck Exam: Full ROM, Normal Inspection - Respiratory Exam Respiratory Exam: NORMAL BREATHING PATTERN - Cardiovascular Exam Cardiovascular Exam: REGULAR RHYTHM, +S1, +S2 - GI/Abdominal Exam GI & Abdominal Exam: absent: Distended - Extremities Exam Extremities Exam: Normal Inspection (airboots in place) - Neurological Exam Neurological Exam: Alert, Awake. absent: Oriented x3 (pleasantly demented) - Psychiatric Exam Psychiatric exam: Normal Affect, Normal Mood - Skin Skin Exam: Dry, Normal Color, Warm. absent: Intact (superficial skin tears over lower extremities) Assessment and Plan - Assessment and Plan (Free Text) Assessment: 87M w/ extensive b/l peripheral arterial disease Plan: Local wound care not a candidate for surgery bypass recommend amputation Further mgmt as per primary Will follow peripherally Will DW attending Shama, PGY-1
[2017-07-11] MEDS ORDERED: HYDROmorphone 1 mg/ml ISec IVP PRN (10:30)
[2017-07-11] MEDS: VANCOMYCIN IVPB SCH (10:50)
[2017-07-11] MEDS: SODIUM CHLORIDE 0.9% IVPB SCH (10:50)
--- NOTE | 2017-07-11 15:19 | NM ---
PROCEDURE: Three-phase bone scan HISTORY: left hip , r/o osteo Osteomyelitis suspected left hip COMPARISON: 06/13/2017 plain film radiograms of the abdomen including pelvic osseous structures. TECHNIQUE: Following administration of 24.1 miCu of Tc MDP three-phase bone scan images were obtained attention pelvis, left hip FINDINGS: Flow component: Symmetrical flow to the pelvis Blood pool component: Photon deficient area likely left lateral decubitus ulcer with a rim of accumulation of radionuclide in soft tissues. Delayed images at 3:00: Faint uptake proximal left femur, greater trochanter region. IMPRESSION: Intense uptake peripheral, rim accumulation likely related to lateral left hip decubitus ulcer. The findings do not conform to acute osseous process. There is uptake in the greater trochanteric region on the delayed images.
--- NOTE | 2017-07-11 17:55 | CP.PCM.PN ---
Subjective - Date & Time of Evaluation Date of Evaluation: 07/11/17 Time of Evaluation: 15:20 - Subjective Subjective: clinically same Objective - Vital Signs/Intake and Output Vital Signs (last 24 hours): Temp Pulse Resp BP Pulse Ox 98.3 F 88 20 95/54 L 100 07/11/17 15:53 07/11/17 16:00 07/11/17 15:53 07/11/17 17:46 07/11/17 15:53 Intake and Output: 07/11/17 07/11/17 06:59 18:59 Intake Total 520 800 Output Total 1500 400 Balance -980 400 - Medications Medications: Current Medications Alprazolam (Xanax) 0.25 mg PO HS PRN PRN Reason: Agitation Stop: 07/16/17 14:35 Last Admin: 07/10/17 21:31 Dose: 0.25 mg Cyanocobalamin (Vitamin B12 1000 Mcg Tab) 1,000 mcg PO DAILY [facility] Last Admin: 07/11/17 08:59 Dose: 1,000 mcg Enoxaparin Sodium (Lovenox) 110 mg SC Q12 [facility] Last Admin: 07/11/17 08:59 Dose: 110 mg Finasteride (Proscar) 5 mg PO DAILY [facility] Last Admin: 07/11/17 08:59 Dose: 5 mg Furosemide (Lasix) 40 mg PO MWF [facility] Last Admin: 07/10/17 09:26 Dose: 40 mg Hydromorphone HCl (Dilaudid) 1 mg IVP Q6H PRN PRN Reason: Pain, moderate (4-7) Dextrose/Sodium Chloride (Dextrose 5%/0.45% Ns 1000 Ml) 1,000 mls @ 60 mls/hr IV .[id number] [facility] Last Admin: 07/10/17 21:34 Dose: 60 mls/hr Imipenem/Cilastatin Sodium 500 (mg/ Sodium Chloride) 100 mls @ 100 mls/hr IVPB Q8H [facility] Last Admin: 07/11/17 13:40 Dose: 100 mls/hr Vancomycin HCl 1.35 gm/ Sodium (Chloride) 500 mls @ 222 mls/hr IVPB Q24H [facility] Last Admin: 07/11/17 10:50 Dose: 222 mls/hr Insulin Aspart (Novolog) 0 unit SC ACHS [facility] PRN Reason: Protocol Last Admin: 07/11/17 17:46 Dose: 3 unit Isosorbide Mononitrate (Imdur Er) 30 mg PO DAILY [facility] Last Admin: 07/08/17 10:09 Dose: 30 mg Megestrol Acetate (Megace) 400 mg PO DAILY [facility] Last Admin: 07/11/17 08:59 Dose: 400 mg Metoprolol Tartrate (Lopressor) 25 mg PO BID [facility] Last Admin: 07/11/17 17:46 Dose: Not Given Multivitamins (Hexavitamin) 1 tab PO DAILY [facility] Last Admin: 07/11/17 08:59 Dose: 1 tab Pantoprazole Sodium (Protonix Ec Tab) 40 mg PO DAILY [facility] Last Admin: 07/11/17 08:59 Dose: 40 mg Tamsulosin HCl (Flomax) 0.4 mg PO DAILY [facility] Last Admin: 07/11/17 08:59 Dose: 0.4 mg - Labs Labs: 07/11/17 07:05 07/10/17 18:57 - Constitutional Appears: Well - Head Exam Head Exam: ATRAUMATIC, NORMAL INSPECTION, NORMOCEPHALIC - Eye Exam Eye Exam: EOMI, Normal appearance, PERRL Pupil Exam: NORMAL ACCOMODATION, PERRL - ENT Exam ENT Exam: Mucous Membranes Moist, Normal Exam - Neck Exam Neck Exam: Full ROM, Normal Inspection. absent: Lymphadenopathy - Respiratory Exam Respiratory Exam: Decreased Breath Sounds - Cardiovascular Exam Cardiovascular Exam: REGULAR RHYTHM, +S1, +S2 - GI/Abdominal Exam GI & Abdominal Exam: Soft, Diminished Bowel Sounds - Rectal Exam Rectal Exam: Deferred
--- NOTE | 2017-07-11 20:21 | CP.PCM.PN ---
Subjective - Date & Time of Evaluation Date of Evaluation: 07/11/17 Time of Evaluation: 20:20 - Subjective Subjective: leg pains.a,fib control vr Objective - Vital Signs/Intake and Output Vital Signs (last 24 hours): Temp Pulse Resp BP Pulse Ox 98.3 F 88 20 95/54 L 100 07/11/17 15:53 07/11/17 16:00 07/11/17 15:53 07/11/17 17:46 07/11/17 15:53 Intake and Output: 07/11/17 07/12/17 18:59 06:59 Intake Total 800 Output Total 400 Balance 400 - Medications Medications: Current Medications Alprazolam (Xanax) 0.25 mg PO HS PRN PRN Reason: Agitation Stop: 07/16/17 14:35 Last Admin: 07/10/17 21:31 Dose: 0.25 mg Cyanocobalamin (Vitamin B12 1000 Mcg Tab) 1,000 mcg PO DAILY [facility] Last Admin: 07/11/17 08:59 Dose: 1,000 mcg Enoxaparin Sodium (Lovenox) 110 mg SC Q12 [facility] Last Admin: 07/11/17 08:59 Dose: 110 mg Finasteride (Proscar) 5 mg PO DAILY [facility] Last Admin: 07/11/17 08:59 Dose: 5 mg Furosemide (Lasix) 40 mg PO MWF [facility] Last Admin: 07/10/17 09:26 Dose: 40 mg Hydromorphone HCl (Dilaudid) 1 mg IVP Q6H PRN PRN Reason: Pain, moderate (4-7) Dextrose/Sodium Chloride (Dextrose 5%/0.45% Ns 1000 Ml) 1,000 mls @ 60 mls/hr IV .[id number] [facility] Last Admin: 07/10/17 21:34 Dose: 60 mls/hr Imipenem/Cilastatin Sodium 500 (mg/ Sodium Chloride) 100 mls @ 100 mls/hr IVPB Q8H [facility] Last Admin: 07/11/17 13:40 Dose: 100 mls/hr Vancomycin HCl 1.35 gm/ Sodium (Chloride) 500 mls @ 222 mls/hr IVPB Q24H [facility] Last Admin: 07/11/17 10:50 Dose: 222 mls/hr Insulin Aspart (Novolog) 0 unit SC ACHS [facility] PRN Reason: Protocol Last Admin: 07/11/17 17:46 Dose: 3 unit Isosorbide Mononitrate (Imdur Er) 30 mg PO DAILY [facility] Last Admin: 07/08/17 10:09 Dose: 30 mg Megestrol Acetate (Megace) 400 mg PO DAILY [facility] Last Admin: 07/11/17 08:59 Dose: 400 mg Metoprolol Tartrate (Lopressor) 25 mg PO BID [facility] Last Admin: 07/11/17 17:46 Dose: Not Given Multivitamins (Hexavitamin) 1 tab PO DAILY [facility] Last Admin: 07/11/17 08:59 Dose: 1 tab Pantoprazole Sodium (Protonix Ec Tab) 40 mg PO DAILY [facility] Last Admin: 07/11/17 08:59 Dose: 40 mg Tamsulosin HCl (Flomax) 0.4 mg PO DAILY [facility] Last Admin: 07/11/17 08:59 Dose: 0.4 mg - Labs Labs: 07/11/17 07:05 07/10/17 18:57 - Constitutional Appears: No Acute Distress, Chronically Ill - Neck Exam Neck Exam: Normal Inspection - Respiratory Exam Respiratory Exam: Clear to Ausculation Bilateral - Cardiovascular Exam Cardiovascular Exam: Irregular Rhythm, Murmur - GI/Abdominal Exam GI & Abdominal Exam: Soft - Neurological Exam Neurological Exam: Alert, Oriented x3 Assessment and Plan - Assessment and Plan (Free Text) Assessment: htn,cad,a,fib.ct same rx.
[2017-07-11] MEDS: Dextrose 5%/0.45% NS 1,000 ML IV SCH (22:03)
[2017-07-12] MEDS: Pantoprazole 40 mg EC Tab PO SCH (09:32)
[2017-07-12] MEDS: Multiple Vitamins Tab PO SCH (09:32)
[2017-07-12] MEDS: Enoxaparin 120 mg Syringe SC SCH ×2 (09:33→21:19)
[2017-07-12] MEDS: (Novolog) Insulin Aspart, Recombinant 100 u/ml 10 ml vial SC SCH ×4 (09:34→21:22)
[2017-07-12] MEDS: Megestrol Acetate 40 mg/ml Cup PO SCH (09:38)
--- NOTE | 2017-07-12 10:25 | CP.PCM.PN ---
Subjective - Date & Time of Evaluation Date of Evaluation: 07/12/17 Time of Evaluation: 10:24 - Subjective Subjective: no pains.a,fib Objective - Vital Signs/Intake and Output Vital Signs (last 24 hours): Temp Pulse Resp BP Pulse Ox 98.3 F 114 H 18 98/59 L 100 07/12/17 08:20 07/12/17 08:20 07/12/17 08:20 07/12/17 10:08 07/12/17 08:20 Intake and Output: 07/12/17 07/12/17 06:59 18:59 Output Total 575 Balance -575 - Medications Medications: Current Medications Alprazolam (Xanax) 0.25 mg PO HS PRN PRN Reason: Agitation Stop: 07/16/17 14:35 Last Admin: 07/11/17 22:00 Dose: 0.25 mg Cyanocobalamin (Vitamin B12 1000 Mcg Tab) 1,000 mcg PO DAILY [facility] Last Admin: 07/12/17 09:39 Dose: 1,000 mcg Enoxaparin Sodium (Lovenox) 110 mg SC Q12 [facility] Last Admin: 07/12/17 09:33 Dose: 110 mg Finasteride (Proscar) 5 mg PO DAILY [facility] Last Admin: 07/12/17 09:32 Dose: 5 mg Furosemide (Lasix) 40 mg PO MWF [facility] Last Admin: 07/10/17 09:26 Dose: 40 mg Hydromorphone HCl (Dilaudid) 1 mg IVP Q6H PRN PRN Reason: Pain, moderate (4-7) Imipenem/Cilastatin Sodium 500 (mg/ Sodium Chloride) 100 mls @ 100 mls/hr IVPB Q8H [facility] Last Admin: 07/12/17 05:21 Dose: 100 mls/hr Vancomycin HCl 1.35 gm/ Sodium (Chloride) 500 mls @ 222 mls/hr IVPB Q24H [facility] Last Admin: 07/11/17 10:50 Dose: 222 mls/hr Insulin Aspart (Novolog) 0 unit SC ACHS [facility] PRN Reason: Protocol Last Admin: 07/12/17 09:34 Dose: 4 unit Isosorbide Mononitrate (Imdur Er) 30 mg PO DAILY [facility] Last Admin: 07/08/17 10:09 Dose: 30 mg Megestrol Acetate (Megace) 400 mg PO DAILY [facility] Last Admin: 07/12/17 09:38 Dose: 400 mg Metoprolol Tartrate (Lopressor) 25 mg PO BID [facility] Last Admin: 07/12/17 10:08 Dose: 25 mg Multivitamins (Hexavitamin) 1 tab PO DAILY [facility] Last Admin: 07/12/17 09:32 Dose: 1 tab Pantoprazole Sodium (Protonix Ec Tab) 40 mg PO DAILY [facility] Last Admin: 07/12/17 09:32 Dose: 40 mg Tamsulosin HCl (Flomax) 0.4 mg PO DAILY [facility] Last Admin: 07/12/17 09:32 Dose: 0.4 mg - Labs Labs: 07/11/17 07:05 07/10/17 18:57 - Constitutional Appears: No Acute Distress, Chronically Ill - Eye Exam Eye Exam: Normal appearance - Neck Exam Neck Exam: Normal Inspection - Respiratory Exam Respiratory Exam: Clear to Ausculation Bilateral - Cardiovascular Exam Cardiovascular Exam: Irregular Rhythm - GI/Abdominal Exam GI & Abdominal Exam: Soft - Extremities Exam Extremities Exam: absent: Pedal Edema - Neurological Exam Neurological Exam: Alert, Oriented x3 Assessment and Plan - Assessment and Plan (Free Text) Assessment: a,fib.bp in 90s.stable
[2017-07-12] MEDS: SODIUM CHLORIDE 0.9% IVPB SCH (10:44)
[2017-07-12] MEDS: VANCOMYCIN IVPB SCH (10:44)
--- NOTE | 2017-07-12 17:43 | CP.PCM.PN ---
Subjective - Date & Time of Evaluation Date of Evaluation: 07/12/17 Time of Evaluation: 14:40 - Subjective Subjective: clinically same Objective - Vital Signs/Intake and Output Vital Signs (last 24 hours): Temp Pulse Resp BP Pulse Ox 98.1 F 88 20 99/59 L 99 07/12/17 15:10 07/12/17 15:10 07/12/17 15:10 07/12/17 15:10 07/12/17 15:10 Intake and Output: 07/12/17 07/12/17 06:59 18:59 Intake Total 800 Output Total 575 400 Balance -575 400 - Medications Medications: Current Medications Alprazolam (Xanax) 0.25 mg PO HS PRN PRN Reason: Agitation Stop: 07/16/17 14:35 Last Admin: 07/11/17 22:00 Dose: 0.25 mg Cyanocobalamin (Vitamin B12 1000 Mcg Tab) 1,000 mcg PO DAILY [facility] Last Admin: 07/12/17 09:39 Dose: 1,000 mcg Enoxaparin Sodium (Lovenox) 110 mg SC Q12 [facility] Last Admin: 07/12/17 09:33 Dose: 110 mg Finasteride (Proscar) 5 mg PO DAILY [facility] Last Admin: 07/12/17 09:32 Dose: 5 mg Furosemide (Lasix) 40 mg PO MWF [facility] Last Admin: 07/10/17 09:26 Dose: 40 mg Hydromorphone HCl (Dilaudid) 1 mg IVP Q6H PRN PRN Reason: Pain, moderate (4-7) Imipenem/Cilastatin Sodium 500 (mg/ Sodium Chloride) 100 mls @ 100 mls/hr IVPB Q8H [facility] Last Admin: 07/12/17 14:10 Dose: 100 mls/hr Vancomycin HCl 1.35 gm/ Sodium (Chloride) 500 mls @ 222 mls/hr IVPB Q24H [facility] Last Admin: 07/12/17 10:44 Dose: 222 mls/hr Insulin Aspart (Novolog) 0 unit SC ACHS [facility] PRN Reason: Protocol Last Admin: 07/12/17 12:37 Dose: 4 unit Isosorbide Mononitrate (Imdur Er) 30 mg PO DAILY [facility] Last Admin: 07/08/17 10:09 Dose: 30 mg Megestrol Acetate (Megace) 400 mg PO DAILY [facility] Last Admin: 07/12/17 09:38 Dose: 400 mg Metoprolol Tartrate (Lopressor) 25 mg PO BID [facility] Multivitamins (Hexavitamin) 1 tab PO DAILY [facility] Last Admin: 07/12/17 09:32 Dose: 1 tab Pantoprazole Sodium (Protonix Ec Tab) 40 mg PO DAILY [facility] Last Admin: 07/12/17 09:32 Dose: 40 mg Tamsulosin HCl (Flomax) 0.4 mg PO DAILY [facility] Last Admin: 07/12/17 09:32 Dose: 0.4 mg - Labs Labs: 07/11/17 07:05 07/10/17 18:57 - Constitutional Appears: Well - Head Exam Head Exam: ATRAUMATIC, NORMAL INSPECTION, NORMOCEPHALIC - Eye Exam Eye Exam: EOMI, Normal appearance, PERRL Pupil Exam: NORMAL ACCOMODATION, PERRL - ENT Exam ENT Exam: Mucous Membranes Moist, Normal Exam - Neck Exam Neck Exam: Full ROM, Normal Inspection. absent: Lymphadenopathy - Respiratory Exam Respiratory Exam: Decreased Breath Sounds - Cardiovascular Exam Cardiovascular Exam: REGULAR RHYTHM, +S1, +S2 - GI/Abdominal Exam GI & Abdominal Exam: Soft, Diminished Bowel Sounds - Rectal Exam Rectal Exam: Deferred
--- NOTE | 2017-07-12 22:05 | CP.PCM.PN ---
Subjective - Date & Time of Evaluation Date of Evaluation: 07/12/17 Time of Evaluation: 22:05 - Subjective Subjective: afebrile , resting comfortably. more responsive. offers no complaints family at bed side. dressings in place. surgery follow-up noted. Objective - Vital Signs/Intake and Output Vital Signs (last 24 hours): Temp Pulse Resp BP Pulse Ox 98.1 F 88 20 99/59 L 99 07/12/17 15:10 07/12/17 15:10 07/12/17 15:10 07/12/17 18:01 07/12/17 15:10 Intake and Output: 07/12/17 07/13/17 18:59 06:59 Intake Total 800 Output Total 400 Balance 400 - Medications Medications: Current Medications Alprazolam (Xanax) 0.25 mg PO HS PRN PRN Reason: Agitation Stop: 07/16/17 14:35 Last Admin: 07/12/17 21:18 Dose: 0.25 mg Cyanocobalamin (Vitamin B12 1000 Mcg Tab) 1,000 mcg PO DAILY [facility] Last Admin: 07/12/17 09:39 Dose: 1,000 mcg Enoxaparin Sodium (Lovenox) 110 mg SC Q12 [facility] Last Admin: 07/12/17 21:19 Dose: 110 mg Finasteride (Proscar) 5 mg PO DAILY [facility] Last Admin: 07/12/17 09:32 Dose: 5 mg Furosemide (Lasix) 40 mg PO MWF [facility] Last Admin: 07/10/17 09:26 Dose: 40 mg Hydromorphone HCl (Dilaudid) 1 mg IVP Q6H PRN PRN Reason: Pain, moderate (4-7) Imipenem/Cilastatin Sodium 500 (mg/ Sodium Chloride) 100 mls @ 100 mls/hr IVPB Q8H [facility] Last Admin: 07/12/17 21:18 Dose: 100 mls/hr Vancomycin HCl 1.35 gm/ Sodium (Chloride) 500 mls @ 222 mls/hr IVPB Q24H [facility] Last Admin: 07/12/17 10:44 Dose: 222 mls/hr Insulin Aspart (Novolog) 0 unit SC ACHS [facility] PRN Reason: Protocol Last Admin: 07/12/17 21:22 Dose: Not Given Isosorbide Mononitrate (Imdur Er) 30 mg PO DAILY [facility] Last Admin: 07/08/17 10:09 Dose: 30 mg Megestrol Acetate (Megace) 400 mg PO DAILY [facility] Last Admin: 07/12/17 09:38 Dose: 400 mg Metoprolol Tartrate (Lopressor) 25 mg PO BID [facility] Last Admin: 07/12/17 18:01 Dose: 25 mg Multivitamins (Hexavitamin) 1 tab PO DAILY [facility] Last Admin: 07/12/17 09:32 Dose: 1 tab Pantoprazole Sodium (Protonix Ec Tab) 40 mg PO DAILY [facility] Last Admin: 07/12/17 09:32 Dose: 40 mg Tamsulosin HCl (Flomax) 0.4 mg PO DAILY [facility] Last Admin: 07/12/17 09:32 Dose: 0.4 mg - Labs Labs: 07/11/17 07:05 07/10/17 18:57 - Constitutional Appears: No Acute Distress, Chronically Ill - Head Exam Head Exam: NORMAL INSPECTION - Eye Exam Eye Exam: EOMI, PERRL - ENT Exam ENT Exam: Normal Oropharynx - Neck Exam Neck Exam: Normal Inspection - Respiratory Exam Respiratory Exam: Decreased Breath Sounds - Cardiovascular Exam Cardiovascular Exam: REGULAR RHYTHM, +S1, +S2 - GI/Abdominal Exam GI & Abdominal Exam: Soft, Normal Bowel Sounds - Extremities Exam Extremities Exam: Pedal Edema (T. large unstagable decubital ulcer noted to sacrum, Unstagable 5-6cm in size decubital ulcer to left hip -DEEP INTO TISSUE SPACE. ). absent: Calf Tenderness - Neurological Exam Neurological Exam: Awake, Oriented x3 - Psychiatric Exam Psychiatric exam: Normal Mood - Skin Skin Exam: Normal Color, Warm Assessment and Plan (1) Decubitus ulcer with gangrene Assessment & Plan: ON IV PRIMAXIN 500MG IVPB Q 8HRLY 07/08/17 HOLD IV VANCOMYCIN DOSE TODAY. 07/07/17 RESTARTED iv VANCOMYCIN 1350 MG IVPB F/U VANCO TROUGH PRIOR TO 4TH DOSE OF ABOVE AND KEEP BETWEEN 10-20MG/L. LWC. LWC PER WOUND CARE . Status: Acute (2) Diabetes Status: Acute (3) Atrial fibrillation Status: Acute (4) Dementia Status: Acute (5) PVD (peripheral vascular disease) Assessment & Plan: PATIENT HAS EXTENSIVE VASCULAR DISEASE PER VASCULAR SURGERY. MAY NEED BKA.PT NOT READY YET. Status: Acute
[2017-07-13] MEDS: (Novolog) Insulin Aspart, Recombinant 100 u/ml 10 ml vial SC SCH ×4 (08:14→22:12)
[2017-07-13] MEDS: Multiple Vitamins Tab PO SCH (09:34)
[2017-07-13] MEDS: Megestrol Acetate 40 mg/ml Cup PO SCH (10:47)
[2017-07-13] MEDS: Pantoprazole 40 mg EC Tab PO SCH (10:47)
[2017-07-13] MEDS: SODIUM CHLORIDE 0.9% IVPB SCH (10:49)
[2017-07-13] MEDS: VANCOMYCIN IVPB SCH (10:49)
--- NOTE | 2017-07-13 11:13 | CP.PCM.PN ---
Subjective - Date & Time of Evaluation Date of Evaluation: 07/13/17 Time of Evaluation: 06:50 - Subjective Subjective: Surgery Progress note. Dr. Tsai Pt seen and examined at bedside. No acute events overnight. Denies any N/V/D. No F/C. No new complaints. Objective - Vital Signs/Intake and Output Vital Signs (last 24 hours): Temp Pulse Resp BP Pulse Ox 98.8 F 100 H 20 90/51 L 97 07/13/17 08:00 07/13/17 08:00 07/13/17 08:00 07/13/17 10:48 07/13/17 08:00 Intake and Output: 07/13/17 07/13/17 06:59 18:59 Intake Total 620 Output Total 600 Balance 20 - Medications Medications: Current Medications Alprazolam (Xanax) 0.25 mg PO HS PRN PRN Reason: Agitation Stop: 07/16/17 14:35 Last Admin: 07/12/17 21:18 Dose: 0.25 mg Cyanocobalamin (Vitamin B12 1000 Mcg Tab) 1,000 mcg PO DAILY [facility] Last Admin: 07/13/17 10:47 Dose: 1,000 mcg Finasteride (Proscar) 5 mg PO DAILY [facility] Last Admin: 07/13/17 10:47 Dose: 5 mg Furosemide (Lasix) 40 mg PO MWF [facility] Last Admin: 07/10/17 09:26 Dose: 40 mg Hydromorphone HCl (Dilaudid) 1 mg IVP Q6H PRN PRN Reason: Pain, moderate (4-7) Imipenem/Cilastatin Sodium 500 (mg/ Sodium Chloride) 100 mls @ 100 mls/hr IVPB Q8H [facility] Last Admin: 07/13/17 05:16 Dose: 100 mls/hr Vancomycin HCl 1.35 gm/ Sodium (Chloride) 500 mls @ 222 mls/hr IVPB Q24H [facility] Last Admin: 07/13/17 10:49 Dose: 222 mls/hr Insulin Aspart (Novolog) 0 unit SC ACHS [facility] PRN Reason: Protocol Last Admin: 07/13/17 08:14 Dose: 3 unit Isosorbide Mononitrate (Imdur Er) 30 mg PO DAILY [facility] Last Admin: 07/08/17 10:09 Dose: 30 mg Megestrol Acetate (Megace) 400 mg PO DAILY [facility] Last Admin: 07/13/17 10:47 Dose: 400 mg Metoprolol Tartrate (Lopressor) 25 mg PO BID [facility] Last Admin: 07/13/17 10:48 Dose: Not Given Multivitamins (Hexavitamin) 1 tab PO DAILY [facility] Last Admin: 07/12/17 09:32 Dose: 1 tab Pantoprazole Sodium (Protonix Ec Tab) 40 mg PO DAILY [facility] Last Admin: 07/13/17 10:47 Dose: 40 mg Tamsulosin HCl (Flomax) 0.4 mg PO DAILY [facility] Last Admin: 07/13/17 10:46 Dose: 0.4 mg - Labs Labs: 07/11/17 07:05 07/10/17 18:57 - Constitutional Appears: Well, Non-toxic, No Acute Distress - Head Exam Head Exam: ATRAUMATIC, NORMAL INSPECTION, NORMOCEPHALIC - Eye Exam Eye Exam: EOMI, Normal appearance - ENT Exam ENT Exam: Mucous Membranes Moist - Cardiovascular Exam Cardiovascular Exam: absent: JVD - Extremities Exam Additional comments: bilateral lower extremities with dressing clean, dry and intact. Off-loading pressure heel boots noted. Lower extremity swelling noted bilaterally. Discoloration of toes. - Neurological Exam Neurological Exam: Alert, Awake Assessment and Plan - Assessment and Plan (Free Text) Assessment: 87yo M with extensive bilateral lower extremity peripheral arterial disease -continue local wound care -may benefit from amputation, awaiting family decision. -Family to consider hospice -Continue mgmt as per primary Further recs as per Dr. Quin Mcginnis PGY1 surgery pager: [phone]
[2017-07-13 11:20] LABS: BASO % 0.4 % (0.0-2.0); EOS # 0.1 K/uL (0.0-0.7); EOS % 0.6 % (0.0-4.0); HEMOGLOBIN 7.7 g/dL (12.0-18.0); LYMPH # 1.1 K/uL (1.0-4.3); LYMPH % 8.6 % (20.0-40.0); MEAN CELL VOLUME 89.1 fL (80.0-94.0); MEAN CORPUSCULAR HEMOGLOBIN 29.7 pg (27.0-31.0); MEAN CORPUSCULAR HGB CONC 33.4 g/dL (33.0-37.0); MEAN PLATELET VOLUME 7.7 fL (7.2-11.7); MONO # 0.8 K/uL (0.0-0.8); NEUT # 10.7 K/uL (1.8-7.0); NEUT % 84.4 % (50.0-75.0); PLATELET COUNT 422 K/uL (130-400); RED CELL DISTRIBUTION WIDTH 14.3 % (11.5-14.5); WHITE BLOOD COUNT 12.6 K/uL (4.8-10.8)
[2017-07-13 11:34] LABS: BLOOD UREA NITROGEN 12 mg/dL (9-20); CALCIUM 7.4 mg/dl (8.6-10.4); GFR AFRICAN-AMERICAN > 60; GFR NON-AFRICAN AMERICAN > 60
[2017-07-13 11:54] LABS: HYPOCHROMIC SLIGHT; LYMPHOCYTE 7 % (20-40); MONOCYTE 2 % (0-10); NEUTROPHIL 91 % (50-75); OVALOCYTES SLIGHT; PLATELET ESTIMATE NORMAL (NORMAL); TOTAL CELLS COUNTED 100
[2017-07-13 11:55] LABS: BURR CELLS SLIGHT; POLYCHROMIC SLIGHT
[2017-07-13] MEDS: Enoxaparin 120 mg Syringe SC SCH (12:24)
--- NOTE | 2017-07-13 12:32 | CP.PCM.PN ---
Subjective - Date & Time of Evaluation Date of Evaluation: 07/13/17 Time of Evaluation: 12:31 - Subjective Subjective: weak.a,fib.hb is low. Objective - Vital Signs/Intake and Output Vital Signs (last 24 hours): Temp Pulse Resp BP Pulse Ox 98.8 F 100 H 20 90/51 L 97 07/13/17 08:00 07/13/17 08:00 07/13/17 08:00 07/13/17 10:48 07/13/17 08:00 Intake and Output: 07/13/17 07/13/17 06:59 18:59 Intake Total 620 Output Total 600 Balance 20 - Medications Medications: Current Medications Alprazolam (Xanax) 0.25 mg PO HS PRN PRN Reason: Agitation Stop: 07/16/17 14:35 Last Admin: 07/12/17 21:18 Dose: 0.25 mg Cyanocobalamin (Vitamin B12 1000 Mcg Tab) 1,000 mcg PO DAILY [facility] Last Admin: 07/13/17 10:47 Dose: 1,000 mcg Finasteride (Proscar) 5 mg PO DAILY [facility] Last Admin: 07/13/17 10:47 Dose: 5 mg Furosemide (Lasix) 40 mg PO MWF [facility] Last Admin: 07/10/17 09:26 Dose: 40 mg Hydromorphone HCl (Dilaudid) 1 mg IVP Q6H PRN PRN Reason: Pain, moderate (4-7) Imipenem/Cilastatin Sodium 500 (mg/ Sodium Chloride) 100 mls @ 100 mls/hr IVPB Q8H [facility] Last Admin: 07/13/17 05:16 Dose: 100 mls/hr Vancomycin HCl 1.35 gm/ Sodium (Chloride) 500 mls @ 222 mls/hr IVPB Q24H [facility] Last Admin: 07/13/17 10:49 Dose: 222 mls/hr Insulin Aspart (Novolog) 0 unit SC ACHS [facility] PRN Reason: Protocol Last Admin: 07/13/17 08:14 Dose: 3 unit Isosorbide Mononitrate (Imdur Er) 30 mg PO DAILY [facility] Last Admin: 07/08/17 10:09 Dose: 30 mg Megestrol Acetate (Megace) 400 mg PO DAILY [facility] Last Admin: 07/13/17 10:47 Dose: 400 mg Metoprolol Tartrate (Lopressor) 25 mg PO BID [facility] Last Admin: 07/13/17 10:48 Dose: Not Given Multivitamins (Hexavitamin) 1 tab PO DAILY [facility] Last Admin: 07/12/17 09:32 Dose: 1 tab Pantoprazole Sodium (Protonix Ec Tab) 40 mg PO DAILY [facility] Last Admin: 07/13/17 10:47 Dose: 40 mg Tamsulosin HCl (Flomax) 0.4 mg PO DAILY [facility] Last Admin: 07/13/17 10:46 Dose: 0.4 mg - Labs Labs: 07/13/17 11:09 07/13/17 11:09 - Constitutional Appears: No Acute Distress - Head Exam Head Exam: NORMOCEPHALIC - Neck Exam Neck Exam: Normal Inspection - Respiratory Exam Respiratory Exam: Clear to Ausculation Bilateral - Cardiovascular Exam Cardiovascular Exam: Irregular Rhythm - GI/Abdominal Exam GI & Abdominal Exam: Soft Assessment and Plan - Assessment and Plan (Free Text) Assessment: gangreous changes both feet.a,fib.will d/c lovenox.recheck hb.cleared for or at low risk
--- NOTE | 2017-07-13 15:45 | CP.PCM.PN ---
Subjective - Date & Time of Evaluation Date of Evaluation: 07/13/17 Time of Evaluation: 11:00 - Subjective Subjective: clinically same Objective - Vital Signs/Intake and Output Vital Signs (last 24 hours): Temp Pulse Resp BP Pulse Ox 98.8 F 99 H 20 90/51 L 97 07/13/17 08:00 07/13/17 13:18 07/13/17 08:00 07/13/17 10:48 07/13/17 08:00 Intake and Output: 07/13/17 07/13/17 06:59 18:59 Intake Total 620 120 Output Total 600 400 Balance 20 -280 - Medications Medications: Current Medications Alprazolam (Xanax) 0.25 mg PO HS PRN PRN Reason: Agitation Stop: 07/16/17 14:35 Last Admin: 07/12/17 21:18 Dose: 0.25 mg Cyanocobalamin (Vitamin B12 1000 Mcg Tab) 1,000 mcg PO DAILY [facility] Last Admin: 07/13/17 10:47 Dose: 1,000 mcg Finasteride (Proscar) 5 mg PO DAILY [facility] Last Admin: 07/13/17 10:47 Dose: 5 mg Furosemide (Lasix) 40 mg PO MWF [facility] Last Admin: 07/10/17 09:26 Dose: 40 mg Hydromorphone HCl (Dilaudid) 1 mg IVP Q6H PRN PRN Reason: Pain, moderate (4-7) Imipenem/Cilastatin Sodium 500 (mg/ Sodium Chloride) 100 mls @ 100 mls/hr IVPB Q8H [facility] Last Admin: 07/13/17 14:06 Dose: 100 mls/hr Vancomycin HCl 1.35 gm/ Sodium (Chloride) 500 mls @ 222 mls/hr IVPB Q24H [facility] Last Admin: 07/13/17 10:49 Dose: 222 mls/hr Insulin Aspart (Novolog) 0 unit SC ACHS [facility] PRN Reason: Protocol Last Admin: 07/13/17 12:38 Dose: 4 unit Isosorbide Mononitrate (Imdur Er) 30 mg PO DAILY [facility] Last Admin: 07/08/17 10:09 Dose: 30 mg Megestrol Acetate (Megace) 400 mg PO DAILY [facility] Last Admin: 07/13/17 10:47 Dose: 400 mg Metoprolol Tartrate (Lopressor) 25 mg PO BID [facility] Last Admin: 07/13/17 10:48 Dose: Not Given Multivitamins (Hexavitamin) 1 tab PO DAILY [facility] Last Admin: 07/12/17 09:32 Dose: 1 tab Pantoprazole Sodium (Protonix Ec Tab) 40 mg PO DAILY [facility] Last Admin: 07/13/17 10:47 Dose: 40 mg Tamsulosin HCl (Flomax) 0.4 mg PO DAILY [facility] Last Admin: 07/13/17 10:46 Dose: 0.4 mg - Labs Labs: 07/13/17 11:09 07/13/17 11:09 - Constitutional Appears: Well - Head Exam Head Exam: ATRAUMATIC, NORMAL INSPECTION, NORMOCEPHALIC - Eye Exam Eye Exam: EOMI, Normal appearance, PERRL Pupil Exam: NORMAL ACCOMODATION, PERRL - ENT Exam ENT Exam: Mucous Membranes Moist, Normal Exam - Neck Exam Neck Exam: Full ROM, Normal Inspection. absent: Lymphadenopathy - Respiratory Exam Respiratory Exam: Decreased Breath Sounds - Cardiovascular Exam Cardiovascular Exam: REGULAR RHYTHM, +S1, +S2 - GI/Abdominal Exam GI & Abdominal Exam: Soft, Diminished Bowel Sounds - Rectal Exam Rectal Exam: Deferred
--- NOTE | 2017-07-13 16:05 | CP.PCM.PN ---
Subjective - Date & Time of Evaluation Date of Evaluation: 07/13/17 Time of Evaluation: 16:05 - Subjective Subjective: afebrile ,BP 90/50 WEAK.looks pale C/O PAIN LT.HIP resting comfortably. more responsive AT BEDSIDE. LABS REVIEWED; H/H 7.7/23.2 LOW WBC 12.6 Objective - Vital Signs/Intake and Output Vital Signs (last 24 hours): Temp Pulse Resp BP Pulse Ox 98.8 F 99 H 20 90/51 L 97 07/13/17 08:00 07/13/17 13:18 07/13/17 08:00 07/13/17 10:48 07/13/17 08:00 Intake and Output: 07/13/17 07/13/17 06:59 18:59 Intake Total 620 120 Output Total 600 400 Balance 20 -280 - Medications Medications: Current Medications Alprazolam (Xanax) 0.25 mg PO HS PRN PRN Reason: Agitation Stop: 07/16/17 14:35 Last Admin: 07/12/17 21:18 Dose: 0.25 mg Cyanocobalamin (Vitamin B12 1000 Mcg Tab) 1,000 mcg PO DAILY [facility] Last Admin: 07/13/17 10:47 Dose: 1,000 mcg Finasteride (Proscar) 5 mg PO DAILY [facility] Last Admin: 07/13/17 10:47 Dose: 5 mg Furosemide (Lasix) 40 mg PO MWF [facility] Last Admin: 07/10/17 09:26 Dose: 40 mg Hydromorphone HCl (Dilaudid) 1 mg IVP Q6H PRN PRN Reason: Pain, moderate (4-7) Imipenem/Cilastatin Sodium 500 (mg/ Sodium Chloride) 100 mls @ 100 mls/hr IVPB Q8H [facility] Last Admin: 07/13/17 14:06 Dose: 100 mls/hr Vancomycin HCl 1.35 gm/ Sodium (Chloride) 500 mls @ 222 mls/hr IVPB Q24H [facility] Last Admin: 07/13/17 10:49 Dose: 222 mls/hr Insulin Aspart (Novolog) 0 unit SC ACHS [facility] PRN Reason: Protocol Last Admin: 07/13/17 12:38 Dose: 4 unit Isosorbide Mononitrate (Imdur Er) 30 mg PO DAILY [facility] Last Admin: 07/08/17 10:09 Dose: 30 mg Megestrol Acetate (Megace) 400 mg PO DAILY [facility] Last Admin: 07/13/17 10:47 Dose: 400 mg Metoprolol Tartrate (Lopressor) 25 mg PO BID [facility] Last Admin: 07/13/17 10:48 Dose: Not Given Multivitamins (Hexavitamin) 1 tab PO DAILY [facility] Last Admin: 07/12/17 09:32 Dose: 1 tab Pantoprazole Sodium (Protonix Ec Tab) 40 mg PO DAILY [facility] Last Admin: 07/13/17 10:47 Dose: 40 mg Tamsulosin HCl (Flomax) 0.4 mg PO DAILY [facility] Last Admin: 07/13/17 10:46 Dose: 0.4 mg - Labs Labs: 07/13/17 11:09 07/13/17 11:09 - Constitutional Appears: No Acute Distress, Chronically Ill - Head Exam Head Exam: NORMAL INSPECTION - Eye Exam Eye Exam: EOMI, PERRL - ENT Exam ENT Exam: Normal Exam - Neck Exam Neck Exam: Normal Inspection - Respiratory Exam Respiratory Exam: Decreased Breath Sounds - Cardiovascular Exam Cardiovascular Exam: REGULAR RHYTHM, +S1, +S2 - GI/Abdominal Exam GI & Abdominal Exam: Soft, Normal Bowel Sounds - Extremities Exam Extremities Exam: Pedal Edema. absent: Calf Tenderness, Full ROM ([place]) Additional comments: large unstagable decubital ulcer noted to sacrum, Unstagable 5-6cm in size decubital ulcer to left hip -DEEP INTO TISSUE SPACE. ) . absent: Calf Tenderness - Neurological Exam Neurological Exam: Awake, CN II-XII Intact, Oriented x3 - Psychiatric Exam Psychiatric exam: Normal Mood - Skin Skin Exam: Pallor, Warm Assessment and Plan (1) Decubitus ulcer with gangrene Assessment & Plan: ON IV PRIMAXIN 500MG IVPB Q 8HRLY 07/08/17 HOLD IV VANCOMYCIN DOSE TODAY. 07/07/17 RESTARTED iv VANCOMYCIN 1350 MG IVPB Q 24 HRLY F/U VANCO TROUGH PRIOR TO 4TH DOSE OF ABOVE AND KEEP BETWEEN 10-20MG/L. LWC. Status: Acute (2) Anemia Assessment & Plan: H/H LOW MAY NEED BLOOD TRANSFUSION. Status: Acute (3) Atrial fibrillation Status: Acute (4) Dementia Status: Acute (5) PVD (peripheral vascular disease) Assessment & Plan: PT HAS EXTENSIVE PVD . PER VASCULAR SURGERY. Status: Acute (6) Diabetes Status: Acute
[2017-07-14] MEDS: (Novolog) Insulin Aspart, Recombinant 100 u/ml 10 ml vial SC SCH ×4 (08:12→22:15)
[2017-07-14] MEDS: Megestrol Acetate 40 mg/ml Cup PO SCH (09:34)
[2017-07-14] MEDS: Pantoprazole 40 mg EC Tab PO SCH (09:34)
[2017-07-14] MEDS: Multiple Vitamins Tab PO SCH (09:34)
[2017-07-14 11:44] LABS: BASO # 0.1 K/uL (0.0-0.2); BASO % 0.4 % (0.0-2.0); EOS # 0.2 K/uL (0.0-0.7); EOS % 1.2 % (0.0-4.0); HEMOGLOBIN 8.8 g/dL (12.0-18.0); LYMPH # 1.2 K/uL (1.0-4.3); LYMPH % 9.3 % (20.0-40.0); MEAN CELL VOLUME 89.9 fL (80.0-94.0); MEAN CORPUSCULAR HEMOGLOBIN 30.8 pg (27.0-31.0); MEAN CORPUSCULAR HGB CONC 34.2 g/dL (33.0-37.0); MEAN PLATELET VOLUME 7.5 fL (7.2-11.7); MONO # 0.7 K/uL (0.0-0.8); MONO % 5.7 % (0.0-10.0); NEUT # 10.5 K/uL (1.8-7.0); NEUT % 83.4 % (50.0-75.0); PLATELET COUNT 364 K/uL (130-400); RBC 2.86 Mil/uL (4.40-5.90); RED CELL DISTRIBUTION WIDTH 14.5 % (11.5-14.5); WHITE BLOOD COUNT 12.6 K/uL (4.8-10.8)
[2017-07-14] MEDS: VANCOMYCIN IVPB SCH (12:13)
[2017-07-14] MEDS: SODIUM CHLORIDE 0.9% IVPB SCH (12:13)
--- NOTE | 2017-07-14 12:22 | CP.PCM.PN ---
Subjective - Date & Time of Evaluation Date of Evaluation: 07/14/17 Time of Evaluation: 12:21 - Subjective Subjective: confused.vital,labs noted. Objective - Vital Signs/Intake and Output Vital Signs (last 24 hours): Temp Pulse Resp BP Pulse Ox 98.0 F 95 H 20 95/51 L 100 07/14/17 08:00 07/14/17 08:00 07/14/17 08:00 07/14/17 09:35 07/14/17 08:00 Intake and Output: 07/14/17 07/14/17 06:59 18:59 Intake Total 760 Output Total 425 Balance 335 - Medications Medications: Current Medications Alprazolam (Xanax) 0.25 mg PO HS PRN PRN Reason: Agitation Stop: 07/16/17 14:35 Last Admin: 07/13/17 22:32 Dose: 0.25 mg Cyanocobalamin (Vitamin B12 1000 Mcg Tab) 1,000 mcg PO DAILY [facility] Last Admin: 07/14/17 09:34 Dose: 1,000 mcg Finasteride (Proscar) 5 mg PO DAILY [facility] Last Admin: 07/14/17 09:34 Dose: 5 mg Furosemide (Lasix) 40 mg PO MWF [facility] Last Admin: 07/10/17 09:26 Dose: 40 mg Hydromorphone HCl (Dilaudid) 1 mg IVP Q6H PRN PRN Reason: Pain, moderate (4-7) Imipenem/Cilastatin Sodium 500 (mg/ Sodium Chloride) 100 mls @ 100 mls/hr IVPB Q8H [facility] Last Admin: 07/14/17 05:18 Dose: 100 mls/hr Vancomycin HCl 1.35 gm/ Sodium (Chloride) 500 mls @ 222 mls/hr IVPB Q24H [facility] Last Admin: 07/14/17 12:13 Dose: 222 mls/hr Insulin Aspart (Novolog) 0 unit SC ACHS [facility] PRN Reason: Protocol Last Admin: 07/14/17 12:11 Dose: 3 unit Isosorbide Mononitrate (Imdur Er) 30 mg PO DAILY [facility] Last Admin: 07/08/17 10:09 Dose: 30 mg Megestrol Acetate (Megace) 400 mg PO DAILY [facility] Last Admin: 07/14/17 09:34 Dose: 400 mg Metoprolol Tartrate (Lopressor) 25 mg PO BID [facility] Last Admin: 07/14/17 09:35 Dose: 25 mg Multivitamins (Hexavitamin) 1 tab PO DAILY [facility] Last Admin: 07/14/17 09:34 Dose: Not Given Pantoprazole Sodium (Protonix Ec Tab) 40 mg PO DAILY [facility] Last Admin: 07/14/17 09:34 Dose: 40 mg Tamsulosin HCl (Flomax) 0.4 mg PO DAILY [facility] Last Admin: 07/14/17 09:34 Dose: 0.4 mg - Labs Labs: 07/14/17 11:31 07/13/17 11:09 - Constitutional Appears: No Acute Distress, Chronically Ill - Head Exam Head Exam: NORMOCEPHALIC - Neck Exam Neck Exam: Normal Inspection - Respiratory Exam Respiratory Exam: Clear to Ausculation Bilateral - Cardiovascular Exam Cardiovascular Exam: Irregular Rhythm - GI/Abdominal Exam GI & Abdominal Exam: Soft - Neurological Exam Neurological Exam: Alert Assessment and Plan - Assessment and Plan (Free Text) Assessment: cad,cabg.anaemia.hb now 8.5. may need transfusion if going for or.
[2017-07-14 12:37] LABS: ALB/GLOB RATIO 0.7 (1.0-2.1)
[2017-07-14 12:39] LABS: ALT/SGPT 34 U/L (21-72); AST/SGOT 31 U/L (17-59); BLOOD UREA NITROGEN 11 mg/dL (9-20); CALCIUM 7.6 mg/dl (8.6-10.4); GFR AFRICAN-AMERICAN > 60; GFR NON-AFRICAN AMERICAN > 60
[2017-07-14 13:03] LABS: LYMPHOCYTE 10 % (20-40); MONOCYTE 5 % (0-10); MYELOCYTE 1 % (0-0); NEUTROPHIL 84 % (50-75); PLATELET ESTIMATE NORMAL (NORMAL); TOTAL CELLS COUNTED 100
[2017-07-14 13:04] LABS: ANISOCYTOSIS SLIGHT; HYPOCHROMIC SLIGHT; OVALOCYTES SLIGHT; POIKILOCYTOSIS SLIGHT
[2017-07-14 13:05] LABS: BURR CELLS SLIGHT
[2017-07-14] MEDS ORDERED: Potassium Chloride 20 mEq ER Tab PO STA (14:12)
--- NOTE | 2017-07-14 14:17 | CP.PCM.PN ---
Subjective - Date & Time of Evaluation Date of Evaluation: 07/14/17 Time of Evaluation: 14:17 - Subjective Subjective: afebrile ,BP 91 /50 WEAK. C/O PAIN LT.HIP resting comfortably. AT BEDSIDE. Objective - Vital Signs/Intake and Output Vital Signs (last 24 hours): Temp Pulse Resp BP Pulse Ox 98.0 F 95 H 20 95/51 L 100 07/14/17 08:00 07/14/17 10:00 07/14/17 08:00 07/14/17 09:35 07/14/17 08:00 Intake and Output: 07/14/17 07/14/17 06:59 18:59 Intake Total 760 Output Total 425 300 Balance 335 -300 - Medications Medications: Current Medications Alprazolam (Xanax) 0.25 mg PO HS PRN PRN Reason: Agitation Stop: 07/16/17 14:35 Last Admin: 07/13/17 22:32 Dose: 0.25 mg Cyanocobalamin (Vitamin B12 1000 Mcg Tab) 1,000 mcg PO DAILY [facility] Last Admin: 07/14/17 09:34 Dose: 1,000 mcg Finasteride (Proscar) 5 mg PO DAILY [facility] Last Admin: 07/14/17 09:34 Dose: 5 mg Furosemide (Lasix) 40 mg PO MWF [facility] Last Admin: 07/10/17 09:26 Dose: 40 mg Hydromorphone HCl (Dilaudid) 1 mg IVP Q6H PRN PRN Reason: Pain, moderate (4-7) Imipenem/Cilastatin Sodium 500 (mg/ Sodium Chloride) 100 mls @ 100 mls/hr IVPB Q8H [facility] Last Admin: 07/14/17 05:18 Dose: 100 mls/hr Vancomycin HCl 1.35 gm/ Sodium (Chloride) 500 mls @ 222 mls/hr IVPB Q24H [facility] Last Admin: 07/14/17 12:13 Dose: 222 mls/hr Insulin Aspart (Novolog) 0 unit SC ACHS [facility] PRN Reason: Protocol Last Admin: 07/14/17 12:11 Dose: 3 unit Isosorbide Mononitrate (Imdur Er) 30 mg PO DAILY [facility] Last Admin: 07/08/17 10:09 Dose: 30 mg Megestrol Acetate (Megace) 400 mg PO DAILY [facility] Last Admin: 07/14/17 09:34 Dose: 400 mg Metoprolol Tartrate (Lopressor) 25 mg PO BID [facility] Last Admin: 07/14/17 09:35 Dose: 25 mg Multivitamins (Hexavitamin) 1 tab PO DAILY [facility] Last Admin: 07/14/17 09:34 Dose: Not Given Pantoprazole Sodium (Protonix Ec Tab) 40 mg PO DAILY [facility] Last Admin: 07/14/17 09:34 Dose: 40 mg Tamsulosin HCl (Flomax) 0.4 mg PO DAILY [facility] Last Admin: 07/14/17 09:34 Dose: 0.4 mg - Labs Labs: 07/14/17 11:31 07/14/17 11:31 - Constitutional Appears: No Acute Distress, Chronically Ill - Head Exam Head Exam: NORMAL INSPECTION - Eye Exam Eye Exam: EOMI, PERRL - ENT Exam ENT Exam: Normal Oropharynx - Neck Exam Neck Exam: Normal Inspection - Respiratory Exam Respiratory Exam: Decreased Breath Sounds - GI/Abdominal Exam GI & Abdominal Exam: Soft, Normal Bowel Sounds - Extremities Exam Extremities Exam: Pedal Edema. absent: Calf Tenderness Additional comments: large unstagable decubital ulcer noted to sacrum, Unstagable 5-6cm in size decubital ulcer to left hip -DEEP INTO TISSUE SPACE. ) . absent: Calf Tenderness - Neurological Exam Neurological Exam: Alert, Awake, CN II-XII Intact - Psychiatric Exam Psychiatric exam: Normal Affect - Skin Skin Exam: Pallor Assessment and Plan (1) Decubitus ulcer with gangrene Assessment & Plan: Assessment & Plan: ON IV PRIMAXIN 500MG IVPB Q 8HRLY 07/08/17 HOLD IV VANCOMYCIN DOSE TODAY. 07/07/17 RESTARTED iv VANCOMYCIN 1350 MG IVPB Q 24 HRLY F/U VANCO TROUGH 30MIN PRIOR TO TOMORRW DOSE AT 11.00 AND KEEP BETWEEN 10-20MG/ L. LWC PER WOUND CARE NURSE. vASCULAR SURGERY ON BOARD.. Status: Acute (2) Anemia Status: Acute (3) Atrial fibrillation Status: Acute (4) Dementia Status: Acute (5) PVD (peripheral vascular disease) Assessment & Plan: PATIENT HAS SEVERE PERIPHERAL VASCULAR DISEASE. VASCULAR SURGERY ON BOARD. Status: Acute (6) Diabetes Status: Acute
--- NOTE | 2017-07-14 17:37 | CP.PCM.PN ---
Subjective - Date & Time of Evaluation Date of Evaluation: 07/14/17 Time of Evaluation: 10:20 - Subjective Subjective: clinically same Objective - Vital Signs/Intake and Output Vital Signs (last 24 hours): Temp Pulse Resp BP Pulse Ox 98.9 F 83 20 124/62 99 07/14/17 15:10 07/14/17 15:46 07/14/17 15:10 07/14/17 15:10 07/14/17 15:10 Intake and Output: 07/14/17 07/14/17 06:59 18:59 Intake Total 760 Output Total 425 300 Balance 335 -300 - Medications Medications: Current Medications Alprazolam (Xanax) 0.25 mg PO HS PRN PRN Reason: Agitation Stop: 07/16/17 14:35 Last Admin: 07/13/17 22:32 Dose: 0.25 mg Cyanocobalamin (Vitamin B12 1000 Mcg Tab) 1,000 mcg PO DAILY [facility] Last Admin: 07/14/17 09:34 Dose: 1,000 mcg Finasteride (Proscar) 5 mg PO DAILY [facility] Last Admin: 07/14/17 09:34 Dose: 5 mg Furosemide (Lasix) 40 mg PO MWF [facility] Last Admin: 07/10/17 09:26 Dose: 40 mg Hydromorphone HCl (Dilaudid) 1 mg IVP Q6H PRN PRN Reason: Pain, moderate (4-7) Imipenem/Cilastatin Sodium 500 (mg/ Sodium Chloride) 100 mls @ 100 mls/hr IVPB Q8H [facility] Last Admin: 07/14/17 14:31 Dose: 100 mls/hr Vancomycin HCl 1.35 gm/ Sodium (Chloride) 500 mls @ 222 mls/hr IVPB Q24H [facility] Last Admin: 07/14/17 12:13 Dose: 222 mls/hr Insulin Aspart (Novolog) 0 unit SC ACHS [facility] PRN Reason: Protocol Last Admin: 07/14/17 12:11 Dose: 3 unit Isosorbide Mononitrate (Imdur Er) 30 mg PO DAILY [facility] Last Admin: 07/08/17 10:09 Dose: 30 mg Megestrol Acetate (Megace) 400 mg PO DAILY [facility] Last Admin: 07/14/17 09:34 Dose: 400 mg Metoprolol Tartrate (Lopressor) 25 mg PO BID [facility] Last Admin: 07/14/17 09:35 Dose: 25 mg Multivitamins (Hexavitamin) 1 tab PO DAILY [facility] Last Admin: 07/14/17 09:34 Dose: Not Given Pantoprazole Sodium (Protonix Ec Tab) 40 mg PO DAILY [facility] Last Admin: 07/14/17 09:34 Dose: 40 mg Tamsulosin HCl (Flomax) 0.4 mg PO DAILY [facility] Last Admin: 07/14/17 09:34 Dose: 0.4 mg - Labs Labs: 07/14/17 11:31 07/14/17 11:31 - Constitutional Appears: Well - Head Exam Head Exam: ATRAUMATIC, NORMAL INSPECTION, NORMOCEPHALIC - Eye Exam Eye Exam: EOMI, Normal appearance, PERRL Pupil Exam: NORMAL ACCOMODATION, PERRL - ENT Exam ENT Exam: Mucous Membranes Moist, Normal Exam - Neck Exam Neck Exam: Full ROM, Normal Inspection. absent: Lymphadenopathy - Respiratory Exam Respiratory Exam: Decreased Breath Sounds - Cardiovascular Exam Cardiovascular Exam: REGULAR RHYTHM, +S1, +S2 - GI/Abdominal Exam GI & Abdominal Exam: Soft, Diminished Bowel Sounds - Rectal Exam Rectal Exam: Deferred
[2017-07-15 08:09] LABS: BASO % 0.2 % (0.0-2.0); EOS # 0.3 K/uL (0.0-0.7); EOS % 1.8 % (0.0-4.0); HEMOGLOBIN 8.8 g/dL (12.0-18.0); LYMPH # 1.2 K/uL (1.0-4.3); LYMPH % 8.5 % (20.0-40.0); MEAN CELL VOLUME 90.8 fL (80.0-94.0); MEAN CORPUSCULAR HEMOGLOBIN 30.7 pg (27.0-31.0); MEAN CORPUSCULAR HGB CONC 33.8 g/dL (33.0-37.0); MEAN PLATELET VOLUME 7.6 fL (7.2-11.7); MONO # 0.7 K/uL (0.0-0.8); MONO % 4.9 % (0.0-10.0); NEUT # 12.2 K/uL (1.8-7.0); NEUT % 84.6 % (50.0-75.0); NRBC % 0.1 % (0.0-2.0); PLATELET COUNT 365 K/uL (130-400); RBC 2.87 Mil/uL (4.40-5.90); RED CELL DISTRIBUTION WIDTH 14.9 % (11.5-14.5); WHITE BLOOD COUNT 14.4 K/uL (4.8-10.8)
[2017-07-15 08:28] LABS: ALB/GLOB RATIO 0.7 (1.0-2.1); ALBUMIN 2.1 g/dL (3.5-5.0); ALT/SGPT 29 U/L (21-72); AST/SGOT 27 U/L (17-59); BLOOD UREA NITROGEN 10 mg/dL (9-20); CALCIUM 7.6 mg/dl (8.6-10.4); GFR AFRICAN-AMERICAN > 60; GFR NON-AFRICAN AMERICAN > 60
[2017-07-15] MEDS: (Novolog) Insulin Aspart, Recombinant 100 u/ml 10 ml vial SC SCH ×4 (09:00→21:01)
[2017-07-15] MEDS: Megestrol Acetate 40 mg/ml Cup PO SCH (10:02)
[2017-07-15] MEDS: Pantoprazole 40 mg EC Tab PO SCH (10:02)
[2017-07-15] MEDS: Multiple Vitamins Tab PO SCH (10:07)
[2017-07-15 10:09] LABS: ANISOCYTOSIS SLIGHT; EOSINOPHIL 1 % (0-4); LYMPHOCYTE 7 % (20-40); MICROCYTOSIS SLIGHT; MONOCYTE 5 % (0-10); NEUTROPHIL 87 % (50-75); PLATELET ESTIMATE NORMAL (NORMAL); POIKILOCYTOSIS SLIGHT; POLYCHROMIC SLIGHT; TOTAL CELLS COUNTED 100
[2017-07-15 10:10] LABS: BURR CELLS SLIGHT; OVALOCYTES SLIGHT; TEARDROP CELLS SLIGHT
[2017-07-15 10:11] LABS: SCHISTOCYTES SLIGHT
[2017-07-15] MEDS: SODIUM CHLORIDE 0.9% IVPB SCH (12:12)
[2017-07-15] MEDS: VANCOMYCIN IVPB SCH (12:12)
--- NOTE | 2017-07-15 16:05 | CP.PCM.PN ---
Subjective - Date & Time of Evaluation Date of Evaluation: 07/15/17 Time of Evaluation: 16:04 - Subjective Subjective: cad,cabg,a,fib Objective - Vital Signs/Intake and Output Vital Signs (last 24 hours): Temp Pulse Resp BP Pulse Ox 98.2 F 94 H 20 113/68 96 07/15/17 15:33 07/15/17 15:33 07/15/17 15:33 07/15/17 15:33 07/15/17 15:33 Intake and Output: 07/15/17 07/15/17 06:59 18:59 Intake Total 0 Output Total 800 400 Balance -800 -400 - Medications Medications: Current Medications Alprazolam (Xanax) 0.25 mg PO HS PRN PRN Reason: Agitation Stop: 07/16/17 14:35 Last Admin: 07/14/17 18:08 Dose: 0.25 mg Cyanocobalamin (Vitamin B12 1000 Mcg Tab) 1,000 mcg PO DAILY [facility] Last Admin: 07/15/17 10:02 Dose: 1,000 mcg Finasteride (Proscar) 5 mg PO DAILY [facility] Last Admin: 07/15/17 10:02 Dose: 5 mg Furosemide (Lasix) 40 mg PO MWF [facility] Last Admin: 07/10/17 09:26 Dose: 40 mg Imipenem/Cilastatin Sodium 500 (mg/ Sodium Chloride) 100 mls @ 100 mls/hr IVPB Q8H [facility] Last Admin: 07/15/17 05:16 Dose: 100 mls/hr Vancomycin HCl 1.35 gm/ Sodium (Chloride) 500 mls @ 222 mls/hr IVPB Q24H [facility] Last Admin: 07/15/17 12:12 Dose: 222 mls/hr Insulin Aspart (Novolog) 0 unit SC ACHS [facility] PRN Reason: Protocol Last Admin: 07/15/17 13:49 Dose: 3 unit Isosorbide Mononitrate (Imdur Er) 30 mg PO DAILY [facility] Last Admin: 07/08/17 10:09 Dose: 30 mg Megestrol Acetate (Megace) 400 mg PO DAILY [facility] Last Admin: 07/15/17 10:02 Dose: 400 mg Metoprolol Tartrate (Lopressor) 25 mg PO BID [facility] Last Admin: 07/15/17 10:02 Dose: 25 mg Multivitamins (Hexavitamin) 1 tab PO DAILY [facility] Last Admin: 07/15/17 10:07 Dose: 1 tab Pantoprazole Sodium (Protonix Ec Tab) 40 mg PO DAILY [facility] Last Admin: 07/15/17 10:02 Dose: 40 mg Tamsulosin HCl (Flomax) 0.4 mg PO DAILY [facility] Last Admin: 07/15/17 10:07 Dose: 0.4 mg - Labs Labs: 07/15/17 07:58 07/15/17 07:58 - Constitutional Appears: Chronically Ill - Neck Exam Neck Exam: Normal Inspection - Respiratory Exam Respiratory Exam: Clear to Ausculation Bilateral - Cardiovascular Exam Cardiovascular Exam: Irregular Rhythm Assessment and Plan - Assessment and Plan (Free Text) Assessment: overall stable cardiac ng. i will be away.dr franklin milan to cover if needed. thanks
--- NOTE | 2017-07-15 18:41 | CP.PCM.PN ---
Subjective - Date & Time of Evaluation Date of Evaluation: 07/15/17 Time of Evaluation: 18:41 - Subjective Subjective: AFEBRILE Resting comfortably. AT BEDSIDE. ON IV ABX Objective - Vital Signs/Intake and Output Vital Signs (last 24 hours): Temp Pulse Resp BP Pulse Ox 98.2 F 94 H 20 113/68 96 07/15/17 15:33 07/15/17 15:33 07/15/17 15:33 07/15/17 17:40 07/15/17 15:33 Intake and Output: 07/15/17 07/15/17 06:59 18:59 Intake Total 0 Output Total 800 400 Balance -800 -400 - Medications Medications: Current Medications Alprazolam (Xanax) 0.25 mg PO HS PRN PRN Reason: Agitation Stop: 07/16/17 14:35 Last Admin: 07/14/17 18:08 Dose: 0.25 mg Cyanocobalamin (Vitamin B12 1000 Mcg Tab) 1,000 mcg PO DAILY [facility] Last Admin: 07/15/17 10:02 Dose: 1,000 mcg Finasteride (Proscar) 5 mg PO DAILY [facility] Last Admin: 07/15/17 10:02 Dose: 5 mg Furosemide (Lasix) 40 mg PO MWF [facility] Last Admin: 07/10/17 09:26 Dose: 40 mg Hydromorphone HCl (Dilaudid) 1 mg IVP Q8H PRN PRN Reason: pain, severe BLE PAD Imipenem/Cilastatin Sodium 500 (mg/ Sodium Chloride) 100 mls @ 100 mls/hr IVPB Q8H [facility] Last Admin: 07/15/17 16:23 Dose: 100 mls/hr Vancomycin HCl 1.35 gm/ Sodium (Chloride) 500 mls @ 222 mls/hr IVPB Q24H [facility] Last Admin: 07/15/17 12:12 Dose: 222 mls/hr Insulin Aspart (Novolog) 0 unit SC ACHS [facility] PRN Reason: Protocol Last Admin: 07/15/17 17:42 Dose: Not Given Isosorbide Mononitrate (Imdur Er) 30 mg PO DAILY [facility] Last Admin: 07/08/17 10:09 Dose: 30 mg Megestrol Acetate (Megace) 400 mg PO DAILY [facility] Last Admin: 07/15/17 10:02 Dose: 400 mg Metoprolol Tartrate (Lopressor) 25 mg PO BID [facility] Last Admin: 07/15/17 17:40 Dose: 25 mg Multivitamins (Hexavitamin) 1 tab PO DAILY [facility] Last Admin: 07/15/17 10:07 Dose: 1 tab Pantoprazole Sodium (Protonix Ec Tab) 40 mg PO DAILY [facility] Last Admin: 07/15/17 10:02 Dose: 40 mg Tamsulosin HCl (Flomax) 0.4 mg PO DAILY [facility] Last Admin: 07/15/17 10:07 Dose: 0.4 mg - Labs Labs: 07/15/17 07:58 07/15/17 07:58 - Constitutional Appears: No Acute Distress, Chronically Ill - Head Exam Head Exam: NORMAL INSPECTION - Eye Exam Eye Exam: EOMI, PERRL - ENT Exam ENT Exam: Normal Oropharynx - Neck Exam Neck Exam: Normal Inspection - Respiratory Exam Respiratory Exam: Clear to Ausculation Bilateral - Cardiovascular Exam Cardiovascular Exam: REGULAR RHYTHM, +S1, +S2 - GI/Abdominal Exam GI & Abdominal Exam: Soft, Normal Bowel Sounds - Extremities Exam Extremities Exam: absent: Calf Tenderness - Neurological Exam Neurological Exam: Awake, CN II-XII Intact (BED BOUND. +VE SACRAL DEC ULCERS- STAGE 4, LT HIP DEC ULCER DEEP-STAGE 3, FEET WITH GANGRENOUS CHANGES) - Psychiatric Exam Psychiatric exam: Depressed - Skin Skin Exam: Warm Assessment and Plan (1) Decubitus ulcer with gangrene Assessment & Plan: ON IV PRIMAXIN 500MG IVPB Q 8HRLY 07/08/17 RESTARTED ON iv VANCOMYCIN 1350 MG IVPB Q 24 HRLY. VANCO TROUGH 07/15/17 19.1 ( [place] ) LWC PER WOUND CARE NURSE. VASCULAR SURGERY ON BOARD.. Status: Acute (2) Anemia Status: Acute (3) Atrial fibrillation Status: Acute (4) Dementia Status: Acute (5) PVD (peripheral vascular disease) Assessment & Plan: PT HAS SEVERE PVD. VASCULAR SURGERY ON BOARD. Status: Acute (6) Diabetes Status: Acute
--- NOTE | 2017-07-15 19:33 | CP.PCM.PN ---
Subjective - Date & Time of Evaluation Date of Evaluation: 07/15/17 Time of Evaluation: 10:00 - Subjective Subjective: clinically same Objective - Vital Signs/Intake and Output Vital Signs (last 24 hours): Temp Pulse Resp BP Pulse Ox 98.2 F 94 H 20 113/68 96 07/15/17 15:33 07/15/17 15:33 07/15/17 15:33 07/15/17 17:40 07/15/17 15:33 Intake and Output: 07/15/17 07/16/17 18:59 06:59 Output Total 400 Balance -400 - Medications Medications: Current Medications Alprazolam (Xanax) 0.25 mg PO HS PRN PRN Reason: Agitation Stop: 07/16/17 14:35 Last Admin: 07/14/17 18:08 Dose: 0.25 mg Cyanocobalamin (Vitamin B12 1000 Mcg Tab) 1,000 mcg PO DAILY [facility] Last Admin: 07/15/17 10:02 Dose: 1,000 mcg Finasteride (Proscar) 5 mg PO DAILY [facility] Last Admin: 07/15/17 10:02 Dose: 5 mg Furosemide (Lasix) 40 mg PO MWF [facility] Last Admin: 07/10/17 09:26 Dose: 40 mg Hydromorphone HCl (Dilaudid) 1 mg IVP Q8H PRN PRN Reason: pain, severe BLE PAD Imipenem/Cilastatin Sodium 500 (mg/ Sodium Chloride) 100 mls @ 100 mls/hr IVPB Q8H [facility] Last Admin: 07/15/17 16:23 Dose: 100 mls/hr Vancomycin HCl 1.35 gm/ Sodium (Chloride) 500 mls @ 222 mls/hr IVPB Q24H [facility] Last Admin: 07/15/17 12:12 Dose: 222 mls/hr Insulin Aspart (Novolog) 0 unit SC ACHS [facility] PRN Reason: Protocol Last Admin: 07/15/17 17:42 Dose: Not Given Isosorbide Mononitrate (Imdur Er) 30 mg PO DAILY [facility] Last Admin: 07/08/17 10:09 Dose: 30 mg Megestrol Acetate (Megace) 400 mg PO DAILY [facility] Last Admin: 07/15/17 10:02 Dose: 400 mg Metoprolol Tartrate (Lopressor) 25 mg PO BID [facility] Last Admin: 07/15/17 17:40 Dose: 25 mg Multivitamins (Hexavitamin) 1 tab PO DAILY [facility] Last Admin: 07/15/17 10:07 Dose: 1 tab Pantoprazole Sodium (Protonix Ec Tab) 40 mg PO DAILY [facility] Last Admin: 07/15/17 10:02 Dose: 40 mg Tamsulosin HCl (Flomax) 0.4 mg PO DAILY [facility] Last Admin: 07/15/17 10:07 Dose: 0.4 mg - Labs Labs: 07/15/17 07:58 07/15/17 07:58 Assessment and Plan - Assessment and Plan (Free Text) Plan: Follow-up with Dr. Ortiz to have a discussion with the family again on Monday about the amputations Follow-up with ID Discussion with the family about the home hospice versus amputation versus aggressive management Continue cardiology follow-up Continue ID follow-up Continue with IV antibiotic Continue with the Megace Other medications as ordered continue imipenem
--- NOTE | 2017-07-16 06:33 | CP.PCM.PN ---
Subjective - Date & Time of Evaluation Date of Evaluation: 07/16/17 Time of Evaluation: 06:32 - Subjective Subjective: Vasc Sx: Dr Tsai Pt S&E. Resting comfortably. Complains of pain in LE and back when being moved. Has been refusing to eat. No family is bedside. Final decision on amputation vs hospice care is still pending but I believe they are leaning towards surgery. Objective - Vital Signs/Intake and Output Vital Signs (last 24 hours): Temp Pulse Resp BP Pulse Ox 98.1 F 108 H 20 97/61 L 96 07/15/17 23:00 07/15/17 23:00 07/15/17 23:00 07/15/17 23:00 07/15/17 23:00 Intake and Output: 07/15/17 07/16/17 18:59 06:59 Intake Total 100 Output Total 400 300 Balance -400 -200 - Medications Medications: Current Medications Alprazolam (Xanax) 0.25 mg PO HS PRN PRN Reason: Agitation Stop: 07/16/17 14:35 Last Admin: 07/14/17 18:08 Dose: 0.25 mg Cyanocobalamin (Vitamin B12 1000 Mcg Tab) 1,000 mcg PO DAILY [facility] Last Admin: 07/15/17 10:02 Dose: 1,000 mcg Finasteride (Proscar) 5 mg PO DAILY [facility] Last Admin: 07/15/17 10:02 Dose: 5 mg Furosemide (Lasix) 40 mg PO MWF [facility] Last Admin: 07/10/17 09:26 Dose: 40 mg Hydromorphone HCl (Dilaudid) 1 mg IVP Q8H PRN PRN Reason: pain, severe BLE PAD Last Admin: 07/15/17 19:58 Dose: 1 mg Imipenem/Cilastatin Sodium 500 (mg/ Sodium Chloride) 100 mls @ 100 mls/hr IVPB Q8H [facility] Last Admin: 07/16/17 05:33 Dose: 100 mls/hr Vancomycin HCl 1.35 gm/ Sodium (Chloride) 500 mls @ 222 mls/hr IVPB Q24H [facility] Last Admin: 07/15/17 12:12 Dose: 222 mls/hr Insulin Aspart (Novolog) 0 unit SC ACHS [facility] PRN Reason: Protocol Last Admin: 07/15/17 21:01 Dose: Not Given Isosorbide Mononitrate (Imdur Er) 30 mg PO DAILY [facility] Last Admin: 07/08/17 10:09 Dose: 30 mg Megestrol Acetate (Megace) 400 mg PO DAILY [facility] Last Admin: 07/15/17 10:02 Dose: 400 mg Metoprolol Tartrate (Lopressor) 25 mg PO BID [facility] Last Admin: 07/15/17 17:40 Dose: 25 mg Multivitamins (Hexavitamin) 1 tab PO DAILY [facility] Last Admin: 07/15/17 10:07 Dose: 1 tab Pantoprazole Sodium (Protonix Ec Tab) 40 mg PO DAILY [facility] Last Admin: 07/15/17 10:02 Dose: 40 mg Tamsulosin HCl (Flomax) 0.4 mg PO DAILY [facility] Last Admin: 07/15/17 10:07 Dose: 0.4 mg - Labs Labs: 07/15/17 07:58 07/15/17 07:58 - Constitutional Appears: Non-toxic, No Acute Distress - ENT Exam ENT Exam: Normal Exam - Respiratory Exam Respiratory Exam: absent: Accessory Muscle Use, Respiratory Distress - Cardiovascular Exam Cardiovascular Exam: Irregular Rhythm - GI/Abdominal Exam GI & Abdominal Exam: Soft. absent: Tenderness - Extremities Exam Additional comments: bilateral lower extremities with dressing clean, dry and intact. Lower extremity swelling noted bilaterally. Discoloration of toes. - Neurological Exam Neurological Exam: Awake. absent: Oriented x3 - Psychiatric Exam Psychiatric exam: Normal Mood Assessment and Plan - Assessment and Plan (Free Text) Assessment: 87yo M with extensive bilateral LE PAD -continue local wound care -would benefit from b/l AKAs: final decision still pending -Family to consider hospice -Continue mgmt as per primary Further recs as per Dr. Quin Packer, PGY3
[2017-07-16] MEDS: Multiple Vitamins Tab PO SCH (09:58)
[2017-07-16] MEDS: Pantoprazole 40 mg EC Tab PO SCH (09:58)
[2017-07-16] MEDS: Megestrol Acetate 40 mg/ml Cup PO SCH (09:58)
[2017-07-16] MEDS: (Novolog) Insulin Aspart, Recombinant 100 u/ml 10 ml vial SC SCH ×4 (10:04→21:15)
[2017-07-16] MEDS: Vancomycin 1 gm/NS 200 ml 1 GM/200 ML BAG IVPB SCH (15:03)
--- NOTE | 2017-07-16 16:02 | CP.PCM.PN ---
Subjective - Date & Time of Evaluation Date of Evaluation: 07/16/17 Time of Evaluation: 10:40 - Subjective Subjective: clinically same Objective - Vital Signs/Intake and Output Vital Signs (last 24 hours): Temp Pulse Resp BP Pulse Ox 98 F 101 H 20 113/60 98 07/16/17 07:30 07/16/17 07:30 07/16/17 07:30 07/16/17 10:04 07/16/17 07:30 Intake and Output: 07/16/17 07/16/17 06:59 18:59 Intake Total 100 Output Total 550 300 Balance -450 -300 - Medications Medications: Current Medications Cyanocobalamin (Vitamin B12 1000 Mcg Tab) 1,000 mcg PO DAILY [facility] Last Admin: 07/16/17 10:13 Dose: 1,000 mcg Finasteride (Proscar) 5 mg PO DAILY [facility] Last Admin: 07/16/17 09:58 Dose: 5 mg Furosemide (Lasix) 40 mg PO MWF [facility] Last Admin: 07/10/17 09:26 Dose: 40 mg Hydromorphone HCl (Dilaudid) 1 mg IVP Q8H PRN PRN Reason: pain, severe BLE PAD Last Admin: 07/16/17 12:37 Dose: 1 mg Imipenem/Cilastatin Sodium 500 (mg/ Sodium Chloride) 100 mls @ 100 mls/hr IVPB Q8H [facility] Last Admin: 07/16/17 14:03 Dose: 100 mls/hr Vancomycin/Sodium Chloride (Vancomycin 1 Gm/Ns 200 Ml) 1 gm in 200 mls @ 133.333 mls/hr IVPB Q24H [facility] Stop: 07/21/17 14:01 Last Admin: 07/16/17 15:03 Dose: 133.333 mls/hr Insulin Aspart (Novolog) 0 unit SC ACHS [facility] PRN Reason: Protocol Last Admin: 07/16/17 12:37 Dose: 4 unit Isosorbide Mononitrate (Imdur Er) 30 mg PO DAILY [facility] Last Admin: 07/08/17 10:09 Dose: 30 mg Megestrol Acetate (Megace) 400 mg PO DAILY [facility] Last Admin: 07/16/17 09:58 Dose: 400 mg Metoprolol Tartrate (Lopressor) 25 mg PO BID [facility] Last Admin: 07/16/17 10:04 Dose: 25 mg Multivitamins (Hexavitamin) 1 tab PO DAILY [facility] Last Admin: 07/16/17 09:58 Dose: 1 tab Pantoprazole Sodium (Protonix Ec Tab) 40 mg PO DAILY [facility] Last Admin: 07/16/17 09:58 Dose: 40 mg Tamsulosin HCl (Flomax) 0.4 mg PO DAILY [facility] Last Admin: 07/16/17 09:58 Dose: 0.4 mg - Labs Labs: 07/15/17 07:58 07/15/17 07:58 - Constitutional Appears: Well - Head Exam Head Exam: ATRAUMATIC, NORMAL INSPECTION, NORMOCEPHALIC - Eye Exam Eye Exam: EOMI, Normal appearance, PERRL Pupil Exam: NORMAL ACCOMODATION, PERRL - ENT Exam ENT Exam: Mucous Membranes Moist, Normal Exam - Neck Exam Neck Exam: Full ROM, Normal Inspection. absent: Lymphadenopathy - Respiratory Exam Respiratory Exam: Decreased Breath Sounds - Cardiovascular Exam Cardiovascular Exam: REGULAR RHYTHM, +S1, +S2 - GI/Abdominal Exam GI & Abdominal Exam: Soft, Diminished Bowel Sounds - Rectal Exam Rectal Exam: Deferred Assessment and Plan - Assessment and Plan (Free Text) Plan: Discharge family meeting with the Dr. aparicio discussing about the amputations Continue imipenem Continue sliding scale Continue vancomycin Continue follow-up with ID Continue following up with the cardiology As ordered
[2017-07-17] MEDS: (Novolog) Insulin Aspart, Recombinant 100 u/ml 10 ml vial SC SCH ×4 (08:24→21:45)
[2017-07-17] MEDS: Pantoprazole 40 mg EC Tab PO SCH (11:07)
[2017-07-17] MEDS: Multiple Vitamins Tab PO SCH (11:07)
[2017-07-17] MEDS: Megestrol Acetate 40 mg/ml Cup PO SCH (11:07)
[2017-07-17] MEDS: Vancomycin 1 gm/NS 200 ml 1 GM/200 ML BAG IVPB SCH (14:16)
--- NOTE | 2017-07-17 19:40 | CP.PCM.PN ---
Subjective - Date & Time of Evaluation Date of Evaluation: 07/17/17 Time of Evaluation: 13:30 - Subjective Subjective: clinically same Objective - Vital Signs/Intake and Output Vital Signs (last 24 hours): Temp Pulse Resp BP Pulse Ox 98 F 120 H 20 137/72 98 07/17/17 15:21 07/17/17 15:21 07/17/17 15:21 07/17/17 18:32 07/17/17 15:21 Intake and Output: 07/17/17 07/18/17 18:59 06:59 Intake Total 550 Output Total 100 Balance 450 - Medications Medications: Current Medications Cyanocobalamin (Vitamin B12 1000 Mcg Tab) 1,000 mcg PO DAILY [facility] [place] Last Admin: 07/17/17 11:08 Dose: 1,000 mcg Finasteride (Proscar) 5 mg PO DAILY [facility] [facility] Last Admin: 07/17/17 11:07 Dose: 5 mg Furosemide (Lasix) 40 mg PO MWF [facility] [place] Last Admin: 07/10/17 09:26 Dose: 40 mg Hydromorphone HCl (Dilaudid) 1 mg IVP Q8H PRN PRN Reason: pain, severe BLE PAD Last Admin: 07/16/17 22:10 Dose: 1 mg Imipenem/Cilastatin Sodium 500 (mg/ Sodium Chloride) 100 mls @ 100 mls/hr IVPB Q8H [facility] Last Admin: 07/17/17 13:15 Dose: 100 mls/hr Vancomycin/Sodium Chloride (Vancomycin 1 Gm/Ns 200 Ml) 1 gm in 200 mls @ 133.333 mls/hr IVPB Q24H [facility] [place] Stop: 07/21/17 14:01 Last Admin: 07/17/17 14:16 Dose: 133.333 mls/hr Insulin Aspart (Novolog) 0 unit SC ACHS [facility] [place] PRN Reason: Protocol Last Admin: 07/17/17 18:32 Dose: 2 unit Isosorbide Mononitrate (Imdur Er) 30 mg PO DAILY [facility] Last Admin: 07/08/17 10:09 Dose: 30 mg Megestrol Acetate (Megace) 400 mg PO DAILY [facility] [place] Last Admin: 07/17/17 11:07 Dose: 400 mg Metoprolol Tartrate (Lopressor) 25 mg PO BID [facility] [place] Last Admin: 07/17/17 18:32 Dose: 25 mg Multivitamins (Hexavitamin) 1 tab PO DAILY [facility] [place] Last Admin: 07/17/17 11:07 Dose: 1 tab Pantoprazole Sodium (Protonix Ec Tab) 40 mg PO DAILY [facility] [place] Last Admin: 07/17/17 11:07 Dose: 40 mg Tamsulosin HCl (Flomax) 0.4 mg PO DAILY [facility] Last Admin: 07/17/17 11:08 Dose: 0.4 mg - Labs Labs: 07/15/17 07:58 07/15/17 07:58 - Constitutional Appears: Well - Head Exam Head Exam: ATRAUMATIC, NORMAL INSPECTION, NORMOCEPHALIC - Eye Exam Eye Exam: EOMI, Normal appearance, PERRL Pupil Exam: NORMAL ACCOMODATION, PERRL - ENT Exam ENT Exam: Mucous Membranes Moist, Normal Exam - Neck Exam Neck Exam: Full ROM, Normal Inspection. absent: Lymphadenopathy - Respiratory Exam Respiratory Exam: Decreased Breath Sounds - Cardiovascular Exam Cardiovascular Exam: REGULAR RHYTHM, +S1, +S2 - GI/Abdominal Exam GI & Abdominal Exam: Soft, Diminished Bowel Sounds - Rectal Exam Rectal Exam: Deferred
--- NOTE | 2017-07-17 20:25 | CP.PCM.PN ---
Subjective - Date & Time of Evaluation Date of Evaluation: 07/17/17 Time of Evaluation: 20:25 - Subjective Subjective: afebrile ,BP IMPROVED WEAK. C/O PAIN LT.HIP/BACKPAIN ON MOVEMENT resting comfortably. AT BEDSIDE. SEEN BY DR RIDER AND NOTED. ?SURGERY VS HOSPICE ! ON IV ABX Objective - Vital Signs/Intake and Output Vital Signs (last 24 hours): Temp Pulse Resp BP Pulse Ox 98 F 120 H 20 137/72 98 07/17/17 15:21 07/17/17 15:21 07/17/17 15:21 07/17/17 18:32 07/17/17 15:21 Intake and Output: 07/17/17 07/18/17 18:59 06:59 Intake Total 550 Output Total 100 Balance 450 - Medications Medications: Current Medications Cyanocobalamin (Vitamin B12 1000 Mcg Tab) 1,000 mcg PO DAILY [facility] Last Admin: 07/17/17 11:08 Dose: 1,000 mcg Finasteride (Proscar) 5 mg PO DAILY [facility] Last Admin: 07/17/17 11:07 Dose: 5 mg Furosemide (Lasix) 40 mg PO MWF [facility] Last Admin: 07/10/17 09:26 Dose: 40 mg Hydromorphone HCl (Dilaudid) 1 mg IVP Q8H PRN PRN Reason: pain, severe BLE PAD Last Admin: 07/16/17 22:10 Dose: 1 mg Imipenem/Cilastatin Sodium 500 (mg/ Sodium Chloride) 100 mls @ 100 mls/hr IVPB Q8H [facility] Last Admin: 07/17/17 13:15 Dose: 100 mls/hr Vancomycin/Sodium Chloride (Vancomycin 1 Gm/Ns 200 Ml) 1 gm in 200 mls @ 133.333 mls/hr IVPB Q24H [facility] Stop: 07/21/17 14:01 Last Admin: 07/17/17 14:16 Dose: 133.333 mls/hr Insulin Aspart (Novolog) 0 unit SC ACHS [facility] PRN Reason: Protocol Last Admin: 07/17/17 18:32 Dose: 2 unit Isosorbide Mononitrate (Imdur Er) 30 mg PO DAILY [facility] Last Admin: 07/08/17 10:09 Dose: 30 mg Megestrol Acetate (Megace) 400 mg PO DAILY [facility] Last Admin: 07/17/17 11:07 Dose: 400 mg Metoprolol Tartrate (Lopressor) 25 mg PO BID [facility] Last Admin: 07/17/17 18:32 Dose: 25 mg Multivitamins (Hexavitamin) 1 tab PO DAILY [facility] Last Admin: 07/17/17 11:07 Dose: 1 tab Pantoprazole Sodium (Protonix Ec Tab) 40 mg PO DAILY [facility] Last Admin: 07/17/17 11:07 Dose: 40 mg Tamsulosin HCl (Flomax) 0.4 mg PO DAILY [facility] Last Admin: 07/17/17 11:08 Dose: 0.4 mg - Labs Labs: 07/15/17 07:58 07/15/17 07:58 - Constitutional Appears: No Acute Distress, Chronically Ill - Head Exam Head Exam: NORMAL INSPECTION - Eye Exam Eye Exam: EOMI, PERRL - ENT Exam ENT Exam: Normal Oropharynx - Neck Exam Neck Exam: Normal Inspection - Respiratory Exam Respiratory Exam: Clear to Ausculation Bilateral - Cardiovascular Exam Cardiovascular Exam: REGULAR RHYTHM, +S1, +S2 - GI/Abdominal Exam GI & Abdominal Exam: Soft, Normal Bowel Sounds - Extremities Exam Extremities Exam: Pedal Edema (+VE SACRAL DEC ULCERS-STAGE 4, LT HIP DEC ULCER DEEP-STAGE 3, FEET WITH GANGRENOUS CHANGES)). absent: Calf Tenderness - Neurological Exam Neurological Exam: Awake, CN II-XII Intact (BED BOUND), Oriented x3 - Psychiatric Exam Psychiatric exam: Normal Mood - Skin Skin Exam: Pallor, Warm Assessment and Plan (1) Decubitus ulcer with gangrene Assessment & Plan: ON IV PRIMAXIN 500MG IVPB Q 8HRLY 07/08/17 ON iv VANCOMYCIN 1GM IVPB Q 24 HRLY. VANCO TROUGH 07/15/17 19.1 ( [place] ) LWC PER WOUND CARE NURSE. VASCULAR SURGERY ON BOARD.. Status: Acute Status: Acute (2) Anemia Status: Acute (3) Atrial fibrillation Status: Acute (4) Dementia Status: Acute (5) PVD (peripheral vascular disease) Assessment & Plan: PT HAS SEVERE PVD. VASCULAR SURGERY ON BOARD. Status: Acute (6) Diabetes Status: Acute
[2017-07-18] MEDS: (Novolog) Insulin Aspart, Recombinant 100 u/ml 10 ml vial SC SCH ×4 (08:35→22:26)
[2017-07-18] MEDS: Megestrol Acetate 40 mg/ml Cup PO SCH (10:56)
[2017-07-18] MEDS: Multiple Vitamins Tab PO SCH (10:56)
[2017-07-18] MEDS: Pantoprazole 40 mg EC Tab PO SCH (10:56)
[2017-07-18 14:14] LABS: BASO # 0.1 K/uL (0.0-0.2); BASO % 0.4 % (0.0-2.0); EOS # 0.3 K/uL (0.0-0.7); EOS % 2.2 % (0.0-4.0); HEMOGLOBIN 8.3 g/dL (12.0-18.0); LYMPH # 1.2 K/uL (1.0-4.3); MEAN CELL VOLUME 91.2 fL (80.0-94.0); MEAN CORPUSCULAR HEMOGLOBIN 30.7 pg (27.0-31.0); MEAN CORPUSCULAR HGB CONC 33.7 g/dL (33.0-37.0); MEAN PLATELET VOLUME 7.6 fL (7.2-11.7); MONO # 0.8 K/uL (0.0-0.8); MONO % 5.5 % (0.0-10.0); NEUT # 11.4 K/uL (1.8-7.0); NEUT % 82.9 % (50.0-75.0); PLATELET COUNT 293 K/uL (130-400); RBC 2.72 Mil/uL (4.40-5.90); RED CELL DISTRIBUTION WIDTH 15.2 % (11.5-14.5); WHITE BLOOD COUNT 13.7 K/uL (4.8-10.8)
[2017-07-18 14:29] LABS: BLOOD UREA NITROGEN 11 mg/dL (9-20); CALCIUM 7.7 mg/dl (8.6-10.4); GFR AFRICAN-AMERICAN > 60; GFR NON-AFRICAN AMERICAN > 60
[2017-07-18] MEDS: Vancomycin 1 gm/NS 200 ml 1 GM/200 ML BAG IVPB SCH (14:59)
[2017-07-18 15:12] LABS: ANISOCYTOSIS SLIGHT; BURR CELLS SLIGHT; EOSINOPHIL 2 % (0-4); HYPOCHROMIC SLIGHT; LYMPHOCYTE 9 % (20-40); MONOCYTE 5 % (0-10); NEUTROPHIL 84 % (50-75); PLATELET ESTIMATE NORMAL (NORMAL); POIKILOCYTOSIS SLIGHT; TOTAL CELLS COUNTED 100
[2017-07-18 15:13] LABS: OVALOCYTES SLIGHT; TARGET CELLS SLIGHT
--- NOTE | 2017-07-18 21:56 | CP.PCM.PN ---
Subjective - Date & Time of Evaluation Date of Evaluation: 07/18/17 Time of Evaluation: 21:56 - Subjective Subjective: AFEBRILE WEAK. C/O PAIN LT.HIP/BACKPAIN ON MOVEMENT resting comfortably. AT BEDSIDE. SEEN BY DR RIDER AND NOTED. LABS REVIEWED. wbc 13.7 H/H 8.3 pLATELETS OKAY cREATININE 0.9/bun 11 LFTS 07/15/17 N. oN iv ANTIBIOTICS. Objective - Vital Signs/Intake and Output Vital Signs (last 24 hours): Temp Pulse Resp BP Pulse Ox 96.0 F L 80 20 106/49 L 98 07/18/17 15:00 07/18/17 15:00 07/18/17 15:00 07/18/17 18:35 07/18/17 15:00 Intake and Output: 07/18/17 07/19/17 18:59 06:59 Intake Total 550 Output Total 200 Balance 350 - Medications Medications: Current Medications Cyanocobalamin (Vitamin B12 1000 Mcg Tab) 1,000 mcg PO DAILY [facility] Last Admin: 07/18/17 10:56 Dose: 1,000 mcg Finasteride (Proscar) 5 mg PO DAILY [facility] Last Admin: 07/18/17 10:56 Dose: 5 mg Furosemide (Lasix) 40 mg PO MWF [facility] Last Admin: 07/10/17 09:26 Dose: 40 mg Hydromorphone HCl (Dilaudid) 1 mg IVP Q8H PRN PRN Reason: pain, severe BLE PAD Last Admin: 07/18/17 01:42 Dose: 1 mg Imipenem/Cilastatin Sodium 500 (mg/ Sodium Chloride) 100 mls @ 100 mls/hr IVPB Q8H [facility] Last Admin: 07/18/17 13:36 Dose: 100 mls/hr Vancomycin/Sodium Chloride (Vancomycin 1 Gm/Ns 200 Ml) 1 gm in 200 mls @ 133.333 mls/hr IVPB Q24H [facility] Stop: 07/21/17 14:01 Last Admin: 07/18/17 14:59 Dose: 133.333 mls/hr Insulin Aspart (Novolog) 0 unit SC ACHS [facility] PRN Reason: Protocol Last Admin: 07/18/17 18:35 Dose: 1 unit Isosorbide Mononitrate (Imdur Er) 30 mg PO DAILY [facility] Last Admin: 07/08/17 10:09 Dose: 30 mg Megestrol Acetate (Megace) 400 mg PO DAILY [facility] Last Admin: 07/18/17 10:56 Dose: 400 mg Metoprolol Tartrate (Lopressor) 25 mg PO BID [facility] Last Admin: 07/18/17 18:35 Dose: 25 mg Multivitamins (Hexavitamin) 1 tab PO DAILY [facility] Last Admin: 07/18/17 10:56 Dose: 1 tab Pantoprazole Sodium (Protonix Ec Tab) 40 mg PO DAILY [facility] Last Admin: 07/18/17 10:56 Dose: 40 mg Tamsulosin HCl (Flomax) 0.4 mg PO DAILY [facility] Last Admin: 07/18/17 10:56 Dose: 0.4 mg - Labs Labs: 07/18/17 14:06 07/18/17 14:06 - Constitutional Appears: No Acute Distress, Chronically Ill - Head Exam Head Exam: NORMAL INSPECTION - Eye Exam Eye Exam: EOMI, PERRL - ENT Exam ENT Exam: Normal Oropharynx - Neck Exam Neck Exam: Normal Inspection - Respiratory Exam Respiratory Exam: Clear to Ausculation Bilateral - Cardiovascular Exam Cardiovascular Exam: REGULAR RHYTHM, +S1, +S2 - GI/Abdominal Exam GI & Abdominal Exam: Soft, Normal Bowel Sounds - Extremities Exam Extremities Exam: Pedal Edema ((+VE SACRAL DEC ULCERS-STAGE 4, LT HIP DEC ULCER DEEP-STAGE 3, FEET WITH GANGRENOUS CHANGES)). absent: Calf Tenderness). absent : Calf Tenderness - Neurological Exam Neurological Exam: Awake, CN II-XII Intact, Oriented x3 - Psychiatric Exam Psychiatric exam: Normal Mood - Skin Skin Exam: Pallor, Warm Assessment and Plan (1) Decubitus ulcer with gangrene Assessment & Plan: (+VE SACRAL DEC ULCERS-STAGE 4, LT HIP DEC ULCER DEEP-STAGE 3, FEET WITH GANGRENOUS CHANGES LATERALLY ) ON IV PRIMAXIN 500MG IVPB Q 8HRLY 07/08/17 ON iv VANCOMYCIN 1GM IVPB Q 24 HRLY. VANCO TROUGH 07/15/17 19.1 ( [place] ) LWC PER WOUND CARE NURSE. VASCULAR SURGERY ON BOARD.. FAMILY DECIDING SURGERY [facility]ERSUS HOSPICE. Status: Acute (2) Anemia Status: Acute (3) Atrial fibrillation Status: Acute (4) Dementia Status: Acute (5) PVD (peripheral vascular disease) Assessment & Plan: PATIENT HAS HISTORY OF PERIPHERAL VASCULAR DISEASE. HEALING-pOOR fAMILY AWARE. Status: Acute (6) Diabetes Status: Acute
[2017-07-19] MEDS: (Novolog) Insulin Aspart, Recombinant 100 u/ml 10 ml vial SC SCH ×4 (09:14→21:28)
[2017-07-19] MEDS: Megestrol Acetate 40 mg/ml Cup PO SCH (09:14)
[2017-07-19] MEDS: Multiple Vitamins Tab PO SCH (09:16)
[2017-07-19] MEDS: Pantoprazole 40 mg EC Tab PO SCH (09:16)
[2017-07-19] MEDS: Vancomycin 1 gm/NS 200 ml 1 GM/200 ML BAG IVPB SCH (14:53)
--- NOTE | 2017-07-19 15:11 | PCM.PSYCH ---
Initial Psychiatric Evaluation - Initial Psychiatric Evaluation Type of Admission: Voluntary Legal Status: Capacity Chief Complaint (in patient's own words): i am trey.' History of Present Illness and Precipitating Events: Patient is an 87-year-old male with a history of dementia, who recently stopped eating. Today pt was consulted because of AMS. As per the staff, patient was recently told that he will need a bilateral AKA and pt became increasingly disorganized and internally preoccupied. . Patient responds to verbal stimulation and knows his name, but is unable to provide where he is or what year it is. Patient was asked why he was an eating and was unable to give an appropriate response. Full history is unobtainable due to patients current mental status. He was found paranoid and delirious. When asked who is the president of the [employer]. He replied, "My father.' When asked where is he sitting.' He replied 'my mother' s house.' He remained delirious and disoriented to time, place and person. As per the staff he was oriented in the AM. Current Medications: Active Medications Generic Name Dose Route Start Last Admin Trade Name Freq PRN Reason Stop Dose Admin Cyanocobalamin 1,000 mcg 07/08/17 10:00 07/19/17 09:16 Vitamin B12 1000 Mcg Tab PO 1,000 mcg DAILY [facility] Administration Finasteride 5 mg 07/08/17 10:00 07/19/17 09:15 Proscar PO 5 mg DAILY [facility] Administration Furosemide 40 mg 07/10/17 09:00 07/10/17 09:26 Lasix PO 40 mg MWF [facility] Administration Hydromorphone HCl 1 mg 07/15/17 18:00 07/18/17 01:42 Dilaudid IVP 1 mg Q8H PRN Administration pain, severe BLE PAD Imipenem/Cilastatin Sodium 500 100 mls @ 100 mls/hr 07/08/17 22:00 07/19/17 13:47 mg/ Sodium Chloride IVPB 100 mls/hr Q8H [facility] Administration Vancomycin/Sodium Chloride 1 gm in 200 mls @ 133.333 mls/hr 07/16/17 14:00 14:53 Vancomycin 1 Gm/Ns 200 Ml IVPB 07/21/17 14:01 133.333 mls/hr Q24H [facility] Administration Insulin Aspart 0 unit 07/08/17 07:30 07/19/17 12:30 Novolog SC 3 unit ACHS [facility] Administration Protocol Isosorbide Mononitrate 30 mg 07/08/17 10:00 07/08/17 10:09 Imdur Er PO 30 mg DAILY [facility] Administration Megestrol Acetate 400 mg 07/09/17 14:45 07/19/17 09:14 Megace PO 400 mg DAILY [facility] Administration Metoprolol Tartrate 25 mg 07/12/17 10:25 07/19/17 09:15 Lopressor PO 25 mg BID [facility] Administration Multivitamins 1 tab 07/08/17 10:00 07/19/17 09:16 Hexavitamin PO 1 tab DAILY [facility] Administration Pantoprazole Sodium 40 mg 07/08/17 10:00 07/19/17 09:16 Protonix Ec Tab PO 40 mg DAILY [facility] Administration Tamsulosin HCl 0.4 mg 07/10/17 14:45 07/19/17 09:16 Flomax PO 0.4 mg DAILY [facility] Administration Past Psychiatric History - Past Psychiatric History Previous Treatment History: None Pertinent Medical Hx (Current Medical&Sleep Prob, Allergies): Allergies Allergy/AdvReac Type Severity Reaction Status Date / Time No Known Allergies Allergy Verified 07/07/17 14:02 Finasteride [Proscar] 5 mg PO DAILY 12/07/16 Furosemide 40 mg PO MWF 12/07/16 Isosorbide Mononitrate [Isosorbide Mononitrate ER] 30 mg PO DAILY 12/07/16 Multivit-Min/FA/Lycopen/Lutein [Centrum Silver Tablet] 1 each PO DAILY 12/07/16 Silodosin [Rapaflo] 8 mg PO DAILY 12/07/16 Cyanocobalamin [Vitamin B12] 500 mcg PO DAILY 03/02/17 Cefepime 1gm in NS 50ml [Maxipime 1gm] 1 gm IV Q12 #4 bag 06/19/17 Glucagon [Glucagen Diagnostic Kit] 1 mg IM STAT PRN vial 06/19/17 Insulin Aspart/Insulin Aspar [Novolog Mix 70/30 (70/30 units/ml)] 34 units SC ACB unit 06/19/17 Insulin Human Regular [Novolin R] 0 unit SC ACHS unit 06/19/17 Pantoprazole [Protonix EC Tab] 40 mg PO DAILY ect 06/19/17 Review of Systems - Review of Systems Systems not reviewed;Unavailable: Altered Mental Status All systems: reviewed and no additional remarkable complaints except - Psychiatric Psychiatric: Irritability Mental Status Examination - Personal Presentation Personal Presentation: Looks older than stated age - Affect Affect: Flat - Motor Activity Motor Activity: Psychomotor Retardation - Reliability in Providing Information Reliability in Providing Information: Poor, due to alteration in thoughts, Poor , due to cognitve impairment - Speech Speech: Incoherent - Mood Mood: Neutral - Formal Thought Process Formal Thought Process: Loosening of associations - Cognitive Functions Orientation: Person Sensorium: Stuporous Attention/Concentration: Easily distracted Estimate of Intelligence: Below average Judgement: Imparied, as evidence by: Poor judgement, Imparied, as evidence by: Lack of insight into illness, Imparied, as evidence by: Other (Demented) Memory: Recent impaired, as evidenced by: Other (Demented), Remote impaired as evidenced by: Other (Demented) - Risk Risk: Diminished functioning - Strength & Assets Inventory Strength & Assets Inventory: Family support - Limitations Limitations: Decreased memory, recent DSM 5 DX - DSM 5 DSM 5 Diagnosis: Delirium R/O Dementia - Recommended/Plan of Treatment Treatment Recommendations and Plan of Treatment: Delirium R/O Dementia Pt appeared delirious Continue the treatment and rule out the cause of delirium Psych will follow up - Smoking Cessation Smoking Cessation Initiated: No
--- NOTE | 2017-07-19 18:20 | CP.PCM.PN ---
Subjective - Date & Time of Evaluation Date of Evaluation: 07/19/17 Time of Evaluation: 13:00 - Subjective Subjective: clinically same Objective - Vital Signs/Intake and Output Vital Signs (last 24 hours): Temp Pulse Resp BP Pulse Ox 97.2 F L 90 18 104/56 L 100 07/19/17 15:55 07/19/17 15:55 07/19/17 15:55 07/19/17 15:55 07/19/17 15:55 Intake and Output: 07/19/17 07/19/17 06:59 18:59 Intake Total 100 Output Total 550 200 Balance -450 -200 - Medications Medications: Current Medications Cyanocobalamin (Vitamin B12 1000 Mcg Tab) 1,000 mcg PO DAILY [facility] Last Admin: 07/19/17 09:16 Dose: 1,000 mcg Finasteride (Proscar) 5 mg PO DAILY [facility] Last Admin: 07/19/17 09:15 Dose: 5 mg Furosemide (Lasix) 40 mg PO MWF [facility] Last Admin: 07/10/17 09:26 Dose: 40 mg Imipenem/Cilastatin Sodium 500 (mg/ Sodium Chloride) 100 mls @ 100 mls/hr IVPB Q8H [facility] Last Admin: 07/19/17 13:47 Dose: 100 mls/hr Vancomycin/Sodium Chloride (Vancomycin 1 Gm/Ns 200 Ml) 1 gm in 200 mls @ 133.333 mls/hr IVPB Q24H [facility] Stop: 07/21/17 14:01 Last Admin: 07/19/17 14:53 Dose: 133.333 mls/hr Insulin Aspart (Novolog) 0 unit SC ACHS [facility] PRN Reason: Protocol Last Admin: 07/19/17 12:30 Dose: 3 unit Isosorbide Mononitrate (Imdur Er) 30 mg PO DAILY [facility] Last Admin: 07/08/17 10:09 Dose: 30 mg Megestrol Acetate (Megace) 400 mg PO DAILY [facility] Last Admin: 07/19/17 09:14 Dose: 400 mg Metoprolol Tartrate (Lopressor) 25 mg PO BID [facility] Last Admin: 07/19/17 09:15 Dose: 25 mg Multivitamins (Hexavitamin) 1 tab PO DAILY [facility] Last Admin: 07/19/17 09:16 Dose: 1 tab Pantoprazole Sodium (Protonix Ec Tab) 40 mg PO DAILY [facility] Last Admin: 07/19/17 09:16 Dose: 40 mg Tamsulosin HCl (Flomax) 0.4 mg PO DAILY [facility] Last Admin: 07/19/17 09:16 Dose: 0.4 mg - Labs Labs: 07/18/17 14:06 07/18/17 14:06 - Constitutional Appears: Well - Head Exam Head Exam: ATRAUMATIC, NORMAL INSPECTION, NORMOCEPHALIC - Eye Exam Eye Exam: EOMI, Normal appearance, PERRL Pupil Exam: NORMAL ACCOMODATION, PERRL - ENT Exam ENT Exam: Mucous Membranes Moist, Normal Exam - Neck Exam Neck Exam: Full ROM, Normal Inspection. absent: Lymphadenopathy - Respiratory Exam Respiratory Exam: Decreased Breath Sounds - Cardiovascular Exam Cardiovascular Exam: REGULAR RHYTHM, +S1, +S2 - GI/Abdominal Exam GI & Abdominal Exam: Soft, Diminished Bowel Sounds - Rectal Exam Rectal Exam: Deferred Assessment and Plan - Assessment and Plan (Free Text) Plan: Family is not bedside today Discussed with the family Patient needs bilateral AKA Discussed with vascular surgeon Patient encouraged to eat Continue imipenem Continue vancomycin Continue all other medications
[2017-07-20] MEDS: (Novolog) Insulin Aspart, Recombinant 100 u/ml 10 ml vial SC SCH ×4 (09:29→21:35)
[2017-07-20] MEDS: Sodium Chloride 0.9% 1,000 ML IV SCH (09:29)
[2017-07-20] MEDS: Megestrol Acetate 40 mg/ml Cup PO SCH (09:29)
[2017-07-20] MEDS: Pantoprazole 40 mg EC Tab PO SCH (09:29)
[2017-07-20] MEDS: Multiple Vitamins Tab PO SCH (09:29)
[2017-07-20 11:03] LABS: HEMOGLOBIN 8.9 g/dL (12.0-18.0); MEAN CELL VOLUME 91.4 fL (80.0-94.0); MEAN CORPUSCULAR HGB CONC 33.9 g/dL (33.0-37.0); MEAN PLATELET VOLUME 7.9 fL (7.2-11.7); RBC 2.87 Mil/uL (4.40-5.90); RED CELL DISTRIBUTION WIDTH 15.5 % (11.5-14.5); WHITE BLOOD COUNT 10.5 K/uL (4.8-10.8)
[2017-07-20 11:19] LABS: ALB/GLOB RATIO 0.7 (1.0-2.1); ALBUMIN 2.1 g/dL (3.5-5.0); ALT/SGPT 22 U/L (21-72); AST/SGOT 26 U/L (17-59); BLOOD UREA NITROGEN 12 mg/dL (9-20); CALCIUM 7.9 mg/dl (8.6-10.4); GFR AFRICAN-AMERICAN > 60; GFR NON-AFRICAN AMERICAN > 60
[2017-07-20] MEDS: Vancomycin 1 gm/NS 200 ml 1 GM/200 ML BAG IVPB SCH (14:01)
--- NOTE | 2017-07-20 17:21 | CP.PCM.PN ---
Subjective - Date & Time of Evaluation Date of Evaluation: 07/20/17 Time of Evaluation: 17:21 - Subjective Subjective: events noted. AFEBRILE PT SEEN THIS PM ?DELERIOUS PER PSYCHIATRIST. FOLYS CATHETER WAS FLUSHED TODAY PER RN MS ANGEL. PRESENTLY WORKING > 500CC CLOUDY URINE LAST SHIFT. LABS NOTED U/A CLOUDY WBC>[id number] MANY BUDDING YEASTS CASE DISCUSSED WITH THE STAFF. bLOOD CULTURES 2 SETS sTART iv FLUCONAZOLE 200 MG ONCE A DAY DAILY FOR 5 DAYS. CONSULT IN PROGRESS. Objective - Vital Signs/Intake and Output Vital Signs (last 24 hours): Temp Pulse Resp BP Pulse Ox 98 F 86 18 112/71 100 07/20/17 15:00 07/20/17 15:00 07/20/17 15:00 07/20/17 15:00 07/20/17 15:00 Intake and Output: 07/20/17 07/20/17 06:59 18:59 Intake Total 50 Output Total 400 Balance -350 - Medications Medications: Current Medications Cyanocobalamin (Vitamin B12 1000 Mcg Tab) 1,000 mcg PO DAILY [facility] Last Admin: 07/20/17 09:31 Dose: 1,000 mcg Finasteride (Proscar) 5 mg PO DAILY [facility] Last Admin: 07/20/17 09:29 Dose: 5 mg Furosemide (Lasix) 40 mg PO MWF [facility] Last Admin: 07/10/17 09:26 Dose: 40 mg Hydromorphone HCl (Dilaudid) 1 mg IVP Q8 PRN PRN Reason: Pain, severe (8-10) Hydroxyzine HCl (Atarax) 25 mg PO Q6 PRN PRN Reason: Anxiety Imipenem/Cilastatin Sodium 500 (mg/ Sodium Chloride) 100 mls @ 100 mls/hr IVPB Q8H [facility] Last Admin: 07/20/17 14:01 Dose: 100 mls/hr Vancomycin/Sodium Chloride (Vancomycin 1 Gm/Ns 200 Ml) 1 gm in 200 mls @ 133.333 mls/hr IVPB Q24H [facility] Stop: 07/21/17 14:01 Last Admin: 07/20/17 14:01 Dose: 133.333 mls/hr Sodium Chloride (Sodium Chloride 0.9%) 1,000 mls @ 60 mls/hr IV .[id number] [facility] Last Admin: 07/20/17 09:29 Dose: 60 mls/hr Insulin Aspart (Novolog) 0 unit SC ACHS [facility] PRN Reason: Protocol Last Admin: 07/20/17 12:42 Dose: 2 unit Isosorbide Mononitrate (Imdur Er) 30 mg PO DAILY [facility] Last Admin: 07/08/17 10:09 Dose: 30 mg Megestrol Acetate (Megace) 400 mg PO DAILY [facility] Last Admin: 07/20/17 09:29 Dose: 400 mg Metoprolol Tartrate (Lopressor) 25 mg PO BID [facility] Last Admin: 07/20/17 09:28 Dose: 25 mg Multivitamins (Hexavitamin) 1 tab PO DAILY [facility] Last Admin: 07/20/17 09:29 Dose: 1 tab Pantoprazole Sodium (Protonix Ec Tab) 40 mg PO DAILY [facility] Last Admin: 07/20/17 09:29 Dose: 40 mg Tamsulosin HCl (Flomax) 0.4 mg PO DAILY [facility] Last Admin: 07/20/17 09:29 Dose: 0.4 mg - Labs Labs: 07/20/17 10:55 07/20/17 10:55 - Constitutional Appears: No Acute Distress, Chronically Ill - Head Exam Head Exam: NORMAL INSPECTION - Eye Exam Eye Exam: EOMI, PERRL - ENT Exam ENT Exam: Normal Oropharynx - Neck Exam Neck Exam: Normal Inspection - Respiratory Exam Respiratory Exam: Clear to Ausculation Bilateral - GI/Abdominal Exam GI & Abdominal Exam: Soft, Normal Bowel Sounds - Extremities Exam Extremities Exam: Pedal Edema (Pedal Edema ((+VE SACRAL DEC ULCERS-STAGE 4, LT HIP DEC ULCER DEEP-STAGE 3, FEET WITH GANGRENOUS CHANGES)). absent: Calf Tenderness). ). absent: Calf Tenderness - Neurological Exam Neurological Exam: Awake, CN II-XII Intact, Oriented x3 - Psychiatric Exam Psychiatric exam: Depressed - Skin Skin Exam: Pallor, Warm Assessment and Plan (1) Decubitus ulcer with gangrene Assessment & Plan: (+VE SACRAL DEC ULCERS-STAGE 4, LT HIP DEC ULCER DEEP-STAGE 3, FEET WITH GANGRENOUS CHANGES LATERALLY ) ON IV PRIMAXIN 500MG IVPB Q 8HRLY 07/08/17 ON iv VANCOMYCIN 1GM IVPB Q 24 HRLY. VANCO TROUGH 07/15/17 19.1 ( [place] ) Status: Acute (2) Anemia Status: Acute (3) Atrial fibrillation Status: Acute (4) Dementia Status: Acute (5) PVD (peripheral vascular disease) Status: Acute (6) Diabetes Status: Acute
[2017-07-20 18:48] LABS: URINE BACTERIA OCC (<OCC); URINE BILIRUBIN NEGATIVE (NEGATIVE); URINE BLOOD 1+ (NEGATIVE); URINE CLARITY Turbid (Clear); URINE COLOR Yellow (YELLOW); URINE GLUCOSE (UA) 3+ mg/dL (Normal); URINE LEUKOCYTE ESTERASE 3+ Leu/uL (Negative); URINE PROTEIN 2+ mg/dL (NEGATIVE); WBC CLUMPS MANY /hpf
[2017-07-20 20:11] VITALS: RESP 20
--- NOTE | 2017-07-20 22:36 | CP.PCM.PN ---
Subjective - Date & Time of Evaluation Date of Evaluation: 07/20/17 Time of Evaluation: 14:10 - Subjective Subjective: clinically same Objective - Vital Signs/Intake and Output Vital Signs (last 24 hours): Temp Pulse Resp BP Pulse Ox 98.5 F 94 H 20 128/70 100 07/20/17 20:10 07/20/17 20:10 07/20/17 20:10 07/20/17 20:11 07/20/17 20:10 - Medications Medications: Current Medications Cyanocobalamin (Vitamin B12 1000 Mcg Tab) 1,000 mcg PO DAILY [facility] Last Admin: 07/20/17 09:31 Dose: 1,000 mcg Finasteride (Proscar) 5 mg PO DAILY [facility] Last Admin: 07/20/17 09:29 Dose: 5 mg Furosemide (Lasix) 40 mg PO MWF [facility] Last Admin: 07/10/17 09:26 Dose: 40 mg Hydromorphone HCl (Dilaudid) 1 mg IVP Q8 PRN PRN Reason: Pain, severe (8-10) Hydroxyzine HCl (Atarax) 25 mg PO Q6 PRN PRN Reason: Anxiety Imipenem/Cilastatin Sodium 500 (mg/ Sodium Chloride) 100 mls @ 100 mls/hr IVPB Q8H [facility] Last Admin: 07/20/17 21:24 Dose: 100 mls/hr Vancomycin/Sodium Chloride (Vancomycin 1 Gm/Ns 200 Ml) 1 gm in 200 mls @ 133.333 mls/hr IVPB Q24H [facility] Stop: 07/21/17 14:01 Last Admin: 07/20/17 14:01 Dose: 133.333 mls/hr Sodium Chloride (Sodium Chloride 0.9%) 1,000 mls @ 60 mls/hr IV .[id number] [facility] Last Admin: 07/20/17 09:29 Dose: 60 mls/hr Fluconazole (Diflucan Iv 200 Mg/100 Ml Ns) 100 mls @ 100 mls/hr IVPB DAILY [facility] PRN Reason: Protocol Stop: 07/26/17 10:01 Insulin Aspart (Novolog) 0 unit SC ACHS [facility] PRN Reason: Protocol Last Admin: 07/20/17 21:35 Dose: Not Given Isosorbide Mononitrate (Imdur Er) 30 mg PO DAILY [facility] Last Admin: 07/08/17 10:09 Dose: 30 mg Megestrol Acetate (Megace) 400 mg PO DAILY [facility] Last Admin: 07/20/17 09:29 Dose: 400 mg Metoprolol Tartrate (Lopressor) 25 mg PO BID [facility] Last Admin: 07/20/17 20:11 Dose: 25 mg Multivitamins (Hexavitamin) 1 tab PO DAILY [facility] Last Admin: 07/20/17 09:29 Dose: 1 tab Pantoprazole Sodium (Protonix Ec Tab) 40 mg PO DAILY [facility] Last Admin: 07/20/17 09:29 Dose: 40 mg Tamsulosin HCl (Flomax) 0.4 mg PO DAILY [facility] Last Admin: 07/20/17 09:29 Dose: 0.4 mg - Labs Labs: 07/20/17 10:55 07/20/17 10:55 - Constitutional Appears: Well - Head Exam Head Exam: ATRAUMATIC, NORMAL INSPECTION, NORMOCEPHALIC - Eye Exam Eye Exam: EOMI, Normal appearance, PERRL Pupil Exam: NORMAL ACCOMODATION, PERRL - ENT Exam ENT Exam: Mucous Membranes Moist, Normal Exam - Neck Exam Neck Exam: Full ROM, Normal Inspection. absent: Lymphadenopathy - Respiratory Exam Respiratory Exam: Decreased Breath Sounds - Cardiovascular Exam Cardiovascular Exam: REGULAR RHYTHM, +S1, +S2 - GI/Abdominal Exam GI & Abdominal Exam: Soft, Diminished Bowel Sounds - Rectal Exam Rectal Exam: Deferred Assessment and Plan - Assessment and Plan (Free Text) Plan: Awaiting to discuss with the family and the family to make a decision as patient is bilateral AKA Discussed with Dr. Tsai Discussed with the family Discussed with Dr. Regan as well as leads Patient is going downhill We will cardiology as patient also had urinary retention earlier Medication as ordered Vital signs Encourage p.o. food Continue with the multiple consultations
[2017-07-20] MEDS: Fluconazole IV 200mg/100 ml NS 100 ML IVPB SCH (23:20)
[2017-07-21] MEDS: Sodium Chloride 0.9% 1,000 ML IV SCH (01:40)
[2017-07-21] MEDS: (Novolog) Insulin Aspart, Recombinant 100 u/ml 10 ml vial SC SCH ×4 (07:59→22:13)
--- NOTE | 2017-07-21 08:30 | CP.PCM.CON ---
Past Patient History - Infectious Disease Hx of Infectious Diseases: None - Past Medical History & Family History Past Medical History?: Yes - Past Social History Smoking Status: Never Smoked - CARDIAC Hx Congestive Heart Failure: Yes Hx Hypercholesterolemia: Yes Hx Hypertension: Yes - PULMONARY Hx Sleep Apnea: Yes - NEUROLOGICAL Hx Dementia: Yes - HEENT Hx HEENT Problems: Yes Hx Cataracts: Yes - RENAL Hx Chronic Kidney Disease: Yes (renal insufficiency) - ENDOCRINE/METABOLIC Hx Diabetes Mellitus Type 2: Yes - HEMATOLOGICAL/ONCOLOGICAL Hx Anemia: Yes - INTEGUMENTARY Hx Dermatological Problems: No - MUSCULOSKELETAL/RHEUMATOLOGICAL Hx Arthritis: Yes - GASTROINTESTINAL Hx Gastrointestinal Disorders: Yes Hx Constipation: Yes - GENITOURINARY/GYNECOLOGICAL Hx Genitourinary Disorders: Yes Hx Bladder Cancer: Yes Hx Incontinence: Yes Hx Prostate Problems: Yes - PSYCHIATRIC Hx Substance Use: No - SURGICAL HISTORY Hx Coronary Artery Bypass Graft: Yes ((2)) Hx Coronary Stent: Yes (X2) - ANESTHESIA Hx Anesthesia: Yes Hx Anesthesia Reactions: No Hx Malignant Hyperthermia: No Meds Allergies/Adverse Reactions: Allergies Allergy/AdvReac Type Severity Reaction Status Date / Time No Known Allergies Allergy Verified 07/07/17 14:02 - Medications Medications: Current Medications Cyanocobalamin (Vitamin B12 1000 Mcg Tab) 1,000 mcg PO DAILY [facility] Last Admin: 07/20/17 09:31 Dose: 1,000 mcg Finasteride (Proscar) 5 mg PO DAILY [facility] Last Admin: 07/20/17 09:29 Dose: 5 mg Furosemide (Lasix) 40 mg PO MWF [facility] Last Admin: 07/10/17 09:26 Dose: 40 mg Hydromorphone HCl (Dilaudid) 1 mg IVP Q8 PRN PRN Reason: Pain, severe (8-10) Hydroxyzine HCl (Atarax) 25 mg PO Q6 PRN PRN Reason: Anxiety Imipenem/Cilastatin Sodium 500 (mg/ Sodium Chloride) 100 mls @ 100 mls/hr IVPB Q8H [facility] Last Admin: 07/21/17 05:33 Dose: 100 mls/hr Vancomycin/Sodium Chloride (Vancomycin 1 Gm/Ns 200 Ml) 1 gm in 200 mls @ 133.333 mls/hr IVPB Q24H [facility] Stop: 07/21/17 14:01 Last Admin: 07/20/17 14:01 Dose: 133.333 mls/hr Sodium Chloride (Sodium Chloride 0.9%) 1,000 mls @ 60 mls/hr IV .[id number] [facility] Last Admin: 07/21/17 01:40 Dose: Not Given Fluconazole (Diflucan Iv 200 Mg/100 Ml Ns) 100 mls @ 100 mls/hr IVPB Q24H [facility] PRN Reason: Protocol Last Admin: 07/20/17 23:20 Dose: 100 mls/hr Insulin Aspart (Novolog) 0 unit SC ACHS [facility] PRN Reason: Protocol Last Admin: 07/21/17 07:59 Dose: 3 unit Isosorbide Mononitrate (Imdur Er) 30 mg PO DAILY [facility] Last Admin: 07/08/17 10:09 Dose: 30 mg Megestrol Acetate (Megace) 400 mg PO DAILY [facility] Last Admin: 07/20/17 09:29 Dose: 400 mg Metoprolol Tartrate (Lopressor) 25 mg PO BID [facility] Last Admin: 07/20/17 20:11 Dose: 25 mg Multivitamins (Hexavitamin) 1 tab PO DAILY [facility] Last Admin: 07/20/17 09:29 Dose: 1 tab Pantoprazole Sodium (Protonix Ec Tab) 40 mg PO DAILY [facility] Last Admin: 07/20/17 09:29 Dose: 40 mg Tamsulosin HCl (Flomax) 0.4 mg PO DAILY [facility] Last Admin: 07/20/17 09:29 Dose: 0.4 mg Results - Vital Signs Recent Vital Signs: Last Vital Signs Temp 97.9 F 07/21/17 08:22 Pulse 99 H 07/21/17 08:22 Resp 20 07/21/17 08:22 BP 106/63 07/21/17 08:22 Pulse Ox 99 07/21/17 08:22 - Labs Result Diagrams: 07/20/17 10:55 07/20/17 10:55 Labs: Laboratory Results - last 24 hr 07/20/17 07/20/17 07/20/17 10:55 10:55 11:41 WBC 10.5 RBC 2.87 L Hgb 8.9 L Hct 26.2 L MCV 91.4 MCH 31.0 MCHC 33.9 RDW 15.5 H Plt Count 295 MPV 7.9 Sodium 143 Potassium 3.9 Chloride 108 H Carbon Dioxide 20 L Anion Gap 18 BUN 12 Creatinine 0.9 Est GFR ( Amer) > 60 Est GFR (Non-Af Amer) > 60 POC Glucose (mg/dL) 215 H Random Glucose 241 H Calcium 7.9 L Total Bilirubin 0.6 AST 26 ALT 22 Alkaline Phosphatase 112 Total Protein 5.4 L Albumin 2.1 L Globulin 3.2 Albumin/Globulin Ratio 0.7 L Urine Color Urine Clarity Urine pH Ur Specific [place] Urine Protein Urine Glucose (UA) Urine Ketones Urine Blood Urine Nitrate Urine Bilirubin Urine Urobilinogen Ur Leukocyte Esterase Urine WBC (Auto) Urine RBC (Auto) Urine WBC Clumps (Auto) Urine Bacteria Hyaline Casts Urine Yeast (Budding) 07/20/17 07/20/17 07/20/17 16:29 16:46 21:32 WBC RBC Hgb Hct MCV MCH MCHC RDW Plt Count MPV Sodium Potassium Chloride Carbon Dioxide Anion Gap BUN Creatinine Est GFR ( Amer) Est GFR (Non-Af Amer) POC Glucose (mg/dL) 204 H 226 H Random Glucose Calcium Total Bilirubin AST ALT Alkaline Phosphatase Total Protein Albumin Globulin Albumin/Globulin Ratio Urine Color Yellow Urine Clarity Turbid Urine pH 5.0 Ur Specific [place] 1.018 Urine Protein 2+ H Urine Glucose (UA) 3+ H Urine Ketones 1+ H Urine Blood 1+ H Urine Nitrate Negative Urine Bilirubin Negative Urine Urobilinogen 4.0 Ur Leukocyte Esterase 3+ H Urine WBC (Auto) 2399 H Urine RBC (Auto) 170 H Urine WBC Clumps (Auto) Many H Urine Bacteria Occ H Hyaline Casts 11-20 H Urine Yeast (Budding) Many H 07/21/17 06:03 WBC RBC Hgb Hct MCV MCH MCHC RDW Plt Count MPV Sodium Potassium Chloride Carbon Dioxide Anion Gap BUN Creatinine Est GFR ( Amer) Est GFR (Non-Af Amer) POC Glucose (mg/dL) 265 H Random Glucose Calcium Total Bilirubin AST ALT Alkaline Phosphatase Total Protein Albumin Globulin Albumin/Globulin Ratio Urine Color Urine Clarity Urine pH Ur Specific [place] Urine Protein Urine Glucose (UA) Urine Ketones Urine Blood Urine Nitrate Urine Bilirubin Urine Urobilinogen Ur Leukocyte Esterase Urine WBC (Auto) Urine RBC (Auto) Urine WBC Clumps (Auto) Urine Bacteria Hyaline Casts Urine Yeast (Budding) Assessment & Plan - Assessment and Plan (Free Text) Assessment: IMP: urinary retention hx of incontinence DM CAD Dementia Peripheral vascular disease sacral decubitus ulcer oliguria full note t/f - Date & Time Date: 07/21/17 Time: 08:30
[2017-07-21] MEDS: Pantoprazole 40 mg EC Tab PO SCH (10:17)
[2017-07-21] MEDS: Megestrol Acetate 40 mg/ml Cup PO SCH (10:17)
[2017-07-21] MEDS: Multiple Vitamins Tab PO SCH (10:17)
--- NOTE | 2017-07-21 13:43 | CP.PCM.CON ---
History of Present Illness - History of Present Illness History of Present Illness: Palliative consult requested by: Mari LEVIN for goals of care discussion Patient is 87 years old mild admitted from [facility] with worsening pain due to sacral and feet also's. During this hospital stay multiple vascular studies were performed and may need arterial and venous occlusions were found. The vascular surgeon Dr. Tsai is on consult and the amputation is suggested procedure. However, patient's hasn't made a decision yet and patient himself is not capable of decision making. Palliative consult was called to assist in decision making process. Past medical history, diabetes, hypertension, decubitus ulcers, BPH, CHF, dementia Social history , nursing, resident Family history, father with diabetes, mother with hypertension Review of Systems - Review of Systems All systems: reviewed and no additional remarkable complaints except Review of Systems: Review of system obtained from nursing. Nursing reports patient experience severe pain when repositioned Past Patient History - Infectious Disease Hx of Infectious Diseases: None - Past Medical History & Family History Past Medical History?: Yes - Past Social History Smoking Status: Never Smoked - CARDIAC Hx Congestive Heart Failure: Yes Hx Hypercholesterolemia: Yes Hx Hypertension: Yes - PULMONARY Hx Sleep Apnea: Yes - NEUROLOGICAL Hx Dementia: Yes - HEENT Hx HEENT Problems: Yes Hx Cataracts: Yes - RENAL Hx Chronic Kidney Disease: Yes (renal insufficiency) - ENDOCRINE/METABOLIC Hx Diabetes Mellitus Type 2: Yes - HEMATOLOGICAL/ONCOLOGICAL Hx Anemia: Yes - INTEGUMENTARY Hx Dermatological Problems: No - MUSCULOSKELETAL/RHEUMATOLOGICAL Hx Arthritis: Yes - GASTROINTESTINAL Hx Gastrointestinal Disorders: Yes Hx Constipation: Yes - GENITOURINARY/GYNECOLOGICAL Hx Genitourinary Disorders: Yes Hx Bladder Cancer: Yes Hx Incontinence: Yes Hx Prostate Problems: Yes - PSYCHIATRIC Hx Substance Use: No - SURGICAL HISTORY Hx Coronary Artery Bypass Graft: Yes ((2)) Hx Coronary Stent: Yes (X2) - ANESTHESIA Hx Anesthesia: Yes Hx Anesthesia Reactions: No Hx Malignant Hyperthermia: No Meds Allergies/Adverse Reactions: Allergies Allergy/AdvReac Type Severity Reaction Status Date / Time No Known Allergies Allergy Verified 07/07/17 14:02 - Medications Medications: Current Medications Cyanocobalamin (Vitamin B12 1000 Mcg Tab) 1,000 mcg PO DAILY [facility] Last Admin: 07/21/17 10:17 Dose: 1,000 mcg Finasteride (Proscar) 5 mg PO DAILY [facility] Last Admin: 07/21/17 10:17 Dose: 5 mg Furosemide (Lasix) 40 mg PO MWF [facility] Last Admin: 07/10/17 09:26 Dose: 40 mg Hydromorphone HCl (Dilaudid) 1 mg IVP Q8 PRN PRN Reason: Pain, severe (8-10) Hydroxyzine HCl (Atarax) 25 mg PO Q6 PRN PRN Reason: Anxiety Imipenem/Cilastatin Sodium 500 (mg/ Sodium Chloride) 100 mls @ 100 mls/hr IVPB Q8H [facility] Last Admin: 07/21/17 13:20 Dose: 100 mls/hr Vancomycin/Sodium Chloride (Vancomycin 1 Gm/Ns 200 Ml) 1 gm in 200 mls @ 133.333 mls/hr IVPB Q24H [facility] Stop: 07/21/17 14:01 Last Admin: 07/20/17 14:01 Dose: 133.333 mls/hr Sodium Chloride (Sodium Chloride 0.9%) 1,000 mls @ 60 mls/hr IV .[id number] [facility] Last Admin: 07/21/17 01:40 Dose: Not Given Fluconazole (Diflucan Iv 200 Mg/100 Ml Ns) 100 mls @ 100 mls/hr IVPB Q24H [facility] PRN Reason: Protocol Last Admin: 07/20/17 23:20 Dose: 100 mls/hr Insulin Aspart (Novolog) 0 unit SC ACHS [facility] PRN Reason: Protocol Last Admin: 07/21/17 13:20 Dose: 2 unit Isosorbide Mononitrate (Imdur Er) 30 mg PO DAILY [facility] Last Admin: 07/08/17 10:09 Dose: 30 mg Megestrol Acetate (Megace) 400 mg PO DAILY [facility] Last Admin: 07/21/17 10:17 Dose: 400 mg Metoprolol Tartrate (Lopressor) 25 mg PO BID [facility] Last Admin: 07/21/17 10:17 Dose: 25 mg Multivitamins (Hexavitamin) 1 tab PO DAILY [facility] Last Admin: 07/21/17 10:17 Dose: 1 tab Pantoprazole Sodium (Protonix Ec Tab) 40 mg PO DAILY [facility] Last Admin: 07/21/17 10:17 Dose: 40 mg Tamsulosin HCl (Flomax) 0.4 mg PO DAILY [facility] Last Admin: 07/21/17 10:17 Dose: 0.4 mg Physical Exam - Constitutional Appears: No Acute Distress, Chronically Ill - Head Exam Head Exam: ATRAUMATIC, NORMAL INSPECTION, NORMOCEPHALIC - Eye Exam Eye Exam: EOMI, Normal appearance, PERRL Pupil Exam: NORMAL ACCOMODATION, PERRL - ENT Exam ENT Exam: Mucous Membranes Dry - Neck Exam Neck exam: Positive for: Normal Inspection - Respiratory Exam Respiratory Exam: Decreased Breath Sounds, NORMAL BREATHING PATTERN - Cardiovascular Exam Additional comments: Edema and discoloration to lower extremities, right arm swelling - GI/Abdominal Exam GI & Abdominal Exam: Normal Bowel Sounds - Rectal Exam Rectal Exam: Deferred - Exam Additional comments: Hill catheter - Extremities Exam Additional comments: Toes discoloration, pedal edema, right arm swollen - Back Exam Additional comments: Left hip pressure sore - Neurological Exam Neurological exam: Alert, Altered Additional comments: Confused, unable to answer questions - Psychiatric Exam Psychiatric exam: Flat Affect - Skin Skin Exam: Erythema, Mottled, Pallor Results - Vital Signs Recent Vital Signs: Last Vital Signs Temp 97.9 F 07/21/17 08:22 Pulse 99 H 07/21/17 08:22 Resp 20 07/21/17 08:22 BP 124/65 07/21/17 10:17 Pulse Ox 99 07/21/17 08:22 - Labs Result Diagrams: 07/20/17 10:55 07/20/17 10:55 Labs: Laboratory Results - last 24 hr 07/20/17 07/20/17 07/20/17 16:29 16:46 21:32 POC Glucose (mg/dL) 204 H 226 H Urine Color Yellow Urine Clarity Turbid Urine pH 5.0 Ur Specific [place] 1.018 Urine Protein 2+ H Urine Glucose (UA) 3+ H Urine Ketones 1+ H Urine Blood 1+ H Urine Nitrate Negative Urine Bilirubin Negative Urine Urobilinogen 4.0 Ur Leukocyte Esterase 3+ H Urine WBC (Auto) 2399 H Urine RBC (Auto) 170 H Urine WBC Clumps (Auto) Many H Urine Bacteria Occ H Hyaline Casts 11-20 H Urine Yeast (Budding) Many H 07/21/17 07/21/17 06:03 11:00 POC Glucose (mg/dL) 265 H 212 H Urine Color Urine Clarity Urine pH Ur Specific [place] Urine Protein Urine Glucose (UA) Urine Ketones Urine Blood Urine Nitrate Urine Bilirubin Urine Urobilinogen Ur Leukocyte Esterase Urine WBC (Auto) Urine RBC (Auto) Urine WBC Clumps (Auto) Urine Bacteria Hyaline Casts Urine Yeast (Budding) Assessment & Plan - Assessment and Plan (Free Text) Assessment: Palliative consult Full Code, there is no advanced directive, PPS 10 % I reviewed medical records all diagnostic studies examining patient in the bed and discussed his condition with nursing. Patient seen at examining bed. Alert, confused, follows simple commands. When I ask where he was patient and sent at home. He knew his was coming. Patient looks palel and chronically ill. Breath sounds diminished, there is some nonproductive cough. Abdomen is soft, active bowel sounds. Right arm +1 edema. Left hip pressure sore. Feet are discolored a date, left feet tall dark resembling gangrene. Right foot with the pressure sores, the drainage is serosanguineous. WBC 10.5, hemoglobin 8.9, albumin 2.1. Patient is diagnosed with UTI, fungal infection. Pramoxine, vancomycin, and Diflucan, IV are on board. The knees may not with Dilaudid 1 mg every 8 hours when necessary pain. Patient was seen by his psychiatrist's for altered mental status and found to be paranoid and delusional. Patient has not decision-making ability, and his wasn't present at the time of exam. I asked nursing to let me know when the comes. Assessment * Physical debility * Pain related to pressure sore * Confusion * Lack of decision-making capacity Plan * Assist in repositioning for comfort * Would consider Dilaudid [id number] as opposed to as needed since the patient is unable to report his pain * Palliative care will discuss goals of care the doing the day Will update note after meeting with the family.
[2017-07-21] MEDS: Vancomycin 1 gm/NS 200 ml 1 GM/200 ML BAG IVPB SCH (14:47)
--- NOTE | 2017-07-21 15:37 | CP.PCM.PN ---
Subjective - Date & Time of Evaluation Date of Evaluation: 07/21/17 Time of Evaluation: 15:23 - Subjective Subjective: Podiatry note for Dr. Terry 87 yo male patient with PMHx of Altered Mental Status, Anemia, Cardia Arrhythmia (atrial fib), CHF, HTN, Hypercholesterolemia, CKD, Sleep Apnea was seen at bedside this afternoon concerning gangrene of bilateral lower extremities. Patient's was present by the bedside. Patient adamantly refused taking the lower extremity dressings off. Patient's is also asking to leave the dressing intact due to severe pain generated when changing the dressing. Patient's also states that they are considering home hospice rather than above knee amputations as recommended by Dr. Tsai. Patient denies of any N/V/F/C or SOB Objective - Vital Signs/Intake and Output Vital Signs (last 24 hours): Temp Pulse Resp BP Pulse Ox 97.9 F 99 H 20 124/65 99 07/21/17 08:22 07/21/17 08:22 07/21/17 08:22 07/21/17 10:17 07/21/17 08:22 Intake and Output: 07/21/17 07/21/17 06:59 18:59 Intake Total 1080 Output Total 850 Balance 230 - Medications Medications: Current Medications Cyanocobalamin (Vitamin B12 1000 Mcg Tab) 1,000 mcg PO DAILY [facility] Last Admin: 07/21/17 10:17 Dose: 1,000 mcg Finasteride (Proscar) 5 mg PO DAILY [facility] Last Admin: 07/21/17 10:17 Dose: 5 mg Furosemide (Lasix) 40 mg PO MWF [facility] Last Admin: 07/10/17 09:26 Dose: 40 mg Hydromorphone HCl (Dilaudid) 1 mg IVP Q8 PRN PRN Reason: Pain, severe (8-10) Hydroxyzine HCl (Atarax) 25 mg PO Q6 PRN PRN Reason: Anxiety Imipenem/Cilastatin Sodium 500 (mg/ Sodium Chloride) 100 mls @ 100 mls/hr IVPB Q8H [facility] Last Admin: 07/21/17 13:20 Dose: 100 mls/hr Sodium Chloride (Sodium Chloride 0.9%) 1,000 mls @ 60 mls/hr IV .[id number] [facility] Last Admin: 07/21/17 01:40 Dose: Not Given Fluconazole (Diflucan Iv 200 Mg/100 Ml Ns) 100 mls @ 100 mls/hr IVPB Q24H [facility] PRN Reason: Protocol Last Admin: 07/20/17 23:20 Dose: 100 mls/hr Insulin Aspart (Novolog) 0 unit SC ACHS [facility] PRN Reason: Protocol Last Admin: 07/21/17 13:20 Dose: 2 unit Isosorbide Mononitrate (Imdur Er) 30 mg PO DAILY [facility] Last Admin: 07/08/17 10:09 Dose: 30 mg Megestrol Acetate (Megace) 400 mg PO DAILY [facility] Last Admin: 07/21/17 10:17 Dose: 400 mg Metoprolol Tartrate (Lopressor) 25 mg PO BID [facility] Last Admin: 07/21/17 10:17 Dose: 25 mg Multivitamins (Hexavitamin) 1 tab PO DAILY [facility] Last Admin: 07/21/17 10:17 Dose: 1 tab Pantoprazole Sodium (Protonix Ec Tab) 40 mg PO DAILY [facility] Last Admin: 07/21/17 10:17 Dose: 40 mg Tamsulosin HCl (Flomax) 0.4 mg PO DAILY [facility] Last Admin: 07/21/17 10:17 Dose: 0.4 mg - Labs Labs: 07/20/17 10:55 07/20/17 10:55 - Constitutional Appears: Well, Non-toxic, No Acute Distress - Head Exam Head Exam: ATRAUMATIC - Extremities Exam Additional comments: Dressings intact to bilateral lower extremities -Bilateral Distal ends of lower extremities examined; dried gangrene of all digits noted - Neurological Exam Neurological Exam: Alert, Awake, Oriented x3 - Psychiatric Exam Psychiatric exam: Normal Affect, Normal Mood - Skin Skin Exam: Normal Color, Warm Assessment and Plan - Assessment and Plan (Free Text) Assessment: 87 yo male patient with PMHx of DM CAD Dementia, PVD, sacral decubitus ulcer present with bilateral lower extremity gangrene Plan: Patient was seen evaluated at bedside discussed in detail with Dr. Terry labs and vitals reviewed Bilateral lower extremity dressings remains intact Family medicine note appreciated; Patient and his opting for home hospice rather than B/L [facility] Podiatry will continue to follow in house
--- NOTE | 2017-07-21 19:21 | CP.PCM.PN ---
Subjective - Date & Time of Evaluation Date of Evaluation: 07/21/17 Time of Evaluation: 08:30 - Subjective Subjective: clinically same Objective - Vital Signs/Intake and Output Vital Signs (last 24 hours): Temp Pulse Resp BP Pulse Ox 98.6 F 82 20 124/58 L 100 07/21/17 15:36 07/21/17 15:36 07/21/17 15:36 07/21/17 18:42 07/21/17 15:36 Intake and Output: 07/21/17 07/22/17 18:59 06:59 Intake Total 118 Output Total 305 Balance -187 - Medications Medications: Current Medications Cyanocobalamin (Vitamin B12 1000 Mcg Tab) 1,000 mcg PO DAILY [facility] Last Admin: 07/21/17 10:17 Dose: 1,000 mcg Finasteride (Proscar) 5 mg PO DAILY [facility] Last Admin: 07/21/17 10:17 Dose: 5 mg Furosemide (Lasix) 40 mg PO MWF [facility] Last Admin: 07/10/17 09:26 Dose: 40 mg Hydromorphone HCl (Dilaudid) 1 mg IVP Q8 PRN PRN Reason: Pain, severe (8-10) Hydroxyzine HCl (Atarax) 25 mg PO Q6 PRN PRN Reason: Anxiety Imipenem/Cilastatin Sodium 500 (mg/ Sodium Chloride) 100 mls @ 100 mls/hr IVPB Q8H [facility] Last Admin: 07/21/17 13:20 Dose: 100 mls/hr Sodium Chloride (Sodium Chloride 0.9%) 1,000 mls @ 60 mls/hr IV .[id number] [facility] Last Admin: 07/21/17 01:40 Dose: Not Given Fluconazole (Diflucan Iv 200 Mg/100 Ml Ns) 100 mls @ 100 mls/hr IVPB Q24H [facility] PRN Reason: Protocol Last Admin: 07/20/17 23:20 Dose: 100 mls/hr Insulin Aspart (Novolog) 0 unit SC ACHS [facility] PRN Reason: Protocol Last Admin: 07/21/17 18:42 Dose: 1 unit Isosorbide Mononitrate (Imdur Er) 30 mg PO DAILY [facility] Last Admin: 07/08/17 10:09 Dose: 30 mg Megestrol Acetate (Megace) 400 mg PO DAILY [facility] Last Admin: 07/21/17 10:17 Dose: 400 mg Metoprolol Tartrate (Lopressor) 25 mg PO BID [facility] Last Admin: 07/21/17 18:42 Dose: 25 mg Multivitamins (Hexavitamin) 1 tab PO DAILY [facility] Last Admin: 07/21/17 10:17 Dose: 1 tab Pantoprazole Sodium (Protonix Ec Tab) 40 mg PO DAILY [facility] Last Admin: 07/21/17 10:17 Dose: 40 mg Tamsulosin HCl (Flomax) 0.4 mg PO DAILY [facility] Last Admin: 07/21/17 10:17 Dose: 0.4 mg - Labs Labs: 07/20/17 10:55 07/20/17 10:55
[2017-07-21] MEDS: HYDROmorphone 1 mg/ml ISec IVP PRN (19:53)
--- NOTE | 2017-07-21 20:31 | CP.PCM.PN ---
Subjective - Date & Time of Evaluation Date of Evaluation: 07/21/17 Time of Evaluation: 20:31 - Subjective Subjective: AFEBRILE. WEAK. PODIATRY FOLLOW-UP NOTED. REFUSING TO HAVE HIS DRESSING CHANGED BECAUSE OF INCREASING PAIN LE. PT HAS B/L LE GANGRENE FEET/ANKLES. US PELVIS /RENAL COULD NOT BE PERFORMED .pATIENT WILL REMOVE French 7 am FOR THE ULTRASOUND WITH REPLACEMENT OF French IF PATIENT DOES NOT VOID AFTER 2 HOURS. LABS REVIEWED wbc 10.5 cREATININE 0.9/BUN 12 LFTS N. oN iv IMIPENEM AND IV FLUCONAZOLE. PER PODIATRY PATIENT'S FAMILY OPTING FOR HOSPICE AND NOT SURGERY. Objective - Vital Signs/Intake and Output Vital Signs (last 24 hours): Temp Pulse Resp BP Pulse Ox 98.6 F 82 20 124/58 L 100 07/21/17 15:36 07/21/17 15:36 07/21/17 15:36 07/21/17 18:42 07/21/17 15:36 Intake and Output: 07/21/17 07/22/17 18:59 06:59 Intake Total 118 Output Total 305 Balance -187 - Medications Medications: Current Medications Cyanocobalamin (Vitamin B12 1000 Mcg Tab) 1,000 mcg PO DAILY [facility] Last Admin: 07/21/17 10:17 Dose: 1,000 mcg Finasteride (Proscar) 5 mg PO DAILY [facility] Last Admin: 07/21/17 10:17 Dose: 5 mg Furosemide (Lasix) 40 mg PO MWF [facility] Last Admin: 07/10/17 09:26 Dose: 40 mg Hydromorphone HCl (Dilaudid) 1 mg IVP Q8 PRN PRN Reason: Pain, severe (8-10) Last Admin: 07/21/17 19:53 Dose: 1 mg Hydroxyzine HCl (Atarax) 25 mg PO Q6 PRN PRN Reason: Anxiety Imipenem/Cilastatin Sodium 500 (mg/ Sodium Chloride) 100 mls @ 100 mls/hr IVPB Q8H [facility] [place] Last Admin: 07/21/17 13:20 Dose: 100 mls/hr Sodium Chloride (Sodium Chloride 0.9%) 1,000 mls @ 60 mls/hr IV .[id number] [facility] [place] Last Admin: 07/21/17 01:40 Dose: Not Given Fluconazole (Diflucan Iv 200 Mg/100 Ml Ns) 100 mls @ 100 mls/hr IVPB Q24H [facility] [place] PRN Reason: Protocol Last Admin: 07/20/17 23:20 Dose: 100 mls/hr Insulin Aspart (Novolog) 0 unit SC ACHS [facility] [place] PRN Reason: Protocol Last Admin: 07/21/17 18:42 Dose: 1 unit Isosorbide Mononitrate (Imdur Er) 30 mg PO DAILY [facility] [place] Last Admin: 07/08/17 10:09 Dose: 30 mg Megestrol Acetate (Megace) 400 mg PO DAILY [facility] [place] Last Admin: 07/21/17 10:17 Dose: 400 mg Metoprolol Tartrate (Lopressor) 25 mg PO BID [facility] [place] Last Admin: 07/21/17 18:42 Dose: 25 mg Multivitamins (Hexavitamin) 1 tab PO DAILY [facility] [place] Last Admin: 07/21/17 10:17 Dose: 1 tab Pantoprazole Sodium (Protonix Ec Tab) 40 mg PO DAILY [facility] [place] Last Admin: 07/21/17 10:17 Dose: 40 mg Tamsulosin HCl (Flomax) 0.4 mg PO DAILY [facility] Last Admin: 07/21/17 10:17 Dose: 0.4 mg - Labs Labs: 07/20/17 10:55 07/20/17 10:55 - Constitutional Appears: No Acute Distress, Cachectic, Chronically Ill - Head Exam Head Exam: NORMAL INSPECTION - Eye Exam Eye Exam: EOMI, PERRL - ENT Exam ENT Exam: Mucous Membranes Dry - Neck Exam Neck Exam: Normal Inspection - Respiratory Exam Respiratory Exam: Decreased Breath Sounds. absent: Chest Wall Tenderness - Cardiovascular Exam Cardiovascular Exam: REGULAR RHYTHM, +S1, +S2 - GI/Abdominal Exam GI & Abdominal Exam: Soft, Normal Bowel Sounds - Extremities Exam Extremities Exam: Calf Tenderness, Pedal Edema Additional comments: Pedal Edema (Pedal Edema ((+VE SACRAL DEC ULCERS-STAGE 4, LT HIP DEC ULCER DEEP- STAGE 3, FEET WITH GANGRENOUS CHANGES)). absent: Calf Tenderness). ). +VE LE Tenderness - Neurological Exam Neurological Exam: Awake, Motor Sensory Deficit - Psychiatric Exam Psychiatric exam: Anxious - Skin Skin Exam: Warm Assessment and Plan (1) Decubitus ulcer with gangrene Assessment & Plan: ON IV PRIMAXIN 500MG IVPB Q 8HRLY 07/08/17 ON iv VANCOMYCIN 1GM IVPB Q 24 HRLY. F/U RENAL FUNCTIONS CLOSELY. Status: Acute (2) Anemia Status: Acute (3) Atrial fibrillation Status: Acute (4) Dementia Status: Acute (5) PVD (peripheral vascular disease) Status: Acute (6) Diabetes Status: Acute (7) Candiduria Assessment & Plan: URINE CULTURE POSITIVE FOR YEAST. pATIENT ON iv FLUCONAZOLE 200 MG ONCE A DAY DAILY -DAY 2. Status: Acute
[2017-07-21] MEDS: Fluconazole IV 200mg/100 ml NS 100 ML IVPB SCH (22:46)
[2017-07-22] MEDS: (Novolog) Insulin Aspart, Recombinant 100 u/ml 10 ml vial SC SCH ×4 (07:37→22:14)
[2017-07-22] MEDS: Megestrol Acetate 40 mg/ml Cup PO SCH (09:19)
[2017-07-22] MEDS: Multiple Vitamins Tab PO SCH (09:19)
[2017-07-22] MEDS: Pantoprazole 40 mg EC Tab PO SCH (09:20)
[2017-07-22] MEDS: HYDROmorphone 1 mg/ml ISec IVP PRN ×2 (11:19→19:32)
[2017-07-22] MEDS: Sodium Chloride 0.9% 1,000 ML IV SCH (11:23)
--- NOTE | 2017-07-22 11:35 | CP.PCM.PN ---
Subjective - Date & Time of Evaluation Date of Evaluation: 07/22/17 Time of Evaluation: 11:32 - Subjective Subjective: 87 yo male patient with PMHx of Altered Mental Status, Anemia, Cardia Arrhythmia (atrial fib), CHF, HTN, Hypercholesterolemia, CKD, Sleep Apnea was seen at bedside this afternoon concerning gangrene of bilateral lower extremities. Patient denies of any N/V/F/C or SOB. patient appears in NAD. Objective - Vital Signs/Intake and Output Vital Signs (last 24 hours): Temp Pulse Resp BP Pulse Ox 98 F 85 20 135/69 100 07/22/17 07:00 07/22/17 07:00 07/22/17 07:00 07/22/17 09:20 07/22/17 07:00 Intake and Output: 07/22/17 07/22/17 06:59 18:59 Intake Total 890 Output Total 600 Balance 290 - Medications Medications: Current Medications Cyanocobalamin (Vitamin B12 1000 Mcg Tab) 1,000 mcg PO DAILY [facility] Last Admin: 07/22/17 09:23 Dose: 1,000 mcg Finasteride (Proscar) 5 mg PO DAILY [facility] Last Admin: 07/22/17 09:20 Dose: 5 mg Furosemide (Lasix) 40 mg PO MWF [facility] Last Admin: 07/10/17 09:26 Dose: 40 mg Hydromorphone HCl (Dilaudid) 1 mg IVP Q8 PRN PRN Reason: Pain, severe (8-10) Last Admin: 07/22/17 11:19 Dose: 1 mg Hydroxyzine HCl (Atarax) 25 mg PO Q6 PRN PRN Reason: Anxiety Imipenem/Cilastatin Sodium 500 (mg/ Sodium Chloride) 100 mls @ 100 mls/hr IVPB Q8H [facility] Last Admin: 07/22/17 05:38 Dose: 100 mls/hr Sodium Chloride (Sodium Chloride 0.9%) 1,000 mls @ 60 mls/hr IV .[id number] [facility] Last Admin: 07/22/17 11:23 Dose: 60 mls/hr Fluconazole (Diflucan Iv 200 Mg/100 Ml Ns) 100 mls @ 100 mls/hr IVPB Q24H [facility] PRN Reason: Protocol Last Admin: 07/21/17 22:46 Dose: 100 mls/hr Insulin Aspart (Novolog) 0 unit SC ACHS [facility] PRN Reason: Protocol Last Admin: 07/22/17 07:37 Dose: 2 unit Isosorbide Mononitrate (Imdur Er) 30 mg PO DAILY [facility] Last Admin: 07/08/17 10:09 Dose: 30 mg Megestrol Acetate (Megace) 400 mg PO DAILY [facility] Last Admin: 07/22/17 09:19 Dose: 400 mg Metoprolol Tartrate (Lopressor) 25 mg PO BID [facility] Last Admin: 07/22/17 09:20 Dose: 25 mg Multivitamins (Hexavitamin) 1 tab PO DAILY [facility] Last Admin: 07/22/17 09:19 Dose: 1 tab Pantoprazole Sodium (Protonix Ec Tab) 40 mg PO DAILY [facility] Last Admin: 07/22/17 09:20 Dose: 40 mg Tamsulosin HCl (Flomax) 0.4 mg PO DAILY [facility] Last Admin: 07/22/17 09:19 Dose: 0.4 mg - Labs Labs: 07/20/17 10:55 07/20/17 10:55 - Constitutional Appears: Well, Non-toxic, No Acute Distress - Extremities Exam Additional comments: vasc: nonpalpable DP and PT pulses due to gangrenous changes and blisters, CFT sluggish, TG wnl neuro: grossly diminished derm: left : no edema, no erythema, dried blisters of dorsal left foot with patchy gangrenous changes throughout foot and ankle, necrotic eschar on heel, with dusky changes noted to left hallux, no malodor, no drainage, no purulence right: no edema, no erythema, no open lesions, necrotic heel eschar noted with gangrensou changes noted to lateral foot and ankle, no drainage, no ascending cellulitis, no purulence - Neurological Exam Neurological Exam: Alert, Awake Assessment and Plan - Assessment and Plan (Free Text) Assessment: 87 yo male patient with PMHx of DM CAD Dementia, PVD, sacral decubitus ulcer present with bilateral lower extremity gangrene Plan: Patient was seen evaluated at bedside discussed in detail with Dr. Terry labs and vitals reviewed Bilateral lower extremity dressing applied using xeroform, DSD, applied multipodus boot cont. local wound care Family medicine note appreciated; Patient and his opting for home hospice rather than B/L [facility] Podiatry will continue to follow in house
--- NOTE | 2017-07-22 12:15 | US ---
Indication: Bladder stones, cystitis Pelvic ultrasound Comparison: Pelvic ultrasound performed 06/07/17 Findings: Limited study due to patient condition. Partially distended urinary bladder. Hill catheter present. Irregular bladder wall thickening. 1 x 0.7 x 1.5 cm superior bladder diverticulum. Urinary calculi are not visualized. 3.0 x 1.2 x 2.4 cm avascular hypoechoic focus within the urinary bladder posteriorly, possibly debris. Prevoid urinary bladder volume 165.0 mL. Postvoid urinary bladder could not be obtained. The prostate gland is not visualized. Left ureteral jet is not visualized. Right ureteral jet is seen. Prevoid urinary bladder volume 165.0 mL. Postvoid urinary bladder could not be obtained. The prostate gland is not visualized. Urinary calculi are not visualized. Impression: Markedly limited study. Irregular bladder wall thickening. Hill catheter present. 3.0 x 1.2 x 2.4 cm avascular hypoechoic focus within the urinary bladder posteriorly, possibly debris. 1 x 0.7 x 1.5 cm superior bladder diverticulum. Left ureteral jet is not visualized. Right ureteral jet is seen. Prevoid urinary bladder volume 165.0 mL. Postvoid urinary bladder could not be obtained. The prostate gland is not visualized. Urinary calculi are not visualized.
--- NOTE | 2017-07-22 17:45 | CP.PCM.PN ---
Subjective - Date & Time of Evaluation Date of Evaluation: 07/22/17 Time of Evaluation: 09:40 - Subjective Subjective: clinically same Objective - Vital Signs/Intake and Output Vital Signs (last 24 hours): Temp Pulse Resp BP Pulse Ox 97.5 F L 100 H 20 126/69 100 07/22/17 15:00 07/22/17 15:00 07/22/17 15:00 07/22/17 15:00 07/22/17 15:00 Intake and Output: 07/22/17 07/22/17 06:59 18:59 Intake Total 890 Output Total 600 Balance 290 - Medications Medications: Current Medications Cyanocobalamin (Vitamin B12 1000 Mcg Tab) 1,000 mcg PO DAILY [facility] Last Admin: 07/22/17 09:23 Dose: 1,000 mcg Finasteride (Proscar) 5 mg PO DAILY [facility] Last Admin: 07/22/17 09:20 Dose: 5 mg Furosemide (Lasix) 40 mg PO MWF [facility] Last Admin: 07/10/17 09:26 Dose: 40 mg Hydromorphone HCl (Dilaudid) 1 mg IVP Q8 PRN PRN Reason: Pain, severe (8-10) Last Admin: 07/22/17 11:19 Dose: 1 mg Hydroxyzine HCl (Atarax) 25 mg PO Q6 PRN PRN Reason: Anxiety Last Admin: 07/22/17 13:03 Dose: 25 mg Imipenem/Cilastatin Sodium 500 (mg/ Sodium Chloride) 100 mls @ 100 mls/hr IVPB Q8H [facility] Last Admin: 07/22/17 13:50 Dose: 100 mls/hr Sodium Chloride (Sodium Chloride 0.9%) 1,000 mls @ 60 mls/hr IV .[id number] [facility] Last Admin: 07/22/17 11:23 Dose: 60 mls/hr Fluconazole (Diflucan Iv 200 Mg/100 Ml Ns) 100 mls @ 100 mls/hr IVPB Q24H [facility] PRN Reason: Protocol Last Admin: 07/21/17 22:46 Dose: 100 mls/hr Insulin Aspart (Novolog) 0 unit SC ACHS [facility] PRN Reason: Protocol Last Admin: 07/22/17 12:01 Dose: Not Given Isosorbide Mononitrate (Imdur Er) 30 mg PO DAILY [facility] Last Admin: 07/08/17 10:09 Dose: 30 mg Megestrol Acetate (Megace) 400 mg PO DAILY [facility] Last Admin: 07/22/17 09:19 Dose: 400 mg Metoprolol Tartrate (Lopressor) 25 mg PO BID [facility] Last Admin: 07/22/17 09:20 Dose: 25 mg Multivitamins (Hexavitamin) 1 tab PO DAILY [facility] Last Admin: 07/22/17 09:19 Dose: 1 tab Pantoprazole Sodium (Protonix Ec Tab) 40 mg PO DAILY [facility] Last Admin: 07/22/17 09:20 Dose: 40 mg Tamsulosin HCl (Flomax) 0.4 mg PO DAILY [facility] Last Admin: 07/22/17 09:19 Dose: 0.4 mg - Labs Labs: 07/20/17 10:55 07/20/17 10:55 - Constitutional Appears: Well - Head Exam Head Exam: ATRAUMATIC, NORMAL INSPECTION, NORMOCEPHALIC - Eye Exam Eye Exam: EOMI, Normal appearance, PERRL Pupil Exam: NORMAL ACCOMODATION, PERRL - ENT Exam ENT Exam: Mucous Membranes Moist, Normal Exam - Neck Exam Neck Exam: Full ROM, Normal Inspection. absent: Lymphadenopathy - Respiratory Exam Respiratory Exam: Decreased Breath Sounds - Cardiovascular Exam Cardiovascular Exam: REGULAR RHYTHM, +S1, +S2 - GI/Abdominal Exam GI & Abdominal Exam: Soft, Diminished Bowel Sounds - Rectal Exam Rectal Exam: Deferred Assessment and Plan - Assessment and Plan (Free Text) Plan: Patient with the poor prognosis Patient with altered mental status today little earlier Discussed with the family Poor prognosis Patient may need bilateral leg care Continue imipenem and other antibiotics Continue same Follow-up with the consultants
[2017-07-22] MEDS: Fluconazole IV 200mg/100 ml NS 100 ML IVPB SCH (22:13)
[2017-07-23] MEDS: (Novolog) Insulin Aspart, Recombinant 100 u/ml 10 ml vial SC SCH ×4 (07:40→21:12)
[2017-07-23] MEDS: Multiple Vitamins Tab PO SCH (09:00)
[2017-07-23] MEDS: Pantoprazole 40 mg EC Tab PO SCH (09:01)
[2017-07-23] MEDS: Megestrol Acetate 40 mg/ml Cup PO SCH (09:01)
--- NOTE | 2017-07-23 16:13 | CP.PCM.PN ---
Subjective - Date & Time of Evaluation Date of Evaluation: 07/23/17 Time of Evaluation: 09:50 - Subjective Subjective: clinically same Objective - Vital Signs/Intake and Output Vital Signs (last 24 hours): Temp Pulse Resp BP Pulse Ox 99.2 F 92 H 20 133/77 99 07/23/17 07:00 07/23/17 07:00 07/23/17 07:00 07/23/17 09:00 07/23/17 07:00 Intake and Output: 07/23/17 07/23/17 06:59 18:59 Intake Total Output Total 400 Balance -400 - Medications Medications: Current Medications Furosemide (Lasix) 40 mg PO MWF [facility] Last Admin: 07/10/17 09:26 Dose: 40 mg Hydromorphone HCl (Dilaudid) 1 mg IVP Q8 PRN PRN Reason: Pain, severe (8-10) Last Admin: 07/22/17 19:32 Dose: 1 mg Hydroxyzine HCl (Atarax) 25 mg PO Q6 PRN PRN Reason: Anxiety Last Admin: 07/22/17 13:03 Dose: 25 mg Imipenem/Cilastatin Sodium 500 (mg/ Sodium Chloride) 100 mls @ 100 mls/hr IVPB Q8H [facility] Last Admin: 07/23/17 14:00 Dose: 100 mls/hr Fluconazole (Diflucan Iv 200 Mg/100 Ml Ns) 100 mls @ 100 mls/hr IVPB Q24H [facility] PRN Reason: Protocol Last Admin: 07/22/17 22:13 Dose: 100 mls/hr Insulin Aspart (Novolog) 0 unit SC ACHS [facility] PRN Reason: Protocol Last Admin: 07/23/17 12:19 Dose: 2 unit Isosorbide Mononitrate (Imdur Er) 30 mg PO DAILY [facility] Last Admin: 07/08/17 10:09 Dose: 30 mg Megestrol Acetate (Megace) 400 mg PO DAILY [facility] Last Admin: 07/23/17 09:01 Dose: 400 mg Metoprolol Tartrate (Lopressor) 25 mg PO BID [facility] Last Admin: 07/23/17 09:00 Dose: 25 mg Tamsulosin HCl (Flomax) 0.4 mg PO DAILY [facility] Last Admin: 07/23/17 09:01 Dose: 0.4 mg - Labs Labs: 07/20/17 10:55 07/20/17 10:55 - Constitutional Appears: Well - Head Exam Head Exam: ATRAUMATIC, NORMAL INSPECTION, NORMOCEPHALIC - Eye Exam Eye Exam: EOMI, Normal appearance, PERRL Pupil Exam: NORMAL ACCOMODATION, PERRL - ENT Exam ENT Exam: Mucous Membranes Moist, Normal Exam - Neck Exam Neck Exam: Full ROM, Normal Inspection. absent: Lymphadenopathy - Respiratory Exam Respiratory Exam: Decreased Breath Sounds - Cardiovascular Exam Cardiovascular Exam: REGULAR RHYTHM, +S1, +S2 - GI/Abdominal Exam GI & Abdominal Exam: Soft, Diminished Bowel Sounds - Rectal Exam Rectal Exam: Deferred
[2017-07-23 16:29] VITALS: O2SAT 100
[2017-07-23] MEDS: Fluconazole IV 200mg/100 ml NS 100 ML IVPB SCH (22:30)
--- NOTE | 2017-07-23 23:48 | CP.PCM.PN ---
Subjective - Date & Time of Evaluation Date of Evaluation: 07/23/17 Time of Evaluation: 23:48 - Subjective Subjective: AFEBRILE. WEAK. UNABLE TO ANSWER QUESTIONS S/P PELVIC US. UNABLE TO VOID AND FOLYS HAD TO BE REINSERTED PT HAS B/L LE GANGRENE FEET/ANKLES. FAMILY AT BEDSIDE. Objective - Vital Signs/Intake and Output Vital Signs (last 24 hours): Temp Pulse Resp BP Pulse Ox 98.5 F 84 20 111/66 100 07/23/17 15:00 07/23/17 15:00 07/23/17 15:00 07/23/17 17:34 07/23/17 15:00 Intake and Output: 07/23/17 07/24/17 18:59 06:59 Intake Total 460 Output Total 400 650 Balance -400 -190 - Medications Medications: Current Medications Furosemide (Lasix) 40 mg PO MWF [facility] Last Admin: 07/10/17 09:26 Dose: 40 mg Hydromorphone HCl (Dilaudid) 1 mg IVP Q8 PRN PRN Reason: Pain, severe (8-10) Last Admin: 07/22/17 19:32 Dose: 1 mg Hydroxyzine HCl (Atarax) 25 mg PO Q6 PRN PRN Reason: Anxiety Last Admin: 07/22/17 13:03 Dose: 25 mg Imipenem/Cilastatin Sodium 500 (mg/ Sodium Chloride) 100 mls @ 100 mls/hr IVPB Q8H [facility] Last Admin: 07/23/17 21:04 Dose: 100 mls/hr Fluconazole (Diflucan Iv 200 Mg/100 Ml Ns) 100 mls @ 100 mls/hr IVPB Q24H [facility] PRN Reason: Protocol Last Admin: 07/23/17 22:30 Dose: 100 mls/hr Insulin Aspart (Novolog) 0 unit SC ACHS [facility] PRN Reason: Protocol Last Admin: 07/23/17 21:12 Dose: Not Given Isosorbide Mononitrate (Imdur Er) 30 mg PO DAILY [facility] Last Admin: 07/08/17 10:09 Dose: 30 mg Megestrol Acetate (Megace) 400 mg PO DAILY [facility] Last Admin: 07/23/17 09:01 Dose: 400 mg Metoprolol Tartrate (Lopressor) 25 mg PO BID [facility] Last Admin: 07/23/17 17:34 Dose: 25 mg Tamsulosin HCl (Flomax) 0.4 mg PO DAILY [facility] Last Admin: 07/23/17 09:01 Dose: 0.4 mg - Labs Labs: 07/20/17 10:55 07/20/17 10:55 - Constitutional Appears: No Acute Distress, Cachectic, Chronically Ill - Eye Exam Eye Exam: PERRL - ENT Exam ENT Exam: Mucous Membranes Dry, Normal Oropharynx - Neck Exam Neck Exam: Normal Inspection - Respiratory Exam Respiratory Exam: Decreased Breath Sounds - Cardiovascular Exam Cardiovascular Exam: +S1, +S2 - GI/Abdominal Exam GI & Abdominal Exam: Soft, Normal Bowel Sounds - Extremities Exam Extremities Exam: Pedal Edema (B/L LE AND FEET WITH GANGRENOUS CHANGES. LEFT HIP DECUITUS ULCER STAGE 4.). absent: Calf Tenderness - Neurological Exam Neurological Exam: Altered, Awake - Psychiatric Exam Psychiatric exam: Flat Affect - Skin Skin Exam: Pallor, Warm Assessment and Plan (1) Decubitus ulcer with gangrene Assessment & Plan: ON iv IMIPENEM AND IV FLUCONAZOLE. Status: Acute (2) Anemia Assessment & Plan: WBC 10.5 improving on 07/23/17 H&H 8.9/26.2 Platelets 295. Status: Acute (3) Atrial fibrillation Status: Acute (4) Dementia Status: Acute (5) PVD (peripheral vascular disease) Status: Acute (6) Diabetes Status: Acute (7) Candiduria Assessment & Plan: PT ON IV FLUCONAZOLE 200 MG ONCE A DAY DAILY X 5 DAYS. F/U PELVIC ULTRASOUND Status: Acute
[2017-07-24] MEDS: Sodium Chloride 0.9% 1,000 ML IV SCH (05:24)
[2017-07-24] MEDS: (Novolog) Insulin Aspart, Recombinant 100 u/ml 10 ml vial SC SCH ×4 (08:01→17:22)
--- NOTE | 2017-07-24 09:07 | PCM.URO ---
Urology Progress Note - General General: No Complaints, Tolerating Diet - Subjective Abdominal Pain: No Flank Pain: No Nausea: No Vomiting: No Voiding Well: No Hematuria: No Good Stream: No (roberts in place) Chest Pain: No Fever & Chills: No - Objective Lab Results Last 24 Hours: Laboratory Results - last 24 hr 07/23/17 07/23/17 07/23/17 11:39 16:01 21:10 POC Glucose (mg/dL) 244 H 175 H 182 H 07/24/17 06:04 POC Glucose (mg/dL) 213 H Intake & Output: Intake & Output 07/23/17 07/24/17 07/24/17 18:59 06:59 18:59 Intake Total 940 Output Total 400 1000 Balance -400 -60 Weight 157 lb Intake: Intake, IV Amount 840 Right Antecubital 840 Oral 100 Output: Urine 400 1000 Urethral (Roberts) 400 1000 Other: # Bowel Movements 0 Vital Signs: Vital Signs - 24 hr 07/23/17 07/23/17 07/23/17 15:00 17:34 23:05 Temperature 98.5 F 99.1 F Pulse Rate 84 97 H Respiratory 20 20 Rate Blood Pressure 111/66 111/66 121/80 O2 Sat by Pulse 100 100 Oximetry 07/24/17 08:00 Temperature 98.0 F Pulse Rate 100 H Respiratory 20 Rate Blood Pressure 132/69 O2 Sat by Pulse 100 Oximetry - Physical Exam Abdominal Exam: Soft, Non-Tender, Non-Distended Back: No CVA Tenderness Genitalia: Without Inflammation Urinary Catheter Draining Well: Yes Urine Color: Yellow - Plan Catheter Care: Yes Intake & Output: Yes - Date & Time of Note Date: 07/24/17 Time: 09:07
[2017-07-24] MEDS: Megestrol Acetate 40 mg/ml Cup PO SCH (09:16)
--- NOTE | 2017-07-24 10:04 | CON ---
DATE: Urology consultation requested by Mary Jones MD. Urology consultation filled by Jenny Schulte MD REASON FOR CONSULTATION: Urinary incontinence. The patient is an 87-year-old male with urinary incontinence. The patient is in otherwise fair health. The patient has a history of urinary incontinence. He has had overactive bladder. The patient also has had incomplete bladder emptying associated with prostatic hypertrophy. The patient has been treated with various pharmacotherapy agents to improve his urinary control. The patient now has an indwelling Hill catheter. The patient also has developed dementia. He has multiple medical problems as delineated above. The patient's chart is reviewed as well. Laboratory data is reviewed as well. The patient reports no abdominal pain. No flank pain. He is unaware of the presence of the Hill catheter. PHYSICAL EXAMINATION: GENERAL: The patient is a well-developed, well-nourished elderly male. The patient is awake and alert. The patient is oriented to person only. ABDOMEN: Soft, nontender, nondistended. No mass or organomegaly. GENITALIA: Without inflammation. Hill catheter in place. Scrotal contents without inflammation. Urine is bib via the Hill catheter. IMPRESSION: Urinary incontinence. Indwelling Hill catheter. History of benign prostatic hypertrophy. History of overactive bladder. RECOMMENDATION AND PLAN: Hill catheter in place. Review old records regarding previous urologic workup. The patient had recently undergone cystoscopy. Hill catheter in place. Further therapy to follow according to the patient's clinical course. Thank you for recommending the patient for urology consultation. Jenny Schulte MD cc: Mary Jones MD
--- NOTE | 2017-07-24 12:33 | CP.PCM.PN ---
Subjective - Date & Time of Evaluation Date of Evaluation: 07/24/17 Time of Evaluation: 10:00 - Subjective Subjective: Offers no complaints, wants " to be left alone" Objective - Vital Signs/Intake and Output Vital Signs (last 24 hours): Temp Pulse Resp BP Pulse Ox 98.0 F 100 H 20 125/64 100 07/24/17 08:00 07/24/17 08:00 07/24/17 08:00 07/24/17 09:16 07/24/17 08:00 Intake and Output: 07/24/17 07/24/17 06:59 18:59 Intake Total 940 Output Total 1000 Balance -60 - Medications Medications: Current Medications Furosemide (Lasix) 40 mg PO MWF [facility] Last Admin: 07/10/17 09:26 Dose: 40 mg Hydromorphone HCl (Dilaudid) 1 mg IVP Q8 PRN PRN Reason: Pain, severe (8-10) Last Admin: 07/22/17 19:32 Dose: 1 mg Hydroxyzine HCl (Atarax) 25 mg PO Q6 PRN PRN Reason: Anxiety Last Admin: 07/22/17 13:03 Dose: 25 mg Imipenem/Cilastatin Sodium 500 (mg/ Sodium Chloride) 100 mls @ 100 mls/hr IVPB Q8H [facility] Last Admin: 07/24/17 05:26 Dose: 100 mls/hr Fluconazole (Diflucan Iv 200 Mg/100 Ml Ns) 100 mls @ 100 mls/hr IVPB Q24H [facility] PRN Reason: Protocol Last Admin: 07/23/17 22:30 Dose: 100 mls/hr Insulin Aspart (Novolog) 0 unit SC ACHS [facility] PRN Reason: Protocol Last Admin: 07/24/17 08:02 Dose: 2 unit Isosorbide Mononitrate (Imdur Er) 30 mg PO DAILY [facility] Last Admin: 07/08/17 10:09 Dose: 30 mg Megestrol Acetate (Megace) 400 mg PO DAILY [facility] Last Admin: 07/24/17 09:16 Dose: 400 mg Metoprolol Tartrate (Lopressor) 25 mg PO BID [facility] Last Admin: 07/24/17 09:16 Dose: 25 mg Tamsulosin HCl (Flomax) 0.4 mg PO DAILY [facility] Last Admin: 07/24/17 09:16 Dose: 0.4 mg - Labs Labs: 07/20/17 10:55 07/20/17 10:55 - Constitutional Appears: No Acute Distress, Chronically Ill - Head Exam Head Exam: ATRAUMATIC, NORMAL INSPECTION, NORMOCEPHALIC - Eye Exam Eye Exam: EOMI, Normal appearance, PERRL Pupil Exam: NORMAL ACCOMODATION, PERRL - ENT Exam ENT Exam: Mucous Membranes Dry - Neck Exam Neck Exam: Normal Inspection - Respiratory Exam Respiratory Exam: Decreased Breath Sounds - Cardiovascular Exam Cardiovascular Exam: Tachycardia - GI/Abdominal Exam GI & Abdominal Exam: Hypoactive Bowel Sounds - Rectal Exam Rectal Exam: Deferred - Exam Additional comments: Hill catheter - Extremities Exam Extremities Exam: Pedal Edema - Back Exam Back Exam: NORMAL INSPECTION - Neurological Exam Neurological Exam: Alert, Altered Neuro motor strength exam: Left Upper Extremity: 2/, Right Upper Extremity: 2/ , Left Lower Extremity: 2/, Right Lower Extremity: 2/ - Psychiatric Exam Psychiatric exam: Flat Affect - Skin Skin Exam: Pallor Assessment and Plan - Assessment and Plan (Free Text) Assessment: Palliative progress note Patient seen and examined in bed. Looks tired, eyes closed, Skin pale, doesn't want to interact. Appetite remains poor. Urine output poor. Patient is being on the bed rest. Lower extremities are discolored, painful to touch, patient reacts in pain when positioned. Patient's has been contemplating bringing patient home on hospice. We met this morning and had a long discussion about end of life care. Ms. La was a very clear that she would want her to at home, and she doesn' t want any aggressive interventions that would prolong patient's suffering, including further blood work, PICC line... I spoke to patient's niece over the phone as well, who indicated that the patient has been asking to be allowed peaceful since the beginning of this admission. Ms. La is the one having difficulties respecting his wishes. Today Ms. La came to peace with herself and decided to take patient to the long term on hospice care. She claims her home needs furniture arrangement before patient's gets home. These was discussed with Robert VELASCO. Concern is patient's insurance at this point as he only has Medicare part A , no part B, and these needs to be further discussed with adult protective caseworker and child welfare social worker. Assessment * Chronically ill man at the end of his life * Patient is unable to advocate for himself due to altered mental status and weakness * Poor PO intakes place patient at risk for malnurition * Pain of LEs due to poor circulation * Patient's advocates for him and have decided on Hospice care * Patient's insurance doesn't allow hospice at the long term placement Plan * Comfort care would be the best level of care at the stage of patient's life * Would stop for the blood work, wouldn't do the PICC line * director pharmacy services to assist patient's with placement at the long term if possible I we'll discuss DNR DNI status with Ms. La today
[2017-07-24 15:41] VITALS: BP 149/92; PULSE 93; TEMP 97
--- NOTE | 2017-07-24 15:44 | CP.PCM.PN ---
Subjective - Date & Time of Evaluation Date of Evaluation: 07/24/17 Time of Evaluation: 10:40 - Subjective Subjective: clinically same Objective - Vital Signs/Intake and Output Vital Signs (last 24 hours): Temp Pulse Resp BP Pulse Ox 97 F L 93 H 20 149/92 H 100 07/24/17 15:40 07/24/17 15:40 07/24/17 15:40 07/24/17 15:40 07/24/17 15:40 Intake and Output: 07/24/17 07/24/17 06:59 18:59 Intake Total 940 Output Total 1000 325 Balance -60 -325 - Medications Medications: Current Medications Furosemide (Lasix) 40 mg PO MWF [facility] Last Admin: 07/10/17 09:26 Dose: 40 mg Hydromorphone HCl (Dilaudid) 1 mg IVP Q8 PRN PRN Reason: Pain, severe (8-10) Last Admin: 07/22/17 19:32 Dose: 1 mg Hydroxyzine HCl (Atarax) 25 mg PO Q6 PRN PRN Reason: Anxiety Last Admin: 07/22/17 13:03 Dose: 25 mg Imipenem/Cilastatin Sodium 500 (mg/ Sodium Chloride) 100 mls @ 100 mls/hr IVPB Q8H [facility] Last Admin: 07/24/17 13:10 Dose: 100 mls/hr Fluconazole (Diflucan Iv 200 Mg/100 Ml Ns) 100 mls @ 100 mls/hr IVPB Q24H [facility] PRN Reason: Protocol Last Admin: 07/23/17 22:30 Dose: 100 mls/hr Insulin Aspart (Novolog) 0 unit SC ACHS [facility] PRN Reason: Protocol Last Admin: 07/24/17 13:10 Dose: 1 unit Isosorbide Mononitrate (Imdur Er) 30 mg PO DAILY [facility] Last Admin: 07/08/17 10:09 Dose: 30 mg Megestrol Acetate (Megace) 400 mg PO DAILY [facility] Last Admin: 07/24/17 09:16 Dose: 400 mg Metoprolol Tartrate (Lopressor) 25 mg PO BID [facility] Last Admin: 07/24/17 09:16 Dose: 25 mg Tamsulosin HCl (Flomax) 0.4 mg PO DAILY [facility] Last Admin: 07/24/17 09:16 Dose: 0.4 mg - Labs Labs: 07/20/17 10:55 07/20/17 10:55 - Constitutional Appears: Well - Head Exam Head Exam: ATRAUMATIC, NORMAL INSPECTION, NORMOCEPHALIC - Eye Exam Eye Exam: EOMI, Normal appearance, PERRL Pupil Exam: NORMAL ACCOMODATION, PERRL - ENT Exam ENT Exam: Mucous Membranes Moist, Normal Exam - Neck Exam Neck Exam: Full ROM, Normal Inspection. absent: Lymphadenopathy - Respiratory Exam Respiratory Exam: Decreased Breath Sounds - Cardiovascular Exam Cardiovascular Exam: REGULAR RHYTHM, +S1, +S2 - GI/Abdominal Exam GI & Abdominal Exam: Soft, Diminished Bowel Sounds - Rectal Exam Rectal Exam: Deferred
[2017-07-24] MEDS: HYDROmorphone 1 mg/ml ISec IVP PRN (19:36)
== END 2017-07-24 19:35 | DRG 299 ==
LOC: C.ER 12:48 → C.9E 15:14 → C.6T 07-08 17:10
PROVIDERS: ADMIT Internal Medicine Nephrology; ATTEND Internal Medicine Nephrology
DX: E11.52 Type 2 diabetes mellitus with diabetic peripheral angiopathy with gangrene (principal); L89.154 Pressure ulcer of sacral region, stage 4; E11.22 Type 2 diabetes mellitus with diabetic chronic kidney disease; E11.621 Type 2 diabetes mellitus with foot ulcer; L89.223 Pressure ulcer of left hip, stage 3; F05 Delirium due to known physiological condition; I13.0 Hypertensive heart and chronic kidney disease with heart failure and stage 1 through stage 4 chronic kidney disease, or unspecified chronic kidney disease; N39.0 Urinary tract infection, site not specified; L97.429 Non-pressure chronic ulcer of left heel and midfoot with unspecified severity; L97.419 Non-pressure chronic ulcer of right heel and midfoot with unspecified severity; I50.9 Heart failure, unspecified; I48.91 Unspecified atrial fibrillation; N18.9 Chronic kidney disease, unspecified; Z79.4 Long term (current) use of insulin; E78.00 Pure hypercholesterolemia, unspecified; Z95.5 Presence of coronary angioplasty implant and graft; Z95.1 Presence of aortocoronary bypass graft; G47.30 Sleep apnea, unspecified; Z85.51 Personal history of malignant neoplasm of bladder; F03.90 Unspecified dementia, unspecified severity, without behavioral disturbance, psychotic disturbance, mood disturbance, and anxiety; I25.10 Atherosclerotic heart disease of native coronary artery without angina pectoris; Z51.5 Encounter for palliative care; B96.89 Other specified bacterial agents as the cause of diseases classified elsewhere; R32 Unspecified urinary incontinence; N32.81 Overactive bladder; N40.1 Benign prostatic hyperplasia with lower urinary tract symptoms; R33.8 Other retention of urine